=== PATIENT | female | born 1980 | race Caucasian/White ===

== ENCOUNTER → 2017-09-24 13:43 | Outpatient (REF) | payer MEDICAID, SELFPAY ==
[2017-09-24 17:08] LABS: Basophils # 0.1 K/mm3 (0-0.2); Basophils % 0.7 % (0.1-2.0); Eosinophils # 0.1 K/mm3 (0.0-0.4); Eosinophils % 0.7 % (0.1-12.0); Hematocrit 43.1 % (37.0-47.0); Hemoglobin 13.9 g/dL (12.2-16.2); Lymphocytes # 3.1 K/mm3 (0.7-4.5); Lymphocytes % 30.9 K/mm3 (10-50); Mean Corpuscular HGB Conc 32.2 g/dL (31.8-35.4); Mean Corpuscular Hemoglobin 29.8 pg (27.0-31.2); Mean Corpuscular Volume 92.5 fl (81-99); Mean Platelet Volume 10.7 fl (7.4-10.4); Monocytes # 0.4 K/mm3 (0.1-1.0); Monocytes % 4.2 % (1.7-9.3); Neutrophils # 6.3 K/mm3 (1.8-7.8); Neutrophils % 63.5 % (37.0-80.0); Platelet Count 311 K/mm3 (142-424); Red Blood Count 4.66 M/mm3 (4.20-5.40); Red Cell Distribution Width 13.9 % (11.5-17.5); White Blood Count 9.9 K/mm3 (4.8-10.8)
[2017-09-24 17:31] LABS: Alanine Aminotransferase 39 U/L (12-78); Albumin Level 4.3 gm/dL (3.4-5.0); Albumin/Globulin Ratio 1.1 (1.1-1.8); Alkaline Phosphatase 87 U/L (46-116); Anion Gap 14.8 mEq/L (5-15); Aspartate Amino Transferase 27 U/L (15-37); Bilirubin,Total 0.5 mg/dL (0.2-1.0); Blood Urea Nitrogen 15 mg/dL (7-18); Calcium 9.3 mg/dL (8.5-10.1); Carbon Dioxide 28 mmol/L (21.0-32.0); Chloride 101 mmol/L (98-107); Creatinine,Serum 1.35 mg/dL (0.55-1.02); Estimated Glomerular Filt Rate 44 ml/min (>60); Free T4 (Free Thyroxine) 1.29 ng/dl (0.76-1.46); GFR (African American) 53 ML/MIN (>60); Globulin 3.9 gm/dl (1.3-3.2); Glucose 108 mg/dL (74-106); Potassium 3.8 mmoL/L (3.5-5.1); Sodium 140 mmol/L (136-145); Total Protein,Serum 8.2 gm/dL (6.4-8.2)
[2017-09-24 18:26] LABS: Hemoglobin A1C 6.3 % (0.0-7.0)
[2017-09-24 19:23] LABS: Erythrocyte Sedimentation Rate 53 mm/hr (0-20)
[2017-09-27 10:47] LABS: Vitamin D 25 Hydroxy 22.5 ng/mL (30.0-100.0)
== END ==
LOC: LAB 13:43
PROVIDERS: Visit Provider Emergency Medicine
DX: R53.83 Other fatigue (principal)
CPT/HCPCS: 80053; 82652; 83036; 84439; 84443; 85025; 85651

== ENCOUNTER → 2017-09-29 15:03 | Outpatient (CLI) | payer MEDICAID, SELFPAY ==
[2017-10-01 11:17] LABS: Anti-Jo-1 <0.2 AI (0.0-0.9); Anti-Smith Antibody <0.2 AI (0.0-0.9); Antichromatin Antibodies <0.2 AI (0.0-0.9); Antiscleroderma-70 Antibodies <0.2 AI (0.0-0.9); RNP Antibodies 2.4 AI (0.0-0.9); Sjogren's Anti-SS-A <0.2 AI (0.0-0.9); Sjogren's Anti-SS-B <0.2 AI (0.0-0.9)
[2017-10-01 18:23] LABS: Anti-Centromere B Antibodies <0.2 AI (0.0-0.9); Anti-DNA (DS) Ab Qn <1 IU/mL (0-9)
[2017-10-01 18:24] LABS: RA Latex Turbid. <10.0 IU/mL (0.0-13.9)
[2017-10-02 06:14] LABS: dRVVT Confirm 1.5 ratio (0.8-1.2); dRVVT Mix 53.9 sec (0.0-47.0)
[2017-10-02 10:48] LABS: Anti-Cyclic Citrullinated Pept 4 units (0-19)
[2017-10-02 18:27] LABS: Lupus Reflex Interpretation Comment: (.); dRVVT 59.7 sec (0.0-47.0)
== END ==
PROVIDERS: PCP Emergency Medicine; Visit Provider Emergency Medicine
DX: R70.0 Elevated erythrocyte sedimentation rate (principal); L65.9 Nonscarring hair loss, unspecified
CPT/HCPCS: 36415; 85613; 86038; 86141; 86431

== ENCOUNTER 2017-10-17 15:32 | Emergency (ER) | payer MEDICAID, SELFPAY ==
[2017-10-17 15:58] VITALS: BP 109/52; PULSE 78; RESP 18; TEMP 36.9; O2SAT 98; BMI 42.9
--- NOTE | 2017-10-17 16:05 | XR_ITS ---
XR chest 2V HISTORY: ITS.REASON: RIGHT SHOULDER ORDERING PHYSICIAN: Amairani Kapoor MD PATIENT AGE: 37 years COMPARISON: 07/03/2016 FINDINGS: The cardiomediastinal silhouette and pulmonary vascularity are within normal limits. The lungs are clear without infiltrates, suspicious nodules, or pleural effusions. No acute bony abnormalities. IMPRESSION: Negative chest, no acute finding
--- NOTE | 2017-10-17 16:06 | XR_ITS ---
XR shoulder RT min 2V HISTORY: ITS.REASON: PAIN TO SHOULDER ORDERING PHYSICIAN: Amairani Kapoor MD PATIENT AGE: 37 years COMPARISON: None FINDINGS: No fracture or dislocation. No lytic or blastic change. There is normal mineralization. There is mild subacromial stenosis which may result in impingement symptomatology IMPRESSION: Mild subacromial stenosis otherwise negative right shoulder
--- NOTE | 2017-10-17 16:20 | HMH.EDGENADL ---
ED Disposition Clinical Impression: Muscle strain, Lupus (systemic lupus erythematosus) Disposition: Home, Self-Care Condition on Discharge: Good Additional Instructions: 1- rest. 2- icy hot 3- use flexeril. 4- start steroids. 5- see pcp in am . Referrals: Mook Hoang MD [Primary Care Provider] - - Critical Care Critical Care Time: No Attestation: On 10/17/17, the high probability of a clinically significant, sudden or life threatening deterioration of the following system(s) required my full and direct attention, intervention and personal management. The time I documented below is in addition to time spent performing reported procedures but includes the following listed in this critical care notation. Medical Decision Making - Medical Records Medical records reviewed: Yes: I reviewed the patient's medical records. Vital Signs: 10/17/17 15:58 Temperature 98.5 F Temperature Source Oral Pulse Rate [Right Brachial] 78 Respiratory Rate 18 Blood Pressure [Right Arm] 109/52 Blood Pressure Mean [Right Arm] 71 Blood Pressure Source [Right Arm] Automatic Cuff Blood Pressure Position [Right Arm] Sitting 02 Sat by Pulse Oximetry 98 Oxygen Delivery Method Room Air - Lab Data Lab results reviewed: Yes: I reviewed the patient's lab results. Lab Results 10/17/17 16:20: WBC 5.0, RBC 3.97 L, Hgb 12.1 L, Hct 35.8 L, MCV 90.2, MCH 30.5, MCHC 33.8, RDW 13.5, Plt Count 217, MPV 9.5, Neut % (Auto) 55.3, Lymph % (Auto) 38.2, [place] % (Auto) 4.5, Eos % (Auto) 1.4, Baso % (Auto) 0.5, Neut # (Auto) 2.8, Lymph # (Auto) 1.9, [place] # (Auto) 0.2, Eos # (Auto) 0.1, Baso # (Auto) 0.0 10/17/17 16:20: Sodium 141, Potassium 4.0, Chloride 104, Carbon Dioxide 30, Anion Gap 11.0, BUN 12, Creatinine 1.09 H, Estimated Creat Clear 60, Estimated GFR 56 L, Est GFR ( Amer) 68, Glucose 149 H, Calcium 8.7, Total Bilirubin 0.4, AST 21, ALT 39, Alkaline Phosphatase 64, Total Creatine Kinase 100, CK-MB (CK-2) < 0.5, CK-MB (CK-2) Rel Index 0.5, Troponin I < 0.02, Total Protein 7.5, Albumin 3.6, Globulin 3.9 H, Albumin/Globulin Ratio 0.9 L 10/17/17 16:20: Sodium 141, Potassium 4.0, Chloride 104, Carbon Dioxide 28, Anion Gap 13.0, BUN 12, Creatinine 1.15 H, Estimated Creat Clear 57, Estimated GFR 53 L, Est GFR ( Amer) 64, Glucose 151 H, Calcium 8.7, Total Bilirubin 0.4, AST 23, ALT 44, Alkaline Phosphatase 66, Total Protein 7.8, Albumin 3.7, Globulin 4.1 H, Albumin/Globulin Ratio 0.9 L Result diagrams: 10/17/17 16:20 10/17/17 16:20 Orders (Tests/Meds): ED MEDICATIONS Discontinued Medications Generic Name Dose Route Start Last Admin Trade Name Freq PRN Reason Stop Dose Admin Methylprednisolone Sodium Succinate 125 mg 10/17/17 16:25 10/17/17 16:29 Solu-Medrol 125mg/2ml Vial IV 10/17/17 16:26 125 mg ONCE ONE Administration ORDERS Category Date Time Status Chest XR 2 view (NOT portable) [XR chest 2V] Stat Exams 10/17/17 16:05 Taken XR shoulder RT min 2V Stat Exams 10/17/17 16:06 Taken 12-lead EKG Request [ECG Request by /Carlos Alberto] Stat Y 10/17/17 16:12 Ordered - ECG Data Tracing #1 I reviewed this ECG and interpreted as documented below: Normal sinus rhythm 93/min no acute finding. ECG initial impression date: 10/17/17 ECG initial impression time: 16:23 - Mukesh Inquiry Pt receiving controlled substance: No Mukesh was queried for this patient: No Medical Decision Making Narrative: I discussed with the patient the need for rest IcyHot and use of her Flexeril. General Adult HPI - General Chief complaint: PAIN Stated complaint: neck to shoulder pain Mode of Arrival: Ambulatory Limitations: No Limitations Description of Symptoms (Recalled from ER Triage Doc. by RN): SHOULDER PAIN - History of Present Illness HPI narrative: 89 years old white female was recently diagnosed with lupus. She developed right shoulder blade pain a week ago and continued to do weight lift
--- NOTE | 2017-10-17 16:24 | ED_ITS ---
ED Disposition Clinical Impression: Muscle strain, Lupus (systemic lupus erythematosus) Disposition: Home, Self-Care Condition on Discharge: Good Additional Instructions: 1- rest. 2- icy hot 3- use flexeril. 4- start steroids. 5- see pcp in am . Referrals: Mook Hoang MD [Primary Care Provider] - - Critical Care Critical Care Time: No Attestation: On 10/17/17, the high probability of a clinically significant, sudden or life threatening deterioration of the following system(s) required my full and direct attention, intervention and personal management. The time I documented below is in addition to time spent performing reported procedures but includes the following listed in this critical care notation. Medical Decision Making - Medical Records Medical records reviewed: Yes: I reviewed the patient's medical records. Vital Signs: 10/17/17 15:58 Temperature 98.5 F Temperature Source Oral Pulse Rate [Right Brachial] 78 Respiratory Rate 18 Blood Pressure [Right Arm] 109/52 Blood Pressure Mean [Right Arm] 71 Blood Pressure Source [Right Arm] Automatic Cuff Blood Pressure Position [Right Arm] Sitting 02 Sat by Pulse Oximetry 98 Oxygen Delivery Method Room Air - Lab Data Lab results reviewed: Yes: I reviewed the patient's lab results. Lab Results 10/17/17 16:20: WBC 5.0, RBC 3.97 L, Hgb 12.1 L, Hct 35.8 L, MCV 90.2, MCH 30.5 , MCHC 33.8, RDW 13.5, Plt Count 217, MPV 9.5, Neut % (Auto) 55.3, Lymph % (Auto ) 38.2, [place] % (Auto) 4.5, Eos % (Auto) 1.4, Baso % (Auto) 0.5, Neut # (Auto) 2.8, Lymph # (Auto) 1.9, [place] # (Auto) 0.2, Eos # (Auto) 0.1, Baso # (Auto) 0.0 10/17/17 16:20: Sodium 141, Potassium 4.0, Chloride 104, Carbon Dioxide 30, Anion Gap 11.0, BUN 12, Creatinine 1.09 H, Estimated Creat Clear 60, Estimated GFR 56 L, Est GFR ( Amer) 68, Glucose 149 H, Calcium 8.7, Total Bilirubin 0.4, AST 21, ALT 39, Alkaline Phosphatase 64, Total Creatine Kinase 100, CK-MB (CK-2) < 0.5, CK-MB (CK-2) Rel Index 0.5, Troponin I < 0.02, Total Protein 7.5, Albumin 3.6, Globulin 3.9 H, Albumin/Globulin Ratio 0.9 L 10/17/17 16:20: Sodium 141, Potassium 4.0, Chloride 104, Carbon Dioxide 28, Anion Gap 13.0, BUN 12, Creatinine 1.15 H, Estimated Creat Clear 57, Estimated GFR 53 L, Est GFR ( Amer) 64, Glucose 151 H, Calcium 8.7, Total Bilirubin 0.4, AST 23, ALT 44, Alkaline Phosphatase 66, Total Protein 7.8, Albumin 3.7, Globulin 4.1 H, Albumin/Globulin Ratio 0.9 L Result diagrams: 10/17/17 16:20 10/17/17 16:20 Orders (Tests/Meds): ED MEDICATIONS Discontinued Medications Generic Name Dose Route Start Last Admin Trade Name Freq PRN Reason Stop Dose Admin Methylprednisolone Sodium Succinate 125 mg 10/17/17 16:25 10/17/17 16:29 Solu-Medrol 125mg/2ml Vial IV 10/17/17 16:26 125 mg ONCE ONE Administration ORDERS Category Date Time Status Chest XR 2 view (NOT portable) [XR chest 2V] Stat Exams 10/17/17 16:05 Taken XR shoulder RT min 2V Stat Exams 10/17/17 16:06 Taken 12-lead EKG Request [ECG Request by /Carlos Alberto] Stat Y 10/17/17 16:12 Ordered - ECG Data Tracing #1 I reviewed this ECG and interpreted as documented below: Normal sinus rhythm 93/min no acute finding. ECG initial impression date: 10/17/17 ECG initial impression time: 16:23 - Mukesh Inquiry
[2017-10-17 16:38] LABS: Basophils % 0.5 % (0.1-2.0); Eosinophils # 0.1 K/mm3 (0.0-0.4); Eosinophils % 1.4 % (0.1-12.0); Hematocrit 35.8 % (37.0-47.0); Hemoglobin 12.1 g/dL (12.2-16.2); Lymphocytes # 1.9 K/mm3 (0.7-4.5); Lymphocytes % 38.2 K/mm3 (10-50); Mean Corpuscular HGB Conc 33.8 g/dL (31.8-35.4); Mean Corpuscular Hemoglobin 30.5 pg (27.0-31.2); Mean Corpuscular Volume 90.2 fl (81-99); Mean Platelet Volume 9.5 fl (7.4-10.4); Monocytes # 0.2 K/mm3 (0.1-1.0); Monocytes % 4.5 % (1.7-9.3); Neutrophils # 2.8 K/mm3 (1.8-7.8); Neutrophils % 55.3 % (37.0-80.0); Platelet Count 217 K/mm3 (142-424); Red Blood Count 3.97 M/mm3 (4.20-5.40); Red Cell Distribution Width 13.5 % (11.5-17.5)
[2017-10-17 16:44] LABS: Alanine Aminotransferase 44 U/L (12-78); Albumin Level 3.7 gm/dL (3.4-5.0); Albumin/Globulin Ratio 0.9 (1.1-1.8); Alkaline Phosphatase 66 U/L (46-116); Aspartate Amino Transferase 23 U/L (15-37); Bilirubin,Total 0.4 mg/dL (0.2-1.0); Blood Urea Nitrogen 12 mg/dL (7-18); Calcium 8.7 mg/dL (8.5-10.1); Carbon Dioxide 28 mmol/L (21.0-32.0); Chloride 104 mmol/L (98-107); Creatinine Clearance Estimated 57 mL/min (0-300); Creatinine,Serum 1.15 mg/dL (0.55-1.02); Estimated Glomerular Filt Rate 53 ml/min (>60); GFR (African American) 64 ML/MIN (>60); Globulin 4.1 gm/dl (1.3-3.2); Glucose 151 mg/dL (74-106); Sodium 141 mmol/L (136-145); Total Protein,Serum 7.8 gm/dL (6.4-8.2)
[2017-10-17 16:59] LABS: Alanine Aminotransferase 39 U/L (12-78); Albumin Level 3.6 gm/dL (3.4-5.0); Albumin/Globulin Ratio 0.9 (1.1-1.8); Alkaline Phosphatase 64 U/L (46-116); Aspartate Amino Transferase 21 U/L (15-37); Bilirubin,Total 0.4 mg/dL (0.2-1.0); Blood Urea Nitrogen 12 mg/dL (7-18); Calcium 8.7 mg/dL (8.5-10.1); Carbon Dioxide 30 mmol/L (21.0-32.0); Chloride 104 mmol/L (98-107); Creatine Kinase 100 U/L (26-192); Creatinine Clearance Estimated 60 mL/min (0-300); Creatinine,Serum 1.09 mg/dL (0.55-1.02); Estimated Glomerular Filt Rate 56 ml/min (>60); GFR (African American) 68 ML/MIN (>60); Globulin 3.9 gm/dl (1.3-3.2); Glucose 149 mg/dL (74-106); Sodium 141 mmol/L (136-145); Total Protein,Serum 7.5 gm/dL (6.4-8.2); Troponin I < 0.02 ng/ml (0.00-0.06)
[2017-10-17 17:00] VITALS: BP 124/80; PULSE 101; RESP 18; TEMP 36.7; O2SAT 98
[2017-10-17 17:02] LABS: CKMB Relative Index 0.5 U/L (0-4.0); Creatine Kinase MB < 0.5 mg/ml (0.0-3.6)
== END 2017-10-17 17:00 | disposition left against medical advice (07) ==
PROVIDERS: Emergency Provider Emergency Medicine; Family Provider Emergency Medicine; PCP Emergency Medicine
DX: S16.1XXA Strain of muscle, fascia and tendon at neck level, initial encounter (principal); M32.9 Systemic lupus erythematosus, unspecified; E11.65 Type 2 diabetes mellitus with hyperglycemia; Z79.84 Long term (current) use of oral hypoglycemic drugs; Z79.899 Other long term (current) drug therapy; J45.909 Unspecified asthma, uncomplicated; K21.9 Gastro-esophageal reflux disease without esophagitis; F30.9 Manic episode, unspecified; E78.5 Hyperlipidemia, unspecified; I10 Essential (primary) hypertension
CPT/HCPCS: 71046; 73030; 80053; 82550; 82553; 84484; 85025; 93005; 93041; 96374; 99282

== ENCOUNTER 2017-10-22 06:01 | Day surgery (SDC) | payer MEDICAID, SELFPAY ==
[2017-10-19 12:47] VITALS: BMI 47.8
[2017-10-22] VITALS (13 sets, daily range): BP systolic 110–153; BP diastolic 72–87; PULSE 74–92; RESP 12–18; TEMP 36.5–37.4; O2SAT 93–97
[2017-10-22 06:29] LABS: Urine Pregnancy, HCG Qual. Negative (Negative)
[2017-10-22 06:48] LABS: POC Glucose,Bedside 107 mg/dL (70-110)
--- NOTE | 2017-10-22 06:54 | P.PN_ITS ---
[facility] Anesthesia Checklist - Patient Identification Patient Identification: Arm Band, Verbal (Name & ) - Structural Data Admitted From: Home Planned Operative Procedure/s: d and c , ablation Consent for Planned Operative Procedure(s) Verified: Yes Verified Documents: Surgical Consent, History and Physical - NPO Status Verified Time NPO: 00:00 - Chart Verification Results Verified: CBC, BMP, ECG - Additional verifications Patient : No Anesthesia Reactions: No Hx Blood Transfusions: No Blood Transfusion Reaction: No Cephalosporin Allergy: No - Cardiovascular Assessment Heart Sounds: S1 & S2 Pulse Strength: Baseline Pulse Rhythm: Regular Peripheral Edema: No - Airway Assessment C-Spine Mobility Assessed: Yes TMJ Mobility Assessed: Yes Dentition: Good Dentition - Neurological Assessment Level of Consciousness: Awake, Alert, Appropriate Hx Seizures: No Numbness or tingling in extremities: No - Anesthesia Plan Anesthesia Risk discussed: Yes ASA Class: II Anesthesia Type: General [facility] Anesthesia HX I have reviewed the patient's past medical history: Yes Medical History: Reports:: Asthma, Congenital Heart Disease, Depression, Diabetes Mellitus Type 2 (recent wt loss-off metformin x 1 month), Gastroesophageal Reflux Disease(GERD), Heart Murmur, Hepatitis, Hyperlipidemia, Hypertension Denies:: Cancer, Diabetes Mellitus Type 1, Internal Pacemaker, MRSA, Seizures Other Medical History: Reports: Anemia, Fibromyalgia, Hypothyroidism, Thyroid Disease Laterality Cases: Left: Breast Biopsy, Lumpectomy Other Surgeries: Yes: Colonoscopy. No: Pacemaker Amputation: No Fractures: Yes (left leg 2 yrs ago) *Family Hx:: Cancer, Stroke, Heart Attack, Hyperlipidemia, Thyroid Disorder
--- NOTE | 2017-10-22 07:49 | HMH.OPNOTE ---
Date of procedure: 10/22/17 Pre-op Diagnosis:: Menorrhagia, irregular menstrual cycle Post-op diagnosis:: same Procedure performed:: Hysteroscopy, dilation and curettage, NovaSure ablation Surgeon:: Zan Arteaga MD RN PERIOPERATIVE:: Nicola Griffith Anesthesia: LMA Estimated blood loss (mL): 50 Clinical Note:: She is a 37-year-old lady who complains of extremely heavy periods as well as irregular periods. She had an ultrasound as well as an endometrial biopsy that was normal. After having discussed the risks and benefits we like to perform a hysteroscopy, D&C and NovaSure ablation. Operative findings:: She had a normal-appearing endometrial cavity that was thin. The uterus is anteverted and slightly bulky. Sounded to 9 cm. The width was 3.5 cm and the length of the endometrial cavity was 5.5 cm. Operative note:: She was taken to the operating room where LMA anesthesia was found to be adequate. She was prepped and draped in normal sterile fashion in the lithotomy position. A weighted speculum was placed in the vagina and the anterior lip of the cervix was grasped with a tenaculum. Ricketts dilators used to dilate the cervix to approximately 6 mm. I then inserted a hysteroscope into the uterine cavity and findings were as previously dictated. I then sounded the endometrial cavity to 9 cm. I then performed a gentle curettage. The NovaSure device was then placed within the endometrial cavity and the cavity length was found to be 5.5 cm. The width was 3.5 cm. The device was run through its program. I then further inspected the endometrial cavity and it appeared to be completely charred. I then injected approximately 30 cc of 0.5% ropivacaine at the 3 o'clock position, 5 o'clock position 7:00 and 9:00 positions. The patient tolerated the procedure well and was taken to the recovery room in excellent condition. All sponge instrument counts were correct. The estimated blood loss was less than 50 cc. Condition: stable Disposition: PACU Specimens:: Endometrial curettings Complications:: None
--- NOTE | 2017-10-22 07:59 | P.PN_ITS ---
[facility] Anesthesia Record Part I Intake, IV Amount: 700 Estimated blood loss (mL): 50 Urine output (mL): 0 Blood Pressure: 129/87 SaO2: 96 Pulse Rate: 92 Respiratory Rate: 12 Temperature: 97.9 F Patient is:: Awake, Stable Stable to PACU at:: 07:55
--- NOTE | 2017-10-22 07:59 | P.PN_ITS ---
[facility] Anesthesia Record Part II Discharge Time: 08:25 Destination: [facility] PACU nurse assessment reviewed?: Yes Patient Condition:: Good Anesthesia Complications:: None
--- NOTE | 2017-10-22 07:59 | HMH.ANESII ---
[facility] Anesthesia Record Part II Discharge Time: 08:25 Destination: [facility] PACU nurse assessment reviewed?: Yes Patient Condition:: Good Anesthesia Complications:: None
[2017-10-22 10:25] LABS: POC Glucose,Bedside 103 mg/dL (70-110)
--- NOTE | 2017-10-22 10:53 | PC.NURSE ---
[place] on cool when pt nauseated with cool wash cloth on pt's forehead
== END 2017-10-22 09:46 | disposition home or self-care (01) ==
LOC: OR 06:02
PROVIDERS: Family Provider Emergency Medicine; PCP Emergency Medicine; Visit Provider Nurse Practitioner Obstetrics & Gynecology
PROC: 0U5B8ZZ Destruction of Endometrium, Via Natural or Artificial Opening Endoscopic (ICD-10-PCS; CPT 58563; principal; 2017-10-22 07:30)
DX: N92.1 Excessive and frequent menstruation with irregular cycle (principal)
CPT/HCPCS: 58563; 81025; 82962; 96374; J2405

== ENCOUNTER → 2017-11-23 12:03 | Outpatient (CLI) | payer MEDICAID, SELFPAY ==
[2017-11-22 12:40] LABS: Basophils # 0.1 K/mm3 (0-0.2); Basophils % 0.7 % (0.1-2.0); Eosinophils # 0.1 K/mm3 (0.0-0.4); Eosinophils % 1.3 % (0.1-12.0); Hematocrit 36.2 % (37.0-47.0); Lymphocytes # 3.1 K/mm3 (0.7-4.5); Lymphocytes % 36.8 K/mm3 (10-50); Mean Corpuscular HGB Conc 33.1 g/dL (31.8-35.4); Mean Corpuscular Hemoglobin 30.3 pg (27.0-31.2); Mean Corpuscular Volume 91.6 fl (81-99); Mean Platelet Volume 10.2 fl (7.4-10.4); Monocytes # 0.4 K/mm3 (0.1-1.0); Monocytes % 4.6 % (1.7-9.3); Neutrophils # 4.8 K/mm3 (1.8-7.8); Neutrophils % 56.6 % (37.0-80.0); Platelet Count 232 K/mm3 (142-424); Red Blood Count 3.95 M/mm3 (4.20-5.40); Red Cell Distribution Width 13.7 % (11.5-17.5); White Blood Count 8.5 K/mm3 (4.8-10.8)
[2017-11-22 13:17] LABS: Alanine Aminotransferase 34 U/L (12-78); Albumin Level 3.3 gm/dL (3.4-5.0); Alkaline Phosphatase 77 U/L (46-116); Aspartate Amino Transferase 12 U/L (15-37); Bilirubin,Direct 0.1 mg/dL (0.0-0.2); Bilirubin,Total 0.1 mg/dL (0.2-1.0); Blood Urea Nitrogen 16 mg/dL (7-18); Carbon Dioxide 26 mmol/L (21.0-32.0); Chloride 104 mmol/L (98-107); Creatinine,Serum 1.06 mg/dL (0.55-1.02); Estimated Glomerular Filt Rate 58 ml/min (>60); GFR (African American) 70 ML/MIN (>60); Glucose 165 mg/dL (74-106); Sodium 138 mmol/L (136-145); Total Protein,Serum 7.1 gm/dL (6.4-8.2)
[2017-11-22 13:21] LABS: HCG Qualitative, Serum Negative (Negative)
== END ==
PROVIDERS: Visit Provider Nurse Practitioner Obstetrics & Gynecology
DX: Z01.818 Encounter for other preprocedural examination (principal); Z79.899 Other long term (current) drug therapy
CPT/HCPCS: 36415; 80048; 80076; 84703; 85025

== ENCOUNTER 2017-12-11 20:57 | Emergency (ER) | payer MEDICAID, SELFPAY ==
[2017-12-11 21:06] VITALS: BP 128/71; PULSE 83; RESP 20; TEMP 36.6; O2SAT 98; BMI 47.7
--- NOTE | 2017-12-11 21:11 | HMH.EDUTC ---
[facility] [place] Disposition Clinical Impression: Pain around toenail, right foot Disposition: Home, Self-Care Condition on Discharge: Good Instructions: Ingrown Toenail, DI for Ingrown Toenail Additional Instructions: Follow up with Dr Garcia as advised in [facility] today Due to diagnoses of Diabetes, dont be picking at toenail or trying to remove it by yourself as you are putting yourself at risk for foot infection Use Bacitracin on skin beside toe as advised Return if needed Straight to ER if any redness, streaks or open wounds on feet Prescriptions: Bacitracin [Bacitracin Oint 0.9GM UDP] 1 each TP TID #30 packet Referrals: Makeda Garcia DPM [Physician] - Time of Disposition: 21:23 Medical Decision Making - Medical Records Medical records reviewed: Yes: I reviewed the patient's medical records. - Mukesh Inquiry Pt receiving controlled substance: No Mukesh was queried for this patient: No Vital Signs: 12/11/17 21:06 Temperature 97.9 F Temperature Source Temporal Artery Scan Pulse Rate [Right Brachial] 83 Respiratory Rate 20 Blood Pressure [Right Arm] 128/71 Blood Pressure Mean [Right Arm] 90 Blood Pressure Source [Right Arm] Automatic Cuff Blood Pressure Position [Right Arm] Sitting 02 Sat by Pulse Oximetry 98 Oxygen Delivery Method Room Air - Reevaluation(s) Time: 21:28 Reevaluation #1: Patient educated that due to diagnoses of Diabetes she should not be digging at toe nail as this puts her at risk for foot infection Advised her that it would be in her best interest to see Dr Garcia for her feet/toe problems to make sure that every precaution is taken to avoid infection [facility] [place] HPI - General Stated complaint: big toe right ft pain Time Seen by Provider: 12/11/17 21:05 - History of Present Illness Provider Complaint: Patient states that she has been having issues with the nail around her right great toe now for over a year. State that toe will get sore and skin around nail will get red and feel sore. State that for last couple of days she has been picking at the skin around the toe because she feels like she had an ingrown toenail States that she couldn't see it well but was afraid that it may be infected - Related Data Home Medications Medication Instructions Recorded Confirmed bupropion HCl SR 150 mg tablet,12 150 mg PO QDAY 09/24/17 hr sustained-release carvedilol 6.25 mg tablet 6.25 mg PO BID 09/24/17 cetirizine 10 mg tablet 10 mg PO QDAY 09/24/17 cyclobenzaprine 10 mg tablet 10 mg PO TID 09/24/17 diclofenac 1 % topical gel 2 g TOPICAL QID 09/24/17 glipizide 10 mg tablet 10 mg PO QDAY 09/24/17 10/22/17 lovastatin 20 mg tablet 20 mg PO QHS 09/24/17 10/22/17 montelukast 10 mg tablet 10 mg PO QHS 09/24/17 10/22/17 pantoprazole 40 mg tablet,delayed 40 mg PO QAM 09/24/17 10/22/17 release Ergocalciferol (Vitamin D2) 50,000 unit PO QWEEK 10/19/17 10/22/17 [Vitamin D2] Gabapentin [Neurontin 600mg 600 mg PO TID 10/19/17 10/22/17 tablet] Previous Rx's Medication Instructions Recorded ranitidine 75 mg tablet 75 mg PO BID PRN 30 Days #60 tab 09/24/17 spironolactone 100 mg tablet 100 mg PO QAM #30 tab 11/22/17 valsartan 320 1 tab PO QDAY 90 Days #90 tab 11/22/17 mg-hydrochlorothiazide 25 mg tablet levothyroxine 88 mcg tablet 88 mcg PO DAILY 90 Days #90 tab 11/25/17 Bacitracin [Bacitracin Oint 0.9GM 1 each TP TID #30 packet 12/11/17 UDP] Allergies Allergy/AdvReac Type Severity Reaction Status Date / Time Fish Containing Products Allergy Intermediate I-HIVES Verified 09/24/17 08:31 [From SEAFOOD (F/D)] mold [MOLD] Allergy Unknown Verified 09/24/17 08:31 aspirin [ASPIRIN] AdvReac Mild NA-NAUSEA/V Verified 09/24/17 08:31 OMITING From SEAFOOD (F/D) Allergy Intermediate I-HIVES Uncoded 09/24/17 08:31 MUSHROOM Allergy Intermediate I-HIVES Uncoded 09/24/17 08:31 [facility] History I have reviewed the patient's past medical history: Yes Medical History: Reports:: Asth
--- NOTE | 2017-12-11 21:18 | ED_ITS ---
[facility] [place] Clinical Impression: Pain around toenail, right foot Disposition: Home, Self-Care Condition on Discharge: Good Instructions: Ingrown Toenail, DI for Ingrown Toenail Additional Instructions: Follow up with Dr Garcia as advised in [facility] today Due to diagnoses of Diabetes, dont be picking at toenail or trying to remove it by yourself as you are putting yourself at risk for foot infection Use Bacitracin on skin beside toe as advised Return if needed Straight to ER if any redness, streaks or open wounds on feet Prescriptions: Bacitracin [Bacitracin Oint 0.9GM UDP] 1 each TP TID #30 packet Referrals: Makeda Garcia DPM [Physician] - Time of Disposition: 21:23 Medical Decision Making - Medical Records Medical records reviewed: Yes: I reviewed the patient's medical records. - Mukesh Inquiry Pt receiving controlled substance: No Mukesh was queried for this patient: No Vital Signs: 12/11/17 21:06 Temperature 97.9 F Temperature Source Temporal Artery Scan Pulse Rate [Right Brachial] 83 Respiratory Rate 20 Blood Pressure [Right Arm] 128/71 Blood Pressure Mean [Right Arm] 90 Blood Pressure Source [Right Arm] Automatic Cuff Blood Pressure Position [Right Arm] Sitting 02 Sat by Pulse Oximetry 98 Oxygen Delivery Method Room Air - Reevaluation(s) Time: 21:28 Reevaluation #1: Patient educated that due to diagnoses of Diabetes she should not be digging at toe nail as this puts her at risk for foot infection Advised her that it would be in her best interest to see Dr Garcia for her feet/toe problems to make sure that every precaution is taken to avoid infection [facility] [place]PI - General Stated complaint: big toe right ft pain Time Seen by Provider: 12/11/17 21:05 - History of Present Illness Provider Complaint: Patient states that she has been having issues with the nail around her right great toe now for over a year. State that toe will get sore and skin around nail will get red and feel sore. State that for last couple of days she has been picking at the skin around the toe because she feels like she had an ingrown toenail States that she couldn't see it well but was afraid that it may be infected - Related Data Home Medications Medication Instructions Recorded Confirmed bupropion HCl SR 150 mg tablet,12 150 mg PO QDAY 09/24/17 hr sustained-release carvedilol 6.25 mg tablet 6.25 mg PO BID 09/24/17 cetirizine 10 mg tablet 10 mg PO QDAY 09/24/17 cyclobenzaprine 10 mg tablet 10 mg PO TID 09/24/17 diclofenac 1 % topical gel 2 g TOPICAL QID 09/24/17 glipizide 10 mg tablet 10 mg PO QDAY 09/24/17 10/22/17 lovastatin 20 mg tablet 20 mg PO QHS 09/24/17 10/22/17 montelukast 10 mg tablet 10 mg PO QHS 09/24/17 10/22/17 pantoprazole 40 mg tablet,delayed 40 mg PO QAM 09/24/17 10/22/17 release Ergocalciferol (Vitamin D2) 50,000 unit PO QWEEK 10/19/17 10/22/17 [Vitamin D2] Gabapentin [Neurontin 600mg 600 mg PO TID 10/19/17 10/22/17 tablet] Previous Rx's Medication Instructions Recorded ranitidine 75 mg tablet 75 mg PO BID PRN 30 Days #60 tab 09/24/17 spironolactone 100 mg tablet 100 mg PO QAM #30 tab 11/22/17 valsartan 320 1 tab PO QDAY 90 Days #90 tab 11/22/17 mg-hydrochlorothiazide 25 mg tablet levothyroxine 88 mcg tablet 88 mcg PO DAILY 90 Days #90 tab 03
[2017-12-11 21:21] VITALS: BP 128/71; PULSE 83; RESP 20; TEMP 36.6; O2SAT 98
== END 2017-12-11 21:30 | disposition home or self-care (01) ==
PROVIDERS: Emergency Provider Nurse Practitioner; Family Provider Emergency Medicine; PCP Emergency Medicine
DX: L03.031 Cellulitis of right toe (principal); E11.9 Type 2 diabetes mellitus without complications; Z79.84 Long term (current) use of oral hypoglycemic drugs; J45.909 Unspecified asthma, uncomplicated; K21.9 Gastro-esophageal reflux disease without esophagitis; E78.5 Hyperlipidemia, unspecified; I10 Essential (primary) hypertension; E03.9 Hypothyroidism, unspecified; F17.210 Nicotine dependence, cigarettes, uncomplicated
CPT/HCPCS: 99201

== ENCOUNTER → 2017-12-27 16:38 | Outpatient (REF) | payer MEDICAID, SELFPAY ==
[2017-12-27 18:29] LABS: Basophils % 0.4 % (0.1-2.0); Eosinophils # 0.1 K/mm3 (0.0-0.4); Eosinophils % 1.4 % (0.1-12.0); Hematocrit 37.1 % (37.0-47.0); Hemoglobin 11.9 g/dL (12.2-16.2); Lymphocytes # 2.7 K/mm3 (0.7-4.5); Lymphocytes % 42.7 K/mm3 (10-50); Mean Corpuscular HGB Conc 32.1 g/dL (31.8-35.4); Mean Corpuscular Hemoglobin 29.6 pg (27.0-31.2); Mean Corpuscular Volume 92.4 fl (81-99); Mean Platelet Volume 10.2 fl (7.4-10.4); Monocytes # 0.3 K/mm3 (0.1-1.0); Monocytes % 5.4 % (1.7-9.3); Neutrophils # 3.2 K/mm3 (1.8-7.8); Neutrophils % 50.1 % (37.0-80.0); Platelet Count 238 K/mm3 (142-424); Red Blood Count 4.01 M/mm3 (4.20-5.40); Red Cell Distribution Width 13.8 % (11.5-17.5); White Blood Count 6.3 K/mm3 (4.8-10.8)
[2017-12-27 19:49] LABS: Alanine Aminotransferase 44 U/L (12-78); Albumin Level 3.7 gm/dL (3.4-5.0); Albumin/Globulin Ratio 1.1 (1.1-1.8); Alkaline Phosphatase 67 U/L (46-116); Anion Gap 13.3 mEq/L (5-15); Aspartate Amino Transferase 29 U/L (15-37); Bilirubin,Total 0.4 mg/dL (0.2-1.0); Blood Urea Nitrogen 12 mg/dL (7-18); Calcium 9.2 mg/dL (8.5-10.1); Carbon Dioxide 27 mmol/L (21.0-32.0); Chloride 103 mmol/L (98-107); Cholesterol 186 mg/dL (140-200); Creatinine,Serum 1.02 mg/dL (0.55-1.02); Estimated Glomerular Filt Rate 60 ml/min (>60); Free T4 (Free Thyroxine) 1.29 ng/dl (0.76-1.46); GFR (African American) 73 ML/MIN (>60); Globulin 3.4 gm/dl (1.3-3.2); Glucose 189 mg/dL (74-106); HDL Cholesterol 47 mg/dL (29-89); LDL Cholesterol 110 mg/dL (0-130); Potassium 4.3 mmoL/L (3.5-5.1); Sodium 139 mmol/L (136-145); Thyroid Stimulating Hormone 1.54 uIU/ml (0.358-3.740); Total Protein,Serum 7.1 gm/dL (6.4-8.2); Triglycerides 145 mg/dL (30-200); VLDL Cholesterol 29 mg/dL (0-40)
[2017-12-29 07:17] LABS: Hep A Ab, IgM Negative (Negative); Hepatitis B Core Antibody IgM Negative (Negative); Hepatitis B Surface Antigen Negative (Negative)
[2017-12-29 11:19] LABS: Creatinine, Urine 102.2 mg/dL (Not Estab.); Microalbumin, Urine 16.7 ug/mL (Not Estab.)
[2017-12-31 12:37] LABS: Hepatitis C Antibody <0.1 s/co ratio (0.0-0.9); Vitamin B12 414 pg/mL (232-1245); Vitamin D 25 Hydroxy 28.4 ng/mL (30.0-100.0)
[2017-12-31 12:40] LABS: Microalbumin, Urine 16.4 ug/mL (Not Estab.)
== END ==
LOC: LAB 16:38
PROVIDERS: Visit Provider Emergency Medicine
DX: E78.5 Hyperlipidemia, unspecified (principal); E11.9 Type 2 diabetes mellitus without complications; K21.9 Gastro-esophageal reflux disease without esophagitis; R53.83 Other fatigue; Z79.899 Other long term (current) drug therapy; B19.9 Unspecified viral hepatitis without hepatic coma
CPT/HCPCS: 80053; 80061; 80074; 82043; 82570; 82607; 82652; 83036; 84439; 84443; 85025

== ENCOUNTER → 2018-05-17 14:39 | Outpatient (CLI) | payer MEDICAID, SELFPAY | PROVIDERS: Visit Provider Emergency Medicine | DX: R53.83 Other fatigue (principal) ==

== ENCOUNTER → 2018-05-24 12:53 | Outpatient (CLI) | payer MEDICAID, SELFPAY ==
[2018-05-24 13:22] LABS: Basophils # 0.1 K/mm3 (0-0.2); Basophils % 0.6 % (0.1-2.0); Eosinophils # 0.1 K/mm3 (0.0-0.4); Eosinophils % 1.2 % (0.1-12.0); Lymphocytes # 2.5 K/mm3 (0.7-4.5); Lymphocytes % 29.4 K/mm3 (10-50); Mean Corpuscular HGB Conc 32.3 g/dL (31.8-35.4); Mean Corpuscular Hemoglobin 29.5 pg (27.0-31.2); Mean Corpuscular Volume 91.3 fl (81-99); Mean Platelet Volume 9.1 fl (7.4-10.4); Monocytes # 0.4 K/mm3 (0.1-1.0); Monocytes % 5.2 % (1.7-9.3); Neutrophils # 5.3 K/mm3 (1.8-7.8); Neutrophils % 63.5 % (37.0-80.0); Platelet Count 236 K/mm3 (142-424); Red Blood Count 4.06 M/mm3 (4.20-5.40); Red Cell Distribution Width 13.8 % (11.5-17.5); White Blood Count 8.3 K/mm3 (4.8-10.8)
[2018-05-24 15:01] LABS: Alanine Aminotransferase 41 U/L (12-78); Albumin Level 3.5 gm/dL (3.4-5.0); Alkaline Phosphatase 98 U/L (46-116); Anion Gap 11.6 mEq/L (5-15); Aspartate Amino Transferase 17 U/L (15-37); Bilirubin,Total 0.5 mg/dL (0.2-1.0); Blood Urea Nitrogen 12 mg/dL (7-18); Calcium 8.7 mg/dL (8.5-10.1); Carbon Dioxide 28 mmol/L (21.0-32.0); Chloride 106 mmol/L (98-107); Creatinine,Serum 0.95 mg/dL (0.55-1.02); Estimated Glomerular Filt Rate 65 ml/min (>60); Free T4 (Free Thyroxine) 1.07 ng/dl (0.76-1.46); GFR (African American) 79 ML/MIN (>60); Globulin 3.5 gm/dl (1.3-3.2); Glucose 212 mg/dL (74-106); Potassium 4.6 mmoL/L (3.5-5.1); Sodium 141 mmol/L (136-145); Thyroid Stimulating Hormone 1.45 uIU/ml (0.358-3.740)
[2018-05-27 18:32] LABS: Vitamin D 25 Hydroxy 18.3 ng/mL (30.0-100.0)
== END ==
PROVIDERS: PCP Emergency Medicine; Visit Provider Emergency Medicine
DX: R53.83 Other fatigue (principal)
CPT/HCPCS: 36415; 80053; 82652; 84439; 84443; 85025

== ENCOUNTER → 2018-06-06 14:34 | Outpatient (CLI) | payer MEDICAID, SELFPAY ==
--- NOTE | 2018-06-06 14:38 | XR_ITS ---
XR DEXA axial skeleton HISTORY: ITS.REASON: screening ORDERING PHYSICIAN: Mook Hoang MD PATIENT AGE: 38 years COMPARISON: None FINDINGS: The BMD measured at the left femoral neck is 1.245 g/cm squared with a T score of 1.5. This is considered Normal according to the World Health Organization criteria. Fracture risk is Low. Treatment is advised. L1 L4 density has a T score of 2.2 IMPRESSION: Normal bone density with low fracture risk.
[2018-06-06 14:50] VITALS: PULSE 88; PULSE 92
== END ==
PROVIDERS: PCP Emergency Medicine; Visit Provider Emergency Medicine
DX: M85.9 Disorder of bone density and structure, unspecified (principal); J40 Bronchitis, not specified as acute or chronic
CPT/HCPCS: 77080; 94060; 94640

== ENCOUNTER → 2018-10-18 14:47 | Outpatient (CLI) | payer MEDICAID, SELFPAY ==
[2018-10-18 15:23] LABS: Amphetamine/Metha Screen,Urine Negative ng/mL (<1000); Barbiturates Screen,Urine Negative ng/mL (<200); Benzodiazepines Screen,Urine Negative ng/mL (<200); Cannabinoid Screen,Urine Negative ng/mL (<50); Cocaine Screen,Urine Negative ng/mL (<300); Methadone Screen,Urine Negative ng/mL (<300); Opiate Screen,Urine Positive ng/mL (<300); Phencyclidine Screen,Urine Negative ng/mL (<25)
[2018-10-28 07:16] LABS: Codeine Positive (.); Hydrocodone Negative (Cutoff=100); Hydromorphone Negative (Cutoff=100); Morphine Positive (.)
[2018-10-28 10:52] LABS: Opiates Positive (.)
== END ==
PROVIDERS: Visit Provider Nurse Practitioner Family
DX: Z79.899 Other long term (current) drug therapy (principal)
CPT/HCPCS: 80305; 80361; 80365; G0480

== ENCOUNTER → 2018-11-24 17:56 | Outpatient (CLI) | payer MEDICAID, SELFPAY ==
[2018-11-24 19:19] LABS: Alanine Aminotransferase 34 U/L (12-78); Albumin Level 4.2 gm/dL (3.4-5.0); Albumin/Globulin Ratio 1.1 (1.1-1.8); Alkaline Phosphatase 76 U/L (46-116); Anion Gap 14.6 mEq/L (5-15); Aspartate Amino Transferase 22 U/L (15-37); Bilirubin,Total 0.4 mg/dL (0.2-1.0); Blood Urea Nitrogen 13 mg/dL (7-18); Carbon Dioxide 27 mmol/L (21.0-32.0); Chloride 101 mmol/L (98-107); Chol/HDL Ratio 3.5 (1-3.5); Cholesterol 181 mg/dL (140-200); Creatinine,Serum 1.01 mg/dL (0.55-1.02); Estimated Glomerular Filt Rate 61 ml/min (>60); Free Thyroxine Index 2.8 ug/dL (5.93-13.13); GFR (African American) 73 ML/MIN (>60); Glucose 126 mg/dL (74-106); HDL Cholesterol 52 mg/dL (29-89); LDL Cholesterol 98 mg/dL (0-130); Potassium 4.6 mmoL/L (3.5-5.1); Sodium 138 mmol/L (136-145); T4 (Thyroxine) 9.1 ug/dl (4.7-13.3); Total Protein,Serum 8.2 gm/dL (6.4-8.2); Triglycerides 153 mg/dL (30-200); Triiodothryronine (T3) Uptake 31 % (31-39); VLDL Cholesterol 31 mg/dL (0-40)
[2018-11-24 19:26] LABS: Hemoglobin A1C 6.7 % (0.0-7.0)
[2018-11-28 08:19] LABS: Vitamin D 25 Hydroxy 51.3 ng/mL (30.0-100.0)
== END ==
PROVIDERS: Visit Provider Nurse Practitioner Family
DX: R53.82 Chronic fatigue, unspecified (principal); M79.7 Fibromyalgia; F32.9 Major depressive disorder, single episode, unspecified; F41.9 Anxiety disorder, unspecified; E03.9 Hypothyroidism, unspecified; E11.9 Type 2 diabetes mellitus without complications; Z79.84 Long term (current) use of oral hypoglycemic drugs; D64.9 Anemia, unspecified
CPT/HCPCS: 80053; 80061; 82652; 83036; 84436; 84443; 84479

== ENCOUNTER → 2018-12-20 14:03 | Outpatient (CLI) | payer MEDICAID, SELFPAY ==
[2018-12-20 15:40] LABS: Alanine Aminotransferase 43 U/L (12-78); Albumin Level 3.6 gm/dL (3.4-5.0); Alkaline Phosphatase 65 U/L (46-116); Aspartate Amino Transferase 20 U/L (15-37); Bilirubin,Direct 0.1 mg/dL (0.0-0.2); Bilirubin,Indirect 0.4 mg/dL (0.0-0.9); Bilirubin,Total 0.5 mg/dL (0.2-1.0); Total Protein,Serum 6.9 gm/dL (6.4-8.2)
== END ==
PROVIDERS: Visit Provider Nurse Practitioner Obstetrics & Gynecology
DX: L67.8 Other hair color and hair shaft abnormalities (principal); R53.83 Other fatigue
CPT/HCPCS: 36415; 80076

== ENCOUNTER → 2019-01-03 15:32 | Outpatient (CLI) | payer MEDICAID, SELFPAY ==
--- NOTE | 2019-01-03 15:51 | XR_ITS ---
EXAM: XR cervical spine 5V HISTORY: Chronic neck pain ITS.REASON: pain ORDERING PHYSICIAN: Odilia Ramos APRN PATIENT AGE: 38 years COMPARISON: 03/27/2016 FINDINGS: There is straightening of the cervical lordosis. No malalignment. No fracture or dislocation. No lytic or blastic change. The disc spaces are well-preserved. No foraminal narrowing is apparent. IMPRESSION: Mild reversal of cervical lordosis which may be due to patient positioning or muscle spasm otherwise negative cervical spine
--- NOTE | 2019-01-03 15:51 | XR_ITS ---
EXAM: XR thoracic spine 3V HISTORY: ITS.REASON: pain Comparison: None FINDINGS: Normal alignment. No fracture or dislocation. No lytic or blastic change. There is slight decrease in the disc spaces in the midthoracic spine with minimal anterior osteophytes. No malalignment. IMPRESSION: Minimal degenerative disc disease thoracic spine
--- NOTE | 2019-01-03 15:51 | XR_ITS ---
EXAM: XR lumbar spine min 4V HISTORY: ITS.REASON: pain ORDERING PHYSICIAN: Odilia Ramos APRN PATIENT AGE: 38 years COMPARISON: None FINDINGS: Normal alignment. No fracture or dislocation. No lytic or blastic change. No significant degenerative change. The disc spaces are preserved. IMPRESSION: No acute finding
[2019-01-03 17:05] LABS: Erythrocyte Sedimentation Rate 32 mm/hr (0-20)
[2019-01-03 18:09] LABS: C-Reactive Protein < 0.2 mg/L (0.0-0.9)
[2019-01-03 19:07] LABS: Amphetamine/Metha Screen,Urine Negative ng/mL (<1000); Barbiturates Screen,Urine Negative ng/mL (<200); Benzodiazepines Screen,Urine Negative ng/mL (<200); Cannabinoid Screen,Urine Negative ng/mL (<50); Cocaine Screen,Urine Negative ng/mL (<300); Methadone Screen,Urine Negative ng/mL (<300); Opiate Screen,Urine Negative ng/mL (<300); Phencyclidine Screen,Urine Negative ng/mL (<25)
[2019-01-05 14:26] LABS: Anti-Centromere B Antibodies <0.2 AI (0.0-0.9); Anti-Jo-1 <0.2 AI (0.0-0.9); Anti-Smith Antibody <0.2 AI (0.0-0.9); Antichromatin Antibodies <0.2 AI (0.0-0.9); Antiscleroderma-70 Antibodies <0.2 AI (0.0-0.9); RNP Antibodies 0.5 AI (0.0-0.9); Sjogren's Anti-SS-A <0.2 AI (0.0-0.9); Sjogren's Anti-SS-B <0.2 AI (0.0-0.9)
[2019-01-06 08:08] LABS: Anti-Cyclic Citrullinated Pept 5 units (0-19); Anti-DNA (DS) Ab Qn <1 IU/mL (0-9); RA Latex Turbid. <10.0 IU/mL (0.0-13.9)
== END ==
PROVIDERS: Visit Provider Nurse Practitioner Family
DX: M25.50 Pain in unspecified joint (principal); M54.2 Cervicalgia; M54.9 Dorsalgia, unspecified; Z79.899 Other long term (current) drug therapy
CPT/HCPCS: 36415; 72050; 72072; 72110; 80305; 85651; 86140; 86200; 86225; 86235; 86431

== ENCOUNTER → 2019-01-04 14:01 | Outpatient (CLI) | payer MEDICAID, SELFPAY ==
[2019-01-07 19:07] LABS: PTT-LA 39.8 sec (0.0-51.9); dRVVT 42.9 sec (0.0-47.0)
[2019-01-07 20:34] LABS: Lupus Reflex Interpretation Comment: (.)
== END ==
PROVIDERS: Visit Provider Emergency Medicine
DX: M32.9 Systemic lupus erythematosus, unspecified (principal)
CPT/HCPCS: 36415; 85613

== ENCOUNTER 2019-07-12 17:25 | Observation (INO) ==
--- NOTE | 2019-07-12 17:30 | Emergency Department Note ---
ED Disposition Clinical Impression: Seizure, Hypocalcemia Disposition: Admitted as Observation Condition on Discharge: Fair - Critical Care Critical Care Time: No Attestation: On , the high probability of a clinically significant, sudden or life threatening deterioration of the following system(s) required my full and direct attention, intervention and personal management. The time I documented below is in addition to time spent performing reported procedures but includes the following listed in this critical care notation. Medical Decision Making - Mukesh Inquiry Pt receiving controlled substance: Yes (ativan for seizure) Mukesh was queried for this patient: Yes Reference #:: [id number] Risks and benefits of using a controlled substance: were not discussed with pt by me Comment: 8 rxs. gabapentin and tylenol #3 Vital Signs: 07/12/19 17:25 07/12/19 18:13 Temperature 99.1 F Temperature Source Oral Pulse Rate [Right Radial] 99 H 93 H Respiratory Rate 18 18 Blood Pressure [Right Arm] 134/69 104/71 L Blood Pressure Mean [Right Arm] 90 82 02 Sat by Pulse Oximetry 98 100 Oxygen Delivery Method Room Air - Lab Data Lab Results 07/12/19 17:45: Urine Color Yellow, Urine Appearance Clear, Urine pH 5.5, Ur Specific [place] >= 1.030, Urine Protein 1+, Urine Glucose (UA) Negative, Urine Ketones Negative, Urine Blood Trace-l, Urine Nitrate Negative, Urine Bilirubin Negative, Urine Urobilinogen 0.2, Ur Leukocyte Esterase Negative, Urine RBC Occasional, Urine WBC 3-5, Ur Squamous Epith Cells 5-10, Urine Bacteria 1+, Hyaline Casts Occasional 07/12/19 17:45: WBC 5.6, RBC 4.10 L, Hgb 12.4, Hct 39.0, MCV 95.1, MCH 30.2, MCHC 31.8, RDW 14.6, Plt Count 266, MPV 9.6, Neut % (Auto) 55.7, Lymph % (Auto) 36.2, [place] % (Auto) 6.0, Eos % (Auto) 1.6, Baso % (Auto) 0.5, Neut # (Auto) 3.1, Lymph # (Auto) 2.0, [place] # (Auto) 0.3, Eos # (Auto) 0.1, Baso # (Auto) 0.0 07/12/19 17:45: Urine HCG, Qual Negative 07/12/19 17:45: Sodium 144, Potassium 3.1 L, Chloride 113 H, Carbon Dioxide 18 L , Anion Gap 16.1 H, BUN 7, Creatinine 0.93, Estimated Creat Clear 118, Estimated GFR 66, Est GFR ( Amer) 80, Glucose 115 H, Calcium 6.4 L, Total Bilirubin 0.3, AST 11 L, ALT 18, Alkaline Phosphatase 44 L, Troponin I < 0.02, Total Protein 5.4 L, Albumin 2.5 L, Globulin 2.9, Albumin/Globulin Ratio 0.9 L, Plasma/Serum Alcohol 0 07/12/19 17:45: Urine Opiates Screen Negative, Urine Methadone Screen Negative, Ur Barbituates Screen Negative, Ur Phencyclidine Scrn Negative, Ur Amphetamines Screen Negative, U Benzodiazepines Scrn Negative, Urine Cocaine Screen Negative, U Marijuana (THC) Screen Negative 07/12/19 17:45: Lactate 3.4 H 07/12/19 17:45: Magnesium 1.4 Result diagrams: 07/12/19 17:45 07/12/19 17:45 Orders (Tests/Meds): ED MEDICATIONS Generic Name Dose Route Start Last Admin Trade Name Freq PRN Reason Stop Dose Admin Sodium Chloride 1,000 mls @ 999 mls/hr 07/12/19 17:45 07/12/19 18:09 Sod Chlor 0.9% 1000ml Bag IV 07/12/19 18:45 999 mls/hr .Q1H1M AHSAN Administration Sodium Chloride 10 ml 07/12/19 17:46 Sodium Chloride 0.9% 10ml Vial IV 08/11/19 17:45 NEEDED PRN to Dilute Lorazepam inj Discontinued Medications Generic Name Dose Route Start Last Admin Trade Name Freq PRN Reason Stop Dose Admin Calcium Gluconate 1,000 mg/ 35 mls @ 100 mls/hr 07/12/19 18:55 07/12/19 19:04 Sodium Chloride IV 07/12/19 19:15 100 mls/hr ONCE ONE Administration Lorazepam 1 mg 07/12/19 17:46 07/12/19 18:09 Ativan 2mg/Ml Vial IV 07/12/19 17:47 1 mg ONCE ONE Administration Potassium Chloride 40 meq 07/12/19 19:29 07/12/19 19:34 Klor-Con 20meq Tablet PO 07/12/19 19:30 40 meq ONCE ONE Administration ORDERS Category Date Time Status Phosphorous Stat Lab 07/12/19 17:45 Received Blood Culture Stat Micro 07/12/19 17:45 Received - Radiology Data #1 Image(s): Chest Image Reviewed: Yes I reviewed the patient's radiology image Preliminary Findings: Normal/NAD - CT Data CT Scan: Head Time Received: 18:51 ([facility] fax) ED CT Reviewed: Yes: I have viewed the radiologist's interpretation Findings Narrative: No acute intracranial process. Low-lying cerebellar tonsils suspicious for possible Chiari I malformation. - ECG Data Tracing #1 EKG interpreted by Subhash Howell MD: Rhythm: sinus Rate: 95 [place]: normal Ectopy: none Conduction: normal ST Segment Changes: none T Wave Changes: none Q Waves: none No evidence of acute ischemia or injury Normal electrocardiogram - Physician Consults Physician Consulted: Viktor Time: 20:22 Reason -: Admission Comment/Response: Agrees to admit the patient to the hospital. We discussed the patient's clinical information, including history, exam, laboratory and radiology results and ED course. Per hospital procedure, I will write temporary bridge inpatient orders on the patient. Specific orders requested by the admitting physician: recheck calcium at midnight Medical Decision Narrative: Potential seizure causing medications: Seroquel, bupropion, Prozac. It appears that Seroquel was started on 06/15/2019. General Adult HPI - General Chief complaint: Seizure Time Seen by Provider: 07/12/19 17:35 Mode of Arrival: EMS Limitations: No Limitations Description of Symptoms (Recalled from ER Triage Doc. by RN): PT WAS STANDING IN THE KITCHEN AND SHE FELL TO THE FLOOR IN SEIZURE LIKE ACTIVITY WITH HER DAUGHTER WITNESSING. PT DENIES HX OF SEIZURES. - History of Present Illness HPI narrative: Brought in by ambulance for seizure. Patient states she was standing in the kitchen and the next thing she knew she woke up on the ground. She says she did not feel ill prior to the event. No recent illness or new medications. No history of seizures. She has dried blood on her lips, apparent tongue bites. She was incontinent of urine. She complains of a mild frontal headache. Does not think she hit her head. No neck pain. Fingerstick blood sugar 125 during transport. - Related Data Home Medications Medication Instructions Recorded Confirmed pantoprazole 40 mg tablet,delayed 40 mg PO QAM 09/24/17 07/12/19 release Carvedilol [Carvedilol 6.25mg Tab] See Rx Instructions .ROUTE .COMPLEX 07/12/19 07/12/19 Cholecalciferol (Vitamin D3) 1,000 unit PO DAILY 07/12/19 07/12/19 [Vitamin D3 1,000 Unit Cap] Cyclobenzaprine HCl See Rx Instructions .ROUTE .COMPLEX 07/12/19 07/12/19 [Cyclobenzaprine 10mg Tab] Ergocalciferol (Vitamin D2) 50,000 unit PO QWEEK 07/12/19 07/12/19 [Drisdol] Fluoxetine HCl [Prozac] 40 mg PO DAILY 07/12/19 07/12/19 Gabapentin 600 mg PO TID 07/12/19 07/12/19 Levothyroxine Sodium [Tirosint] 100 mcg PO DAILY 07/12/19 07/12/19 Loratadine [Allergy Relief] See Rx Instructions .ROUTE .COMPLEX 07/12/19 07/12/19 Lovastatin See Rx Instructions .ROUTE .COMPLEX 07/12/19 07/12/19 Montelukast Sodium [Singulair] See Rx Instructions .ROUTE .COMPLEX 07/12/19 07/12/19 Nystatin 1 applic TOPICAL BID 07/12/19 07/12/19 Quetiapine Fumarate [Seroquel 50 50 mg PO QHS 07/12/19 07/12/19 mg Tablets] buPROPion HCl [Wellbutrin Xl] 300 mg PO DAILY 07/12/19 07/12/19 Previous Rx's Medication Instructions Recorded oxymetazoline 0.05 % nasal spray 2 spray INTRANASAL Q12H PRN 3 Days 10/20/18 #15 ml losartan 100 1 tab PO DAILY #90 tab 11/28/18 mg-hydrochlorothiazide 25 mg tablet spironolactone 100 mg tablet 100 mg PO DAILY #30 tab 04/28/19 glipizide 10 mg tablet 10 mg PO DAILY #90 tab 05/16/19 ranitidine 75 mg tablet 75 mg PO BID #180 tab 05/16/19 diclofenac 1 % topical gel 2 g TOPICAL QID #100 g 07/03/19 Allergies Allergy/AdvReac Type Severity Reaction Status Date / Time Fish Containing Products Allergy Intermediate I-HIVES Verified 07/12/19 17:30 [From SEAFOOD (F/D)] mold [MOLD] Allergy Unknown Verified 07/12/19 17:30 aspirin [ASPIRIN] AdvReac Mild NA-NAUSEA/V Verified 07/12/19 17:30 OMITING From SEAFOOD (F/D) Allergy Intermediate I-HIVES Uncoded 05/23/19 13:19 MUSHROOM Allergy Intermediate I-HIVES Uncoded 05/23/19 13:19 [facility] History - Hepatitis A Screen Drug use history?: No High risk sexual behaviors?: No History of sexually transmitted infection?: No Currently employed?: No Childcare worker?: No Do you have indoor plumbing?: Yes Do you have electricity?: Yes Attestation statement:: This patient has been screened for Hepatitis A risk factors. I have reviewed the patient's past medical history: Yes Medical History: Reports:: Asthma, Congenital Heart Disease, Depression, Di abetes Mellitus Type 2, Gastroesophageal Reflux Disease(GERD), Heart Murmur, Hepatitis, Hyperlipidemia, Hypertension Denies:: Cancer, Diabetes Mellitus Type 1, Internal Pacemaker, MRSA, Seizures Other Medical History: Reports: Anemia, Fibromyalgia, Hypothyroidism, Thyroid D isease. Denies: Blood Transfusion Reaction Laterality Cases: Right: Breast Biopsy, Lumpectomy Other Surgeries: Yes: Colonoscopy. No: Pacemaker Amputation: No Fractures: Yes (left leg 2 yrs ago) Comment: MESH SLING - Social History Smoking Status: Never smoker Alcohol Intake: never Substance Use Type: denies use, crack/cocaine Occupational Status: unemployed Housing: house Household Members: children - Psychiatric History Pschychiatric History:: Reports:: Depression Family Hx:: Cancer, Stroke, Heart Attack, Hyperlipidemia, Thyroid Disorder ROS Obtained: Yes All systems reviewed & no additional complaints - Constitutional Constitutional: Denies fever(s) - Eyes Eyes: Denies change in vision - ENT Ears, Nose, Mouth, and Throat: Denies nasal discharge, Denies sore throat - Cardiovascular Cardiovascular: Denies chest pain - Respiratory Respiratory: No cough, No dyspnea - Gastrointestinal Gastrointestingal: Denies: abdominal pain, diarrhea, nausea, vomiting - Neurologic Neurologic: Reports convulsions, Reports headache(s) Physical Exam - General General appearance: alert, in no apparent distress - Head Head exam: atraumatic, normocephalic - Eye Eye exam: Present: normal appearance, PERRL, EOMI - ENT ENT exam: Present: mucous membranes moist - Expanded ENT Exam Comment: Dried blood on lips. Superficial tongue bites bilaterally - Neck Neck exam: Present: normal inspection, full ROM, trachea midline. Absent: tenderness, meningismus - Chest Chest inspection: Present: normal inspection, symmetric chest wall rise - Respiratory Respiratory exam: Present: normal lung sounds bilaterally. Absent: respiratory distress - Cardiovascular Cardiovascular exam: Present: regular rate, normal rhythm, normal heart sounds - Abdominal Exam Abdominal exam: Present: soft, normal bowel sounds. Absent: distention, tenderness - Extremities Exam Extremities exam: Present: normal inspection - Neurological Exam Neurological exam: Present: alert, oriented X3, CN II-XII intact. Absent: motor sensory deficit - Psychiatric Psychiatric exam: Present: normal affect, normal mood - Skin Skin exam: Present: warm, dry
[2019-07-12 17:53] LABS: Microscopic, Urine URINE MICROSCOPIC (MICROSCOPIC)
[2019-07-12 17:58] LABS: Basophils % 0.5 % (0.1-2.0); Eosinophils # 0.1 K/mm3 (0.0-0.4); Eosinophils % 1.6 % (0.1-12.0); Hemoglobin 12.4 g/dL (12.2-16.2); Lymphocytes % 36.2 % (10-50); Mean Corpuscular HGB Conc 31.8 g/dL (31.8-35.4); Mean Corpuscular Volume 95.1 fl (81-99); Mean Platelet Volume 9.6 fl (7.4-10.4); Monocytes # 0.3 K/mm3 (0.1-1.0); Neutrophils # 3.1 K/mm3 (1.8-7.8); Neutrophils % 55.7 % (37.0-80.0); Platelet Count 266 K/mm3 (142-424); Red Cell Distribution Width 14.6 % (11.5-17.5); White Blood Count 5.6 K/mm3 (4.8-10.8)
[2019-07-12 18:00] LABS: Appearance,Urine CLEAR (Clear); Bilirubin,Urine Negative (Negative); Blood, Urine TRACE-L (Negative); Color,Urine YELLOW (Yellow); Glucose,Urine (UA) Negative (Negative); Ketones,Urine Negative (Negative); Leukocyte Esterase,Urine Negative (Negative); PH,Urine 5.5 (5.0-8.5); Protein,Urine 1+ (Negative); Specific Gravity, Urine >= 1.030 (1.005-1.030); Urobilinogen,Urine 0.2 EU/dl (0.2)
[2019-07-12 18:05] LABS: Amphetamine/Metha Screen,Urine Negative ng/mL (<1000); Barbiturates Screen,Urine Negative ng/mL (<200); Benzodiazepines Screen,Urine Negative ng/mL (<200); Cannabinoid Screen,Urine Negative ng/mL (<50); Cocaine Screen,Urine Negative ng/mL (<300); Methadone Screen,Urine Negative ng/mL (<300); Opiate Screen,Urine Negative ng/mL (<300); Phencyclidine Screen,Urine Negative ng/mL (<25)
[2019-07-12 18:47] LABS: Alanine Aminotransferase 18 U/L (12-78); Albumin Level 2.5 gm/dL (3.4-5.0); Albumin/Globulin Ratio 0.9 (1.1-1.8); Alkaline Phosphatase 44 U/L (46-116); Anion Gap 16.1 mEq/L (5-15); Aspartate Amino Transferase 11 U/L (15-37); Bacteria,Urine 1+ /lpf; Bilirubin,Total 0.3 mg/dL (0.2-1.0); Blood Urea Nitrogen 7 mg/dL (7-18); Carbon Dioxide 18 mmol/L (21.0-32.0); Chloride 113 mmol/L (98-107); Globulin 2.9 gm/dl (1.3-3.2); Glucose 115 mg/dL (74-106); Hyaline Casts,Urine Occasional #/lpf (0); RBC,Urine Occasional #/hpf (0-3); Sodium 144 mmol/L (136-145); Total Protein,Serum 5.4 gm/dL (6.4-8.2)
[2019-07-12 18:54] LABS: Calcium 6.4 mg/dL (8.5-10.1)
[2019-07-12 19:37] LABS: Ethyl Alcohol 0 mg/dL (0-99)
--- NOTE | 2019-07-12 23:31 | History & Physical Report ---
*Admission Date: 07/12/19 *Chief complaint: seizure *History of present illness: this wf was at home -she had a tonic - clonic sz episode-no prev sz -PT WAS STANDING IN THE KITCHEN AND SHE FELL TO THE FLOOR IN SEIZURE LIKE ACTIVITY WITH HER DAUGHTER WITNESSING. Brought in by ambulance for seizure. Patient states she was standing in the kitchen and the next thing she knew she woke up on the ground. She says she did not feel ill prior to the event. No recent illness or new medications. No history of seizures. She has dried blood on her lips, apparent tongue bites. She was incontinent of urine. She complains of a mild frontal headache. Does not think she hit her head. No neck pain. Fingerstick blood sugar 125 during transport.pt was admitted at this time [facility] History I have reviewed the patient's past medical history: Yes Medical History: Reports:: Asthma, Congenital Heart Disease, Depression, Diabetes Mellitus Type 2, Gastroesophageal Reflux Disease(GERD), Heart Murmur, Hepatitis, Hyperlipidemia, Hypertension Denies:: Cancer, Diabetes Mellitus Type 1, Internal Pacemaker, MRSA, Seizures *Have you ever received a pneumonia vaccine?: No (can't remeber if she has had it) *Have you received a flu vaccine this season?: No (does not want it upon either) Other Medical History: Reports: Anemia, Fibromyalgia, Hypothyroidism, Thyroid Disease. Denies: Blood Transfusion Reaction Laterality Cases: Right: Breast Biopsy, Lumpectomy Other Surgeries: Yes: Colonoscopy. No: Pacemaker Amputation: No Fractures: Yes (left leg 2 yrs ago) - *Social History Smoking Status: Never smoker Alcohol Intake: never Substance Use Type: denies use, crack/cocaine *Occupational Status:: unemployed Housing: house Household Members: children *Travel in the last 8 weeks: None - Psychiatric History Pschychiatric History:: Reports:: Depression Family Hx:: Cancer, Stroke, Heart Attack, Hyperlipidemia, Thyroid Disorder Review of Systems - Review of Systems Review of systems:: pertinent systems reviewed and negative unless documented below - Constitutional Denies headache(s) - Eyes Denies change in vision - ENT Denies change in voice - *Cardiovascular Denies chest pain with activity - *Respiratory Denies cough - *Gastrointestinal Denies abdominal pain - *Genitourinary Denies blood in urine - *Musculoskeletal Denies joint pain - Integumentary/Breasts Denies rash - *Neurologic Reports seizure-like activity, Reports headache(s) - Psychiatric Denies anxiety Meds Home Medications Medication Instructions Recorded Confirmed Type pantoprazole 40 mg tablet,delayed 40 mg PO QAM 09/24/17 07/12/19 History release oxymetazoline 0.05 % nasal spray 2 spray INTRANASAL Q12H PRN 3 Days 10/20/18 07/12/19 Rx #15 ml losartan 100 1 tab PO DAILY #90 tab 11/28/18 07/12/19 Rx mg-hydrochlorothiazide 25 mg tablet spironolactone 100 mg tablet 100 mg PO DAILY #30 tab 04/28/19 07/12/19 Rx glipizide 10 mg tablet 10 mg PO DAILY #90 tab 05/16/19 07/12/19 Rx ranitidine 75 mg tablet 75 mg PO BID #180 tab 05/16/19 07/12/19 Rx diclofenac 1 % topical gel 2 g TOPICAL QID #100 g 07/03/19 07/12/19 Rx Carvedilol [Carvedilol 6.25mg Tab] See Rx Instructions .ROUTE .COMPLEX 07/12/19 07/12/19 History Cholecalciferol (Vitamin D3) 1,000 unit PO DAILY 07/12/19 07/12/19 History [Vitamin D3 1,000 Unit Cap] Cyclobenzaprine HCl See Rx Instructions .ROUTE .COMPLEX 07/12/19 07/12/19 History [Cyclobenzaprine 10mg Tab] Ergocalciferol (Vitamin D2) 50,000 unit PO QWEEK 07/12/19 07/12/19 History [Drisdol] Fluoxetine HCl [Prozac] 40 mg PO DAILY 07/12/19 07/12/19 History Gabapentin 600 mg PO TID 07/12/19 07/12/19 History Levothyroxine Sodium [Tirosint] 100 mcg PO DAILY 07/12/19 07/12/19 History Loratadine [Allergy Relief] See Rx Instructions .ROUTE .COMPLEX 07/12/19 07/12/19 History Lovastatin See Rx Instructions .ROUTE .COMPLEX 07/12/19 07/12/19 History Montelukast Sodium [Singulair] See Rx Instructions .ROUTE .COMPLEX 07/12/19 07/12/19 History Nystatin 1 applic TOPICAL BID 07/12/19 07/12/19 History Quetiapine Fumarate [Seroquel 50 50 mg PO QHS 07/12/19 07/12/19 History mg Tablets] buPROPion HCl [Wellbutrin Xl] 300 mg PO DAILY 07/12/19 07/12/19 History Allergies Allergy/AdvReac Type Severity Reaction Status Date / Time mold [MOLD] Allergy Severe Anaphylaxis Verified 07/12/19 22:20 Fish Containing Products Allergy Intermediate I-HIVES Verified 07/12/19 17:30 [From SEAFOOD (F/D)] aspirin [ASPIRIN] AdvReac Mild NA-NAUSEA/V Verified 07/12/19 17:30 OMITING From SEAFOOD (F/D) Allergy Intermediate I-HIVES Uncoded 05/23/19 13:19 MUSHROOM Allergy Intermediate I-HIVES Uncoded 05/23/19 13:19 Exam Vital signs and Labs for Last 24 Hours: Temp Pulse Resp BP Pulse Ox 98.4 F 90 16 123/74 100 07/12/19 21:34 07/12/19 21:34 07/12/19 21:34 07/12/19 21:34 07/12/19 21:34 Laboratory Results - last 24 hr 07/12/19 17:45: Urine Color Yellow, Urine Appearance Clear, Urine pH 5.5, Ur Specific [place] >= 1.030, Urine Protein 1+, Urine Glucose (UA) Negative, Urine Ketones Negative, Urine Blood Trace-l, Urine Nitrate Negative, Urine Bilirubin Negative, Urine Urobilinogen 0.2, Ur Leukocyte Esterase Negative, Urine RBC Occasional, Urine WBC 3-5, Ur Squamous Epith Cells 5-10, Urine Bacteria 1+, Hyaline Casts Occasional 07/12/19 17:45: WBC 5.6, RBC 4.10 L, Hgb 12.4, Hct 39.0, MCV 95.1, MCH 30.2, MCHC 31.8, RDW 14.6, Plt Count 266, MPV 9.6, Neut % (Auto) 55.7, Lymph % (Auto) 36.2, [place] % (Auto) 6.0, Eos % (Auto) 1.6, Baso % (Auto) 0.5, Neut # (Auto) 3.1, Lymph # (Auto) 2.0, [place] # (Auto) 0.3, Eos # (Auto) 0.1, Baso # (Auto) 0.0 07/12/19 17:45: Urine HCG, Qual Negative 07/12/19 17:45: Sodium 144, Potassium 3.1 L, Chloride 113 H, Carbon Dioxide 18 L , Anion Gap 16.1 H, BUN 7, Creatinine 0.93, Estimated Creat Clear 118, Estimated GFR 66, Est GFR ( Amer) 80, Glucose 115 H, Calcium 6.4 L, Total Bilirubin 0.3, AST 11 L, ALT 18, Alkaline Phosphatase 44 L, Troponin I < 0.02, Total Protein 5.4 L, Albumin 2.5 L, Globulin 2.9, Albumin/Globulin Ratio 0.9 L, Plasma/Serum Alcohol 0 07/12/19 17:45: Urine Opiates Screen Negative, Urine Methadone Screen Negative, Ur Barbituates Screen Negative, Ur Phencyclidine Scrn Negative, Ur Amphetamines Screen Negative, U Benzodiazepines Scrn Negative, Urine Cocaine Screen Negative, U Marijuana (THC) Screen Negative 07/12/19 17:45: Lactate 3.4 H 07/12/19 17:45: Magnesium 1.4 07/12/19 17:45: Phosphorus 2.8 07/12/19 22:11: POC Glucose 87 07/12/19 22:17: Lactate 1.1 I & O for Last 24 hours: Intake & Output 07/10/19 07/11/19 07/12/19 07/13/19 11:59 11:59 11:59 11:59 Intake Total 1100 / 1100 Output Total 650 / 650 Balance 450 / 450 Weight 267 lb 6 oz - Constitutional no acute distress - *Routine HEENT Exam Head: Present: normocephalic Eye: Present: EOMI, PERRL ENT: Present: mucous membranes dry - *Routine Neck Exam Present: supple - *Routine Respiratory Exam Present: CTA bilaterally - *Routine Cardiovascular Exam Present: RRR - *Routine Abdominal Exam Present: soft - *Routine Extremities Exam Present: full ROM - *Routine Skin Exam Present: intact - *Routine Neurological Exam Present: alert, oriented X3, CN II-XII intact - Routine Psychiatric Exam Present: normal affect Assessment and Plan (1) Hypocalcemia Current visit: Yes Status: Acute Category: Medical Code(s): E83.51 - Hypocalcemia (2) Seizure Current visit: Yes Status: Acute Category: Medical Code(s): R56.9 - Unspecified convulsions (3) PTSD (post-traumatic stress disorder) Current visit: Yes Status: Acute Category: Medical Code(s): F43.10 - Post- traumatic stress disorder, unspecified (4) Depression Current visit: Yes Status: Acute Qualifiers: Depression Type: major depressive disorder Major depression recurrence: unspecified whether recurrent Active/Remission status: currently active Major depression episode severity: moderate Qualified Code(s): F32.1 - Major depressive disorder, single episode, moderate Category: Medical Code(s): F32.9 - Major depressive disorder, single episode, unspecified (5) Obesity Current visit: Yes Status: Acute Qualifiers: Obesity type: due to excess calories Obesity classification: adult class 3 (BMI >= 40) Serious obesity comorbidity presence: with serious comorbidity Body mass index: BMI 45.0-49.9 Qualified Code(s): E66.01 - Morbid (severe) obesity due to excess calories; Z68.42 - Body mass index (BMI) 45.0-49.9, adult Category: Medical Code(s): E66.9 - Obesity, unspecified
--- NOTE | 2019-07-13 07:31 | Pharmacy Consult Notes ---
[facility] Pharmacy VTE Monitoring - Patient Demographics Admission date: 07/12/19 Report Date: 07/13/19 Time: 07:30 Allergies/Adverse Reactions: Patient Allergies mold [MOLD] Allergy (Severe, Verified 07/12/19 22:20) Anaphylaxis Fish Containing Products [From SEAFOOD (F/D)] Allergy (Intermediate, Verified 07/12/19 17:30) I-HIVES aspirin [ASPIRIN] Adverse Reaction (Mild, Verified 07/12/19 17:30) NA-NAUSEA/VOMITING From SEAFOOD (F/D) Allergy (Intermediate, Uncoded 05/23/19 13:19) I-HIVES MUSHROOM Allergy (Intermediate, Uncoded 05/23/19 13:19) I-HIVES Height: 1.57 m Weight: 121.279 kg Patient Problems: Current Active Problems Seizure (Acute) Hypocalcemia (Acute) PTSD (post-traumatic stress disorder) (Acute) Depression (Acute) Obesity (Acute) - VTE Risk Labs: VTE Related Lab Results Hgb 12.4 g/dL (12.2-16.2) 07/12/19 17:45 Hct 39.0 % (37.0-47.0) 07/12/19 17:45 Plt Count 266 K/mm3 (142-424) 07/12/19 17:45 BUN 7 mg/dL (7-18) 07/12/19 17:45 Creatinine 0.93 mg/dL (0.55-1.02) 07/12/19 17:45 Estimated Creat Clear 118 mL/min (50-200) 07/12/19 17:45 Was VTE Risk Assessment Performed: Yes VTE Score: 6 VTE Risk Level: Moderate Risk Clinical Trial Participant: No - Prophylaxis VTE Prophylaxis Ordered?: Yes Types of VTE Prophylaxis: TEDS Knee High
[2019-07-13 07:40] LABS: Anion Gap 11.8 mEq/L (5-15); Calcium 8.5 mg/dL (8.5-10.1)
--- OUTSIDE RECORDS SUMMARY | 2019-07-13 12:46 | External Medical Summary | Continuity of Care Document ---
:1980 Author Organization [facility] Address [address] [facility] [address] [place] [address] Phone Care Team Providers Name Role Phone Socrates Waddell Attending Provider Cecilia Hoang Primary Care Provider Cecilia Hoang Attending Provider Allergies, Adverse Reactions, Alerts Allergen Type Severity Reaction Last Verified Status Updated mold Allergy Severe Anaphylaxis Yes Active Fish Allergy Moderate I-HIVES Yes Active Containing Products aspirin Adverse Mild NA-NAUSEA/VOMIT Yes Acti ve Reaction ING From SEAFOOD Allergy Moderate I-HIVES No Active (F/D) MUSHROOM Allergy Moderate I-HIVES No Active Medications Medication Status Dose Units Route Sig Qty Days Start End Instruct ions Date Date Pantoprazole Active 40 MG Oral Daily September 8:39am Oxymetazoline Active 2 SPRAY Intranasa Q12H 15 09 October Hcl l 2018 2:47pm Losartan/[place] Active 1 TAB Oral Daily November chlorothiazide 2018 3:04pm Spironolactone Active 100 MG Oral Daily April 28, 2019 8:38am Glipizide Active 10 MG Oral Daily 2018 8:03am Ranitidine Hcl Active 75 MG Oral Twice a 180 2018 8:04am Diclofenac Active 2 G Topical Four June Sodium times a 2018 10:53am Bupropion Hcl Active 300 MG Oral Daily July 12, 2019 7:52pm Carvedilol Active 6.25 MG Oral Twice a July CLAUDIO E 1 TABLET day , BY MOUTH 2018 TWICE DAILY 7:52pm FOR HEART DISEASE Cholecalcifero Active 1000 UNIT Oral Daily July (Vitamin D3) 2018 7:52pm Cyclobenzaprin Active 10 MG Oral Three July T BARTOLO ONE e Hcl times a , TABLET BY day as 2019 MOUTH 3 TIMES needed 7:52pm A DAY NEEDED FOR MUSCLE RELAXANT *MAY CAUSE DROWSINESS* Ergocalciferol Active 22846 UNIT Oral every July (Vitamin D2) week 2018 7:52pm Fluoxetine Hcl Active 40 MG Oral Daily July 12, 2019 7:52pm Gabapentin Active 600 MG Oral Three July times a 2018 7:52pm Levothyroxine Active 100 MCG Oral Daily July 7:52pm Loratadine Active 10 MG Oral Daily July TAKE ONE , TABLET BY 2019 MOUTH EVERY 7:52pm DAY Lovastatin Active 20 MG Oral At July TAKE ONE bedtime , TABLET BY nightly 2019 MOUTH EVERY 7:52pm NIGHT AT BEDTIME FOR CHOLESTEROL Montelukast Active 10 MG Oral At July TAKE ONE Sodium bedtime , TABLET BY nightly 2019 MOUTH AT 7:52pm BEDTIME FOR ALLERGIES Nystatin Active 1 APPLIC POWDER Twice a July 7:52pm Quetiapine Active 50 MG Oral every July Fumarate day at , bedtime 2018 7:52pm Problems Active Problems Medical Problem Onset Date Status Lupus (systemic lupus Active erythematosus) Gingival abscess Active PTSD (post-traumatic stress Active disorder) Abnormal bleeding in menstrual Active cycle Fatigue Active Muscle strain Active Acute sinusitis Active Cough Active Depression Active Hyperglycemia Active Osteoarthritis, knee Active Seizure Active Degenerative disc disease, thoracic Acti ve Pain around toenail, right foot Active Vitamin D deficiency May, Active Obesity Active Contact dermatitis Active Hypocalcemia Active Procedures Procedure Date Performed Status CT head/brain wo con July 12, 2019 completed XR chest portable July 12, 2019 completed ECG initial Besson July 12, 2019 completed Blood Culture July 12, 2019 active Relevant Diagnostic Tests and/or Laboratory Data Laboratory Results Test Date/Time Result Interpretation Reference Result Perfo rming Range Comment Site White Blood November 5.6 K/mm3 4.8-10.8 [facility], [address] [place] [address] 36 E Count 2018 Luis Enrique [place] [address] 5:45pm Red Blood Count July 4.10 M/mm3 4.20-5.40 [facility], [address] [place] [address] 36 [address] 2018 [place] [address] 5:45pm Hemoglobin July 12.4 g/dL 12.2-16.2 [facility], [address] [place] [address] 36 [address] [place] [address] 5:45pm Hematocrit July 39.0 % 37.0-47.0 [facility], [address] [place] [address] 36 [address] 2018 [place] [address] 5:45pm Mean July 95.1 fl 81-99 [facility], [address] [place] [address] E Corpuscular 2018 Yuki CH[place] [address] Volume 5:45pm Mean July 30.2 pg 27.0-31.2 [facility], [address] [place] [address] E Corpuscular 2018 Cynarpan CHEN [address] Hemoglobin 5:45pm Mean July 31.8 g/dL 31.8-35.4 [facility], [address] [place] [address] E Corpuscular 2018 Yuki CHEN 48705 Hemoglobin 5:45pm Concent Red Cell July 14.6 % 11.5-17.5 [facility], [address] [place] [address] 36 E Distribution 2018 Rosa Maria jessica APR[place] [address] Width 5:45pm Platelet Count July 266 K/mm3 142-424 [facility], [address] [place] [address] 36 [address] 2018 [place] [address] 5:45pm Mean Platelet July 9.6 fl 7.4-10.4 [facility], [address] [place] [address] 36 E Volume 2018 [place] [address] 5:45pm Neutrophils (%) July 55.7 % 37.0-80.0 [facility], [address] [place] [address] 36 E (Auto) 2018 [place] [address] 5:45pm Lymphocytes (%) July 36.2 % 10-50 [facility], [address] [place] [address] E (Auto) 2018 [place] [address] 5:45pm Monocytes (%) November 6.0 % 1.7-9.3 [facility], [address] [place] [address] 36 E (Auto) 2018 [place] [address] 5:45pm Eosinophils (%) November 1.6 % 0.1-12.0 [facility], [address] [place] [address] E (Auto) 2018 [place] [address] 5:45pm Basophils (%) November 0.5 % 0.1-2.0 [facility], [address] [place] [address] E (Auto) 2018 [place] [address] 5:45pm Neutrophils # July 3.1 K/mm3 1.8-7.8 [facility], [address] [place] [address] E (Auto) 2018 [place] [address] 5:45pm Lymphocytes # July 2.0 K/mm3 0.7-4.5 [facility], [address] [place] [address] E (Auto) 2018 [place] [address] 5:45pm Monocytes # July 0.3 K/mm3 0.1-1.0 [facility], [address] [place] [address] E (Auto) 2018 [place] [address] 5:45pm Eosinophils # November 0.1 K/mm3 0.0-0.4 [facility], [address] [place] [address] E (Auto) 2018 [place] [address] 5:45pm Basophils # July 0.0 K/mm3 0-0.2 [facility], [address] [place] [address] E (Auto) 2018 [place] [address] 5:45pm Urine Color November Yellow Yellow [facility], [address] [place] [address] 36 E [address] [place] [address] 5:45pm Urine November Clear Clear [facility], [address] [place] [address] 36 E Appearance 2018 [place] [address] 5:45pm Urine pH July 5.5 5.0-8.5 [facility], [address] [place] [address] 36 E 2018 [place] [address] 5:45pm Urine Specific November >= 1.030 1.005-1.03 [facility], [address] [place] [address] E Zamora 2018 0 [place] [address] 5:45pm Urine Protein July 1+ Negative [facility], [address] [place] [address] 36 E 2018 Luis Enrique [place] [address] 5:45pm Urine Glucose November Negative Negative [facility], [address] [place] [address] 36 E (UA) 2018 Luis Enrique CHEN 42082 5:45pm Urine Ketones November Negative Negative [facility], [address] [place] [address] 36 E 2018 Luis Enrique CHEN 88067 5:45pm Urine Blood November Trace-l Negative [facility], [address] [place] [address] 36 E 2018 Luis Enrique CHEN [address]73 5:45pm Urine Nitrate November Negative Negative [facility], [address] [place] [address] 36 E 2018 Luis Enrique CHEN 31491 5:45pm Urine Bilirubin July Negative Negative [facility], [address] [place] [address] 36 E 2018 Luis Enrique CHEN [address] 5:45pm Urine November 0.2 EU/dl [facility], [address] [place] [address] 36 E Urobilinogen 2018 Rosa Maria CHEN 73100 5:45pm Urine Leukocyte July Negative Negative [facility], [address] [place] [address] 36 E Esterase 2018 Luis Enrique CHEN 05252 5:45pm Urine RBC July Occasional [facility], [address] [place] [address] 36 E 2018 #/hpf Luis Enrique CHEN 02604 5:45pm Urine WBC July 3-5 #/hpf [facility], [address] [place] [address] 36 E 2018 Luis Enrique CHEN 11918 5:45pm Urine Squamous July 5-10 #/hpf [facility], [address] [place] [address] 36 E Epithelial 2018 Luis Enrique CHEN 88331 Cells 5:45pm Urine Bacteria July 1+ /lpf NONE [facility], [address] [place] [address] 36 E 2018 Luis Enrique CH[place] 392[address] 5:45pm Urine Hyaline November Occasional [facility], [address] [place] [address] 36 E Casts 2018 #/lpf Luis Enrique CHEN 70826 5:45pm Urine HCG, July Negative Negative [facility], [address] [place] [address] 36 E Qualitative 2018 Yuki CHEN 37762 5:45pm Troponin I July < 0.02 0.00-0.06 *ALERT* High [facility], [address] [place] [address] 36 E 2018 ng/ml levels of Luis Enrique CHEN 36854 5:45pm Biotin can falsely depress Troponin results.Many dietary supplements promoted for hair,skin, and nail benefits contain biotin levels up to 650 times the recommended daily intake of biotin. In additon to dietary supplements, Biotin is occasionally prescribed for medical conditions. Sodium Level July 140 mmol/L 136-145 [facility], [address] [place] [address] 36 E 2018 Luis Enrique CHEN 41569 7:10am Potassium Level July 3.8 mmoL/L 3.5-5.1 Delta: 3.1 on [facility], [address] [place] [address] 36 E 201807/12/19 Valentin CHEN [address] 7:10am Chloride Level July 107 mmol/L 98-107 [facility], [address] [place] [address] 36 E 2018 Luis Enrique CHEN 51818 7:10am Carbon Dioxide July 25 mmol/L 21.0-32.0 Delta: 18 on [facility], [address] [place] [address] 36 E Level 201807/12/19 Valentin CHEN 94867 7:10am Anion Gap July 11.8 mEq/L - [facility], [address] [place] [address] E 2018 Luis Enrique CHEN [address] 7:10am Blood Urea July 8 mg/dL 03-23 [facility], [address] [place] [address] E Nitrogen 2018 Luis Enrique CHEN 72550 7:10am Creatinine July 1.34 mg/dL 0.55-1.02 Delta: 0.93 [facility], [address] [place] [address] 36 E 2018 on Luis Enrique CHEN 61408 7:10am 07/12/19 Estimated November 44 mL/min 0-300 [facility], [address] [place] [address] 36 E Creatinine 2018 Luis Enirque CHEN 37968 Clearance 7:10am Estimated GFR July 53 ML/MIN >59 Delta: 80 on [facility], [address] [place] [address] 36 E ( 201807/12/19 Valentin CHEN [address]170 Barbadian) 7:10am Estimat July 44 ml/min >59 [facility], [address] [place] [address] 36 E Glomerular 2018 Luis Enrique CHEN 92224 Filtration Rate 7:10am Glucose Level July 117 mg/dL 74-106 [facility], [address] [place] [address] 36 E 2018 Luis Enrique CHEN 34472 7:10am Bedside Glucose July 101 70-110 Poin t-of-Ca 2018 re (RALS) 11:15am Lactate July 1.1 0.4-2.0 [facility], [address] [place] [address] 36 E 2018 Luis Enrique CHEN 20644 10:17pm Calcium Level July 8.5 mg/dL 8.5-10.1 [facility], [address] [place] [address] 36 E 2018 Luis Enrique CHEN 32661 7:10am Phosphorus July 2.8 mg/dL 2.4-4.9 [facility], [address] [place] [address] 36 E Level 2018 Luis Enrique CHEN 14781 5:45pm Magnesium Level July 1.4 mg/dL 1.4-2.2 [facility], [address] [place] [address] 36 E 2018 [place] [address] 5:45pm Total Bilirubin July 0.3 mg/dL 0.2-1.0 [facility], [address] [place] [address] 36 E 2018 Luis Enrique CHEN 10273 5:45pm Aspartate Amino July 11 U/L 15-37 [facility], [address] [place] [address] 36 E Transf 2018 Luis Enrique CHEN 39558 (AST/SGOT) 5:45pm Alanine July 18 U/L 12-78 [facility], [address] [place] [address] 36 E Aminotransferas 2018 Emelyfartun CHEN 12386 e (ALT/SGPT) 5:45pm Total Protein July 5.4 gm/dL 6.4-8.2 [facility], [address] [place] [address] 36 E 2018 Luis Enrique CHEN 63761 5:45pm Albumin November 2.5 gm/dL 3.4-5.0 [facility], [address] [place] [address] 36 E 2018 Luis Enrique CHEN 79981 5:45pm Globulin July 2.9 gm/dl 1.3-3.2 [facility], [address] [place] [address] 36 E 2018 Luis Enrique CHEN 63159 5:45pm Albumin/Globuli November 0.9 1.1-1.8 [facility], [facility] 36 E n Ratio 2018 [place] [address] 5:45pm Alkaline November 44 U/L 46-116 [facility], [address] [place] [address] 36 E Phosphatase 2018 [place] [address] 5:45pm Urine Opiates November Negative [facility], [address] [place] [address] 36 E Screen 2018 ng/[place] [address] 5:45pm Urine November Negative [facility], [address] [place] [address] 36 E Barbituates 2018 ng/[place] [address] Screen 5:45pm Urine November Negative [facility], [address] [place] [address] 36 E Phencyclidine 2018 ng/[place] [address] Screen 5:45pm Urine November Negative [facility], [address] [place] [address] 36 E Amphetamines 2018 ng/[place] [address] Screen 5:45pm Urine Methadone November Negative [facility], [address] [place] [address] 36 E Screen 2018 ng/[place] [address] 5:45pm Urine November Negative [facility], [address] [place] [address] 36 E Benzodiazepines 2018 ng/[place] [address] Screen 5:45pm Urine Cocaine November Negative [facility], [address] [place] [address] 36 E Screen 2018 ng/[place] [address] 5:45pm Urine Marijuana November Negative [facility], [address] [place] [address] 36 E (THC) Screen 2018 ng/[place] [address] 5:45pm Plasma/Serum November 0 mg/dL 0-99 Any Alcohol > [facility], [address] [place] [address] 36 E Blood Alcohol 2018 or = 80 mg/[place] [address] 5:45pm is considered legally intoxicated under [place] State Law. Diagnostic Imaging Reports Report Dictated Date/Time Dictated By Status Radiology Report July 12, 2019 Trevin Sunshine MD completed 5:59pm [address] [place] [address] XRay R eport Sig yung Patient: Enriqueta Riddle MR#: [id number] : 1980 Acct:[id number] Age/Sex: 39 / F ADM Date: 9 Loc: ER Attending Dr: Ordering Physician: Subhash Howell MD Date of Service: 07/12/19 Procedure(s): XR chest portable Accession Number(s): [id number] cc: Trevin Sunshine MD; Mook Hoang MD~ PROCEDURE: XR CHEST PORTABLE CLINICAL HISTORY: SEIZURE COMPARISON: CXR2V XR chest 2V from 07/2018 CXR2V XR chest 2V from 05/03/2018 CXR2V XR chest 2V from 01/18/2019 FINDINGS: The cardiomediastinal silhouette and pu lmonary vascularity are within normal limits. The lungs are clear without infiltrates , suspicious nodules, or pleural effusions. No acute bony abnormalities. IMPRESSION: No acute findings. Dictated by: Trevin Sunshine MD 07/12/2019 18:09 Electronically signed by Trevin Sunshine in OV 07/12/2019 18:09 Radiology Report July 12, 2019 Trevin Sunshine MD completed 5:52pm [facility] [address] [facility] [address] [place] [address] [address] Scan Report Sig yung Patient: Enriqueta Riddle MR#: [id number] : 1980 Acct:[id number] Age/Sex: 39 / F ADM Date: 9 Loc: ER Attending Dr: Ordering Physician: Subhash Howell MD Date of Service: 07/12/19 Procedure(s): CT head/brain wo con Accession Number(s): [id number] cc: Trevin Sunshine MD; Mook Hoang MD~ PROCEDURE: CT HEAD/BRAIN WO CON CLINICAL INDICATION: SEIZURE Seizure with collapse COMPARISON: No exams were available fo r comparison TECHNIQUE: Axial images obtained. All CT scans at the facility use one or more dose reduction, viz: automa itzel exposure control, ma/kV adjustment per patient size (including targeted exams where dose is matched to indication, i.e. head), or i terative reconstruction technique. FINDINGS: No midline shift, mass effect, intracra nial hemorrhage, hydrocephalus, or extra-axial fluid col lection is evident. There may be some mild cerebellar tonsillar ectop ia. This may be better evaluated with MRI. The calvarium has an unremarkable appearance. No mastoid effusion. No sinus air-fluid l evel. IMPRESSION: 1. No acute intracranial finding. 2. Possible mild cerebellar tonsillar e ctopia Dictated by: Trevin Sunshine MD 07/12/2019 19:22 Electronically signed by Trevin Sunshine in OV 07/12/2019 19:22 Advance Directives Advance Directive Response Recorded Date/Time Living Will No July 12, 2019 9 :57pm Chief Complaint and Reason for Visit Chief Complaint Behavioral Health (follow up ) Behavioral Health (follow up ) New onset SEIZURE,Hypocalemi a Reason for Visit Depression Hypocalcemia Obesity PTSD (post-traumatic stress disorder) Seizure Encounters Encounter Location(s) Arrival/Admit Date Discharge/Depart Date Provider(s) Departed [facility] Physician May 23, May 23, 2019 Jefferson Crowell [facility]ician[facility] 2018 1:12pm 1:58pm DARIN Waddell [facility] Visit Departed [facility] Physician June 15, 2019 June 15, 2019 Lulú Crowell [facility] 12:24pm 2:08pm DARIN Waddell [facility] Visit Admitted [facility] Physician July 12, 2019 [facility] 9:19pm MD Viktor Floor Registered [facility] Physician July 13, 2019 [facility]- 12:42pm MD Viktor Recent Diagnosis Onset Date Depression Hypocalcemia Obesity PTSD (post-traumatic stress disorder) Seizure Assessments See care plan goals Functional Status Observation Response Date Recorded Oral Care Ability Independent July 12, 2019 9 :35pm Bathing Ability Independent July 12, 2019 9 :35pm Eating (Feeding) Ability Independent July 12 019 9:35pm Toileting Ability Independent July 12, 2019 9 :35pm Ambulation Ability Independent July 12, 2019 9 :35pm Functional status ambulatory June 15, 2019 1 :09pm Oral Care Ability Independent June 15, 2019 1 :09pm Bathing Ability Independent June 15, 2019 1 :09pm Eating (Feeding) Ability Independent June 15, 2 019 1:09pm Toileting Ability Independent June 15, 2019 1 :09pm Ambulation Ability Independent June 15, 2019 1 :09pm Functional status ambulatory May 23, 2019 1:38pm Oral Care Ability Independent May 23, 2019 1:38pm Bathing Ability Independent May 23, 2019 1:38pm Eating (Feeding) Ability Independent May 23, 2019 1:38pm Toileting Ability Independent May 23, 2019 1:38pm Ambulation Ability Independent May 23, 2019 1:38pm Goals Acute Goals Nursing Diagnosis: Knowledge Deficit D isease/Condition Goal(s): Education of di sease process Instruction(s): Follow provider p alfonso/instructions (See attached discharge education) Follow/up with primary care provider as instructed in discharge packet Ambulatory Goals Patient verbalizes understanding of dise ase process/healthy behaviors. Patient to follow plan of care. 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 2017 Vaccine, 23 valent Quadrivalent September Influenza 2017 Tetanus, September Diphtheria, 2012 Pertussis (Tdap) Mental Status Observation Response Date Recorded Comprehension Ability No Impairment July 13, 2019 12:40pm Able to Read Yes July 12, 2019 9 :35pm Able to Write Yes July 12, 2019 9 :35pm Ability to Follow Directions Excellent July 9:35pm Medical Equipment No Medical Equipment Information available Insurance Providers Guarantor Enriqueta Riddle Address [address] [place] [address] Contact Info. Home Phone: Payer Policy Id Coverage Id Subscriber's Subscriber Effective Expi ration Name Id Date Date Medicaid [id number] Enriqueta [id number] [facility] Passport [id number] Enriqueta [id number] Health Plan [facility] Self Pay Self N/A Plan of Treatment Follow up as ordered by primary care provider Future Tests Future scheduled test information is unavailable Pending Tests Pending diagnostic test information is unavailable Future Visits Future appointment information is unavailable Referrals to Other Providers Reason for Referral Start Provider Provider Contact Provider Address Referral Date Information [facility] Admission July 132018 [facility] Future Procedures Future procedure information is unavailable Future Medications Future medication information is unavailable Patient Instructions Post-traumatic Stress Disorder Insomnia Post-traumatic Stress Disorder Insomnia Seizure Disorder -- Adult DI for Seizure Disorder -- Adult DI for Hypocalcemia Hypocalcemia Social History Observation Status Date of Observation Not July 12, 2019 Assigned Sex Female Vital Signs Vital Reading Result Reference Range Collection Date/ Time Height 157.48 cm May 23, 2019 1:18pm Weight 120.65 kg May 23, 2019 1:18pm Body Temperature 97 [degF] 97.6-99.6 May 23, 2019 1:18pm Heart Rate 90 /min 60-90 May 23, 2019 1:18pm Oxygen saturation by 92 % 95-100 May 072018 Pulse oximetry 1:18pm BP Systolic 110 mm[Hg] 110-140 May 23, 2019 1:18pm BP Diastolic 68 mm[Hg] 60-90 May 23, 2019 1:18pm BMI (Body Mass Index) 48.6 kg/m2 May 23, 2019 1:18pm Height 157.48 cm June 15 12:57pm Weight 122.01 kg June 15 12:57pm Heart Rate 85 /min 60-90 June 15 12:57pm BP Systolic 102 mm[Hg] 110-140 June 15 12:57pm BP Diastolic 52 mm[Hg] 60-90 June 15 12:57pm BMI (Body Mass Index) 49.1 kg/m2 June 152018 12:57pm Height 157.48 cm July 13 5:16am Weight 121.27 kg July 13 5:16am Body Temperature 98.7 [degF] 97.6-99.6 July 13, 2 019 8:00am Heart Rate 91 /min 60-July 13 8:00am Respiratory rate 18 /min 08-29July 13, 2 019 8:00am Oxygen saturation by 97 % 95-100 July Pulse oximetry 8:00am BP Systolic 141 mm[Hg] 110-140 July 13 8:00am BP Diastolic 84 mm[Hg] 60-90 July 13 8:00am BMI (Body Mass Index) 48.9 kg/m2 July 132018 5:16am
--- NOTE | 2019-07-13 15:12 | Discharge Summary ---
General - General Admission date:: 07/12/19 Discharge date: 07/13/19 HPI HPI: this wf was at home -she had a tonic - clonic sz episode-no prev sz -PT WAS STANDING IN THE KITCHEN AND SHE FELL TO THE FLOOR IN SEIZURE LIKE ACTIVITY WITH HER DAUGHTER WITNESSING. Brought in by ambulance for seizure. Patient states she was standing in the kitchen and the next thing she knew she woke up on the ground. She says she did not feel ill prior to the event. No recent illness or new medications. No history of seizures. She has dried blood on her lips, apparent tongue bites. She was incontinent of urine. She complains of a mild frontal headache. Does not think she hit her head. No neck pain. Fingerstick blood sugar 125 during transport.pt was admitted at this time Hospital Course Hospital Course: head ct - neg chest x ray - neg no seizure activity since admit behavior health consult- no medication changes recommended instructed pt not to drive until cleared no climbing stairs or activity she could be injured neurology consult as outpt more work up on seizures as outpt- follow up on wednesday in office Objective Vital signs: Temp Pulse Resp BP Pulse Ox 98.7 F 91 H 18 141/84 H 97 07/13/19 08:00 07/13/19 08:00 07/13/19 08:00 07/13/19 08:00 07/13/19 08:00 no acute distress - *Routine HEENT Exam Head: Present: normocephalic Eye: Present: PERRL ENT: Present: mucous membranes moist - *Routine Respiratory Exam Present: CTA bilaterally - *Routine Cardiovascular Exam Present: RRR - *Routine Abdominal Exam Present: soft, normoactive bowel sounds - *Routine Extremities Exam Present: full ROM, normal capillary refill - *Routine Skin Exam Present: intact, warm - *Routine Neurological Exam Present: alert, oriented X3, CN II-XII intact - Routine Psychiatric Exam Present: normal affect, normal thought process Results Labs on day of discharge: Labs from last 24 hours 07/13/19 07/13/19 07/13/19 11:15 07:22 07:10 WBC RBC Hgb Hct MCV MCH MCHC RDW Plt Count MPV Neut % (Auto) Lymph % (Auto) [place] % (Auto) Eos % (Auto) Baso % (Auto) Neut # (Auto) Lymph # (Auto) [place] # (Auto) Eos # (Auto) Baso # (Auto) Sodium 140 Potassium 3.8 D Chloride 107 Carbon Dioxide 25 D Anion Gap 11.8 BUN 8 Creatinine 1.34 H D Estimated Creat Clear 44 Estimated GFR 44 L Est GFR ( Amer) 53 L D Glucose 117 H POC Glucose 101 132 H Lactate Calcium 8.5 Phosphorus Magnesium Total Bilirubin AST ALT Alkaline Phosphatase Troponin I Total Protein Albumin Globulin Albumin/Globulin Ratio Urine Color Urine Appearance Urine pH Ur Specific [place] Urine Protein Urine Glucose (UA) Urine Ketones Urine Blood Urine Nitrate Urine Bilirubin Urine Urobilinogen Ur Leukocyte Esterase Urine RBC Urine WBC Ur Squamous Epith Cells Urine Bacteria Hyaline Casts Urine HCG, Qual Urine Opiates Screen Urine Methadone Screen Ur Barbituates Screen Ur Phencyclidine Scrn Ur Amphetamines Screen U Benzodiazepines Scrn Urine Cocaine Screen U Marijuana (THC) Screen Plasma/Serum Alcohol 07/13/19 07/12/19 07/12/19 00:06 22:17 22:11 WBC RBC Hgb Hct MCV MCH MCHC RDW Plt Count MPV Neut % (Auto) Lymph % (Auto) [place] % (Auto) Eos % (Auto) Baso % (Auto) Neut # (Auto) Lymph # (Auto) [place] # (Auto) Eos # (Auto) Baso # (Auto) Sodium Potassium Chloride Carbon Dioxide Anion Gap BUN Creatinine Estimated Creat Clear Estimated GFR Est GFR ( Amer) Glucose POC Glucose 87 Lactate 1.1 Calcium 8.7 D Phosphorus Magnesium Total Bilirubin AST ALT Alkaline Phosphatase Troponin I Total Protein Albumin Globulin Albumin/Globulin Ratio Urine Color Urine Appearance Urine pH Ur Specific [place] Urine Protein Urine Glucose (UA) Urine Ketones Urine Blood Urine Nitrate Urine Bilirubin Urine Urobilinogen Ur Leukocyte Esterase Urine RBC Urine WBC Ur Squamous Epith Cells Urine Bacteria Hyaline Casts Urine HCG, Qual Urine Opiates Screen Urine Methadone Screen Ur Barbituates Screen Ur Phencyclidine Scrn Ur Amphetamines Screen U Benzodiazepines Scrn Urine Cocaine Screen U Marijuana (THC) Screen Plasma/Serum Alcohol 07/12/19 07/12/19 07/12/19 17:45 17:45 17:45 WBC RBC Hgb Hct MCV MCH MCHC RDW Plt Count MPV Neut % (Auto) Lymph % (Auto) [place] % (Auto) Eos % (Auto) Baso % (Auto) Neut # (Auto) Lymph # (Auto) [place] # (Auto) Eos # (Auto) Baso # (Auto) Sodium Potassium Chloride Carbon Dioxide Anion Gap BUN Creatinine Estimated Creat Clear Estimated GFR Est GFR ( Amer) Glucose POC Glucose Lactate 3.4 H Calcium Phosphorus 2.8 Magnesium 1.4 Total Bilirubin AST ALT Alkaline Phosphatase Troponin I Total Protein Albumin Globulin Albumin/Globulin Ratio Urine Color Urine Appearance Urine pH Ur Specific [place] Urine Protein Urine Glucose (UA) Urine Ketones Urine Blood Urine Nitrate Urine Bilirubin Urine Urobilinogen Ur Leukocyte Esterase Urine RBC Urine WBC Ur Squamous Epith Cells Urine Bacteria Hyaline Casts Urine HCG, Qual Urine Opiates Screen Urine Methadone Screen Ur Barbituates Screen Ur Phencyclidine Scrn Ur Amphetamines Screen U Benzodiazepines Scrn Urine Cocaine Screen U Marijuana (THC) Screen Plasma/Serum Alcohol 07/12/19 07/12/19 07/12/19 17:45 17:45 17:45 WBC RBC Hgb Hct MCV MCH MCHC RDW Plt Count MPV Neut % (Auto) Lymph % (Auto) [place] % (Auto) Eos % (Auto) Baso % (Auto) Neut # (Auto) Lymph # (Auto) [place] # (Auto) Eos # (Auto) Baso # (Auto) Sodium 144 Potassium 3.1 L Chloride 113 H Carbon Dioxide 18 L Anion Gap 16.1 H BUN 7 Creatinine 0.93 Estimated Creat Clear 118 Estimated GFR 66 Est GFR ( Amer) 80 Glucose 115 H POC Glucose Lactate Calcium 6.4 L Phosphorus Magnesium Total Bilirubin 0.3 AST 11 L ALT 18 Alkaline Phosphatase 44 L Troponin I < 0.02 Total Protein 5.4 L Albumin 2.5 L Globulin 2.9 Albumin/Globulin Ratio 0.9 L Urine Color Urine Appearance Urine pH Ur Specific [place] Urine Protein Urine Glucose (UA) Urine Ketones Urine Blood Urine Nitrate Urine Bilirubin Urine Urobilinogen Ur Leukocyte Esterase Urine RBC Urine WBC Ur Squamous Epith Cells Urine Bacteria Hyaline Casts Urine HCG, Qual Negative Urine Opiates Screen Negative Urine Methadone Screen Negative Ur Barbituates Screen Negative Ur Phencyclidine Scrn Negative Ur Amphetamines Screen Negative U Benzodiazepines Scrn Negative Urine Cocaine Screen Negative U Marijuana (THC) Screen Negative Plasma/Serum Alcohol 0 07/12/19 07/12/19 17:45 17:45 WBC 5.6 RBC 4.10 L Hgb 12.4 Hct 39.0 MCV 95.1 MCH 30.2 MCHC 31.8 RDW 14.6 Plt Count 266 MPV 9.6 Neut % (Auto) 55.7 Lymph % (Auto) 36.2 [place] % (Auto) 6.0 Eos % (Auto) 1.6 Baso % (Auto) 0.5 Neut # (Auto) 3.1 Lymph # (Auto) 2.0 [place] # (Auto) 0.3 Eos # (Auto) 0.1 Baso # (Auto) 0.0 Sodium Potassium Chloride Carbon Dioxide Anion Gap BUN Creatinine Estimated Creat Clear Estimated GFR Est GFR ( Amer) Glucose POC Glucose Lactate Calcium Phosphorus Magnesium Total Bilirubin AST ALT Alkaline Phosphatase Troponin I Total Protein Albumin Globulin Albumin/Globulin Ratio Urine Color Yellow Urine Appearance Clear Urine pH 5.5 Ur Specific [place] >= 1.030 Urine Protein 1+ Urine Glucose (UA) Negative Urine Ketones Negative Urine Blood Trace-l Urine Nitrate Negative Urine Bilirubin Negative Urine Urobilinogen 0.2 Ur Leukocyte Esterase Negative Urine RBC Occasional Urine WBC 3-5 Ur Squamous Epith Cells 5-10 Urine Bacteria 1+ Hyaline Casts Occasional Urine HCG, Qual Urine Opiates Screen Urine Methadone Screen Ur Barbituates Screen Ur Phencyclidine Scrn Ur Amphetamines Screen U Benzodiazepines Scrn Urine Cocaine Screen U Marijuana (THC) Screen Plasma/Serum Alcohol - Additional Comments rounded with radha all orders per radha DS: Diagnosis - Discharge Diagnosis (1) Hypocalcemia Status: Acute (2) Seizure Status: Acute (3) PTSD (post-traumatic stress disorder) Status: Acute (4) Depression Status: Acute (5) Obesity Status: Acute Discharge Plan - Patient Discharge Instructions ACTIVITY: Continue current activity DIET: continue same diet Patient Instructions: Seizure Disorder -- Adult, DI for Seizure Disorder -- Adult, DI for Hypocalcemia, Hypocalcemia - Follow up Plan Follow up with: Mook Hoang MD [Primary Care Provider] - 07/17/19 Disposition: Home, Self-[facility] Medications: Home Medications Medication Instructions Recorded Confirmed Type pantoprazole 40 mg tablet,delayed 40 mg PO DAILY 09/24/17 07/13/19 History release oxymetazoline 0.05 % nasal spray 2 spray INTRANASAL Q12H PRN 3 Days 10/20/18 07/12/19 Rx #15 ml losartan 100 1 tab PO DAILY #90 tab 11/28/18 07/12/19 Rx mg-hydrochlorothiazide 25 mg tablet spironolactone 100 mg tablet 100 mg PO DAILY #30 tab 04/28/19 07/12/19 Rx glipizide 10 mg tablet 10 mg PO DAILY #90 tab 05/16/19 07/12/19 Rx ranitidine 75 mg tablet 75 mg PO BID #180 tab 05/16/19 07/12/19 Rx diclofenac 1 % topical gel 2 g TOPICAL QID #100 g 07/03/19 07/12/19 Rx Carvedilol [Carvedilol 6.25mg Tab] 6.25 mg PO BID 07/12/19 07/13/19 History Cholecalciferol (Vitamin D3) 1,000 unit PO DAILY 07/12/19 07/12/19 History [Vitamin D3 1,000 Unit Cap] Cyclobenzaprine HCl 10 mg PO TIDP PRN 07/12/19 07/13/19 History [Cyclobenzaprine 10mg Tab] Ergocalciferol (Vitamin D2) 50,000 unit PO QWEEK 07/12/19 07/12/19 History [Drisdol] Fluoxetine HCl [Prozac] 40 mg PO DAILY 07/12/19 07/12/19 History Gabapentin 600 mg PO TID 07/12/19 07/12/19 History Levothyroxine Sodium [Tirosint] 100 mcg PO DAILY 07/12/19 07/12/19 History Loratadine [Allergy Relief] 10 mg PO DAILY 07/12/19 07/13/19 History Lovastatin 20 mg PO HS 07/12/19 07/13/19 History Montelukast Sodium [Singulair] 10 mg PO HS 07/12/19 07/13/19 History Nystatin 1 applic TOPICAL BID 07/12/19 07/12/19 History Quetiapine Fumarate [Seroquel 50 50 mg PO QHS 07/12/19 07/12/19 History mg Tablets] buPROPion HCl [Wellbutrin Xl] 300 mg PO DAILY 07/12/19 07/12/19 History Prescriptions/Medication Reconciliation: Continued pantoprazole 40 mg tablet,delayed release 40 mg PO DAILY losartan 100 mg-hydrochlorothiazide 25 mg tablet 1 tab PO DAILY #90 tab ranitidine 75 mg tablet 75 mg PO BID #180 tab diclofenac 1 % topical gel 2 g TOPICAL QID #100 g oxymetazoline 0.05 % nasal spray 2 spray INTRANASAL Q12H PRN 3 Days #15 ml PRN Reason: nasal congestion spironolactone 100 mg tablet 100 mg PO DAILY #30 tab glipizide 10 mg tablet 10 mg PO DAILY #90 tab Loratadine [Allergy Relief] 10 mg PO DAILY Levothyroxine Sodium [Tirosint] 100 mcg PO DAILY Nystatin 1 applic TOPICAL BID Cyclobenzaprine HCl [Cyclobenzaprine 10mg Tab] 10 mg PO TIDP PRN PRN Reason: MUSCLE RELAXER Montelukast Sodium [Singulair] 10 mg PO HS Fluoxetine HCl [Prozac] 40 mg PO DAILY buPROPion HCl [Wellbutrin Xl] 300 mg PO DAILY Quetiapine Fumarate [Seroquel 50 mg Tablets] 50 mg PO QHS Lovastatin 20 mg PO HS Ergocalciferol (Vitamin D2) [Drisdol] 50,000 unit PO QWEEK Cholecalciferol (Vitamin D3) [Vitamin D3 1,000 Unit Cap] 1,000 unit PO DAILY Carvedilol [Carvedilol 6.25mg Tab] 6.25 mg PO BID Gabapentin 600 mg PO TID - Problem Reconciliation Problems Reviewed?: Yes
--- NOTE | 2019-07-13 15:14 | Consult Report ---
*Admission Date: 07/12/19 *Reason for consult:: Medications *History of present illness: I was consulted on patient to look at her medications; she had new onset seizure last night. Want to make sure this is not from mediations. She states that she was washing dishes last night; and woke up on the floor. S He states that her daughter was with her. Told her she was shaking all over and foaming at the mouth. SHe states that when she woke back up her daughter was on the phone with 911. -she states that she did bite her tongue -was incontinent of urine -1st seizure ever -she states that they told her they think this is from the calcium She is newly on seroquel; and we increased her wellbutrin last time. -she states that this has helped her a lot -she states that she is getting about 6 hours of sleep per night -feels better overall all -rested -no irritability -not snapping on others -she states that everything has improved I did talk to her about medications. SHe states that right now she does not want to change anything. SHe has been on the wellbutrin for years and does not think that this is the reason for the seizure. I did inform her that if she has another seizure we will change her medicines. She did verbalize understanding of this. MSE Examination reveals patient to have no apparent serious mental status abnormalities. Patient is normal in appearance with age appropriate dress and grooming and appears to be stated age. Neither depression nor mood elevation is evident. Speech is normal in rate, volume, and articulation and language skills are intact. Patient convincingly denies suicidal and self injurious ideas or intentions. Homicidal or assaultive ideas or intentions are also denied. Hallucinations and delusions are denied and behavior is generally appropriate. Associations are intact, thinking is basically logical and thought content is appropriate. There are no signs of cognitive difficulty, based on vocabulary and fund of knowledge. Memory is intact for recent and remote events and the patient is oriented to time, place, and person. There are no apparent signs of anxiety. A normal attention span is in evidence and patient exhibits no signs of hyperactivity. Insight and judgment appear intact. RECOMMENDATIONS: 1. NO changes to medications at this time. 2. Will see her next week in my outpatient clinic for regular scheduled follow- up. TIME IN: 1140 TIME OUT: [address] [facility] History Medical History: Reports:: Asthma, Congenital Heart Disease, Depression, Diabetes Mellitus Type 2, Gastroesophageal Reflux Disease(GERD), Heart Murmur, Hepatitis, Hyperlipidemia, Hypertension Denies:: Cancer, Diabetes Mellitus Type 1, Internal Pacemaker, MRSA, Seizures *Have you ever received a pneumonia vaccine?: No (can't remeber if she has had it) *Have you received a flu vaccine this season?: No (does not want it upon either) Other Medical History: Reports: Anemia, Fibromyalgia, Hypothyroidism, Thyroid Disease. Denies: Blood Transfusion Reaction Laterality Cases: Right: Breast Biopsy, Lumpectomy Other Surgeries: Yes: Colonoscopy. No: Pacemaker Amputation: No Fractures: Yes (left leg 2 yrs ago) - *Social History Smoking Status: Never smoker Alcohol Intake: never Substance Use Type: denies use, crack/cocaine *Occupational Status:: unemployed Housing: house Household Members: children *Travel in the last 8 weeks: None - Psychiatric History Pschychiatric History:: Reports:: Depression Family Hx:: Cancer, Stroke, Heart Attack, Hyperlipidemia, Thyroid Disorder Review of Systems - *Neurologic Reports seizure-like activity, Denies headache(s) Meds Home Medications Medication Instructions Recorded Confirmed Type pantoprazole 40 mg tablet,delayed 40 mg PO DAILY 09/24/17 07/13/19 History release oxymetazoline 0.05 % nasal spray 2 spray INTRANASAL Q12H PRN 3 Days 10/20/18 07/12/19 Rx #15 ml losartan 100 1 tab PO DAILY #90 tab 11/28/18 07/12/19 Rx mg-hydrochlorothiazide 25 mg tablet spironolactone 100 mg tablet 100 mg PO DAILY #30 tab 04/28/19 07/12/19 Rx glipizide 10 mg tablet 10 mg PO DAILY #90 tab 05/16/19 07/12/19 Rx ranitidine 75 mg tablet 75 mg PO BID #180 tab 05/16/19 07/12/19 Rx diclofenac 1 % topical gel 2 g TOPICAL QID #100 g 07/03/19 07/12/19 Rx Carvedilol [Carvedilol 6.25mg Tab] 6.25 mg PO BID 07/12/19 07/13/19 History Cholecalciferol (Vitamin D3) 1,000 unit PO DAILY 07/12/19 07/12/19 History [Vitamin D3 1,000 Unit Cap] Cyclobenzaprine HCl 10 mg PO TIDP PRN 07/12/19 07/13/19 History [Cyclobenzaprine 10mg Tab] Ergocalciferol (Vitamin D2) 50,000 unit PO QWEEK 07/12/19 07/12/19 History [Drisdol] Fluoxetine HCl [Prozac] 40 mg PO DAILY 07/12/19 07/12/19 History Gabapentin 600 mg PO TID 07/12/19 07/12/19 History Levothyroxine Sodium [Tirosint] 100 mcg PO DAILY 07/12/19 07/12/19 History Loratadine [Allergy Relief] 10 mg PO DAILY 07/12/19 07/13/19 History Lovastatin 20 mg PO HS 07/12/19 07/13/19 History Montelukast Sodium [Singulair] 10 mg PO HS 07/12/19 07/13/19 History Nystatin 1 applic TOPICAL BID 07/12/19 07/12/19 History Quetiapine Fumarate [Seroquel 50 50 mg PO QHS 07/12/19 07/12/19 History mg Tablets] buPROPion HCl [Wellbutrin Xl] 300 mg PO DAILY 07/12/19 07/12/19 History Allergies Allergy/AdvReac Type Severity Reaction Status Date / Time mold [MOLD] Allergy Severe Anaphylaxis Verified 07/12/19 22:20 Fish Containing Products Allergy Intermediate I-HIVES Verified 07/12/19 17:30 [From SEAFOOD (F/D)] aspirin [ASPIRIN] AdvReac Mild NA-NAUSEA/V Verified 07/12/19 17:30 OMITING From SEAFOOD (F/D) Allergy Intermediate I-HIVES Uncoded 05/23/19 13:19 MUSHROOM Allergy Intermediate I-HIVES Uncoded 05/23/19 13:19 Exam Vital signs and Labs for Last 24 Hours: Temp Pulse Resp BP Pulse Ox 98.7 F 91 H 18 141/84 H 97 07/13/19 08:00 07/13/19 08:00 07/13/19 08:00 07/13/19 08:00 07/13/19 08:00 Laboratory Results - last 24 hr 07/12/19 17:45: Urine Color Yellow, Urine Appearance Clear, Urine pH 5.5, Ur Specific [place] >= 1.030, Urine Protein 1+, Urine Glucose (UA) Negative, Urine Ketones Negative, Urine Blood Trace-l, Urine Nitrate Negative, Urine Bilirubin Negative, Urine Urobilinogen 0.2, Ur Leukocyte Esterase Negative, Urine RBC Occasional, Urine WBC 3-5, Ur Squamous Epith Cells 5-10, Urine Bacteria 1+, Hyaline Casts Occasional 07/12/19 17:45: WBC 5.6, RBC 4.10 L, Hgb 12.4, Hct 39.0, MCV 95.1, MCH 30.2, MCHC 31.8, RDW 14.6, Plt Count 266, MPV 9.6, Neut % (Auto) 55.7, Lymph % (Auto) 36.2, [place] % (Auto) 6.0, Eos % (Auto) 1.6, Baso % (Auto) 0.5, Neut # (Auto) 3.1, Lymph # (Auto) 2.0, [place] # (Auto) 0.3, Eos # (Auto) 0.1, Baso # (Auto) 0.0 07/12/19 17:45: Urine HCG, Qual Negative 07/12/19 17:45: Sodium 144, Potassium 3.1 L, Chloride 113 H, Carbon Dioxide 18 L , Anion Gap 16.1 H, BUN 7, Creatinine 0.93, Estimated Creat Clear 118, Estimated GFR 66, Est GFR ( Amer) 80, Glucose 115 H, Calcium 6.4 L, Total Bilirubin 0.3, AST 11 L, ALT 18, Alkaline Phosphatase 44 L, Troponin I < 0.02, Total Protein 5.4 L, Albumin 2.5 L, Globulin 2.9, Albumin/Globulin Ratio 0.9 L, Plasma/Serum Alcohol 0 07/12/19 17:45: Urine Opiates Screen Negative, Urine Methadone Screen Negative, Ur Barbituates Screen Negative, Ur Phencyclidine Scrn Negative, Ur Amphetamines Screen Negative, U Benzodiazepines Scrn Negative, Urine Cocaine Screen Negative, U Marijuana (THC) Screen Negative 07/12/19 17:45: Lactate 3.4 H 07/12/19 17:45: Magnesium 1.4 07/12/19 17:45: Phosphorus 2.8 07/12/19 22:11: POC Glucose 87 07/12/19 22:17: Lactate 1.1 07/13/19 00:06: Calcium 8.7 D 07/13/19 07:10: Sodium 140, Potassium 3.8 D, Chloride 107, Carbon Dioxide 25 D , Anion Gap 11.8, BUN 8, Creatinine 1.34 H D, Estimated Creat Clear 44, Estimated GFR 44 L, Est GFR ( Amer) 53 L D, Glucose 117 H, Calcium 8.5 07/13/19 07:22: POC Glucose 132 H 07/13/19 11:15: POC Glucose 101 I & O for Last 24 hours: Intake & Output 07/11/19 07/12/19 07/13/19 07/14/19 11:59 11:59 11:59 11:59 Intake Total 1849 / 1849 Output Total 1550 / 1550 Balance 299 / 299 Weight 267 lb 6 oz Internal Medicine - CN: Reslt - Labs CBC & Chem 7: 07/12/19 17:45 07/13/19 07:10 Labs: Short CBC 07/12/19 Range/Units 17:45 WBC 5.6 (4.8-10.8) K/mm3 Hgb 12.4 (12.2-16.2) g/dL Hct 39.0 (37.0-47.0) % Plt Count 266 (142-424) K/mm3 BMP 07/12/19 07/13/19 07/13/19 17:45 00:06 07:10 Sodium 144 140 Potassium 3.1 L 3.8 D Chloride 113 H 107 Carbon Dioxide 18 L 25 D BUN 7 8 Creatinine 0.93 1.34 H D Glucose 115 H 117 H Calcium 6.4 L 8.7 D 8.5 Cardiac Enzymes 07/12/19 Range/Units 17:45 Troponin I < 0.02 (0.00-0.06) ng/ml Liver Function 07/12/19 Range/Units 17:45 Total Bilirubin 0.3 (0.2-1.0) mg/dL AST 11 L (15-37) U/L ALT 18 (12-78) U/L Alkaline Phosphatase 44 L (46-116) U/L Albumin 2.5 L (3.4-5.0) gm/dL Urine 07/12/19 Range/Units 17:45 Urine Color Yellow (Yellow) Urine Appearance Clear (Clear) Urine pH 5.5 (5.0-8.5) Ur Specific [place] >= 1.030 (1.005-1.030) Urine Protein 1+ (Negative) Urine Glucose (UA) Negative (Negative) Assessment and Plan (1) Hypocalcemia Current visit: Yes Status: Acute Category: Medical Code(s): E83.51 - Hypocalcemia (2) Seizure Current visit: Yes Status: Acute Category: Medical Code(s): R56.9 - Unspecified convulsions (3) PTSD (post-traumatic stress disorder) Current visit: Yes Status: Acute Category: Medical Code(s): F43.10 - Post- traumatic stress disorder, unspecified (4) Depression Current visit: Yes Status: Acute Qualifiers: Depression Type: major depressive disorder Major depression recurrence: unspecified whether recurrent Active/Remission status: currently active Major depression episode severity: moderate Qualified Code(s): F32.1 - Major depressive disorder, single episode, moderate Category: Medical Code(s): F32.9 - Major depressive disorder, single episode, unspecified (5) Obesity Current visit: Yes Status: Acute Qualifiers: Obesity type: due to excess calories Obesity classification: adult class 3 (BMI >= 40) Serious obesity comorbidity presence: with serious comorbidity Body mass index: BMI 45.0-49.9 Qualified Code(s): E66.01 - Morbid (severe) obesity due to excess calories; Z68.42 - Body mass index (BMI) 45.0-49.9, adult Category: Medical Code(s): E66.9 - Obesity, unspecified
--- NOTE | 2019-07-13 21:07 | Electrocardiograph Report ---
APPROVED REPORT Exam: Resting ECG HR:95 bpm ECG Measurements Heart Rate 95 AXES SD 166 P 38 QRSd 90 QRS 44 QT 372 T39 QTc 467 <Conclusion> Normal sinus rhythm Normal ECG Electronically signed by : Bharat Tang, 07/13/2019 21:06:54
== END 2019-07-13 17:00 | disposition home or self-care (01) ==
LOC: ER 17:25 → 2ND 17:25
PROVIDERS: ADMIT Emergency Medicine; ATTEND Emergency Medicine
CPT/HCPCS: 36415; 70450; 71010; 71045; 80048; 80053; 80305; 81001; 81025; 82310; 82962; 83605; 83735; 84100; 84484; 85025; 87040; 93005; 96365; 96367; 96375; 99285; G0378; J2405

== ENCOUNTER → 2019-09-18 08:52 | Outpatient (CLI) | payer OTHER, SELFPAY ==
--- NOTE | 2019-09-18 08:58 | XR_ITS ---
PROCEDURE: XR KNEE LT 4V CLINICAL INDICATION: knee pain Left knee pain COMPARISON: [id number] KNEE-4 OR 5 VIEWS-RT from 07/15/2017 [id number] KNEE-4 OR 5 VIEWS-LT from 07/15/2017 [id number] XR knee LT 3V from 01/04/2018 XR KNEE LT 3V from 08/19/2019 FINDINGS: No fracture or dislocation. No lytic or blastic change. There is normal mineralization. There are mild to moderate osteoarthritic changes involving all 3 compartments greatest at the medial compartment probably not significantly changed. There is an old fracture of the proximal shaft of the fibula IMPRESSION: Mild to moderate osteoarthritic changes Dictated by: Trevin Sunshine MD 09/18/2019 12:03 Electronically signed by Trevin Sunshine MD in [place] 09/18/2019 12:03
--- NOTE | 2019-09-18 08:58 | XR_ITS ---
PROCEDURE: XR HIP LT 2-3V W/PELVIS CLINICAL INDICATION: lt hip hip pain COMPARISON: PELAP PELVIS AP ONLY from 10/29/2012 FINDINGS: No fracture or dislocation is evident. No significant degenerative change. No lytic or blastic change. Unremarkable soft tissues. IMPRESSION: Negative left hip Dictated by: Trevin Sunshine MD 09/18/2019 11:59 Electronically signed by Trevin Sunshine MD in [place] 09/18/2019 11:59
--- NOTE | 2019-09-18 08:58 | XR_ITS ---
PROCEDURE: XR KNEE RT 4V CLINICAL INDICATION: Leg Pain COMPARISON: [id number] KNEE-4 OR 5 VIEWS-RT from 07/15/2017 [id number] KNEE-4 OR 5 VIEWS-LT from 07/15/2017 [id number] XR knee LT 3V from 01/04/2018 XR KNEE LT 3V from 08/19/2019 FINDINGS: No fracture or dislocation. No lytic or blastic change. There is normal mineralization. There are minimal osteoarthritic changes at the medial compartment and patellofemoral joint Other findings:Small bone island is present at the lateral femoral condyle IMPRESSION: Mild osteoarthritis Dictated by: Trevin Sunshine MD 09/18/2019 12:22 Electronically signed by Trevin Sunshine MD in [place] 09/18/2019 12:22
== END ==
PROVIDERS: Visit Provider Orthopaedic Surgery
DX: M25.552 Pain in left hip (principal); M79.606 Pain in leg, unspecified; M25.562 Pain in left knee
CPT/HCPCS: 73502; 73564

== ENCOUNTER 2020-06-17 14:29 | Emergency (ER) | payer OTHER, SELFPAY ==
[2020-06-17 15:47] VITALS: BP 120/67; PULSE 81; RESP 20; TEMP 36.6; O2SAT 97; BMI 43.5
--- NOTE | 2020-06-17 16:04 | HMH.EDUTC ---
[facility] [place] Impression: Toe infection Disposition: Home, Self-Care Condition on Discharge: Good Instructions: DI for Diabetic Foot Ulcer, Mupirocin, Clindamycin Additional Instructions: Clean area daily with antibacterial soap and water and apply ointment as prescribed Take oral medication as prescribed Follow up with Dr Garcia/Wendi Johnson in Podiatry Clinic as scheduled Jun 25 at 8:20 am here in the speciality clinic Return if needed Straight to ER if any life threatening symptoms Prescriptions: Mupirocin [Bactroban 2% Ointment 22gm tube] 1 applicatio TP TID #1 tube Transmission Status: Pending to [facility] clindamycin HCL [Clindamycin HCl 300mg Cap] 300 mg PO Q8 14 Days #42 cap Transmission Status: Pending to [facility] Referrals: Garima Sanchez PA [Primary Care Provider] - As needed Makeda Garcia DPM [Staff Physician] - 06/25/20 8:20 am Time of Disposition: 16:26 Medical Decision Making - Mukesh Inquiry Pt receiving controlled substance: No Mukesh was queried for this patient: No Vital Signs: 06/17/20 15:47 Temperature 97.9 F Temperature Source Oral Pulse Rate [Left Brachial] 81 Respiratory Rate 20 Blood Pressure [Left Arm] 120/67 Blood Pressure Mean [Left Arm] 84 Blood Pressure Source [Left Arm] Automatic Cuff Blood Pressure Position [Left Arm] Sitting 02 Sat by Pulse Oximetry 97 Oxygen Delivery Method Room Air - Physician Consults Physician Consulted: [place] Time: 16:15 Reason -: Podiatry Eval/Care Comment/Response: Spoke with Jamir from the clinic and he advised that he would speak to the provider and call back, Jamir from Podiatry called back and spoke with Dr Garcia advised to start patient on Clinda 300mg TID x 14 days or Doxy and Mupiricon ointment tid and follow up in Podiatry clinic on Jun 25 at 820am [facility] [place] - General Stated complaint: rt toe foot pain Time Seen by Provider: 06/17/20 16:09 Mode of Arrival: Ambulatory Source of Information: Patient Limitations: No Limitations Description of Symptoms (Recalled from Triage Doc. by RN): PATIENT C/O DRAINAGE AND BURNING TO RIGHT GREAT TOE AFTER HER TOENAIL FELL OFF LAST NIGHT. STATES SHE HAS A HISTORY OF HER TOENAIL FALLING OFF; SHE IS DIABETIC HEENT Symptoms (Recalled from RN notes): No Resp Symptoms (Recalled from RN notes): No Skin Symptoms (Recalled from RN notes): No MS Symptoms (Recalled from RN notes): Yes Functional Status (Recalled from RN notes): WNL - History of Present Illness Provider Complaint: Patient states that she is a diabetic States that she has a history of toenails on her big toe falling off States that last night she lost part of her toenail on her right great toe Statse that since she has noticed she has some redness and drainage from the toe and worried that it may be infected - Related Data Home Medications Medication Instructions Recorded Confirmed pantoprazole 40 mg tablet,delayed 40 mg PO DAILY 09/24/17 09/18/19 release Ergocalciferol (Vitamin D2) 50,000 unit PO QWEEK 07/12/19 09/18/19 [Drisdol] Gabapentin 600 mg PO TID 07/12/19 09/18/19 Lovastatin 20 mg PO HS 07/12/19 09/18/19 Previous Rx's Medication Instructions Recorded Ondansetron [Zofran 4mg ODT] 4 mg PO Q8HP PRN #10 tab.rapdis 11/08/19 Cetirizine HCl [Zyrtec] 10 mg PO DAILY 30 Days #30 cap 11/16/19 Ondansetron [Zofran 4mg ODT] 4 mg PO Q8HP PRN #20 tab.rapdis 11/16/19 famotidine 20 mg tablet See Rx Instructions .ROUTE 12/15/19 .COMPLEX #60 unspecified ranitidine HCl 75 mg tablet 75 mg PO BID #180 tab 12/18/19 carvedilol 6.25 mg tablet 6.25 mg PO BID #180 tab 03/25/20 diclofenac sodium 1 % topical gel 2 g TOPICAL QID #100 g 03/25/20 glipizide 10 mg tablet 10 mg PO DAILY #90 tab 03/25/20 levothyroxine 100 mcg capsule 100 mcg PO DAILY #90 cap 03/25/20 losartan 100 1 tab PO DAILY #90 tab 03/25/20 mg-hydrochlorothiazide 25 mg tablet meloxicam 7.5 mg tablet 7.5 mg P
[2020-06-17 16:45] VITALS: BP 120/67; PULSE 81; RESP 20; TEMP 36.6; O2SAT 97
== END 2020-06-17 16:46 | disposition home or self-care (01) ==
PROVIDERS: Emergency Provider Nurse Practitioner; PCP Physician Assistant
DX: E11.621 Type 2 diabetes mellitus with foot ulcer (principal); F41.8 Other specified anxiety disorders; E03.9 Hypothyroidism, unspecified; M79.7 Fibromyalgia; K21.9 Gastro-esophageal reflux disease without esophagitis; E78.5 Hyperlipidemia, unspecified; I10 Essential (primary) hypertension; Z79.899 Other long term (current) drug therapy; Z79.84 Long term (current) use of oral hypoglycemic drugs
CPT/HCPCS: 99201

== ENCOUNTER 2020-07-22 13:23 | Emergency (ER) | payer OTHER, SELFPAY ==
[2020-07-22 13:50] VITALS: BP 120/69; PULSE 95; RESP 18; TEMP 36.6; O2SAT 98; BMI 42.2
--- NOTE | 2020-07-22 14:10 | HMH.EDUTC ---
[facility] [place] Dis[place] Clinical Impression: Exposure to COVID-19 virus Disposition: Home, Self-Care Condition on Discharge: Good Instructions: Preventing the Spread of Coronavirus Discharge Instructions Additional Instructions: Drink plenty of fluids. Take tylenol for pain or fever. Follow up with your regular doctor. GO TO THE ER FOR ANY WORSENING SYMPTOMS Referrals: Mook Hoang MD [Primary Care Provider] - Forms: Work/School Release Time of Disposition: 14:12 Medical Decision Making - Medical Records Medical records reviewed: No: I reviewed the patient's medical records. - Mukesh Inquiry Pt receiving controlled substance: No Vital Signs: 07/22/20 13:50 07/22/20 14:16 Temperature 97.8 F 97.8 F Temperature Source Oral Pulse Rate 95 H Pulse Rate [Right Brachial] 95 H Respiratory Rate 18 18 Blood Pressure 120/69 Blood Pressure [Right Arm] 120/69 Blood Pressure Mean [Right Arm] 86 Blood Pressure Source [Right Arm] Automatic Cuff Blood Pressure Position [Right Arm] Sitting 02 Sat by Pulse Oximetry 98 Oxygen Delivery Method Room Air [facility] [place] HPI - General Stated complaint: covid exposure Time Seen by Provider: 07/22/20 14:11 Mode of Arrival: Ambulatory Source of Information: Patient Limitations: No Limitations Description of Symptoms (Recalled from Triage Doc. by RN): PATIENT REQUESTING COVID TEST D/T EXPOSURE; DENIES SYMPTOMS HEENT Symptoms (Recalled from RN notes): No Resp Symptoms (Recalled from RN notes): No Skin Symptoms (Recalled from RN notes): No MS Symptoms (Recalled from RN notes): No Functional Status (Recalled from RN notes): WNL - History of Present Illness Provider Complaint: She states that she was exposed to covid by her neighbor. She denies any symptoms so far. - Related Data Home Medications Medication Instructions Recorded Confirmed pantoprazole 40 mg tablet,delayed 40 mg PO DAILY 09/24/17 07/02/20 release Ergocalciferol (Vitamin D2) 50,000 unit PO QWEEK 07/12/19 07/02/20 [Drisdol] Gabapentin 600 mg PO TID 07/12/19 07/02/20 Lovastatin 20 mg PO HS 07/12/19 07/02/20 Previous Rx's Medication Instructions Recorded Ondansetron [Zofran 4mg ODT] 4 mg PO Q8HP PRN #10 tab.rapdis 11/08/19 Cetirizine HCl [Zyrtec] 10 mg PO DAILY 30 Days #30 cap 11/16/19 Ondansetron [Zofran 4mg ODT] 4 mg PO Q8HP PRN #20 tab.rapdis 11/16/19 famotidine 20 mg tablet See Rx Instructions .ROUTE 12/15/19 .COMPLEX #60 unspecified ranitidine HCl 75 mg tablet 75 mg PO BID #180 tab 12/18/19 carvedilol 6.25 mg tablet 6.25 mg PO BID #180 tab 03/25/20 diclofenac sodium 1 % topical gel 2 g TOPICAL QID #100 g 03/25/20 glipizide 10 mg tablet 10 mg PO DAILY #90 tab 03/25/20 levothyroxine 100 mcg capsule 100 mcg PO DAILY #90 cap 03/25/20 losartan 100 1 tab PO DAILY #90 tab 03/25/20 mg-hydrochlorothiazide 25 mg tablet meloxicam 7.5 mg tablet 7.5 mg PO DAILY #90 tab 03/25/20 montelukast 10 mg tablet 10 mg PO HS #90 tab 03/25/20 cyclobenzaprine 10 mg tablet 10 mg PO TIDP PRN #90 tab 04/08/20 spironolactone 100 mg tablet 100 mg PO DAILY #90 tab 04/23/20 Mupirocin [Bactroban 2% Ointment 1 applicatio TP TID #1 tube 06/17/20 22gm tube] clindamycin HCL [Clindamycin HCl 300 mg PO Q8 14 Days #42 cap 06/17/20 300mg Cap] bupropion HCl 300 mg 24 hr tablet, 300 mg PO DAILY #30 tab 07/12/20 extended release fluoxetine 40 mg capsule 40 mg PO DAILY #30 cap 07/12/20 quetiapine 50 mg tablet 50 mg PO QHS #30 tab 07/12/20 Allergies Allergy/AdvReac Type Severity Reaction Status Date / Time mold [MOLD] Allergy Severe Anaphylaxis Verified 07/02/20 08:21 Fish Containing Products Allergy Intermediate I-HIVES Verified 07/02/20 08:21 [From SEAFOOD (F/D)] aspirin [ASPIRIN] AdvReac Mild NA-NAUSEA/V Verified 07/02/20 08:21 OMITING From SEAFOOD (F/D) Allergy Intermediate I-HIVES Uncoded 09/18/19 10:06 MUSHROOM Allergy Intermediate I-HIVES Uncoded 09/18/19 10:06
[2020-07-22 14:16] VITALS: BP 120/69; PULSE 95; RESP 18; TEMP 36.6; O2SAT 98
== END 2020-07-22 14:17 | disposition home or self-care (01) ==
PROVIDERS: Emergency Provider Nurse Practitioner Family; PCP Emergency Medicine
DX: Z20.828 Contact with and (suspected) exposure to other viral communicable diseases (principal); J45.909 Unspecified asthma, uncomplicated; E78.5 Hyperlipidemia, unspecified; K21.9 Gastro-esophageal reflux disease without esophagitis; I10 Essential (primary) hypertension; E03.9 Hypothyroidism, unspecified; R01.1 Cardiac murmur, unspecified; M79.7 Fibromyalgia; Z79.899 Other long term (current) drug therapy
CPT/HCPCS: 99201; U0003

== ENCOUNTER 2020-12-23 12:47 | Emergency (ER) | payer OTHER, SELFPAY ==
[2020-12-23 13:31] VITALS: BP 142/83; PULSE 85; RESP 14; TEMP 36.4; O2SAT 100; BMI 47.7
--- NOTE | 2020-12-23 13:38 | HMH.EDUTC ---
[facility] Clinical Impression: Asthma exacerbation Qualifiers: Asthma severity: unspecified severity Asthma persistence: unspecified Qualified Code(s): J45.901 - Unspecified asthma with (acute) exacerbation Disposition: Home, Self-Care Condition on Discharge: Good Instructions: Asthma -- Adult, DI for Asthma -- Adult, Preventing the Spread of Coronavirus Discharge Instructions Additional Instructions: Drink plenty of fluids. Take tylenol for pain or fever. Return if you begin to have difficulty breathing. Follow up with your regular doctor. GO TO THE ER FOR ANY WORSENING SYMPTOMS Prescriptions: Amoxicillin/Potassium Clav [Augmentin 875-125 Tablet] 1 tab PO Q12H 10 Days #20 tab Transmission Status: Received by [facility] predniSONE [Prednisone 20mg Tab] 20 mg PO BID 5 Days #10 tab Transmission Status: Received by [facility] Benzonatate [Tessalon Perle 100mg Cap] 100 mg PO TIDP PRN #30 cap PRN Reason: Cough Transmission Status: Received by [facility] Referrals: Mook Hoang MD [Primary Care Provider] - Time of Disposition: 14:23 Medical Decision Making - Medical Records Medical records reviewed: No: I reviewed the patient's medical records. - Mukesh Inquiry Pt receiving controlled substance: No Vital Signs: 12/23/20 13:31 12/23/20 14:31 Temperature 97.6 F 97.6 F Temperature Source Oral Oral Pulse Rate 85 Pulse Rate [Left Radial] 85 Respiratory Rate 14 14 Blood Pressure 142/83 H Blood Pressure [Right Arm] 142/83 H Blood Pressure Mean [Right Arm] 102 02 Sat by Pulse Oximetry 100 Oxygen Delivery Method Room Air Room Air - Lab Data Lab results reviewed: Yes: I reviewed the patient's lab results. Lab Results 12/23/20 14:34: Strep Counts Include [facility] Negative Orders (Tests/Meds): ORDERS Category Date Time Status Strep Screen Confirmation Stat Micro 12/23/20 14:34 Received - Radiology Data #1 Image(s): Chest Image Reviewed: Yes I reviewed the patient's radiology image, Yes I have reviewed radiologist's interpretation Preliminary Findings: Normal/NAD, No Infiltrates Seen PROCEDURE: XR CHEST 2V CLINICAL HISTORY: CHEST TIGHTNESS COMPARISON: CR CXR2V XR chest 2V from 05/03/2018 CR CXR2V XR chest 2V from 01/18/2019 CR XR CHEST PORTABLE from 07/12/2019 FINDINGS: The cardiomediastinal silhouette and pulmonary vascularity are within normal limits. The lungs are clear without infiltrates, suspicious nodules, or pleural effusions. No acute bony abnormalities. IMPRESSION: No acute findings. Dictated by: Trevin Sunshine MD 12/23/2020 14:13 Trevin Sunshine MD in [place] 12/23/2020 14:13 [facility] [place] - General Stated complaint: sore throat,congestion,headache Time Seen by Provider: 12/23/20 13:39 Mode of Arrival: Ambulatory Source of Information: Patient Limitations: No Limitations Description of Symptoms (Recalled from Triage Doc. by RN): headache, congestion, sore throat, bodyaches HEENT Symptoms (Recalled from RN notes): Yes Resp Symptoms (Recalled from RN notes): Yes Skin Symptoms (Recalled from RN notes): No MS Symptoms (Recalled from RN notes): No Functional Status (Recalled from RN notes): na - History of Present Illness Provider Complaint: She states that for the past 1 month or so she has had chest congestion and a cough. - Related Data Home Medications Medication Instructions Recorded Confirmed pantoprazole 40 mg tablet,delayed 40 mg PO DAILY 09/24/17 07/02/20 release Gabapentin 600 mg PO TID 07/12/19 07/02/20 Lovastatin 20 mg PO HS 07/12/19 07/02/20 Previous Rx's Medication Instructions Recorded Ondansetron [Zofran 4mg ODT] 4 mg PO Q8HP PRN #10 tab.rapdis 11/08/19 Cetirizine HCl [Zyrtec] 10 mg PO DAILY 30 Days #30 cap 11/16/19 Ondansetron [Zofran 4mg ODT] 4 mg PO Q8HP PRN #20 tab.rapdis 11/16/19 glipizide 10 mg tablet 10 mg PO DAILY #90 tab 03/25/20 Mupirocin [Bactro
--- NOTE | 2020-12-23 13:49 | XR_ITS ---
PROCEDURE: XR CHEST 2V CLINICAL HISTORY: CHEST TIGHTNESS COMPARISON: CR CXR2V XR chest 2V from 05/03/2018 CR CXR2V XR chest 2V from 01/18/2019 CR XR CHEST PORTABLE from 07/12/2019 FINDINGS: The cardiomediastinal silhouette and pulmonary vascularity are within normal limits. The lungs are clear without infiltrates, suspicious nodules, or pleural effusions. No acute bony abnormalities. IMPRESSION: No acute findings. Dictated by: Trevin Sunshine MD 12/23/2020 14:13 Trevin Sunshine MD in [place] 12/23/2020 14:13
[2020-12-23 14:31] VITALS: BP 142/83; PULSE 85; RESP 14; TEMP 36.4; O2SAT 100
[2020-12-23 14:35] LABS: UTC Strep Screen (Rapid) Negative (Negative)
== END 2020-12-23 14:34 | disposition home or self-care (01) ==
PROVIDERS: Emergency Provider Nurse Practitioner Family; PCP Emergency Medicine
DX: Z20.822 Contact with and (suspected) exposure to COVID-19 (principal); J45.901 Unspecified asthma with (acute) exacerbation; K21.9 Gastro-esophageal reflux disease without esophagitis; I10 Essential (primary) hypertension; E78.5 Hyperlipidemia, unspecified; R01.1 Cardiac murmur, unspecified; Z79.899 Other long term (current) drug therapy
CPT/HCPCS: 71046; 87880; 99202; G0463; U0003

== ENCOUNTER 2021-02-12 08:15 | Emergency (ER) | payer OTHER, SELFPAY ==
[2021-02-12 08:15] VITALS: BP 127/87; PULSE 82; RESP 18; TEMP 36.8; O2SAT 98; BMI 47.7
[2021-02-12 08:25] VITALS: BMI 47.7
--- NOTE | 2021-02-12 08:25 | XR_ITS ---
PROCEDURE: XR CHEST 2V CLINICAL HISTORY: cough COMPARISON: CR CXR2V XR chest 2V from 01/18/2019 CR XR CHEST PORTABLE from 07/12/2019 CR XR CHEST 2V from 12/23/2020 FINDINGS: The cardiomediastinal silhouette and pulmonary vascularity are within normal limits. The lungs are clear without infiltrates, suspicious nodules, or pleural effusions. No acute bony abnormalities. IMPRESSION: No acute findings. Dictated by: Trevin Sunshine MD 02/12/2021 08:39 Trevin Sunshine MD in [place] 02/12/2021 08:39
[2021-02-12 08:31] VITALS: BP 138/85; PULSE 85; O2SAT 96
[2021-02-12 08:32] LABS: Adenovirus,PCR Not Detected (NotDetected); Bordetella Pertussis Not Detected (NotDetected); Chlamydophila Pneumoniae, PCR Not Detected (NotDetected); Coronavirus 19, PCR Not Detected (NotDetected); Coronavirus 229E Not Detected (NotDetected); Coronavirus NL63 Not Detected (NotDetected); Coronavirus OC43 Not Detected (NotDetected); Coronovirus HKU1,PCR Not Detected (NotDetected); Human Metapneumovirus Not Detected (NotDetected); Influenza A, PCR Not Detected (NotDetected); Influenza AH1, 2009 Not Detected (NotDetected); Influenza AH1, PCR Not Detected (NotDetected); Influenza AH3,PCR Not Detected (NotDetected); Influenza B, PCR Not Detected (NotDetected); Mycoplasma Pneumoniae, PCR Not Detected (NotDetected); Parainfluenza 1, PCR Not Detected (NotDetected); Parainfluenza 2, PCR Not Detected (NotDetected); Parainfluenza 3, PCR Not Detected (NotDetected); Parainfluenza 4, PCR Not Detected (NotDetected); Respiratory Syncytial Virus Not Detected (NotDetected)
--- NOTE | 2021-02-12 08:50 | HMH.EDGENADL ---
ED Disposition Clinical Impression: Viral upper respiratory illness Disposition: Home, Self-Care Condition on Discharge: Good Instructions: DI for Viral Upper Respiratory Infection -- Adult Additional Instructions: Tylenol Cold and sinus or Advil Cold and Sinus. Tessalon Perles for cough. Emergency department will call you with the results of your respiratory panel and Covid test. Additional instructions for UPPER RESPIRATORY INFECTION: Rest and drink plenty of fluids. Return immediately if you have an uncontrollable fever greater than 104 degrees, difficulty breathing or shortness of breath, persistent vomiting, or inability to swallow. You are being provided with a list of physicians available for follow-up of your condition. Please call a physician on this list to arrange a follow-up appointment. Prescriptions: Benzonatate [Tessalon Perle 100mg Cap] 100 mg PO TIDP PRN #20 cap PRN Reason: Cough Transmission Status: Pending to [facility] Referrals: Provider,Referral, [Primary Care Provider] - - Critical Care Critical Care Time: No Attestation: On 02/12/21, the high probability of a clinically significant, sudden or life threatening deterioration of the following system(s) required my full and direct attention, intervention and personal management. The time I documented below is in addition to time spent performing reported procedures but includes the following listed in this critical care notation. Medical Decision Making - Mukesh Inquiry Pt receiving controlled substance: No Vital Signs: 02/12/21 08:15 Temperature 98.2 F Temperature Source Oral Pulse Rate [Left Radial] 82 Respiratory Rate 18 Blood Pressure [Right Arm] 127/87 Blood Pressure Mean [Right Arm] 100 02 Sat by Pulse Oximetry 98 Oxygen Delivery Method Room Air Orders (Tests/Meds): ORDERS Category Date Time Status Full Resp Panel w/COVID ([facility]) Routine Lab 02/12/21 08:24 Received - Radiology Data #1 Image(s): Chest Image Reviewed: Yes I reviewed the patient's radiology image, Yes I have reviewed radiologist's interpretation PROCEDURE: XR CHEST 2V CLINICAL HISTORY: cough COMPARISON: CR CXR2V XR chest 2V from 01/18/2019 CR XR CHEST PORTABLE from 07/12/2019 CR XR CHEST 2V from 12/23/2020 FINDINGS: The cardiomediastinal silhouette and pulmonary vascularity are within normal limits. The lungs are clear without infiltrates, suspicious nodules, or pleural effusions. No acute bony abnormalities. IMPRESSION: No acute findings. Dictated by: Trevin Sunshine MD 02/12/2021 08:39 Trevin Sunshine MD in [place] 02/12/2021 08:39 Medical Decision Narrative: Symptoms consistent with viral upper respiratory infection. No wheezing or exacerbation of asthma on exam. Respiratory panel with Covid sent. Symptomatic treatment. General Adult HPI - General Chief complaint: Upper Respiratory Infection Stated complaint: sneezing, cough, runny nose, body aches Time Seen by Provider: 02/12/21 08:40 Mode of Arrival: Ambulatory Limitations: No Limitations Description of Symptoms (Recalled from ER Triage Doc. by RN): c/o chills, aches, runny nose and non productive cough for 2 days. - History of Present Illness HPI narrative: 2-day history of cold/flu symptoms. States she started with a headache. She has rhinorrhea. A burning sensation in her throat. Nonproductive cough. States it is difficult to breathe. No fever. No known exposure to any illnesses. She has not had Covid vaccine and has not had Covid. States she has been tested multiple times and has been negative. - Related Data Home Medications Medication Instructions Recorded Confirmed pantoprazole 40 mg tablet,delayed 40 mg PO DAILY 09/24/17 07/02/20 release Gabapentin 600 mg PO TID 07/12/19 07/02/20 Lovastatin 20 mg PO HS 07/12/19 07/02/20 Previous Rx's Medication Instructions Recorded Cetirizine HCl [Zyrtec
[2021-02-12 09:01] VITALS: BP 137/90; PULSE 78; O2SAT 98
[2021-02-12 09:06] VITALS: BP 137/90; PULSE 78; RESP 17; TEMP 36.8; O2SAT 97
[2021-02-12 10:40] LABS: Rhinovirus/Enterovirus Detected (NotDetected)
--- NOTE | 2021-02-12 11:19 | PC.NURSE ---
Attempted to call pt to report to her lab results. Unable to reach at this time.
--- NOTE | 2021-02-13 09:02 | PC.NURSE ---
Pt called and received results at this time.
== END 2021-02-12 09:08 | disposition home or self-care (01) ==
PROVIDERS: Emergency Provider Emergency Medicine
DX: J06.9 Acute upper respiratory infection, unspecified (principal); K21.9 Gastro-esophageal reflux disease without esophagitis; M79.7 Fibromyalgia; E78.5 Hyperlipidemia, unspecified; I10 Essential (primary) hypertension; E03.9 Hypothyroidism, unspecified; Z79.899 Other long term (current) drug therapy
CPT/HCPCS: 71046; 87581; 87633; 87798; 99282

== ENCOUNTER 2021-03-13 11:09 | Emergency (ER) | payer OTHER, SELFPAY ==
[2021-03-13 11:32] VITALS: BP 144/82; PULSE 77; RESP 19; TEMP 36.8; O2SAT 100; BMI 47.7
--- NOTE | 2021-03-13 11:57 | XR_ITS ---
PROCEDURE: XR HAND RT MIN 3V CLINICAL INDICATION: right hand pain and swelling, no injury COMPARISON: No exams were available for comparison FINDINGS: No fracture or dislocation. No lytic or blastic change. There is normal mineralization. The joint spaces are well-preserved. No significant degenerative/arthritic changes. No erosive changes evident. Other findings:None. IMPRESSION: No acute findings. Dictated by: Trevin Sunshine MD 03/13/2021 12:19 Trevin Sunshine MD in [place] 03/13/2021 12:19
--- NOTE | 2021-03-13 12:02 | HMH.EDUTC ---
[facility] [place] Dis[place] Clinical Impression: Right hand pain, Lupus Arthralgia Qualifiers: Joint pain location: unspecified Qualified Code(s): M25.50 - Pain in unspecified joint Knee pain Qualifiers: Chronicity: unspecified Laterality: bilateral Qualified Code(s): M25.561 - Pain in right knee Disposition: Home, Self-Care Condition on Discharge: Good Instructions: DI for Systemic Lupus Erythematosus, DI for Arthralgia Additional Instructions: Drink plenty of fluids. Take the medications as directed. Follow up with your regular doctor. There will be a list in this paper work of primary care doctors that are taking new patients. Please go over that list and get a primary care doctor. Someone with Lupus really needs to have a primary care doctor. GO TO THE ER FOR ANY WORSENING SYMPTOMS Referrals: Provider,Referral, [Primary Care Provider] - Time of Disposition: 13:13 Medical Decision Making - Medical Records Medical records reviewed: No: I reviewed the patient's medical records. - Mukesh Inquiry Pt receiving controlled substance: No Vital Signs: 03/13/21 11:32 03/13/21 13:25 Temperature 98.3 F 98.4 F Temperature Source Oral Pulse Rate 71 Pulse Rate [Left] 77 Respiratory Rate 19 16 Blood Pressure 135/87 Blood Pressure [Right Arm] 144/82 H Blood Pressure Mean [Right Arm] 102 02 Sat by Pulse Oximetry 100 Orders (Tests/Meds): ED MEDICATIONS Discontinued Medications Generic Name Dose Route Start Last Admin Trade Name Freq PRN Reason Stop Dose Admin Methylprednisolone Sodium Succinate 125 mg 03/13/21 12:45 03/13/21 12:52 Methylprednisolone Sod Succ 125mg Vial IM 03/13/21 12:46 125 mg ONCE ONE Administration - Radiology Data #1 Image(s): Hand Image Reviewed: Yes I reviewed the patient's radiology image, Yes I have reviewed radiologist's interpretation Preliminary Findings: Normal/NAD, No Fracture Seen PROCEDURE: XR HAND RT MIN 3V CLINICAL INDICATION: right hand pain and swelling, no injury COMPARISON: No exams were available for comparison FINDINGS: No fracture or dislocation. No lytic or blastic change. There is normal mineralization. The joint spaces are well-preserved. No significant degenerative/arthritic changes. No erosive changes evident. Other findings:None. IMPRESSION: No acute findings. Dictated by: Trevin Sunshine MD 03/13/2021 12:19 Trevin Sunshine MD in [place] 03/13/2021 12:19 [facility] [place] HPI - General Stated complaint: swollen right hand, swelling in both knees Time Seen by Provider: 03/13/21 12:02 Mode of Arrival: Ambulatory Source of Information: Patient Limitations: No Limitations Description of Symptoms (Recalled from Triage Doc. by RN): pt c/o swelling in her R hand and bilaterally in her knees. HEENT Symptoms (Recalled from RN notes): No Resp Symptoms (Recalled from RN notes): No Skin Symptoms (Recalled from RN notes): No MS Symptoms (Recalled from RN notes): Yes (swelling in R hand and both knees) Functional Status (Recalled from RN notes): na - History of Present Illness Provider Complaint: She states that she has a history of lupus. 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 She is having bilateral knee pain and right hand pain. She denies any injury. - Related Data Home Medications Medication Instructions Recorded Confirmed pantoprazole 40 mg tablet,delayed 40 mg PO DAILY 09/24/17 07/02/20 release Gabapentin 600 mg PO TID 07/12/19 07/02/20 Lovastatin 20 mg PO HS 07/12/19 07/02/20 Previous Rx's Medication Instructions Recorded Cetirizine HCl [Zyrtec] 10 mg PO DAILY 30 Days #30 cap 11/16/19 glipizide 10 mg tablet 10 mg PO DAILY #90 tab 03/25/20 cyclobenzaprine 10 mg tablet See Rx Instructions .ROUTE 08/26/20 .COMPLEX #90 tab ergocalciferol (vitamin D2) 1,250 See Rx Instructions .ROUTE 09/02/20 mcg (50,000 unit
[2021-03-13 13:25] VITALS: BP 135/87; PULSE 71; RESP 16; TEMP 36.9
== END 2021-03-13 13:25 | disposition home or self-care (01) ==
PROVIDERS: Emergency Provider Nurse Practitioner Family
DX: M25.561 Pain in right knee (principal); M25.541 Pain in joints of right hand; M32.9 Systemic lupus erythematosus, unspecified; I10 Essential (primary) hypertension; E03.9 Hypothyroidism, unspecified; M79.7 Fibromyalgia; E78.5 Hyperlipidemia, unspecified; K21.9 Gastro-esophageal reflux disease without esophagitis; F33.1 Major depressive disorder, recurrent, moderate; Z79.899 Other long term (current) drug therapy
CPT/HCPCS: 73130; 96372; 99202; G0463

== ENCOUNTER 2021-03-23 11:37 | Emergency (ER) | payer OTHER, SELFPAY ==
[2021-03-23 12:00] VITALS: BP 124/73; PULSE 81; RESP 16; O2SAT 98; BMI 44.4
--- NOTE | 2021-03-23 12:11 | HMH.EDUTC ---
[facility] [place] Clinical Impression: Abdominal pain Qualifiers: Abdominal location: unspecified location Qualified Code(s): R10.9 - Unspecified abdominal pain Disposition: Still a Patient Condition on Discharge: Fair Referrals: Bharat Lara MD [Primary Care Provider] - Time of Disposition: 12:28 Medical Decision Making - Medical Records Medical records reviewed: No: I reviewed the patient's medical records. - Mukesh Inquiry Pt receiving controlled substance: No Vital Signs: 03/23/21 12:00 03/23/21 12:52 Temperature 98.6 F Temperature Source Oral Oral Pulse Rate [Left] 81 73 Respiratory Rate 16 16 Blood Pressure [Right Arm] 124/73 120/80 Blood Pressure Mean [Right Arm] 90 93 Blood Pressure Position [Right Arm] Sitting 02 Sat by Pulse Oximetry 98 97 Oxygen Delivery Method Room Air Room Air - Lab Data Lab results reviewed: Yes: I reviewed the patient's lab results. Lab Results 03/23/21 12:31: Urine Color Yellow, Urine Appearance Clear, Urine pH 6.5, Ur Specific [place] 1.010, Urine Protein Negative, Urine Glucose (UA) Negative, Urine Ketones Negative, Urine Blood Negative, Urine Nitrate Negative, Urine Bilirubin Negative, Urine Urobilinogen 0.2, Ur Leukocyte Esterase 2+ A, Urine RBC 3-5, Urine WBC 5-10, Ur Squamous Epith Cells 3-5 03/23/21 12:31: Urine HCG, Qual Negative 03/23/21 12:52: Urine Color Yellow, Urine Appearance Cloudy, Urine pH 7.0, Ur Specific [place] 1.015, Urine Protein Negative, Urine Glucose (UA) Negative, Urine Ketones Negative, Urine Blood Trace, Urine Nitrate Negative, Urine Bilirubin Negative, Urine Urobilinogen 0.2, Ur Leukocyte Esterase 1+ A 03/23/21 13:05: WBC 11.3 H, RBC 4.60, Hgb 14.0, Hct 41.4, MCV 90.0, MCH 30.4, MCHC 33.8, RDW 13.9, Plt Count 325, MPV 9.4, Neut % (Auto) 60.7, Lymph % (Auto) 29.5, [place] % (Auto) 7.6, Eos % (Auto) 1.2, Baso % (Auto) 1.0, Neut # (Auto) 6.8, Lymph # (Auto) 3.3, [place] # (Auto) 0.9, Eos # (Auto) 0.1, Baso # (Auto) 0.1 03/23/21 13:05: Potassium 5.7 H, Chloride 98, Carbon Dioxide 28, BUN 14, Creatinine 1.00, Estimated Creat Clear 57, Estimated GFR 61, Est GFR ( Amer) 73, Glucose 113 H, Calcium 9.2, Total Bilirubin 1.5 H, AST 48 H, ALT 27, Alkaline Phosphatase 85, Total Protein 7.7, Albumin 4.5, Globulin 3.2, Albumin/Globulin Ratio 1.4 03/23/21 13:05: Lipase 216 Result diagrams: 03/23/21 13:05 03/23/21 13:05 Orders (Tests/Meds): ED MEDICATIONS Discontinued Medications Generic Name Dose Route Start Last Admin Trade Name Freq PRN Reason Stop Dose Admin Iopamidol 75 ml 03/23/21 15:19 03/23/21 15:20 Iopamidol-370 (76%);100ml Bottle IV 03/23/21 15:20 75 ml ONCE ONE Administration Ketorolac Tromethamine 30 mg 03/23/21 14:38 03/23/21 14:40 Ketorolac 30mg/Ml Vial IV 03/23/21 14:39 30 mg ONCE ONE Administration Ondansetron HCl 4 mg 03/23/21 14:38 03/23/21 14:40 Ondansetron 4mg/2ml Vial IV 03/23/21 14:39 4 mg ONCE ONE Administration Sodium Chloride 10 ml 03/23/21 15:19 03/23/21 15:20 Sodium Chloride 0.9% 10ml Syr (Rad Only) IV 03/23/21 15:20 10 ml ONCE ONE Administration ORDERS Category Date Time Status CMP [Comprehensive Metabolic Panel] Stat Lab 03/23/21 13:05 Results Urine Culture Stat Micro 03/23/21 12:31 [place] [facility] [place] - General Stated complaint: Back & Stomach hurts Time Seen by Provider: 03/23/21 12:11 Mode of Arrival: Ambulatory Source of Information: Patient Limitations: No Limitations Description of Symptoms (Recalled from Triage Doc. by RN): pt c/o LLQ and LRQ pain as well as bilateral flank pain. pt states its painful to urinate and have bms. she reports having spasms throughout her body. pt has a mesh spling on her bladder. HEENT Symptoms (Recalled from RN notes): No Resp Symptoms (Recalled from RN notes): No Skin Symptoms (Recalled from RN notes): No MS Symptoms (Recalled from RN notes): Yes (abd pain. pain with urinating and bms. flank pain) Functional Status (Re
[2021-03-23 12:52] VITALS: BP 120/80; PULSE 73; RESP 16; TEMP 37; O2SAT 97; BMI 45.8
[2021-03-23 12:53] LABS: Apearance,Urine Cloudy (Clear); Color,Urine Yellow (Yellow); Specific Gravity, Urine 1.015 (1.005-1.030)
[2021-03-23 12:54] LABS: Bilirubin,Urine Negative (Negative); Blood, Urine Trace (Negative); Glucose,Urine (UA) Negative (Negative); Ketones,Urine Negative (Negative); Protein,Urine Negative (Negative); UTC Leukocyte Esterase,Urine 1+ (Negative); UTC Nitrate,Urine Negative (Negative); Urobilinogen,Urine 0.2 EU/dl (0.2)
--- NOTE | 2021-03-23 13:01 | HMH.EDGENADL ---
ED Disposition Clinical Impression: Abdominal pain Qualifiers: Abdominal location: unspecified location Qualified Code(s): R10.9 - Unspecified abdominal pain UTI (urinary tract infection) Qualifiers: Urinary tract infection type: site unspecified Hematuria presence: without hematuria Qualified Code(s): N39.0 - Urinary tract infection, site not specified Disposition: Home, Self-Care Condition on Discharge: Good Instructions: DI for Acute Abdominal Pain, DI for Urinary Tract Infection (UTI) Additional Instructions: Additional instructions for URINARY TRACT INFECTION: Take antibiotic as prescribed. See your physician in 2-3 days for follow up and culture results. Return immediately if you have an uncontrollable fever greater than 102 degrees, severe back or abdominal pain, inability to urinate, or repetitive vomiting. Additional instructions for ABDOMINAL PAIN: See your physician as soon as possible for further evaluation. Return immediately if worsening abdominal pain, vomiting, shortness of breath, fever, vomiting of blood or abdominal distention. Prescriptions: Cefdinir [Omnicef 300mg Capsule] 300 mg PO BID #20 cap Transmission Status: Pending to [facility] Referrals: Bharat Lara MD [Primary Care Provider] - - Critical Care Critical Care Time: No Attestation: On 03/23/21, the high probability of a clinically significant, sudden or life threatening deterioration of the following system(s) required my full and direct attention, intervention and personal management. The time I documented below is in addition to time spent performing reported procedures but includes the following listed in this critical care notation. Medical Decision Making - Mukesh Inquiry Pt receiving controlled substance: No Vital Signs: 03/23/21 12:00 03/23/21 12:52 Temperature 98.6 F Temperature Source Oral Oral Pulse Rate [Left] 81 73 Respiratory Rate 16 16 Blood Pressure [Right Arm] 124/73 120/80 Blood Pressure Mean [Right Arm] 90 93 Blood Pressure Position [Right Arm] Sitting 02 Sat by Pulse Oximetry 98 97 Oxygen Delivery Method Room Air Room Air - Lab Data Lab Results 03/23/21 12:31: Urine Color Yellow, Urine Appearance Clear, Urine pH 6.5, Ur Specific [place] 1.010, Urine Protein Negative, Urine Glucose (UA) Negative, Urine Ketones Negative, Urine Blood Negative, Urine Nitrate Negative, Urine Bilirubin Negative, Urine Urobilinogen 0.2, Ur Leukocyte Esterase 2+ A, Urine RBC 3-5, Urine WBC 5-10, Ur Squamous Epith Cells 3-5 03/23/21 12:31: Urine HCG, Qual Negative 03/23/21 12:52: Urine Color Yellow, Urine Appearance Cloudy, Urine pH 7.0, Ur Specific [place] 1.015, Urine Protein Negative, Urine Glucose (UA) Negative, Urine Ketones Negative, Urine Blood Trace, Urine Nitrate Negative, Urine Bilirubin Negative, Urine Urobilinogen 0.2, Ur Leukocyte Esterase 1+ A 03/23/21 13:05: WBC 11.3 H, RBC 4.60, Hgb 14.0, Hct 41.4, MCV 90.0, MCH 30.4, MCHC 33.8, RDW 13.9, Plt Count 325, MPV 9.4, Neut % (Auto) 60.7, Lymph % (Auto) 29.5, [place] % (Auto) 7.6, Eos % (Auto) 1.2, Baso % (Auto) 1.0, Neut # (Auto) 6.8, Lymph # (Auto) 3.3, [place] # (Auto) 0.9, Eos # (Auto) 0.1, Baso # (Auto) 0.1 03/23/21 13:05: Potassium 5.7 H, Chloride 98, Carbon Dioxide 28, BUN 14, Creatinine 1.00, Estimated Creat Clear 57, Estimated GFR 61, Est GFR ( Amer) 73, Glucose 113 H, Calcium 9.2, Total Bilirubin 1.5 H, AST 48 H, ALT 27, Alkaline Phosphatase 85, Total Protein 7.7, Albumin 4.5, Globulin 3.2, Albumin/Globulin Ratio 1.4 03/23/21 13:05: Lipase 216 Result diagrams: 03/23/21 13:05 03/23/21 13:05 Orders (Tests/Meds): ED MEDICATIONS Generic Name Dose Route Start Last Admin Trade Name Freq PRN Reason Stop Dose Admin Ceftriaxone Sodium 1 gm/ 50 mls @ 100 mls/hr 03/23/21 16:15 Sodium Chloride IV 04/06/21 16:14 Q24H AHSAN Protocol Discontinued Medications Generic Name Dose Route Start Last Admin Trade Name Freq
[2021-03-23 13:03] LABS: Microscopic, Urine URINE MICROSCOPIC (MICROSCOPIC)
[2021-03-23 13:11] LABS: Appearance,Urine CLEAR (Clear); Bilirubin,Urine Negative (Negative); Blood, Urine Negative (Negative); Color,Urine YELLOW (Yellow); Glucose,Urine (UA) Negative (Negative); Ketones,Urine Negative (Negative); Leukocyte Esterase,Urine 2+ (Negative); Nitrate,Urine Negative (Negative); PH,Urine 6.5 (5.0-8.5); Protein,Urine Negative (Negative); Urobilinogen,Urine 0.2 EU/dl (0.2)
[2021-03-23 13:49] LABS: Basophils # 0.1 K/mm3 (0-0.2); Eosinophils # 0.1 K/mm3 (0.0-0.4); Eosinophils % 1.2 % (0.1-12.0); Hematocrit 41.4 % (37.0-47.0); Lymphocytes # 3.3 K/mm3 (0.7-4.5); Lymphocytes % 29.5 % (10-50); Mean Corpuscular HGB Conc 33.8 g/dL (31.8-35.4); Mean Corpuscular Hemoglobin 30.4 pg (27.0-31.2); Mean Platelet Volume 9.4 fl (7.4-10.4); Monocytes # 0.9 K/mm3 (0.1-1.0); Monocytes % 7.6 % (1.7-9.3); Neutrophils # 6.8 K/mm3 (1.8-7.8); Neutrophils % 60.7 % (37.0-80.0); Platelet Count 325 K/mm3 (142-424); Red Cell Distribution Width 13.9 % (11.5-17.5); White Blood Count 11.3 K/mm3 (4.8-10.8)
[2021-03-23 13:59] LABS: Lipase 216 U/L (23-300)
[2021-03-23 14:00] LABS: Alanine Aminotransferase 27 U/L (12-78); Albumin Level 4.5 g/dl (3.5-5.0); Albumin/Globulin Ratio 1.4 (1.1-1.8); Alkaline Phosphatase 85 U/L (38-126); Aspartate Amino Transferase 48 U/L (14-36); Bilirubin,Total 1.5 mg/dl (0.2-1.3); Blood Urea Nitrogen 14 mg/dl (7-17); Calcium 9.2 mg/dl (8.4-10.2); Carbon Dioxide 28 mmol/L (22.0-30.0); Chloride 98 mmol/L (98-107); Creatinine Clearance Estimated 57 mL/min (50-200); Estimated Glomerular Filt Rate 61 ml/min (>60); GFR (African American) 73 ML/MIN (>60); Globulin 3.2 g/dL (1.3-3.2); Glucose 113 mg/dl (74-100); Potassium 5.7 mmoL/L (3.5-5.1); Total Protein,Serum 7.7 g/dl (6.3-8.2)
--- NOTE | 2021-03-23 14:16 | CT_ITS ---
PROCEDURE INFORMATION: Exam: CT Abdomen And Pelvis With Contrast Exam date and time: 03/23/2021 2:16 PM Age: 41 years old Clinical indication: Abdominal pain; Additional info: Abdo pain, n/v TECHNIQUE: Imaging protocol: Computed tomography of the abdomen and pelvis with contrast. Total images: 335 Radiation optimization: All CT scans at this facility use at least one of these dose optimization techniques: automated exposure control; mA and/or kV adjustment per patient size (includes targeted exams where dose is matched to clinical indication); or iterative reconstruction. Contrast material: ISOVUE; Contrast volume: 75 ml; Contrast route: IV; COMPARISON: ABDPELW/O CT ABD PELVIS W/O CONTRAST 07/28/2017 4:44 PM FINDINGS: Liver: Hepatomegaly at 20 cm craniocaudal dimension. Gallbladder and bile ducts: Prior cholecystectomy noted. Pancreas: Normal. No ductal dilation. Spleen: Normal. No splenomegaly. Adrenal glands: Normal. No mass. Kidneys and ureters: Normal. No hydronephrosis. Stomach and bowel: Unremarkable. No obstruction. No mucosal thickening. Appendix: Although the appendix now measures 6 mm diameter and was previously entirely decompressed, there is no surrounding inflammation and this is not enlarged. No findings to favor appendicitis. Intraperitoneal space: Unremarkable. No free air. No significant fluid collection. Vasculature: Unremarkable. No abdominal aortic aneurysm. Lymph nodes: Unremarkable. No enlarged lymph nodes. Urinary bladder: Unremarkable as visualized. Reproductive: Unremarkable as visualized. Bones/joints: Multifocal neural foraminal stenosis, due to degeneration. Neural foraminal narrowing most notable at L5/S1. Soft tissues: Unremarkable. Other findings: Incidental pelvic phleboliths. IMPRESSION: 1. Although the appendix now measures 6 mm diameter and was previously entirely decompressed, there is no surrounding inflammation and this is not enlarged. No findings to favor appendicitis. 2. No acute intra-abdominal process identified.
[2021-03-23 15:01] LABS: Urine Pregnancy, HCG Qual. Negative (Negative)
[2021-03-23 16:18] LABS: Anion Gap 13.7 mEq/L (5-15); Sodium 134 mmol/L (136-145)
[2021-03-23 17:01] VITALS: BP 142/74; PULSE 88; RESP 16; TEMP 36.6; O2SAT 98
== END 2021-03-23 17:03 | disposition home or self-care (01) ==
LOC: UTC 12:28 → ER 12:51
PROVIDERS: Nurse Practitioner Family; Emergency Provider Emergency Medicine; PCP Family Medicine
DX: R10.31 Right lower quadrant pain (principal); R10.32 Left lower quadrant pain; M79.7 Fibromyalgia; E03.9 Hypothyroidism, unspecified; K21.9 Gastro-esophageal reflux disease without esophagitis; E78.5 Hyperlipidemia, unspecified; I10 Essential (primary) hypertension; Z79.899 Other long term (current) drug therapy
CPT/HCPCS: 74177; 80053; 81001; 81003; 81025; 83690; 85025; 87086; 96365; 99283; J2405; Q9967

== ENCOUNTER 2021-04-07 19:22 | Emergency (ER) | payer OTHER, SELFPAY ==
[2021-04-07 20:25] VITALS: BP 139/75; PULSE 81; RESP 20; TEMP 36.8; O2SAT 98; BMI 47.1
--- NOTE | 2021-04-07 20:48 | HMH.EDUTC ---
[facility] [place] Disposition Clinical Impression: Vee rash of groin UTI (urinary tract infection) Qualifiers: Urinary tract infection type: site unspecified Hematuria presence: with hematuria Qualified Code(s): N39.0 - Urinary tract infection, site not specified; R31.9 - Hematuria, unspecified Disposition: Home, Self-Care Condition on Discharge: Good Instructions: Yeast Infection-Skin Additional Instructions: Apply cream to area as prescribed Follow up with your Family Doctor as scheduled Return if needed Straight to ER if any life threatening symptoms Return if needed Make sure that you are drinking plenty of fluids Prescriptions: cephALEXin [cephALEXin 500mg capsule*] 500 mg PO Q12H 7 Days #14 cap Transmission Status: Pending to [facility] Nystatin [Nystatin Cr 100,000 Units/GM 30GM] 1 applicatio TOPICAL BID #1 tube Transmission Status: [facility] Referrals: Bharat Lara MD [Primary Care Provider] - As needed Time of Disposition: 21:00 Medical Decision Making - Mukesh Inquiry Pt receiving controlled substance: No Mukesh was queried for this patient: No Vital Signs: 04/07/21 20:25 Temperature 98.2 F Temperature Source Oral Pulse Rate [Right Brachial] 81 Respiratory Rate 20 Blood Pressure [Right Arm] 139/75 Blood Pressure Mean [Right Arm] 96 Blood Pressure Source [Right Arm] Automatic Cuff Blood Pressure Position [Right Arm] Sitting 02 Sat by Pulse Oximetry 98 Oxygen Delivery Method Room Air - Lab Data Lab results reviewed: Yes: I reviewed the patient's lab results. [facility] [place] HPI - General Stated complaint: rash Time Seen by Provider: 04/07/21 20:48 Mode of Arrival: Ambulatory Source of Information: Patient Limitations: No Limitations Description of Symptoms (Recalled from Triage Doc. by RN): PATIENT C/O RASH TO GROIN, PAIN IN LEGS; ALSO STATES SHE WAS TREATED FOR UTI 3 WEEKS AGO AND IS NOT BETTER HEENT Symptoms (Recalled from RN notes): No Resp Symptoms (Recalled from RN notes): No Skin Symptoms (Recalled from RN notes): Yes MS Symptoms (Recalled from RN notes): No Functional Status (Recalled from RN notes): WNL - History of Present Illness Provider Complaint: Patient states that she was seen and treated about 3wks ago for UTI State that she is still having symptoms on and off and wants to get her urine rechecked States that also she has rash in buttock area and comes around to groin area State that feels like yeast rash States that also she has pain on and off in her legs but not having any pain right now State that it is achy like pain denies injury - Related Data Home Medications Medication Instructions Recorded Confirmed pantoprazole 40 mg tablet,delayed 40 mg PO DAILY 09/24/17 07/02/20 release Gabapentin 600 mg PO TID 07/12/19 07/02/20 Lovastatin 20 mg PO HS 07/12/19 07/02/20 Previous Rx's Medication Instructions Recorded Cetirizine HCl [Zyrtec] 10 mg PO DAILY 30 Days #30 cap 11/16/19 cyclobenzaprine 10 mg tablet See Rx Instructions .ROUTE 08/26/20 .COMPLEX #90 tab ergocalciferol (vitamin D2) 1,250 See Rx Instructions .ROUTE 09/02/20 mcg (50,000 unit) capsule .COMPLEX #4 cap meloxicam 7.5 mg tablet See Rx Instructions .ROUTE 09/02/20 .COMPLEX #30 tab diclofenac sodium 1 % topical gel 2 g TOPICAL QID #100 g 09/09/20 famotidine 20 mg tablet See Rx Instructions .ROUTE 09/09/20 .COMPLEX #180 tab hydrochlorothiazide 25 mg tablet 25 mg PO QAM #90 tab 09/19/20 losartan 100 mg tablet 100 mg PO DAILY #90 tab 09/19/20 ranitidine HCl 75 mg tablet 75 mg PO BID #180 tab 11/21/20 spironolactone 100 mg tablet 100 mg PO DAILY #90 tab 12/04/20 montelukast 10 mg tablet See Rx Instructions .ROUTE 12/05/20 .COMPLEX #90 tab Benzonatate [Tessalon Perle 100mg 100 mg PO TIDP PRN #20 cap 02/12/21 Cap] cariprazine 1.5 mg capsule 1.5 mg PO DAILY #30 cap 03/06/21 fluoxetine 40 mg capsule 40 mg PO DAILY #30 cap 03/06/21 methylPREDNISolone [Medrol 4mg 4 mg
[2021-04-07 21:00] LABS: Apearance,Urine Clear (Clear); Bilirubin,Urine Negative (Negative); Blood, Urine Trace (Negative); Color,Urine Yellow (Yellow); Glucose,Urine (UA) Negative (Negative); Ketones,Urine Negative (Negative); PH,Urine 5.5 (5.0-8.5); Protein,Urine Negative (Negative); Specific Gravity, Urine 1.025 (1.005-1.030); UTC Leukocyte Esterase,Urine 2+ (Negative); UTC Nitrate,Urine Negative (Negative); Urobilinogen,Urine 1 EU/dl (0.2)
[2021-04-07 21:03] VITALS: BP 139/75; PULSE 81; RESP 20; TEMP 36.8; O2SAT 98
== END 2021-04-07 21:09 | disposition home or self-care (01) ==
PROVIDERS: Emergency Provider Nurse Practitioner; PCP Family Medicine
DX: B37.89 Other sites of candidiasis (principal); N30.01 Acute cystitis with hematuria; F33.1 Major depressive disorder, recurrent, moderate; K21.9 Gastro-esophageal reflux disease without esophagitis; E78.5 Hyperlipidemia, unspecified; I10 Essential (primary) hypertension; E03.9 Hypothyroidism, unspecified; M79.7 Fibromyalgia; Z79.899 Other long term (current) drug therapy
CPT/HCPCS: 81003; 87086; 99202; G0463

== ENCOUNTER → 2021-05-20 12:18 | Outpatient (CLI) | payer OTHER, SELFPAY ==
--- NOTE | 2021-05-20 12:24 | XR_ITS ---
PROCEDURE: XR KNEE LT 3V CLINICAL INDICATION: LT KNEE PAIN COMPARISON: CR [id number] XR knee LT 3V from 01/04/2018 CR XR KNEE LT 3V from 08/19/2019 CR XR KNEE LT 4V from 09/18/2019 CR XR KNEE RT 4V from 09/18/2019 FINDINGS: No fracture or dislocation. No lytic or blastic change. There is normal mineralization. Tricompartmental osteoarthritic changes are present greatest at the medial compartment and patellofemoral joint. These findings have slightly progressed compared to the previous exam. There may be a small suprapatellar effusion. There is an old healed proximal fibular shaft fracture. Other findings:None. IMPRESSION: Moderate osteoarthritic changes which have progressed compared to the previous study with possible small suprapatellar effusion. Dictated by: Trevin Sunshine MD 05/20/2021 13:53 Trevin Sunshine MD in [place] 05/20/2021 13:53
--- NOTE | 2021-05-20 12:24 | XR_ITS ---
PROCEDURE: XR KNEE RT 3V CLINICAL INDICATION: RT KNEE PAIN COMPARISON: CR [id number] XR knee LT 3V from 01/04/2018 CR XR KNEE LT 3V from 08/19/2019 CR XR KNEE LT 4V from 09/18/2019 CR XR KNEE RT 4V from 09/18/2019 FINDINGS: No fracture or dislocation. No lytic or blastic change. There is normal mineralization. There are tricompartmental osteoarthritic changes greatest at the medial compartment and patellofemoral joint. There is mild tibial subluxation laterally by approximately 5 mm. The osteoarthritis has progressed from 09/18/2019. Other findings:None. IMPRESSION: Osteoarthritic changes progressed since the previous exam Dictated by: Trevin Sunshine MD 05/20/2021 13:51 Trevin Sunshine MD in [place] 05/20/2021 13:51
== END ==
PROVIDERS: PCP Family Medicine; Visit Provider Family Medicine
DX: M25.562 Pain in left knee (principal); M25.561 Pain in right knee; N39.46 Mixed incontinence
CPT/HCPCS: 73562

== ENCOUNTER 2021-05-21 19:52 | Emergency (ER) | payer OTHER, SELFPAY ==
[2021-05-21 21:27] VITALS: BP 144/72; PULSE 69; RESP 14; TEMP 37; O2SAT 98
--- NOTE | 2021-05-21 21:51 | HMH.EDUTC ---
[facility] [place] Dis[place] Clinical Impression: Bug bite with infection Qualifiers: Encounter type: initial encounter Qualified Code(s): W57.XXXA - Bitten or stung by nonvenomous insect and other nonvenomous arthropods, initial encounter Disposition: Home, Self-Care Condition on Discharge: Good Instructions: How to Care for an Insect Bite or Sting, Insect Bites and Stings, Hydrocortisone Topical, Bacitracin Topical Additional Instructions: Apply topical antibiotic ointment to infected bites on your hand Over the counter topical Hydrocortisone may help with itching Over the counter Benadryl may help with itching FOllow up with your Family Doctor if no improvement Return if needed Prescriptions: Bacitracin [Bacitracin Oint 0.9GM UDP] 1 each TP TID 10 Days #30 packet Transmission Status: [facility] Referrals: Bharat Lara MD [Primary Care Provider] - As needed Time of Disposition: 21:59 Medical Decision Making - Mukesh Inquiry Pt receiving controlled substance: No Mukesh was queried for this patient: No Vital Signs: 05/21/21 21:27 Temperature 98.6 F Temperature Source Oral Pulse Rate [Left] 69 Respiratory Rate 14 Blood Pressure [Right Arm] 144/72 H Blood Pressure Mean [Right Arm] 96 02 Sat by Pulse Oximetry 98 [facility] [place] HPI - General Stated complaint: bite on R hand Time Seen by Provider: 05/21/21 21:57 Mode of Arrival: Ambulatory Source of Information: Patient Limitations: No Limitations Description of Symptoms (Recalled from Triage Doc. by RN): PT STATES SHE HAS AN INSECT BITE ON THE TOP OF HER RIGHT HAND. THE AREA APPARENTLY ITCHES AND CASEY. HEENT Symptoms (Recalled from RN notes): No Resp Symptoms (Recalled from RN notes): No Skin Symptoms (Recalled from RN notes): Yes (BITE ON TOP OF RIGHT HAND) MS Symptoms (Recalled from RN notes): No Functional Status (Recalled from RN notes): NA - History of Present Illness Provider Complaint: Patient states she has a small bite on top of her hand from an insect States that now it is a little red and looks like it has bitten her several times nd she thinks it may be infected States that it hurts and long - Related Data Home Medications Medication Instructions Recorded Confirmed pantoprazole 40 mg tablet,delayed 40 mg PO DAILY 09/24/17 04/29/21 release Gabapentin 600 mg PO TID 07/12/19 04/29/21 Lovastatin 20 mg PO HS 07/12/19 04/29/21 Previous Rx's Medication Instructions Recorded Cetirizine HCl [Zyrtec] 10 mg PO DAILY 30 Days #30 cap 11/16/19 cyclobenzaprine 10 mg tablet See Rx Instructions .ROUTE 08/26/20 .COMPLEX #90 tab ergocalciferol (vitamin D2) 1,250 See Rx Instructions .ROUTE 09/02/20 mcg (50,000 unit) capsule .COMPLEX #4 cap meloxicam 7.5 mg tablet See Rx Instructions .ROUTE 09/02/20 .COMPLEX #30 tab diclofenac sodium 1 % topical gel 2 g TOPICAL QID #100 g 09/09/20 famotidine 20 mg tablet See Rx Instructions .ROUTE 09/09/20 .COMPLEX #180 tab hydrochlorothiazide 25 mg tablet 25 mg PO QAM #90 tab 09/19/20 losartan 100 mg tablet 100 mg PO DAILY #90 tab 09/19/20 ranitidine HCl 75 mg tablet 75 mg PO BID #180 tab 11/21/20 spironolactone 100 mg tablet 100 mg PO DAILY #90 tab 12/04/20 montelukast 10 mg tablet See Rx Instructions .ROUTE 12/05/20 .COMPLEX #90 tab Benzonatate [Tessalon Perle 100mg 100 mg PO TIDP PRN #20 cap 02/12/21 Cap] methylPREDNISolone [Medrol 4mg 4 mg PO DIRECTED #21 tab 03/14/21 tab] carvedilol 6.25 mg tablet 6.25 mg PO BID #180 tab 03/18/21 glipizide 10 mg tablet 10 mg PO DAILY #90 tab 03/18/21 levothyroxine 100 mcg tablet 100 mcg PO DAILY #90 tab 03/18/21 Cefdinir [Omnicef 300mg Capsule] 300 mg PO BID #20 cap 03/23/21 Nystatin [Nystatin Cr 100,000 1 applicatio TOPICAL BID #1 tube 04/07/21 Units/GM 30GM] cephALEXin [cephALEXin 500mg 500 mg PO Q12H 7 Days #14 cap 04/07/21 capsule*] cariprazine 1.5 mg capsule 1.5 mg PO DAILY #30 cap 04/14/21 fluoxetine 40 mg capsule 40 mg PO DAILY #
[2021-05-21 22:00] VITALS: BP 0/0; PULSE 0; RESP 0; TEMP -17.7; TEMP 0
== END 2021-05-21 22:06 | disposition home or self-care (01) ==
PROVIDERS: Emergency Provider Nurse Practitioner; PCP Family Medicine
DX: S60.561A Insect bite (nonvenomous) of right hand, initial encounter (principal); W57.XXXA Bitten or stung by nonvenomous insect and other nonvenomous arthropods, initial encounter; J45.909 Unspecified asthma, uncomplicated; E11.9 Type 2 diabetes mellitus without complications; K21.9 Gastro-esophageal reflux disease without esophagitis; F41.9 Anxiety disorder, unspecified; F32.9 Major depressive disorder, single episode, unspecified; E78.5 Hyperlipidemia, unspecified; I10 Essential (primary) hypertension; Z79.899 Other long term (current) drug therapy; Z88.6 Allergy status to analgesic agent; Z91.018 Allergy to other foods
CPT/HCPCS: 99202; G0463

== ENCOUNTER 2021-09-27 19:26 | Emergency (ER) | payer OTHER, SELFPAY ==
[2021-09-27 19:43] VITALS: BP 121/93; PULSE 85; RESP 18; TEMP 36.9; O2SAT 97; BMI 43.7
--- NOTE | 2021-09-27 19:47 | HMH.EDUTC ---
[facility] [place] Disposition Clinical Impression: Exposure to COVID-19 virus, Viral upper respiratory illness Disposition: Home, Self-Care Condition on Discharge: Good Instructions: DI for COVID-19 (Suspected or Confirmed ), DI for Viral Upper Respiratory Infection -- Adult Additional Instructions: covid swab was sent to lab, call tomorrow for results. self isolate until test results are known to be negative No sign of a bacterial infection. Likely viral. Viruses can take 7-14 days to run their course. Nasal saline and bulb syringe or nose Hillary to remove nasal drainage to help with nasal congestion. Hard to eat, drink, sleep with nasal congestion so important to keep this cleaned out. Monitor temp. Tylenol or Motrin as needed for pain or fever Encourage fluids, water, Gatorade, Powerade, Pedialyte if /toddler/child Warm salt water gargles Warm fluids Sore throat lozenges Sleep elevated Humidifier/vaporizer Follow-up immediately for new or worsening symptoms or no noticeable improvement over the next 48-72 hours. Referrals: Bharat Lara MD [Primary Care Provider] - Time of Disposition: 19:49 Medical Decision Making - Mukesh Inquiry Pt receiving controlled substance: No Vital Signs: 09/27/21 19:43 Temperature 98.4 F Temperature Source Oral Pulse Rate [Left] 85 Respiratory Rate 18 Blood Pressure [Right Arm] 121/93 H Blood Pressure Mean [Right Arm] 102 02 Sat by Pulse Oximetry 97 Orders (Tests/Meds): ORDERS Category Date Time Status Covid-19 Nasal PCR ([facility]) Routine Lab 09/27/21 19:39 Ordered [facility] [place] HPI - General Chief complaint: Urgent Treatment Center Stated complaint: COVID TEST Time Seen by Provider: 09/27/21 19:47 Mode of Arrival: Ambulatory Source of Information: Patient Limitations: No Limitations Description of Symptoms (Recalled from Triage Doc. by RN): pt c/o a cough, REID, fever and sneezing. daughter is positive for covid. HEENT Symptoms (Recalled from RN notes): Yes (REID and sneezing) Resp Symptoms (Recalled from RN notes): Yes (cough) Skin Symptoms (Recalled from RN notes): No MS Symptoms (Recalled from RN notes): No Functional Status (Recalled from RN notes): wnl - History of Present Illness Provider Complaint: 41 yr old female presents with c/o a cough, REID, fever and sneezing. daughter is positive for covid. - Related Data Home Medications Medication Instructions Recorded Confirmed Gabapentin 600 mg PO TID 07/12/19 07/11/21 Lovastatin 20 mg PO HS 07/12/19 07/11/21 Previous Rx's Medication Instructions Recorded Cetirizine HCl [Zyrtec] 10 mg PO DAILY 30 Days #30 cap 11/16/19 cyclobenzaprine 10 mg tablet See Rx Instructions .ROUTE 08/26/20 .COMPLEX #90 tab diclofenac sodium 1 % topical gel 2 g TOPICAL QID #100 g 09/09/20 famotidine 20 mg tablet See Rx Instructions .ROUTE 09/09/20 .COMPLEX #180 tab hydrochlorothiazide 25 mg tablet 25 mg PO QAM #90 tab 09/19/20 losartan 100 mg tablet 100 mg PO DAILY #90 tab 09/19/20 ranitidine HCl 75 mg tablet 75 mg PO BID #180 tab 11/21/20 spironolactone 100 mg tablet 100 mg PO DAILY #90 tab 12/04/20 montelukast 10 mg tablet See Rx Instructions .ROUTE 12/05/20 .COMPLEX #90 tab Benzonatate [Tessalon Perle 100mg 100 mg PO TIDP PRN #20 cap 02/12/21 Cap] carvedilol 6.25 mg tablet 6.25 mg PO BID #180 tab 03/18/21 levothyroxine 100 mcg tablet 100 mcg PO DAILY #90 tab 03/18/21 Bacitracin [Bacitracin Oint 0.9GM 1 each TP TID 10 Days #30 packet 05/21/21 UDP] fluoxetine 40 mg capsule 40 mg PO DAILY #30 cap 06/19/21 cariprazine 3 mg capsule 3 mg PO DAILY #30 cap 07/25/21 Allergies Allergy/AdvReac Type Severity Reaction Status Date / Time mold [MOLD] Allergy Severe Anaphylaxis Verified 07/11/21 13:18 Fish Containing Products Allergy Intermediate I-HIVES Verified 07/11/21 13:18 [From SEAFOOD (F/D)] aspirin [ASPIRIN] AdvReac Mild NA-NAUSEA/V Verified 07/11/21 13:18 OMITING From SEAFOOD (F/D) Allergy Intermediate I-HIVES Un
[2021-09-27 19:52] VITALS: BP 121/93; PULSE 85; RESP 18; TEMP 36.9
== END 2021-09-27 19:53 | disposition home or self-care (01) ==
PROVIDERS: Emergency Provider Nurse Practitioner Family; PCP Family Medicine
DX: U07.1 COVID-19 (principal); J06.9 Acute upper respiratory infection, unspecified; E11.9 Type 2 diabetes mellitus without complications; F41.8 Other specified anxiety disorders; K21.9 Gastro-esophageal reflux disease without esophagitis; E78.5 Hyperlipidemia, unspecified; Z87.891 Personal history of nicotine dependence
CPT/HCPCS: 99202; C9803; G0463; U0003; U0005

== ENCOUNTER → 2022-04-30 10:51 | Outpatient (CLI) | payer OTHER, SELFPAY ==
--- NOTE | 2022-04-30 10:51 | MM_ITS ---
PROCEDURE INFORMATION: Exam: MG Bilateral Screening 3D Mammography Exam date and time: 04/30/2022 10:44 AM Age: 42 years old Clinical indication: Screening. Her mother as well as paternal and maternal grandmothers had postmenopausal breast cancer. TECHNIQUE: Imaging protocol: Bilateral Screening tomosynthesis and 2D mammography including computer-aided detection (CAD) when performed. COMPARISON: 1. MG DMSB DIG MAMM-SCREEN [place] 08/13/2016 3:27 PM 2. MG DMSB DIGITAL MAMM-SCREEN [place] 10/13/2012 10:19 AM 3. MG DMSB DIGITAL MAMM-SCREEN BILATERAL 12/03/2010 12:47 PM FINDINGS: MAMMOGRAPHY: Breast composition: The breasts are heterogeneously dense, which may obscure small masses. Mass: None. Architectural distortion: None. Calcifications: Bilateral extensive calcifications in both upper outer quadrants, posterior 3rds. Asymmetric density: None. Skin thickening: None. Axillary adenopathy: None. IMPRESSION: Patient to be recalled for bilateral magnification views in CC and true lateral, for further evaluation of bilateral calcifications. ASSESSMENT: BI-RADS Category 0: Incomplete- Need Additional Imaging Evaluation and/or Prior Mammograms for Comparison
== END ==
PROVIDERS: PCP Family Medicine; Visit Provider Nurse Practitioner Obstetrics & Gynecology
DX: Z12.31 Encounter for screening mammogram for malignant neoplasm of breast (principal)
CPT/HCPCS: 77063; 77067

== ENCOUNTER 2022-05-06 16:26 | Emergency (ER) | payer OTHER, SELFPAY ==
--- NOTE | 2022-05-06 16:32 | EXP.UTC ---
Discharge Plan Disposition Patient Disposition: Home, Self-Care Condition: Good Prescriptions Prescriptions: New methylprednisolone 4 mg Tablets,Dose Pack 4 mg PO DIRECTED Qty: 21 0RF No Action fluoxetine [Prozac] 40 mg capsule 40 mg PO DAILY Qty: 30 2RF trazodone 50 mg tablet See Rx Instructions PO HS PRN (Reason: sleep) Qty: 60 1RF Rx Instructions: take 1-2 tablets at bedtime orally at bedtime nightly PRN; cyclobenzaprine 10 mg tablet See Rx Instructions .ROUTE .COMPLEX Qty: 90 0RF Dose Instruction: TAKE 1 TABLET BY MOUTH THREE TIMES DAILY NEEDED FOR MUSCLE RELAXER Rx Instructions: TAKE 1 TABLET BY MOUTH THREE TIMES DAILY NEEDED FOR MUSCLE RELAXER famotidine 20 mg tablet See Rx Instructions .ROUTE .COMPLEX Qty: 180 3RF Dose Instruction: TAKE 2 TABLETS BY MOUTH EVERY DAY Rx Instructions: TAKE 2 TABLETS BY MOUTH EVERY DAY diclofenac sodium [Voltaren] 1 % gel 2 g TOPICAL QID Qty: 100 0RF hydrochlorothiazide 25 mg tablet 25 mg PO QAM Qty: 90 3RF losartan 100 mg tablet 100 mg PO DAILY Qty: 90 3RF ranitidine HCl 75 mg tablet 75 mg PO BID Qty: 180 0RF spironolactone 100 mg tablet 100 mg PO DAILY Qty: 90 3RF montelukast 10 mg tablet See Rx Instructions .ROUTE .COMPLEX Qty: 90 3RF Dose Instruction: TAKE ONE TABLET BY MOUTH EVERY NIGHT AT BEDTIME FOR ALLEGIES Rx Instructions: TAKE ONE TABLET BY MOUTH EVERY NIGHT AT BEDTIME FOR ALLEGIES levothyroxine 100 mcg tablet 100 mcg PO DAILY Qty: 90 0RF carvedilol 6.25 mg tablet 6.25 mg PO BID Qty: 180 0RF cetirizine 10 MG capsule 10 mg PO DAILY 30 Days Qty: 30 2RF gabapentin 600 MG tablet 600 mg PO TID lovastatin 20 MG tablet 20 mg PO HS Rx Instructions: TAKE ONE TABLET BY MOUTH EVERY NIGHT AT BEDTIME FOR CHOLESTEROL benzonatate 100 MG capsule 100 mg PO TIDP PRN (Reason: Cough) Qty: 20 0RF bacitracin 1 EACH packet 1 each TP TID 10 Days Qty: 30 0RF Referrals Follow up/Referrals: Maribeth Mena APRN [Primary Care Provider] - See instructions Activity Restrictions/Add. Instructions Additional Instructions/Restrictions: Rest the extremity, Elevate the extremity as tolerated while you are resting. Follow up with Dr. Haider (orthopedics) if your symptoms continue. I put in a referral but you need to call his office and schedule an appointment. Follow up with your regular doctor. GO TO THE ER FOR ANY WORSENING SYMPTOMS Clinical Impressions Clinical Impression: Localized swelling on left hand, Acute pain of left wrist Stand Alone Forms Stand Alone Forms: Work/School Release Instructions Patient Instructions: DI for Hand Pain, Edema Discharge ED Provider: Colin Cool [facility] General Stated complaint: swollen L arm Time Seen by Provider: 05/06/22 16:53 History of Present Illness Provider Complaint: She states that for the past 2 days she has had swelling of her left hand and wrist. She denies any injury. She denies any shortness of breath. Related Data Home Medications Medication Instructions Recorded Confirmed gabapentin 600 mg tablet 600 mg PO TID pain 07/12/19 04/30/22 lovastatin 20 mg tablet 20 mg PO HS Cholesterol 07/12/19 04/30/22 Previous Rx's Medication Instructions Recorded cetirizine 10 mg capsule 10 mg PO DAILY 30 days #30 caps 11/16/19 cyclobenzaprine 10 mg tablet See Rx Instructions .Route 08/26/20 .COMPLEX #90 tabs diclofenac sodium 1 % topical gel 2 g topical QID Pain #100 grams 09/09/20 (Voltaren) famotidine 20 mg tablet See Rx Instructions .Route 09/09/20 .COMPLEX #180 tabs hydrochlorothiazide 25 mg tablet 25 mg PO QAM #90 tabs 09/19/20 losartan 100 mg tablet 100 mg PO DAILY #90 tabs 09/19/20 ranitidine HCl 75 mg tablet 75 mg PO BID GERD #180 tabs 11/21/20 spironolactone 100 mg tablet 100 mg PO DAILY BLOOD PRESSURE #90 12/04/20 tabs montelukast 10 m
[2022-05-06 16:40] VITALS: BP 128/67; PULSE 89; RESP 16; TEMP 36.9; O2SAT 96; BMI 42.0
[2022-05-06 17:28] VITALS: BP 128/67; PULSE 89; RESP 16; TEMP 36.9
== END 2022-05-06 17:39 | disposition home or self-care (01) ==
PROVIDERS: Emergency Provider Nurse Practitioner Family; PCP Nurse Practitioner Family
DX: M79.89 Other specified soft tissue disorders (principal); M25.532 Pain in left wrist
CPT/HCPCS: 96372; 99212; G0463

== ENCOUNTER → 2022-05-13 14:00 | Outpatient (CLI) | payer OTHER, SELFPAY ==
--- NOTE | 2022-05-13 14:00 | MM_ITS ---
PROCEDURE INFORMATION: Exam: MG Bilateral Diagnostic Breast Tomosynthesis Exam date and time: 05/13/2022 1:57 PM Age: 42 years old Clinical indication: Patient recalled on the basis of a screening mammogram for further evaluation; Bilateral breasts; calcifications TECHNIQUE: Imaging protocol: Bilateral Diagnostic tomosynthesis and 2D mammography including computer-aided detection (CAD) when performed. Unilateral or bilateral exam. COMPARISON: 1. MG MM DIG SCREENING MAMM BI W/CAD 04/30/2022 10:44 AM 2. MG DMSB DIG MAMM-SCREEN [place] 08/13/2016 3:27 PM FINDINGS: MAMMOGRAPHY: Digital diagnostic magnification views of both upper outer quadrants demonstrate in geographic indeterminate variable calcifications occupying much of the right upper outer quadrant extending into the middle third of the right upper outer quadrant. Few calcifications scattered in the posterior left upper outer quadrant have a benign appearance without tight clustering or significant pleomorphism. IMPRESSION: Indeterminate geographic calcifications in the right upper outer quadrant. While the finding may represent asymmetric distribution of benign sclerosing adenosis, further evaluation with stereotactic core biopsy is recommended to exclude the possibility of ductal carcinoma in situ . Probably benign left breast calcifications. If the right-sided biopsy is benign, a six-month follow-up diagnostic left mammogram with magnification views benign-appearing will be recommended. If the biopsy is malignant, consideration is made for contralateral stereotactic biopsy to exclude the possibility of bilateral carcinoma ASSESSMENT: BI-RADS Category 4: Suspicious
== END ==
PROVIDERS: PCP Nurse Practitioner Family; Visit Provider Nurse Practitioner Obstetrics & Gynecology
DX: R92.8 Other abnormal and inconclusive findings on diagnostic imaging of breast (principal)
CPT/HCPCS: 77062; 77066; G0279

== ENCOUNTER → 2022-05-26 09:40 | Outpatient (CLI) | payer OTHER, SELFPAY ==
--- NOTE | 2022-05-26 | MM_ITS ---
FINAL REPORT CLINICAL HISTORY: . RIGHT BREAST CALCS Authenticated and ERN
--- NOTE | 2022-05-26 | MM_ITS ---
FINAL REPORT CLINICAL HISTORY: Right breast calcifications FINDINGS: STEREOTACTIC GUIDED RIGHT BREAST BIOPSY, CLIP PLACEMENT, SPECIMEN RADIOGRAPH AND POST BIOPSY MAMMOGRAM Indication: Suspicious calcifications Findings: The stereotactic guided breast biopsy procedure was explained in detail to the patient including potential risk and benefits. The patient voiced an understanding of the procedure, was given an opportunity to ask questions, after which informed consent was obtained. The patient was positioned upon the stereotactic unit in the supine position. The breast was prepped in the usual sterile fashion. Subcutaneous soft tissues were anesthetized with lidocaine with epinephrine. Subsequently, with intermittent stereotactic guidance, the stereotactic biopsy needle was advanced into the breast in the region of the mammographic abnormality corresponding to recent diagnostic mammogram. Although there were numerous calcifications localization was technically difficult due to loosely grouped calcifications relatively spread out without distinctive morphology to any particular calcifications. Multiple vacuum assisted core samples were obtained. Sampling was thought to be adequate and the biopsy clip marker was deployed in the region of biopsy. Additional imaging as detailed below was performed. Specimen radiograph: At least 10 microcalcifications were noted within the specimens. This was considered adequate in number. Post procedure routine CC and MLO view mammogram: Post biopsy changes. Biopsy marker clip noted to be in the superior posterior portion of the loose grouping of calcifications. Patient tolerated the procedure well. No immediate complications. IMPRESSION: 1. Technically successful stereotactic guided biopsy of right breast calcifications 2. Biopsy marker clip deployed 3. Post biopsy mammogram obtained as above Histopathology reveals findings of usual ductal hyperplasia with stromal fibrosis. These are considered concordant with mammographic findings. Based on histopathology, six-month diagnostic mammographic follow-up recommended to ensure stability of prebiopsy findings. Authenticated and ERN
== END ==
PROVIDERS: PCP Nurse Practitioner Family; Visit Provider Nurse Practitioner Obstetrics & Gynecology
DX: R92.1 Mammographic calcification found on diagnostic imaging of breast (principal)
CPT/HCPCS: 19081; 76098; 77065

== ENCOUNTER → 2022-07-08 14:15 | Outpatient (CLI) | payer OTHER, SELFPAY ==
--- NOTE | 2022-07-08 14:26 | XR_ITS ---
FINAL REPORT CLINICAL HISTORY: knee pain FINDINGS: RIGHT KNEE Four views of the right knee were obtained. There is no acute fracture or dislocation. There are mild and moderate degenerative changes with medial compartment narrowing. Visualized joint spaces are normally aligned. Soft tissues are unremarkable. IMPRESSION: Degenerative changes with no acute bony abnormality. Reviewed, Interpreted and Dictated by Doug Cook III, MD Transcribed by Daisha Villalobos Authenticated and [facility]
--- NOTE | 2022-07-08 14:26 | XR_ITS ---
FINAL REPORT CLINICAL HISTORY: left knee pain FINDINGS: LEFT KNEE Four views of the left knee were obtained. There is a chronic fracture of the proximal fibula. There is no acute fracture or dislocation. There is mild and moderate degenerative change with medial compartment narrowing. Visualized joint spaces are normally aligned. Soft tissues are unremarkable. IMPRESSION: Chronic and degenerative changes without acute bony abnormality. Reviewed, Interpreted and Dictated by Doug Cook III, MD Transcribed by Daisha Villalobos Authenticated and [facility]
== END ==
PROVIDERS: PCP Nurse Practitioner Family; Visit Provider Orthopaedic Surgery
DX: M17.10 Unilateral primary osteoarthritis, unspecified knee (principal)
CPT/HCPCS: 73564

== ENCOUNTER 2022-07-11 20:19 | Emergency (ER) | payer OTHER, SELFPAY ==
[2022-07-11 20:51] VITALS: BP 0/0; PULSE 0; RESP 0; TEMP -17.7; TEMP 0; O2SAT 0
[2022-07-11 20:56] LABS: POC Glucose,Bedside 94 (70-110)
== END 2022-07-11 20:51 | disposition left against medical advice (07) ==
LOC: ER 20:56
PROVIDERS: Emergency Provider Student in an Organized Health Care Education/Training Program; PCP Nurse Practitioner Family
DX: Z53.21 Procedure and treatment not carried out due to patient leaving prior to being seen by health care provider (principal)
CPT/HCPCS: 82962

== ENCOUNTER 2022-07-29 14:45 | Emergency (ER) | payer OTHER, SELFPAY ==
--- NOTE | 2022-07-29 16:03 | EXP.UTC ---
Discharge Plan Disposition Patient Disposition: Home, Self-Care Condition: Good Prescriptions Prescriptions: New amoxicillin [amoxicillin] 500 mg tablet 500 mg PO TID 10 Days Qty: 30 0RF benzonatate [benzonatate] 100 mg capsule 100 mg PO TIDP PRN (Reason: Cough) Qty: 30 0RF methylprednisolone 4 mg Tablets,Dose Pack 4 mg PO DIRECTED Qty: 21 0RF No Action trazodone 50 mg tablet See Rx Instructions PO HS PRN (Reason: sleep) Qty: 60 1RF Rx Instructions: take 1-2 tablets at bedtime orally at bedtime nightly PRN; cyclobenzaprine 10 mg tablet See Rx Instructions .ROUTE .COMPLEX Qty: 90 0RF Dose Instruction: TAKE 1 TABLET BY MOUTH THREE TIMES DAILY NEEDED FOR MUSCLE RELAXER Rx Instructions: TAKE 1 TABLET BY MOUTH THREE TIMES DAILY NEEDED FOR MUSCLE RELAXER famotidine 20 mg tablet See Rx Instructions .ROUTE .COMPLEX Qty: 180 3RF Dose Instruction: TAKE 2 TABLETS BY MOUTH EVERY DAY Rx Instructions: TAKE 2 TABLETS BY MOUTH EVERY DAY diclofenac sodium [Voltaren] 1 % gel 2 g TOPICAL QID Qty: 100 0RF hydrochlorothiazide 25 mg tablet 25 mg PO QAM Qty: 90 3RF losartan 100 mg tablet 100 mg PO DAILY Qty: 90 3RF ranitidine HCl 75 mg tablet 75 mg PO BID Qty: 180 0RF spironolactone 100 mg tablet 100 mg PO DAILY Qty: 90 3RF montelukast 10 mg tablet See Rx Instructions .ROUTE .COMPLEX Qty: 90 3RF Dose Instruction: TAKE ONE TABLET BY MOUTH EVERY NIGHT AT BEDTIME FOR ALLEGIES Rx Instructions: TAKE ONE TABLET BY MOUTH EVERY NIGHT AT BEDTIME FOR ALLEGIES levothyroxine 100 mcg tablet 100 mcg PO DAILY Qty: 90 0RF carvedilol 6.25 mg tablet 6.25 mg PO BID Qty: 180 0RF fluoxetine [Prozac] 40 mg capsule 40 mg PO DAILY Qty: 30 2RF cetirizine 10 MG capsule 10 mg PO DAILY 30 Days Qty: 30 2RF gabapentin 600 MG tablet 600 mg PO TID lovastatin 20 MG tablet 20 mg PO HS Rx Instructions: TAKE ONE TABLET BY MOUTH EVERY NIGHT AT BEDTIME FOR CHOLESTEROL benzonatate 100 MG capsule 100 mg PO TIDP PRN (Reason: Cough) Qty: 20 0RF bacitracin 1 EACH packet 1 each TP TID 10 Days Qty: 30 0RF methylprednisolone 4 mg Tablets,Dose Pack 4 mg PO DIRECTED Qty: 21 0RF Referrals Follow up/Referrals: Maribeth Mena APRN [Primary Care Provider] - See instructions Activity Restrictions/Add. Instructions Additional Instructions/Restrictions: Drink plenty of fluids. Take tylenol or ibuprofen for pain or fever. Take the medications as directed. Follow up with your regular doctor. GO TO THE ER FOR ANY WORSENING SYMPTOMS Throw your tooth brush away and get a new one. Clinical Impressions Clinical Impression: Strep throat Instructions Patient Instructions: Strep Throat, DI for Strep Throat Discharge ED Provider: Colin Cool [facility] General Stated complaint: sore throat, chest congestion, runny nose, REID Time Seen by Provider: 07/29/22 16:03 History of Present Illness Provider Complaint: She states that for the past 2 days she has had sore throat, chills, body aches and low grade fever. Related Data Home Medications Medication Instructions Recorded Confirmed gabapentin 600 mg tablet 600 mg PO TID pain 07/12/19 07/08/22 lovastatin 20 mg tablet 20 mg PO HS Cholesterol 07/12/19 07/08/22 Previous Rx's Medication Instructions Recorded cetirizine 10 mg capsule 10 mg PO DAILY 30 days #30 caps 11/16/19 cyclobenzaprine 10 mg tablet See Rx Instructions .Route 08/26/20 .COMPLEX #90 tabs diclofenac sodium 1 % topical gel 2 g topical QID Pain #100 grams 09/09/20 (Voltaren) famotidine 20 mg tablet See Rx Instructions .Route 09/09/20 .COMPLEX #180 tabs hydrochlorothiazide 25 mg tablet 25 mg PO QAM #90 tabs 09/19/20 losartan 100 mg tablet 100 mg PO DAILY #90 tabs 09/19/20 ranitidine HCl 75 mg tablet 75 mg PO BID GERD #180 tabs 11/21/20 spironolacton
[2022-07-29 16:06] VITALS: BP 132/94; PULSE 92; RESP 16; TEMP 37.4; O2SAT 95; BMI 44.0
[2022-07-29 16:08] LABS: UTC Influenza A Antigen Negative (Negative); UTC Influenza B Antigen Negative (Negative); UTC Strep Screen (Rapid) Positive (Negative)
[2022-07-29 16:46] VITALS: BP 132/94; PULSE 92; RESP 16; TEMP 37.4
== END 2022-07-29 16:50 | disposition home or self-care (01) ==
PROVIDERS: Emergency Provider Nurse Practitioner Family; PCP Nurse Practitioner Family
DX: J02.0 Streptococcal pharyngitis (principal)
CPT/HCPCS: 87804; 87880; 99212; G0463

== ENCOUNTER 2022-11-12 18:52 | Emergency (ER) | payer OTHER, SELFPAY ==
--- NOTE | 2022-11-12 19:58 | EXP.UTC ---
Discharge Plan Disposition Patient Disposition: Home, Self-Care Condition: Good Prescriptions Prescriptions: New benzonatate [benzonatate] 100 mg capsule 100 mg PO TIDP PRN (Reason: Cough) Qty: 30 0RF methylprednisolone 4 mg Tablets,Dose Pack 4 mg PO DIRECTED Qty: 21 0RF amoxicillin-pot clavulanate 875-125 mg Tablet 1 tab PO Q12H Qty: 20 0RF No Action trazodone 50 mg tablet See Rx Instructions PO HS PRN (Reason: sleep) Qty: 60 1RF Rx Instructions: take 1-2 tablets at bedtime orally at bedtime nightly PRN; cyclobenzaprine 10 mg tablet See Rx Instructions .ROUTE .COMPLEX Qty: 90 0RF Dose Instruction: TAKE 1 TABLET BY MOUTH THREE TIMES DAILY NEEDED FOR MUSCLE RELAXER Rx Instructions: TAKE 1 TABLET BY MOUTH THREE TIMES DAILY NEEDED FOR MUSCLE RELAXER famotidine 20 mg tablet See Rx Instructions .ROUTE .COMPLEX Qty: 180 3RF Dose Instruction: TAKE 2 TABLETS BY MOUTH EVERY DAY Rx Instructions: TAKE 2 TABLETS BY MOUTH EVERY DAY diclofenac sodium [Voltaren] 1 % gel 2 g TOPICAL QID Qty: 100 0RF hydrochlorothiazide 25 mg tablet 25 mg PO QAM Qty: 90 3RF losartan 100 mg tablet 100 mg PO DAILY Qty: 90 3RF ranitidine HCl 75 mg tablet 75 mg PO BID Qty: 180 0RF spironolactone 100 mg tablet 100 mg PO DAILY Qty: 90 3RF montelukast 10 mg tablet See Rx Instructions .ROUTE .COMPLEX Qty: 90 3RF Dose Instruction: TAKE ONE TABLET BY MOUTH EVERY NIGHT AT BEDTIME FOR ALLEGIES Rx Instructions: TAKE ONE TABLET BY MOUTH EVERY NIGHT AT BEDTIME FOR ALLEGIES levothyroxine 100 mcg tablet 100 mcg PO DAILY Qty: 90 0RF carvedilol 6.25 mg tablet 6.25 mg PO BID Qty: 180 0RF fluoxetine [Prozac] 40 mg capsule 40 mg PO DAILY Qty: 30 2RF cetirizine 10 MG capsule 10 mg PO DAILY 30 Days Qty: 30 2RF amoxicillin [amoxicillin] 500 mg tablet 500 mg PO TID 10 Days Qty: 30 0RF benzonatate [benzonatate] 100 mg capsule 100 mg PO TIDP PRN (Reason: Cough) Qty: 30 0RF methylprednisolone 4 mg Tablets,Dose Pack 4 mg PO DIRECTED Qty: 21 0RF gabapentin 600 MG tablet 600 mg PO TID lovastatin 20 MG tablet 20 mg PO HS Rx Instructions: TAKE ONE TABLET BY MOUTH EVERY NIGHT AT BEDTIME FOR CHOLESTEROL benzonatate 100 MG capsule 100 mg PO TIDP PRN (Reason: Cough) Qty: 20 0RF bacitracin 1 EACH packet 1 each TP TID 10 Days Qty: 30 0RF methylprednisolone 4 mg Tablets,Dose Pack 4 mg PO DIRECTED Qty: 21 0RF Referrals Follow up/Referrals: Maribeth Mena APRN [Primary Care Provider] - See instructions Activity Restrictions/Add. Instructions Additional Instructions/Restrictions: Drink plenty of fluids. Take tylenol or ibuprofen for pain or fever. Take the medications as directed. Follow up with your regular doctor. GO TO THE ER FOR ANY WORSENING SYMPTOMS Clinical Impressions Clinical Impression: Sinusitis, Bronchitis Instructions Patient Instructions: DI for Sinusitis Discharge ED Provider: Colin Cool [facility] [place] HPI General Stated complaint: sore thraot, REID, body aches runny nose Time Seen by Provider: 11/12/22 19:58 Related Data Home Medications Medication Instructions Recorded Confirmed gabapentin 600 mg tablet 600 mg PO TID pain 07/12/19 09/09/22 lovastatin 20 mg tablet 20 mg PO HS Cholesterol 07/12/19 09/09/22 Previous Rx's Medication Instructions Recorded cetirizine 10 mg capsule 10 mg PO DAILY 30 days #30 caps 11/16/19 cyclobenzaprine 10 mg tablet See Rx Instructions .Route 08/26/20 .COMPLEX #90 tabs diclofenac sodium 1 % topical gel 2 g topical QID Pain #100 grams 09/09/20 (Voltaren) famotidine 20 mg tablet See Rx Instructions .Route 09/09/20 .COMPLEX #180 tabs hydrochlorothiazide 25 mg tablet 25 mg PO QAM #90 tabs 09/19/20 losartan 100 mg tablet 100 mg PO DAILY #90 tabs 09/19/20 ranitidine HCl 75 mg tablet 75 mg PO BID GE
[2022-11-12 19:59] VITALS: BP 149/85; PULSE 76; RESP 20; TEMP 37; O2SAT 95; BMI 39.4
[2022-11-12 20:21] VITALS: BP 149/85; PULSE 76; RESP 20; TEMP 37; O2SAT 95
[2022-11-12 20:21] LABS: UTC Strep Screen (Rapid) Negative (Negative)
== END 2022-11-12 20:37 | disposition home or self-care (01) ==
PROVIDERS: Emergency Provider Nurse Practitioner Family; PCP Nurse Practitioner Family
DX: J20.9 Acute bronchitis, unspecified (principal); J01.90 Acute sinusitis, unspecified; E55.9 Vitamin D deficiency, unspecified; M51.34 Other intervertebral disc degeneration, thoracic region
CPT/HCPCS: 87880; 99212; 99214; G0463

== ENCOUNTER → 2022-12-08 14:23 | Outpatient (CLI) | payer OTHER, SELFPAY ==
--- NOTE | 2022-12-08 14:24 | MM_ITS ---
PROCEDURE INFORMATION: Exam: MG Bilateral Diagnostic Breast Tomosynthesis Exam date and time: 12/08/2022 2:37 PM Age: 42 years old Clinical indication: Short-term radiographic followup; left follow up on calcs, right 6 month post biopsy follow up TECHNIQUE: Imaging protocol: Bilateral Diagnostic tomosynthesis and 2D mammography including computer-aided detection (CAD) when performed. Unilateral or bilateral exam. COMPARISON: 1. MG MM CLIP PLACEMENT RT 05/26/2022 11:08 AM 2. MG MM SURGICAL SPECIMEN RT 05/26/2022 10:56 AM FINDINGS: MAMMOGRAPHY: The breasts are heterogeneously dense, which may obscure small masses. There is no stellate mass, architectural distortion or suspicious microcalcifications in either breast to suggest malignancy. Magnification views of the posterior left upper outer quadrant demonstrates stable calcifications. Right-sided calcifications following stereotactic biopsy appear unchanged compared to prior mammogram dated 05/26/2022. No skin thickening or axillary adenopathy. IMPRESSION: No mammographic evidence of malignancy. Annual bilateral mammographic screening is recommended unless otherwise clinically indicated. ASSESSMENT: BI-RADS Category 2: Benign
== END ==
PROVIDERS: PCP Nurse Practitioner Family; Visit Provider Nurse Practitioner Obstetrics & Gynecology
DX: R92.8 Other abnormal and inconclusive findings on diagnostic imaging of breast (principal)
CPT/HCPCS: 77062; 77066; G0279

== ENCOUNTER 2023-05-17 07:47 | Emergency (ER) | payer OTHER, SELFPAY ==
[2023-05-17] VITALS (7 sets, daily range): BP systolic 118–135; BP diastolic 70–84; PULSE 72–80; RESP 16–17; TEMP 36.7–36.9; O2SAT 95–98; BMI 38.2
--- NOTE | 2023-05-17 08:07 | HMH.EDGENADL ---
Discharge Plan Disposition Patient Disposition: Home, Self-Care Chief Complaint: Upper Respiratory Infection Prescriptions Prescriptions: New yvfovzafrxeukny-lmfiwvlma-MM [Bromfed DM] 2-30-10 mg/5 mL syrup 5 ml PO Q6H PRN (Reason: cold symptoms) Qty: 118 0RF No Action trazodone 50 mg tablet See Rx Instructions PO HS PRN (Reason: sleep) Qty: 60 1RF Rx Instructions: take 1-2 tablets at bedtime orally at bedtime nightly PRN; cyclobenzaprine 10 mg tablet See Rx Instructions .ROUTE .COMPLEX Qty: 90 0RF Dose Instruction: TAKE 1 TABLET BY MOUTH THREE TIMES DAILY NEEDED FOR MUSCLE RELAXER Rx Instructions: TAKE 1 TABLET BY MOUTH THREE TIMES DAILY NEEDED FOR MUSCLE RELAXER famotidine 20 mg tablet See Rx Instructions .ROUTE .COMPLEX Qty: 180 3RF Dose Instruction: TAKE 2 TABLETS BY MOUTH EVERY DAY Rx Instructions: TAKE 2 TABLETS BY MOUTH EVERY DAY diclofenac sodium [Voltaren] 1 % gel 2 g TOPICAL QID Qty: 100 0RF hydrochlorothiazide 25 mg tablet 25 mg PO QAM Qty: 90 3RF losartan 100 mg tablet 100 mg PO DAILY Qty: 90 3RF ranitidine HCl 75 mg tablet 75 mg PO BID Qty: 180 0RF spironolactone 100 mg tablet 100 mg PO DAILY Qty: 90 3RF montelukast 10 mg tablet See Rx Instructions .ROUTE .COMPLEX Qty: 90 3RF Dose Instruction: TAKE ONE TABLET BY MOUTH EVERY NIGHT AT BEDTIME FOR ALLEGIES Rx Instructions: TAKE ONE TABLET BY MOUTH EVERY NIGHT AT BEDTIME FOR ALLEGIES levothyroxine 100 mcg tablet 100 mcg PO DAILY Qty: 90 0RF carvedilol 6.25 mg tablet 6.25 mg PO BID Qty: 180 0RF fluoxetine [Prozac] 40 mg capsule 40 mg PO DAILY Qty: 30 2RF cetirizine 10 MG capsule 10 mg PO DAILY 30 Days Qty: 30 2RF amoxicillin [amoxicillin] 500 mg tablet 500 mg PO TID 10 Days Qty: 30 0RF benzonatate [benzonatate] 100 mg capsule 100 mg PO TIDP PRN (Reason: Cough) Qty: 30 0RF methylprednisolone 4 mg Tablets,Dose Pack 4 mg PO DIRECTED Qty: 21 0RF benzonatate [benzonatate] 100 mg capsule 100 mg PO TIDP PRN (Reason: Cough) Qty: 30 0RF methylprednisolone 4 mg Tablets,Dose Pack 4 mg PO DIRECTED Qty: 21 0RF amoxicillin-pot clavulanate 875-125 mg Tablet 1 tab PO Q12H Qty: 20 0RF gabapentin 600 MG tablet 600 mg PO TID lovastatin 20 MG tablet 20 mg PO HS Rx Instructions: TAKE ONE TABLET BY MOUTH EVERY NIGHT AT BEDTIME FOR CHOLESTEROL benzonatate 100 MG capsule 100 mg PO TIDP PRN (Reason: Cough) Qty: 20 0RF bacitracin 1 EACH packet 1 each TP TID 10 Days Qty: 30 0RF methylprednisolone 4 mg Tablets,Dose Pack 4 mg PO DIRECTED Qty: 21 0RF Referrals Follow up/Referrals: Maribeth Mena APRN [Primary Care Provider] - See instructions Activity Restrictions/Add. Instructions Additional Instructions/Restrictions: At this time it was felt you are safe to be discharged home. If new or worsening symptoms please do not hesitate to return the emergency department. If symptoms persist please follow-up with your family doctor as you are able. Please take your medication as prescribed. Clinical Impressions Clinical Impression: Acute upper respiratory infection Discharge ED Provider: Wilmer Alvarado General Adult HPI General Chief complaint: Upper Respiratory Infection Stated complaint: REID, chest congestion, cough, ear pain Time Seen by Provider: 05/17/23 07:56 Mode of Arrival: Ambulatory Source of Information: Patient Limitations: No Limitations Description of Symptoms (Recalled from ER Triage Doc. by RN): 43 yo F presents to ED with c/o cough, bilateral ear pain, sore throat, headache. pt reports symptoms began . and have gotten worse over the weekend. History of Present Illness HPI narrative: Patient is a 43-year-old female with no pertinent past medical history presents emergency department for multiple complaints. Since patient has had cou
--- NOTE | 2023-05-17 08:53 | XR_ITS ---
FINAL REPORT TECHNIQUE: Single view chest CLINICAL HISTORY: soa cough COMPARISON: 02/12/2021 FINDINGS: A single view of the chest was obtained. The heart and mediastinum are within normal limits. The lungs are clear. There is no pneumothorax. Osseous structures are unremarkable. IMPRESSION: No acute cardiopulmonary process. Reviewed, Interpreted and Dictated by Doug Cook III, MD Transcribed by rBe Alexander Authenticated and [facility]
[2023-05-17 09:08] LABS: Coronavirus 19, PCR Not Detected (NotDetected); Influenza A, PCR Not Detected (NotDetected); Influenza B, PCR Not Detected (NotDetected)
[2023-05-17 09:20] LABS: Strep Scrn Group A (Rapid) Negative (Negative)
--- NOTE | 2023-05-17 09:29 | PC.NURSE ---
Rounded on pt. No needs voiced a this time. Call light within reach.
--- NOTE | 2023-05-17 09:48 | PC.NURSE ---
covid results in 15 minutes
== END 2023-05-17 10:44 | disposition home or self-care (01) ==
PROVIDERS: Emergency Provider Emergency Medicine; PCP Nurse Practitioner Family
DX: J06.9 Acute upper respiratory infection, unspecified (principal); R51.9 Headache, unspecified; R05.9 Cough, unspecified; J02.9 Acute pharyngitis, unspecified; F32.9 Major depressive disorder, single episode, unspecified; Z87.891 Personal history of nicotine dependence
CPT/HCPCS: 71045; 87430; 87636; 99284

== ENCOUNTER 2023-10-01 22:36 | Emergency (ER) | payer OTHER, SELFPAY ==
[2023-10-01 22:37] VITALS: BP 125/78; PULSE 86; RESP 16; TEMP 36.6; O2SAT 97; BMI 36.6
--- NOTE | 2023-10-01 22:45 | PC.NURSE ---
urine collected and sent to lab
--- NOTE | 2023-10-01 22:56 | ED_ITS ---
Discharge Plan Disposition Patient Disposition: Home, Self-Care Condition: Good Prescriptions Prescriptions: New lidocaine [Lidoderm] 5 % adhesive patch,medicated 1 patch topical DAILY Qty: 15 0RF Rx Instructions: leave on most painful area for up to 12 hrs naproxen 500 mg tablet 500 mg PO BID PRN (Reason: pain) Qty: 20 0RF methocarbamol 750 mg tablet 750 mg PO Q8H PRN (Reason: pain) Qty: 20 0RF ciprofloxacin HCl 500 mg tablet 500 mg PO BID 7 Days Qty: 14 0RF No Action trazodone 50 mg tablet See Rx Instructions PO HS PRN (Reason: sleep) Qty: 60 1RF Rx Instructions: take 1-2 tablets at bedtime orally at bedtime nightly PRN; cyclobenzaprine 10 mg tablet See Rx Instructions .ROUTE .COMPLEX Qty: 90 0RF Dose Instruction: TAKE 1 TABLET BY MOUTH THREE TIMES DAILY NEEDED FOR MUSCLE RELAXER Rx Instructions: TAKE 1 TABLET BY MOUTH THREE TIMES DAILY NEEDED FOR MUSCLE RELAXER famotidine 20 mg tablet See Rx Instructions .ROUTE .COMPLEX Qty: 180 3RF Dose Instruction: TAKE 2 TABLETS BY MOUTH EVERY DAY Rx Instructions: TAKE 2 TABLETS BY MOUTH EVERY DAY diclofenac sodium [Voltaren] 1 % gel 2 g TOPICAL QID Qty: 100 0RF hydrochlorothiazide 25 mg tablet 25 mg PO QAM Qty: 90 3RF losartan 100 mg tablet 100 mg PO DAILY Qty: 90 3RF ranitidine HCl 75 mg tablet 75 mg PO BID Qty: 180 0RF spironolactone 100 mg tablet 100 mg PO DAILY Qty: 90 3RF montelukast 10 mg tablet See Rx Instructions .ROUTE .COMPLEX Qty: 90 3RF Dose Instruction: TAKE ONE TABLET BY MOUTH EVERY NIGHT AT BEDTIME FOR ALLEGIES Rx Instructions: TAKE ONE TABLET BY MOUTH EVERY NIGHT AT BEDTIME FOR ALLEGIES levothyroxine 100 mcg tablet 100 mcg PO DAILY Qty: 90 0RF carvedilol 6.25 mg tablet 6.25 mg PO BID Qty: 180 0RF fluoxetine [Prozac] 40 mg capsule 40 mg PO DAILY Qty: 30 2RF cetirizine 10 MG capsule 10 mg PO DAILY 30 Days Qty: 30 2RF amoxicillin [amoxicillin] 500 mg tablet 500 mg PO TID 10 Days Qty: 30 0RF benzonatate [benzonatate] 100 mg capsule 100 mg PO TIDP PRN (Reason: Cough) Qty: 30 0RF methylprednisolone 4 mg Tablets,Dose Pack 4 mg PO DIRECTED Qty: 21 0RF benzonatate [benzonatate] 100 mg capsule 100 mg PO TIDP PRN (Reason: Cough) Qty: 30 0RF methylprednisolone 4 mg Tablets,Dose Pack 4 mg PO DIRECTED Qty: 21 0RF amoxicillin-pot clavulanate 875-125 mg Tablet 1 tab PO Q12H Qty: 20 0RF gabapentin 600 MG tablet 600 mg PO TID lovastatin 20 MG tablet 20 mg PO HS Rx Instructions: TAKE ONE TABLET BY MOUTH EVERY NIGHT AT BEDTIME FOR CHOLESTEROL benzonatate 100 MG capsule 100 mg PO TIDP PRN (Reason: Cough) Qty: 20 0RF bacitracin 1 EACH packet 1 each TP TID 10 Days Qty: 30 0RF methylprednisolone 4 mg Tablets,Dose Pack 4 mg PO DIRECTED Qty: 21 0RF [id number] [Bromfed DM] 2-30-10 mg/5 mL syrup 5 ml PO Q6H PRN (Reason: cold symptoms) Qty: 118 0RF Referrals Follow up/Referrals: Maribeth Mena APRN [Primary Care Provider] - See instructions Activity Restrictions/Add. Instructions Additional Instructions/Restrictions: Please take antibiotics as prescribed for treatment of kidney infection. Please follow-up with your primary care provider. Please return to the emergency department if you develop any new or worsening symptoms or become concerned for your health. Clinical Impressions Clinical Impression: Pyelonephritis Instructions Patient Instructions: DI for Low Back Pain Discharge ED Provider: Shria Wells General Adult HPI <Shira Wells DO - Last Filed: 10/01/23 23:30> General Chief complaint: Back Pain/Injury Stated complaint: abd and back pain Time Seen by Provider: 10/01/23 22:54 History of Present Illness HPI narrative: This patient is a 43-year-old female with history of diabetes and lupus presenting to the emergency department for evaluation with concern for low back pain. Patient notes that she was bent over playing with her puppy outside and then much of it, but since then has had progressively worsening low back pain that is all across her entire low back just above her sacrum. No recent falls or significant traumatic injuries noted. It is worse with movement and is positional. No position that she is and seems to be completely comfortable. Given this, she decided to come in tonight. She notes that it feels like it is going down her legs. No numbness, tingling, saddle anesthesia, new incontinence, or other concerns. Related Data Home Medications Medication Instructions Recorded Confirmed gabapentin 600 mg tablet 600 mg PO TID pain 07/12/19 09/09/22 lovastatin 20 mg tablet 20 mg PO HS Cholesterol 07/12/19 09/09/22 Previous Rx's Medication Instructions Recorded cetirizine 10 mg capsule 10 mg PO DAILY 30 days #30 caps 11/16/19 cyclobenzaprine 10 mg tablet See Rx Instructions .Route 08/26/20 .COMPLEX #90 tabs diclofenac sodium 1 % topical gel 2 g topical QID Pain #100 grams 09/09/20 (Voltaren) famotidine 20 mg tablet See Rx Instructions .Route 09/09/20 .COMPLEX #180 tabs hydrochlorothiazide 25 mg tablet 25 mg PO QAM #90 tabs 09/19/20 losartan 100 mg tablet 100 mg PO DAILY #90 tabs 09/19/20 ranitidine HCl 75 mg tablet 75 mg PO BID GERD #180 tabs 11/21/20 spironolactone 100 mg tablet 100 mg PO DAILY BLOOD PRESSURE #90 12/04/20 tabs montelukast 10 mg tablet See Rx Instructions .Route 12/05/20 .COMPLEX #90 tabs benzonatate 100 mg capsule 100 mg PO TIDP PRN Cough #20 caps 02/12/21 carvedilol 6.25 mg tablet 6.25 mg PO BID #180 tabs 03/18/21 levothyroxine 100 mcg tablet 100 mcg PO DAILY #90 tabs 03/18/21 bacitracin 500 unit/gram topical 1 each topical TID 10 days #30 05/21/21 packet packets trazodone 50 mg tablet See Rx Instructions PO HS PRN 04/30/22 sleep #60 tabs methylprednisolone 4 mg tablets in 4 mg PO DIRECTED #21 tabs 05/06/22 a dose pack amoxicillin 500 mg tablet 500 mg PO TID 10 days #30 tabs 07/29/22 benzonatate 100 mg capsule 100 mg PO TIDP PRN Cough #30 caps 07/29/22 methylprednisolone 4 mg tablets in 4 mg PO DIRECTED #21 tabs 07/29/22 a dose pack fluoxetine 40 mg capsule (Prozac) 40 mg PO DAILY #30 caps 08/19/22 amoxicillin 875 mg-potassium 1 tab PO Q12H #20 tabs 11/12/22 clavulanate 125 mg tablet benzonatate 100 mg capsule 100 mg PO TIDP PRN Cough #30 caps 11/12/22 methylprednisolone 4 mg tablets in 4 mg PO DIRECTED #21 tabs 11/12/22 a dose pack bqqhtrlrtsomvom-ignwzwztnyiyhnv-WA 5 ml PO Q6H PRN cold symptoms #118 05/17/23 2 mg-30 mg-10 mg/5 mL oral syrup mL (Bromfed DM) lidocaine 5 % topical patch 1 patch topical DAILY #15 ea 10/01/23 (Lidoderm) methocarbamol 750 mg tablet 750 mg PO Q8H PRN pain #20 tabs 10/01/23 naproxen 500 mg tablet 500 mg PO BID PRN pain #20 tabs 10/01/23 ciprofloxacin HCl 500 mg tablet 500 mg PO BID 7 days #14 tabs 10/02/23 Allergies Allergy/AdvReac Type Severity Reaction Status Date / Time mold [MOLD] Allergy Severe Anaphylaxis Verified 09/09/22 13:22 Fish Containing Products Allergy Intermediate I-HIVES Verified 09/09/22 13:22 [From SEAFOOD (F/D)] aspirin [ASPIRIN] AdvReac Mild NA-NAUSEA/V Verified 09/09/22 13:22 OMITING From SEAFOOD (F/D) Allergy Intermediate I-HIVES Uncoded 09/09/22 13:22 MUSHROOM Allergy Intermediate I-HIVES Uncoded 09/09/22 13:22 PFSH <Shira Wells DO - Last Filed: 10/01/23 23:30> PFS Disclaimer: The information contained in this section may have been updated after the patient was seen, as this information can be updated by other users. Medical History Insomnia Major depressive disorder Social History Smoking Status: Never smoker second hand exposure: Yes (occasionally) alcohol intake: never substance use type: denies use current occupational status: other Travel in the last 8 weeks: None household members: children housing: house marital status: number of children: 1 caffeine: Yes physical activity: none <Shira Wells DO - Last Filed: 10/01/23 23:30> ROS Obtained: Yes All systems reviewed & no additional complaints except as documented Physical Exam <Shira Wells DO - Last Filed: 10/01/23 23:30> General General appearance: alert and in no apparent distress Head Head exam: atraumatic and normocephalic Eye Eye exam: Present normal appearance, PERRL and EOMI ENT ENT exam: Present normal exam, normal oropharynx, mucous membranes moist and normal external ear exam Neck Neck exam: Present normal inspection, full ROM and trachea midline; Absent tenderness Chest Chest inspection: Present normal inspection and symmetric chest wall rise; Absen t tenderness Respiratory Respiratory exam: Present normal lung sounds bilaterally; Absent respiratory distress, wheezes, stridor or accessory muscle use Cardiovascular Cardiovascular exam: Present regular rate and normal rhythm Abdominal Exam Abdominal exam: Present soft; Absent distention, tenderness or guarding Extremities Exam Extremities exam: Present normal inspection, full ROM and normal capillary refill; Absent tenderness or edema Back Exam Back exam: Present full ROM and tenderness (Paraspinal tenderness in the lumbar spine with no significant midline vertebral tenderness. Muscle spasm noted.) Neurological Exam Neurological exam: Present alert, oriented X3, CN II-XII intact and normal gait; Absent motor sensory deficit Psychiatric Psychiatric exam: Present normal affect and normal mood Skin Skin exam: Present warm and dry Medical Decision Making <Shira Wells DO - Last Filed: 10/01/23 23:30> Medical Records Medical records reviewed: Yes I reviewed the patient's medical records. Mukesh Inquiry Pt receiving controlled substance: No Vital Signs: 10/01/23 22:37 10/01/23 23:00 Temperature 97.8 F Temperature Source Oral Pulse Rate 68 Pulse Rate [Right] 86 Respiratory Rate 16 Blood Pressure 125/78 Blood Pressure [Right Arm] 125/78 Blood Pressure Mean [Right Arm] 93 Blood Pressure Source [Right Arm] Automatic Cuff Blood Pressure Position [Right Arm] Sitting 02 Sat by Pulse Oximetry 97 96 Oxygen Delivery Method Room Air Lab Data Lab results reviewed: Yes I reviewed the patient's lab results. Lab Results 10/01/23 22:45: WBC 8.4, RBC 4.57, Hgb 13.8, Hct 41.0, MCV 89.7, MCH 30.3, MCHC 33.8, RDW 13.9, Plt Count 263, MPV 11.4 H, Neut % (Auto) 54.4, Lymph % (Auto) 36.7, [place] % (Auto) 6.9, Eos % (Auto) 1.1, Baso % (Auto) 0.9, Neut # (Auto) 4.6, Lymph # (Auto) 3.1, [place] # (Auto) 0.6, Eos # (Auto) 0.1, Baso # (Auto) 0.1, Sodium 138, Potassium 4.5, Chloride 106, Carbon Dioxide 26, Anion Gap 10.5, BUN 12, Creatinine 0.80, Estimated Creat Clear 127, Estimated GFR 78, Est GFR ( Amer) 94, Glucose 85, Calcium 8.7, Total Bilirubin 0.6, AST 33, ALT 26, Alkaline Phosphatase 69, Total Protein 6.6, Albumin 3.9, Globulin 2.7, Albumin/Globulin Ratio 1.4, Urine Color Yellow, Urine Appearance Clear, Urine pH 6.0, Ur Specific [place] 1.010, Urine Protein Negative, Urine Glucose (UA) Negative, Urine Ketones Negative, Urine Blood Trace-i, Urine Nitrate Negative, Urine Bilirubin Negative, Urine Urobilinogen 0.2, Ur Leukocyte Esterase 3+ A, Urine RBC Occasional, Urine WBC 20-50, Ur Squamous Epith Cells 5-10, Urine Bacteria Trace 10/01/23 22:45 10/01/23 22:45 Orders (Tests/Meds): ED MEDICATIONS Discontinued Medications Generic Name Dose Route Start Last Admin Trade Name Guerrero PRN Reason Stop Dose Admin Acetaminophen 1,000 mg 10/01/23 22:54 10/01/23 23:21 Acetaminophen 500mg Tab PO 10/01/23 22:55 1,000 mg ONCE ONE Administration Ceftriaxone Sodium 1 gm/ 50 mls @ 100 mls/hr 10/02/23 00:01 10/02/23 00:41 Sodium Chloride IV 10/02/23 00:30 100 mls/hr ONCE ONE Administration Ketorolac Tromethamine 30 mg 10/01/23 22:54 10/01/23 23:22 Ketorolac 30mg/Ml Vial IM 10/01/23 22:55 Not Given ONCE ONE Ketorolac Tromethamine 30 mg 10/01/23 23:15 10/01/23 23:21 Ketorolac 30mg/Ml Vial IV 10/01/23 23:16 30 mg ONCE ONE Administration Lidocaine 1 each 10/01/23 22:54 10/01/23 23:21 Lidocaine 5% Transdermal Patch TP 10/01/23 22:55 1 each ONCE ONE Administration Lidocaine 1 each 10/02/23 00:20 10/02/23 00:29 Lidocaine 5% Transdermal Patch TP 10/02/23 00:21 Not Given ONCE ONE Methocarbamol 500 mg 10/01/23 22:55 10/01/23 23:21 Methocarbamol 500mg Tablet PO 10/01/23 22:56 500 mg ONCE ONE Administration ORDERS Category Date Time Status CT abdomen pelvis wo con Stat Cat Scan 10/01/23 23:58 Completed CBC w/Auto Diff [Complete Blood Count Auto Diff] Stat Lab 10/02/23 00:00 Completed CMP [Comprehensive Metabolic Panel] Stat Lab 10/02/23 00:00 Completed Urinalysis and Microscopic Stat Lab 10/01/23 22:45 Completed Urine Culture Stat Micro 10/01/23 22:45 Received Medical Decision Narrative: In summary, this patient is a 43-year-old female presenting to the Emergency Department for evaluation of low back pain. Differential diagnoses considered include but are not limited to fracture, strain/pain, contusion, disc herniation, spinal cord injury. Ruling out the most morbid conditions drove assessment. On exam, the patient is well-appearing and is neurologically intact with no alarm findings consistent with of spinal cord compression. I feel her pain is musculoskeletal given paraspinal tenderness and muscle spasm, as well as worsening in pain with movement. I considered obtaining CT scan lumbar spine however after discussion with the patient I feel that she is unlikely to have a fracture so I do not feel that this will likely twisting frame changer. Patient is agreeable to try medications for relief of her pain and muscle spasms. She was given IM Toradol, oral Tylenol, oral Robaxin, and oral Tylenol. She was given a topical Lidoderm patch. Patient complained to nurse of dysuria, so UA was ordered. Patient care signed out to oncoming provider, Dr. Mo. <Chon Mo MD - Last Filed: 10/02/23 00:59> Vital Signs: 10/01/23 22:37 10/01/23 23:00 Temperature 97.8 F Temperature Source Oral Pulse Rate 68 Pulse Rate [Right] 86 Respiratory Rate 16 Blood Pressure 125/78 Blood Pressure [Right Arm] 125/78 Blood Pressure Mean [Right Arm] 93 Blood Pressure Source [Right Arm] Automatic Cuff Blood Pressure Position [Right Arm] Sitting 02 Sat by Pulse Oximetry 97 96 Oxygen Delivery Method Room Air Lab Data Lab Results 10/01/23 22:45: WBC 8.4, RBC 4.57, Hgb 13.8, Hct 41.0, MCV 89.7, MCH 30.3, MCHC 33.8, RDW 13.9, Plt Count 263, MPV 11.4 H, Neut % (Auto) 54.4, Lymph % (Auto) 36.7, [place] % (Auto) 6.9, Eos % (Auto) 1.1, Baso % (Auto) 0.9, Neut # (Auto) 4.6, Lymph # (Auto) 3.1, [place] # (Auto) 0.6, Eos # (Auto) 0.1, Baso # (Auto) 0.1, Sodium 138, Potassium 4.5, Chloride 106, Carbon Dioxide 26, Anion Gap 10.5, BUN 12, Creatinine 0.80, Estimated Creat Clear 127, Estimated GFR 78, Est GFR ( Amer) 94, Glucose 85, Calcium 8.7, Total Bilirubin 0.6, AST 33, ALT 26, Alkaline Phosphatase 69, Total Protein 6.6, Albumin 3.9, Globulin 2.7, Albumin/Globulin Ratio 1.4, Urine Color Yellow, Urine Appearance Clear, Urine pH 6.0, Ur Specific [place] 1.010, Urine Protein Negative, Urine Glucose (UA) Negative, Urine Ketones Negative, Urine Blood Trace-i, Urine Nitrate Negative, Urine Bilirubin Negative, Urine Urobilinogen 0.2, Ur Leukocyte Esterase 3+ A, Urine RBC Occasional, Urine WBC 20-50, Ur Squamous Epith Cells 5-10, Urine Bacteria Trace Orders (Tests/Meds): ED MEDICATIONS Discontinued Medications Generic Name Dose Route Start Last Admin Trade Name Freq PRN Reason Stop Dose Admin Acetaminophen 1,000 mg 10/01/23 22:54 10/01/23 23:21 Acetaminophen 500mg Tab PO 10/01/23 22:55 1,000 mg ONCE ONE Administration Ceftriaxone Sodium 1 gm/ 50 mls @ 100 mls/hr 10/02/23 00:01 10/02/23 00:41 Sodium Chloride IV 10/02/23 00:30 100 mls/hr ONCE ONE Administration Ketorolac Tromethamine 30 mg 10/01/23 22:54 10/01/23 23:22 Ketorolac 30mg/Ml Vial IM 10/01/23 22:55 Not Given ONCE ONE Ketorolac Tromethamine 30 mg 10/01/23 23:15 10/01/23 23:21 Ketorolac 30mg/Ml Vial IV 10/01/23 23:16 30 mg ONCE ONE Administration Lidocaine 1 each 10/01/23 22:54 10/01/23 23:21 Lidocaine 5% Transdermal Patch TP 10/01/23 22:55 1 each ONCE ONE Administration Lidocaine 1 each 10/02/23 00:20 10/02/23 00:29 Lidocaine 5% Transdermal Patch TP 10/02/23 00:21 Not Given ONCE ONE Methocarbamol 500 mg 10/01/23 22:55 10/01/23 23:21 Methocarbamol 500mg Tablet PO 10/01/23 22:56 500 mg ONCE ONE Administration ORDERS Category Date Time Status CT abdomen pelvis wo con Stat Cat Scan 10/01/23 23:58 Completed CBC w/Auto Diff [Complete Blood Count Auto Diff] Stat Lab 10/02/23 00:00 Completed CMP [Comprehensive Metabolic Panel] Stat Lab 10/02/23 00:00 Completed Urinalysis and Microscopic Stat Lab 10/01/23 22:45 Completed Urine Culture Stat Micro 10/01/23 22:45 Received Medical Decision Narrative: In summary, this patient is a 43-year-old female presenting to the Emergency Department for evaluation of low back pain. Differential diagnoses considered include but are not limited to fracture, strain/pain, contusion, disc herniation, spinal cord injury. Ruling out the most morbid conditions drove assessment. On exam, the patient is well-appearing and is neurologically intact with no alarm findings consistent with of spinal cord compression. I feel her pain is musculoskeletal given paraspinal tenderness and muscle spasm, as well as worsening in pain with movement. I considered obtaining CT scan lumbar spine however after discussion with the patient I feel that she is unlikely to have a fracture so I do not feel that this will likely twisting frame changer. Patient is agreeable to try medications for relief of her pain and muscle spasms. She was given IM Toradol, oral Tylenol, oral Robaxin, and oral Tylenol. She was given a topical Lidoderm patch. Patient complained to nurse of dysuria, so UA was ordered. Patient care signed out to oncoming provider, Dr. Mo. Chely CATES: I assumed care of the patient at the time of handoff from the prior provider. On reassessment, urine results significant for 20-50 WBCs, occasional RBCs, trace bacteria. Given flank pain and UTI, patient may have pyelo or infected stone I had a discussion with patient regarding her symptoms. She reports that this does not feel like the kidney infections that she has had in the past. She also reports that she had a relatively acute onset of sharp unilateral pain prior to the pain becoming more generalized. Given this, I am concerned she could have a infected stone. CBC CMP ordered. Noncon CT abdomen pelvis to assess for possible stone. Chart reviewed, no history of resistant urinary tract infections noted. On my interpretation of imaging, CT scan shows no evidence of hydronephrosis, hydroureter, or obstructive nephrolithiasis. No significant stranding noted. On my interpretation of her blood work, she has no leukocytosis, normal renal function and electrolytes. Given this, history of presentation is most consistent with pyelonephritis given flank pain and urinary tract infection. Patient was given dose of ceftriaxone in ED and discharged with prescription for ciprofloxacin for coverage of complicated urinary tract infection. Patient discharged in stable condition. Return precautions given. Critical Care <Shira Wells, DO - Last Filed: 10/01/23 23:30> Critical Care Time Critical Care Time: No
[2023-10-01 23:00] VITALS: BP 125/78; PULSE 68; O2SAT 96
[2023-10-01 23:01] LABS: Microscopic, Urine URINE MICROSCOPIC (MICROSCOPIC)
[2023-10-01 23:17] LABS: Appearance,Urine CLEAR (Clear); Bilirubin,Urine Negative (Negative); Blood, Urine TRACE-I (Negative); Color,Urine YELLOW (Yellow); Glucose,Urine (UA) Negative (Negative); Ketones,Urine Negative (Negative); Leukocyte Esterase,Urine 3+ (Negative); Nitrate,Urine Negative (Negative); Protein,Urine Negative (Negative); Urobilinogen,Urine 0.2 EU/dl (0.2)
[2023-10-01] MEDS: ACETAMINOPHEN 500MG TAB 1000 MG PO (23:21)
[2023-10-01] MEDS: LIDOCAINE 5% TRANSDERMAL PATCH 1 EACH TP (23:21)
[2023-10-01] MEDS: KETOROLAC 30MG/ML VIAL 30 MG IV (23:21)
[2023-10-01] MEDS: METHOCARBAMOL 500MG TABLET 500 MG PO (23:21)
[2023-10-01 23:52] LABS: Bacteria,Urine Trace /lpf; RBC,Urine Occasional #/hpf (0-3); WBC,Urine 20-50 #/hpf (0-3)
--- NOTE | 2023-10-01 23:58 | CT_ITS ---
PROCEDURE INFORMATION: Exam: CT Abdomen And Pelvis Without Contrast Exam date and time: 10/02/2023 12:07 AM Age: 43 years old Clinical indication: Abdominal pain; Flank; Other: Bilateral; Additional info: Acute sharp flank pain, UTI TECHNIQUE: Imaging protocol: Computed tomography of the abdomen and pelvis without contrast. Radiation optimization: All CT scans at this facility use at least one of these dose optimization techniques: automated exposure control; mA and/or kV adjustment per patient size (includes targeted exams where dose is matched to clinical indication); or iterative reconstruction. COMPARISON: CT ABDOMEN PELVIS W CON 03/23/2021 3:12 PM FINDINGS: Lungs: Lung bases are clear. Liver: Normal. No mass. Gallbladder and bile ducts: Status post cholecystectomy. No evident bile duct dilatation allowing for prior cholecystectomy. Pancreas: Normal. No ductal dilation. Spleen: Normal. No splenomegaly. Adrenal glands: Normal. No mass. Kidneys and ureters: Normal. No hydronephrosis. Stomach and bowel: Unremarkable. No obstruction. No mucosal thickening. Appendix: Appendix is normal. No evidence of appendicitis. Intraperitoneal space: Unremarkable. No free air. No significant fluid collection. Vasculature: Unremarkable. No abdominal aortic aneurysm. Lymph nodes: Unremarkable. No enlarged lymph nodes. Urinary bladder: Unremarkable as visualized. Reproductive: Unremarkable as visualized. Bones/joints: Unremarkable. No acute fracture. Soft tissues: Unremarkable. IMPRESSION: No acute abnormalities of the abdomen and pelvis. Nonemergent findings as above.
--- NOTE | 2023-10-02 00:12 | PC.NURSE ---
pt back from CT
[2023-10-02 00:39] LABS: Basophils # 0.1 K/mm3 (0-0.2); Basophils % 0.9 % (0.1-2.0); Eosinophils # 0.1 K/mm3 (0.0-0.4); Eosinophils % 1.1 % (0.1-12.0); Hemoglobin 13.8 g/dL (12.2-16.2); Lymphocytes # 3.1 K/mm3 (0.7-4.5); Lymphocytes % 36.7 % (10-50); Mean Corpuscular HGB Conc 33.8 g/dL (31.8-35.4); Mean Corpuscular Hemoglobin 30.3 pg (27.0-31.2); Mean Corpuscular Volume 89.7 fl (81-99); Mean Platelet Volume 11.4 fl (7.4-10.4); Monocytes # 0.6 K/mm3 (0.1-1.0); Monocytes % 6.9 % (1.7-9.3); Neutrophils # 4.6 K/mm3 (1.8-7.8); Neutrophils % 54.4 % (37.0-80.0); Platelet Count 263 K/mm3 (142-424); Red Blood Count 4.57 M/mm3 (4.20-5.40); Red Cell Distribution Width 13.9 % (11.5-17.5); White Blood Count 8.4 K/mm3 (4.8-10.8)
[2023-10-02 00:40] LABS: Chloride 106 mmol/L (98-107); Sodium 138 mmol/L (136-145)
[2023-10-02 00:41] LABS: Potassium 4.5 mmoL/L (3.5-5.1)
[2023-10-02] MEDS: CEFTRIAXONE 1 GM 1 GM in 0.9 % SODIUM CHLORIDE 50 ML IV (00:41)
[2023-10-02 00:43] LABS: Alanine Aminotransferase 26 U/L (12-78); Alkaline Phosphatase 69 U/L (38-126); Anion Gap 10.5 mEq/L (5-15); Aspartate Amino Transferase 33 U/L (14-36); Bilirubin,Total 0.6 mg/dl (0.2-1.3); Blood Urea Nitrogen 12 mg/dl (7-17); Carbon Dioxide 26 mmol/L (22.0-30.0); Creatinine Clearance Estimated 127 mL/min (50-200); Estimated Glomerular Filt Rate 78 ml/min (>60); GFR (African American) 94 ML/MIN (>60)
[2023-10-02 00:44] LABS: Albumin Level 3.9 g/dl (3.5-5.0); Albumin/Globulin Ratio 1.4 (1.1-1.8); Calcium 8.7 mg/dl (8.4-10.2); Globulin 2.7 g/dL (1.3-3.2); Glucose 85 mg/dl (74-100); Total Protein,Serum 6.6 g/dl (6.3-8.2)
[2023-10-02 01:43] VITALS: BP 122/78; PULSE 70; RESP 17; TEMP 36.9; O2SAT 96
== END 2023-10-02 01:44 | disposition home or self-care (01) ==
PROVIDERS: Emergency Medicine; Emergency Provider Emergency Medicine; PCP Nurse Practitioner Family
DX: N12 Tubulo-interstitial nephritis, not specified as acute or chronic (principal); M54.50 Low back pain, unspecified; E11.9 Type 2 diabetes mellitus without complications
CPT/HCPCS: 74176; 80053; 81001; 85025; 87086; 96365; 96375; 99285; J0696

== ENCOUNTER 2023-11-08 09:18 | Emergency (ER) | payer OTHER, SELFPAY ==
[2023-11-08 09:45] VITALS: BP 126/75; PULSE 79; RESP 18; TEMP 36.7; O2SAT 97; BMI 43.7
--- NOTE | 2023-11-08 09:47 | ED_ITS ---
Discharge Plan Disposition Patient Disposition: Home, Self-Care Condition: Good Prescriptions Prescriptions: New phenazopyridine [Pyridium] 200 mg tablet 200 mg PO Q8H 2 Days Qty: 6 0RF sulfamethoxazole-trimethoprim [Bactrim DS] 800-160 mg Tablet 1 tab PO BID Qty: 14 0RF methylprednisolone 4 mg Tablets,Dose Pack 4 mg PO DIRECTED 6 Days Qty: 21 0RF Rx Instructions: Take 1 pack as directed for 6 days No Action trazodone 50 mg tablet See Rx Instructions PO HS PRN (Reason: sleep) Qty: 60 1RF Rx Instructions: take 1-2 tablets at bedtime orally at bedtime nightly PRN; cyclobenzaprine 10 mg tablet See Rx Instructions .ROUTE .COMPLEX Qty: 90 0RF Dose Instruction: TAKE 1 TABLET BY MOUTH THREE TIMES DAILY NEEDED FOR MUSCLE RELAXER Rx Instructions: TAKE 1 TABLET BY MOUTH THREE TIMES DAILY NEEDED FOR MUSCLE RELAXER famotidine 20 mg tablet See Rx Instructions .ROUTE .COMPLEX Qty: 180 3RF Dose Instruction: TAKE 2 TABLETS BY MOUTH EVERY DAY Rx Instructions: TAKE 2 TABLETS BY MOUTH EVERY DAY diclofenac sodium [Voltaren] 1 % gel 2 g TOPICAL QID Qty: 100 0RF hydrochlorothiazide 25 mg tablet 25 mg PO QAM Qty: 90 3RF losartan 100 mg tablet 100 mg PO DAILY Qty: 90 3RF ranitidine HCl 75 mg tablet 75 mg PO BID Qty: 180 0RF spironolactone 100 mg tablet 100 mg PO DAILY Qty: 90 3RF montelukast 10 mg tablet See Rx Instructions .ROUTE .COMPLEX Qty: 90 3RF Dose Instruction: TAKE ONE TABLET BY MOUTH EVERY NIGHT AT BEDTIME FOR ALLEGIES Rx Instructions: TAKE ONE TABLET BY MOUTH EVERY NIGHT AT BEDTIME FOR ALLEGIES levothyroxine 100 mcg tablet 100 mcg PO DAILY Qty: 90 0RF carvedilol 6.25 mg tablet 6.25 mg PO BID Qty: 180 0RF fluoxetine [Prozac] 40 mg capsule 40 mg PO DAILY Qty: 30 2RF cetirizine 10 MG capsule 10 mg PO DAILY 30 Days Qty: 30 2RF amoxicillin [amoxicillin] 500 mg tablet 500 mg PO TID 10 Days Qty: 30 0RF benzonatate [benzonatate] 100 mg capsule 100 mg PO TIDP PRN (Reason: Cough) Qty: 30 0RF methylprednisolone 4 mg Tablets,Dose Pack 4 mg PO DIRECTED Qty: 21 0RF benzonatate [benzonatate] 100 mg capsule 100 mg PO TIDP PRN (Reason: Cough) Qty: 30 0RF methylprednisolone 4 mg Tablets,Dose Pack 4 mg PO DIRECTED Qty: 21 0RF amoxicillin-pot clavulanate 875-125 mg Tablet 1 tab PO Q12H Qty: 20 0RF lidocaine [Lidoderm] 5 % adhesive patch,medicated 1 patch topical DAILY Qty: 15 0RF Rx Instructions: leave on most painful area for up to 12 hrs naproxen 500 mg tablet 500 mg PO BID PRN (Reason: pain) Qty: 20 0RF methocarbamol 750 mg tablet 750 mg PO Q8H PRN (Reason: pain) Qty: 20 0RF ciprofloxacin HCl 500 mg tablet 500 mg PO BID 7 Days Qty: 14 0RF gabapentin 600 MG tablet 600 mg PO TID lovastatin 20 MG tablet 20 mg PO HS Rx Instructions: TAKE ONE TABLET BY MOUTH EVERY NIGHT AT BEDTIME FOR CHOLESTEROL benzonatate 100 MG capsule 100 mg PO TIDP PRN (Reason: Cough) Qty: 20 0RF bacitracin 1 EACH packet 1 each TP TID 10 Days Qty: 30 0RF methylprednisolone 4 mg Tablets,Dose Pack 4 mg PO DIRECTED Qty: 21 0RF svghtdevcjlfuyy-[id number]-YP [Bromfed DM] 2-30-10 mg/5 mL syrup 5 ml PO Q6H PRN (Reason: cold symptoms) Qty: 118 0RF Referrals Follow up/Referrals: Maribeth Mena APRN [Primary Care Provider] - See instructions Activity Restrictions/Add. Instructions Additional Instructions/Restrictions: Drink plenty of fluids. Take tylenol or ibuprofen for pain or fever. Take the medications as directed. Follow up with your regular doctor. GO TO THE ER FOR ANY WORSENING SYMPTOMS The pyridium will make your urine turn orange, this is an expected side effect. It will stain your clothes if it comes into contact with them. We will culture the urine. That will tell what bacteria is causing your infection and which antibiotics will treat it best. Sometimes the first antibiotic we prescribe turns out to not work against different bacteria. So, make sure you follow up within 3 days if you are not getting better. Clinical Impressions Clinical Impression: UTI (urinary tract infection), Right knee pain, Low back pain Instructions Patient Instructions: Urine Culture, DI for Urinary Tract Infection (UTI), DI for Knee Pain Discharge ED Provider: Colin Cool [facility] General Stated complaint: back pain and pain in right knee Time Seen by Provider: 11/08/23 09:47 History of Present Illness Provider Complaint: She states that for the past 5 days she has had low back pain and right knee pain. She has a history of chronic knee pain. She denies any known injury. She states that she always has urinary frequency, so it is hard to tell when she has UTI symptoms. Related Data Home Medications Medication Instructions Recorded Confirmed gabapentin 600 mg tablet 600 mg PO TID pain 07/12/19 09/09/22 lovastatin 20 mg tablet 20 mg PO HS Cholesterol 07/12/19 09/09/22 Previous Rx's Medication Instructions Recorded cetirizine 10 mg capsule 10 mg PO DAILY 30 days #30 caps 11/16/19 cyclobenzaprine 10 mg tablet See Rx Instructions .Route 08/26/20 .COMPLEX #90 tabs diclofenac sodium 1 % topical gel 2 g topical QID Pain #100 grams 09/09/20 (Voltaren) famotidine 20 mg tablet See Rx Instructions .Route 09/09/20 .COMPLEX #180 tabs hydrochlorothiazide 25 mg tablet 25 mg PO QAM #90 tabs 09/19/20 losartan 100 mg tablet 100 mg PO DAILY #90 tabs 09/19/20 ranitidine HCl 75 mg tablet 75 mg PO BID GERD #180 tabs 11/21/20 spironolactone 100 mg tablet 100 mg PO DAILY BLOOD PRESSURE #90 12/04/20 tabs montelukast 10 mg tablet See Rx Instructions .Route 12/05/20 .COMPLEX #90 tabs benzonatate 100 mg capsule 100 mg PO TIDP PRN Cough #20 caps 02/12/21 carvedilol 6.25 mg tablet 6.25 mg PO BID #180 tabs 03/18/21 levothyroxine 100 mcg tablet 100 mcg PO DAILY #90 tabs 03/18/21 bacitracin 500 unit/gram topical 1 each topical TID 10 days #30 05/21/21 packet packets trazodone 50 mg tablet See Rx Instructions PO HS PRN 04/30/22 sleep #60 tabs methylprednisolone 4 mg tablets in 4 mg PO DIRECTED #21 tabs 05/06/22 a dose pack amoxicillin 500 mg tablet 500 mg PO TID 10 days #30 tabs 07/29/22 benzonatate 100 mg capsule 100 mg PO TIDP PRN Cough #30 caps 07/29/22 methylprednisolone 4 mg tablets in 4 mg PO DIRECTED #21 tabs 07/29/22 a dose pack fluoxetine 40 mg capsule (Prozac) 40 mg PO DAILY #30 caps 08/19/22 amoxicillin 875 mg-potassium 1 tab PO Q12H #20 tabs 11/12/22 clavulanate 125 mg tablet benzonatate 100 mg capsule 100 mg PO TIDP PRN Cough #30 caps 11/12/22 methylprednisolone 4 mg tablets in 4 mg PO DIRECTED #21 tabs 11/12/22 a dose pack yrvknyuqsiezrdj-zemjkkgppgwxmgr-AT 5 ml PO Q6H PRN cold symptoms #118 05/17/23 2 mg-30 mg-10 mg/5 mL oral syrup mL (Bromfed DM) lidocaine 5 % topical patch 1 patch topical DAILY #15 ea 10/01/23 (Lidoderm) methocarbamol 750 mg tablet 750 mg PO Q8H PRN pain #20 tabs 10/01/23 naproxen 500 mg tablet 500 mg PO BID PRN pain #20 tabs 10/01/23 ciprofloxacin HCl 500 mg tablet 500 mg PO BID 7 days #14 tabs 10/02/23 methylprednisolone 4 mg tablets in 4 mg PO DIRECTED 6 days #21 tabs 11/08/23 a dose pack phenazopyridine 200 mg tablet 200 mg PO Q8H 2 days #6 tabs 11/08/23 (Pyridium) sulfamethoxazole 800 1 tab PO BID #14 tabs 11/08/23 mg-trimethoprim 160 mg tablet (Bactrim DS) Allergies Allergy/AdvReac Type Severity Reaction Status Date / Time mold [MOLD] Allergy Severe Anaphylaxis Verified 09/09/22 13:22 Fish Containing Products Allergy Intermediate I-HIVES Verified 09/09/22 13:22 [From SEAFOOD (F/D)] aspirin [ASPIRIN] AdvReac Mild NA-NAUSEA/V Verified 09/09/22 13:22 OMITING From SEAFOOD (F/D) Allergy Intermediate I-HIVES Uncoded 09/09/22 13:22 MUSHROOM Allergy Intermediate I-HIVES Uncoded 09/09/22 13:22 [facility] Disclaimer: The information contained in this section may have been updated after the patient was seen, as this information can be updated by other users. Medical History Insomnia Major depressive disorder Social History Smoking Status: Never smoker second hand exposure: Yes (occasionally) alcohol intake: never substance use type: denies use current occupational status: other Travel in the last 8 weeks: None household members: children housing: house marital status: number of children: 1 caffeine: Yes physical activity: none ROS Obtained: Yes All systems reviewed & no additional complaints except as documented Constitutional Constitutional: Reports system reviewed and no additional complaints, except as documented, Denies chills and Denies fever(s) Eyes Eyes: Denies eye discharge ENT Ears, Nose, Mouth, and Throat: Denies dysphagia, Denies sore throat and Denies throat swelling Cardiovascular Cardiovascular: Denies chest pain and Denies dyspnea Respiratory Respiratory: Denies chest congestion, Denies cough and Denies dyspnea Gastrointestinal Gastrointestingal: Denies abdominal pain, constipation, diarrhea, dysphagia, nausea or vomiting Genitourinary Female Genitourinary: Reports as per HPI, Reports dysuria, Reports urinary frequency, Denies urinary incontinence, Reports urinary hesitancy and Reports urinary urgency Musculoskeletal Musculoskeletal: Reports as per HPI Integumentary/Breasts Skin/Breast: Denies redness, Denies rash and Denies wounds Neurologic Neurologic: Denies paresthesias Allergic/Immunologic Allergic/Immunologic: Denies throat swelling Physical Exam General General appearance: alert and in no apparent distress Head Head exam: atraumatic and normocephalic Eye Eye exam: Present normal appearance, PERRL and EOMI ENT ENT exam: Present normal exam, mucous membranes moist, TM's normal bilaterally and normal external ear exam Neck Neck exam: Present normal inspection, full ROM and trachea midline; Absent tenderness, meningismus or lymphadenopathy Chest Chest inspection: Present normal inspection and symmetric chest wall rise; Absent tenderness Respiratory Respiratory exam: Present normal lung sounds bilaterally; Absent respiratory distress, wheezes or stridor Cardiovascular Cardiovascular exam: Present regular rate, normal rhythm and normal heart sounds Abdominal Exam Abdominal exam: Present soft and normal bowel sounds; Absent distention, tenderness, guarding, rebound, rigidity, incision, psoas sign, obturator sign, heel tap sign, Woo's sign, Rovsing's sign or tenderness at McBurney's Point Extremities Exam Extremities exam: Present normal capillary refill; Absent edema, joint swelling, calf tenderness or cyanosis Expanded Lower Extremity Exam Right: Hip/Pelvis exam: Present normal inspection and full ROM; Absent tenderness Upper leg exam: Present normal inspection and full ROM; Absent tenderness Knee exam: Present tenderness, swelling and knee extension intact; Absent abrasion, laceration, ecchymosis, deformity, crepitus, dislocation, erythema, effusion, anterior drawer sign, posterior draw sign, pain with valgus, laxity with valgus, pain with varus or laxity with varus Lower leg exam: Present normal inspection, full ROM and Achilles tendon intact; Absent tenderness or Homans' sign Ankle exam: Present normal inspection and full ROM; Absent tenderness Foot/toe exam: Present normal inspection and full ROM; Absent tenderness Neurovascular/Tendon exam: Present normal capillary refill; Absent pulse deficit, motor deficit, sensory deficit, tendon deficit or extremity cold to touch Gait: observed and limited by pain Back Exam Back exam: Present normal inspection and full ROM; Absent tenderness, CVA tenderness (R) or CVA tenderness (L) Neurological Exam Neurological exam: Present alert, oriented X3 and normal gait Psychiatric Psychiatric exam: Present normal affect and normal mood Skin Skin exam: Present warm, dry, intact and normal color Lymphatic Lymphatic Findings: no adenopathy Medical Decision Making Medical Records Medical records reviewed: No I reviewed the patient's medical records. Mukesh Inquiry Pt receiving controlled substance: No Procedures Risk/Benefits of Procedure(s) Were Explained: Yes Orthopedic Splinting/Casting Injury #1: Side: right Lower Extremity Injury Location: knee Lower Extremity Immobilizer: knee immobilizer and applied by nurse/dr espinosa Post Cast/Splinting Neuro Status: intact and no change Post Cast/Splinting Vasc Status: intact and no change
[2023-11-08 10:14] LABS: Apearance,Urine Cloudy (Clear); Color,Urine Yellow (Yellow)
[2023-11-08 10:15] LABS: Bilirubin,Urine Negative (Negative); Blood, Urine Trace (Negative); Glucose,Urine (UA) Negative (Negative); Ketones,Urine Negative (Negative); Protein,Urine Negative (Negative); Specific Gravity, Urine 1.015 (1.005-1.030); UTC Leukocyte Esterase,Urine 2+ (Negative); UTC Nitrate,Urine Negative (Negative); Urobilinogen,Urine 0.2 EU/dl (0.2)
[2023-11-08 10:55] VITALS: BP 126/75; PULSE 79; RESP 18; TEMP 36.7; O2SAT 97
== END 2023-11-08 10:55 | disposition home or self-care (01) ==
PROVIDERS: Emergency Provider Nurse Practitioner Family; PCP Nurse Practitioner Family
DX: N39.0 Urinary tract infection, site not specified (principal); B96.1 Klebsiella pneumoniae [K. pneumoniae] as the cause of diseases classified elsewhere; B96.89 Other specified bacterial agents as the cause of diseases classified elsewhere; M54.59 Other low back pain; M25.561 Pain in right knee
CPT/HCPCS: 81003; 87086; 99212; 99214; G0463

== ENCOUNTER 2024-02-22 09:00 | Outpatient (RCR) | payer OTHER, SELFPAY ==
--- NOTE | 2024-01-11 16:02 | HMH.PTOPEV ---
PT Outpatient Evaluation Rehab PT Outpatient Evaluation Start: 01/11/24 12:55 Freq: Status: Active Protocol: Document 01/11/24 12:55 OLEG (Rec: 01/11/24 16:02 OLEG [id number]) E-signed By Shira Edward, PT Outpatient Therapy Subjective History Subjective History Pt is a 43 y/o female who presents to PT 5 days s/p R TKA performed on 01/06/24. Pt denies complications following surgery other than feeling nauseous and sweaty with prolonged standing >5 minutes. Pt reports at the hospital she was given a packet of exercises to perform which she has been doing as tolerated; however, is unable to perform a SLR due to weakness. Pt reports she is ambulating with a RW for all community ambulation and uses a cane and furniture for household ambulation. Pt denies falls. Pt reports she has 7 steps with 1 HR to enter her home, states she has been traversing these okay with a cane. Pt reports she is unable to lift her leg in/out of the car or bed without assistance due to weakness. Pt reports her daughter is helping her sponge bathe currently because her bath tub is too tall to step over. Pt also reports her daughter is helping her with lower body dressing. Pt reports her right foot was numb initialy until this Wednesday, denies numbness/ tingling along the incision. Pt denies redness, warmth, or drainage. Pt reports she has noticed a painful pop of her knee at times with walking and traversing stairs. Pt reports pain is worse at night time and she has difficulty sleeping due to this. Pt reports she is taking prescribed Oxycodone 5mg, Acetaminophen and a blood thinner. Medical History: Asthma, Type II Diabetes, Hypertension, Insomnia, Major depressive disorder Vitals at rest: SpO2 97% RA, HR 86 bpm, BP 102/72 mmHg taken seated in L arm New diagnosis of cancer in past 12 No months? Chief Complaint Pain,Swelling,Gives out/ Unstable,Paresthesia,Weakness Symptom Type Ache,Throb,Sharp,Dull Symptoms Relieved By Rest/Positioning,Ice, Prescription Meds Symptoms Aggravated By Standing,Physical Activity, Twisting,Walking,Lifting Current Functional Limitations Lifting,Housework,Dressing, Driving,Sleeping,Standing, Squatting,Recreation Activity, Walking,Stairs,Balance Symptom Description Constant but Variable Level of pain today (0-10) 7 Pain scale - at its best (0-10) 6 Pain scale - at its worst (0-10) 9 Hip/Knee Eval Gait Observation General Gait Pattern Observation Antalgic Gait,Decrease Weight Bear (R),Decrease Stride Lngth (R) Assistive Device Assistive Devices Rolling / Wheeled Walker MMT right Hip Flexion Strength Grade 2 Poor Hip Abduction Strength Grade 3 Fair Hip Adduction Strength Grade 3 Fair Hip Extension Strength Grade 3 Fair Knee Extension Strength Grade 2 Poor Knee Flexion Strength Grade 2 Poor ROM Knee Extension Active Range of Motion ( 7 degrees) Knee Extension Passive Range of Motion ( 0 degrees) Knee Flexion Active Range of Motion ( 40 degrees) Knee Flexion Passive Range of Motion ( 82 degrees) Sensation Comment equal and intact to light touch sensation bilaterally Effusion joint effusion knee exam standard right Mid - Patellar Circumerential Measure ( 52 cm) 5cm Proximal Circumference Measure (cm) 60 5cm Distal Circumference Measure (cm) 48 Lower Extremity Functional Index Activities Today, do you or would you have any difficulty at all with: a.Any of your usual work, housework or Quite a bit of difficulty school activities b. Your usual hobbies, recreational or Quite a bit of difficulty sporting activities c. Getting into or out of the bath Extreme difficulty or unable to perform activity d. Walking between rooms Moderate difficulty e. Putting on your shoes or socks Moderate difficulty f. Squatting Extreme difficulty or unable to perform activity g. Lifting an object, like a bag of Moderate difficulty groceries from the floor h. Performing light activities around A little bit of difficulty your home i. Performing heavy activities around Extreme difficulty or unable your home to perform activity j. Getting into or out of a car Quite a bit of difficulty k. Walking 2 blocks Extreme difficulty or unable to perform activity l. Walking a mile Extreme difficulty or unable to perform activity m. Going up or down 10 stairs (about 1 Extreme difficulty or unable flight of stairs) to perform activity n. Standing for 1 hour Extreme difficulty or unable to perform activity o. Sitting for 1 hour A little bit of difficulty p. Running on even ground Extreme difficulty or unable to perform activity q. Running on uneven ground Extreme difficulty or unable to perform activity r. Making sharp turns while running fast Extreme difficulty or unable to perform activity s. Hopping Extreme difficulty or unable to perform activity t. Rolling over in bed Moderate difficulty LEFI Score Lower Extremity Functional Index Score 17 Outpatient Therapy Assessment Impairments Problems/Impairmments Palpation Tenderness,Impaired Range of Motion,Impaired Strength,Impaired Transfers, Impaired Gait Pattern,Impaired Walking,Impaired Standing, Impaired Driving,Impaired Dressing,Impaired Shower/ Bathing,Impaired Household Care,Impaired Stair Climbing, Impaired Incline Stepping, Impaired Stepping on Uneven Surface,Impaired Squatting, Impaired Recreational Activities,Impaired Balance, Increased Edema,Wound Care Needs,Subjective C/O Pain, Impaired Self Care/Self Management Prognosis Rehab Potential Good Clinical Impression Consistent with Diagnosis Yes Short Term Goals Number of Weeks 4 Increase Range of Motion Yes: Improve R knee AROM to 0- 100 Increase Strength Yes: Improve RLE MMT to at least 3+/5 grossly to assist with function/gait Improve Gait Pattern with Assistive Yes: demonstrate proper gait Device mechanics with LRD to decrease fall risk Improve Ability to Dress Self Yes: don shoes/socks I to decrease burden of care Improve Ability to Shower/Bathe Self Yes: report ability to bathe I to decrease burden of care Improve LEFI Score Yes: Improve score to at least 25-30/80 to improve overall QOL Decrease Subjective C/O Pain Yes: Improve pain at worst to 7/10 to improve overall QOL Improve Self Care/Self Management Yes Patient to be Ind w/ HEP Yes Group Home Goals Number of Weeks 6-8 Increase Range of Motion Yes: Improve R knee AROM to at least 0-115 Increase Strength Yes: Improve RLE MMT to 4-4+/5 grossly to assist with function/gait Improve Gait Pattern without Assistive Yes: demonstrate proper Device mechanics to decrease fall risk Improve Ability to Climb Stairs Yes: 1 flight with HR reciprocally to assist with home and community ambulation Improve LEFI Score Yes: Improve score to 55/80 to improve overall QOL Decrease Edema Yes Decrease Subjective C/O Pain Yes: Improve pain at worst to 5/10 to improve overall QOL Patient to be Ind w/ Advanced HEP Yes Outpatient Therapy Plan of Care Treatment Plan May Include Therapeutic Exercise Including Home Yes Exercise Program Manual Therapy Techniques Yes Neuromuscular Re-education Yes Therapeutic Activities to Return to Yes Previous Functional/Work Level Gait Training Yes ADL/Self Care Education Yes Dry Needling Yes Thermal Modalities Yes Electrical Stimulation Yes Ultrasound/Phonophoresis Yes Iontophoresis Yes Orthotics/Bracing/Splinting Yes Vasopneumatic Compression Pump Yes Massage Yes Manual Lymphatic Drainage Yes Wound Care Yes Eval/Re-Eval Yes Frequency Times per week 2-3 Duration Number of Weeks 6-8 Addendums This patient is a candidate for social No or vocational rehab? Patient/Guardian verbally acknowledges Yes understanding of treatment program and consents to further treatment? Patient/Guardian verbally acknowledges Yes understanding of diagnosis, prognosis and goals for treatment? Eval Complexity PT Charges 24570 - Low Complexity Shoulder/Elbow Eval Shoulder Objective Measurements Elbow Objective Measurements PHYSICIAN CERTIFICATION: I certify the specified therapy services for Enriqueta Riddle are required, authorized, and reviewed every 30 days.
--- NOTE | 2024-02-10 13:37 | HMH.RHREAS ---
Rehab Reassessment Rehab OP Re-assessment Start: 01/11/24 12:55 Freq: Status: Active Protocol: Document 02/10/24 13:00 OLEG (Rec: 02/10/24 13:37 OLEG [id number]) E-signed By Shira Edward PT Lower Extremity Functional Index Activities Today, do you or would you have any difficulty at all with: a.Any of your usual work, housework or No difficulty school activities b. Your usual hobbies, recreational or No difficulty sporting activities c. Getting into or out of the bath No difficulty d. Walking between rooms No difficulty e. Putting on your shoes or socks No difficulty f. Squatting A little bit of difficulty g. Lifting an object, like a bag of No difficulty groceries from the floor h. Performing light activities around No difficulty your home i. Performing heavy activities around A little bit of difficulty your home j. Getting into or out of a car No difficulty k. Walking 2 blocks No difficulty l. Walking a mile No difficulty m. Going up or down 10 stairs (about 1 No difficulty flight of stairs) n. Standing for 1 hour A little bit of difficulty o. Sitting for 1 hour No difficulty p. Running on even ground A little bit of difficulty q. Running on uneven ground A little bit of difficulty r. Making sharp turns while running fast A little bit of difficulty s. Hopping A little bit of difficulty t. Rolling over in bed No difficulty LEFI Score Lower Extremity Functional Index Score 73 Rehab Re-assessment Subjective Subjective Pt reports she feels close to 100% improved since starting PT. Pt reports R knee pain at worst as 5/10 on VAS with increased activity. Pt reports she is ambulating well without an AD, denies falls. Pt reports she is able to traverse stairs reciprocally and walk on uneven ground well . Pt reports she does experience a locking/catching sensation and a painful pop of the lateral patella at times. Pt denies having recent imaging of the knee. Pt reports compliance with HEP and performance of scar tissue massage at home. Pt reports she does not have a follow-up visit with her surgeon scheduled but plans on calling later today to schedule one. Objective Objective Notes Observation: incision well healing without signs of infection Gait: mildly antalgic on RLE R knee AROM: 0-2-124 RLE MMT: hip flex 4-/5, hip abd/add 4/5, hip ext 4/5, knee flex 4+/5, knee ext 4+/5, ankle DF 5/5 *able to perform SLR without extension lag noted Edema: joint line 44 cm, proximal incision 58 cm, distal incision 44 cm Assessment Progress Assessment Progressing as Expected Assessment Notes Pt has attended 7 PT visits consisting of aerobic exercise , knee mobility, LE stretching /strengthening, edema management, manual therapy, moadlities and HEP with good tolerance. Pt demonstrated improve subjective report of pain, edema, knee AROM, strength and gait this date compared to the initial evaluation. Pt continues to demonstrate mildly antaglic gait and knee extension AROM deficits. Overall, the pt would continue to benefit from skilled PT to further improve extension AROM, gait, and functional strength to improve overall QOL/function. Patient goals met ST/9 LT/8 Goals Not Met extension AROM, strength, gait Revised Goals n/a Plan Plan Continue initial POC. Progress functional strengthening and balance/proprioception training. Frequency of Therapy 1x/week Duration of therapy 3-4 more weeks Time and Billing Re-Eval Time 12 Re-Eval Billing Units 1 PHYSICIAN CERTIFICATION: I certify the specified therapy services for Enriqueta Riddle are required, authorized, and reviewed every 30 days.
== END 2024-02-22 10:20 | disposition home or self-care (01) ==
LOC: PT 09:00
PROVIDERS: Visit Provider Orthopaedic Surgery
DX: M17.11 Unilateral primary osteoarthritis, right knee (principal); Z96.651 Presence of right artificial knee joint
CPT/HCPCS: 97010; 97014; 97016; 97110; 97140; 97163; 97164; 97530; G0283

== ENCOUNTER 2024-02-25 09:19 | Outpatient (CLI) | payer OTHER, SELFPAY ==
--- NOTE | 2024-02-25 09:23 | XR_ITS ---
FINAL REPORT CLINICAL HISTORY: rt knee pain FINDINGS: RIGHT KNEE 3 views of the right knee were obtained. There is no acute fracture or dislocation. Patient is status post arthroplasty. Hardware is unremarkable. Visualized joint spaces are normally aligned. Significant soft tissue swelling is noted. IMPRESSION: Significant soft tissue swelling without acute bony abnormality. Reviewed, Interpreted and Dictated by Mabel Andrews MD Transcribed by Bre Alexander Authenticated and [facility]
== END 2024-02-25 23:59 | disposition home or self-care (01) ==
LOC: RAD 09:20
PROVIDERS: PCP Nurse Practitioner; Visit Provider Orthopaedic Surgery
DX: M25.561 Pain in right knee (principal); Z96.651 Presence of right artificial knee joint
CPT/HCPCS: 73562

== ENCOUNTER 2024-03-16 10:58 | Outpatient (POV) | payer OTHER, SELFPAY ==
[2024-03-16 11:05] VITALS: BP 130/78; PULSE 73; RESP 18; O2SAT 96; BMI 42.2
--- NOTE | 2024-03-16 11:29 | A.OFFVIS_ITS ---
HPI Data of Consult Patient: new to practice Consult date: 03/16/24 Requesting Physician: Shira Haynes APRN Primary Care Provider: Ángela Cruz Consult Narrative Reason for consult: Chronic back pain History of present illness: Ms. Riddle is a 44 year old female who presents today as a new patient. She is a referral from Paula Hood's office. Today she rates her pain a 7 out of 10. Patient states she has pain throughout her neck, mid back and low back. Patient states this is been going on for years and progressively worsened over time. Patient does describe it as a aching, shooting sensation with numbness and tingling into her upper extremities as well as her feet. Patient does state the pain interferes with her ability perform activities of daily living such as cooking and cleaning. Patient has tried [id number] medications along with heat and ice and topicals with minimal relief. Patient has also been to physical therapy and chiropractor with no additional improvement. She does states she has had injections in the past that did so-so. Patient was a prior patient in years past. Patient does state that she did just have her right total knee replaced about 9 weeks ago and that she is scheduled for her left knee replaced next . Patient denies any recent imaging. Her Mukesh has been reviewed and is appropriate. CC: Shira Haynes APRN [facility] Disclaimer: The information contained in this section may have been updated after the patient was seen, as this information can be updated by other users. Medical History (Updated 03/16/24 @ 11:53 by Shira Haynes APRN) MICHELLE (obstructive sleep apnea) Thyroid disorder Lupus IBS (irritable bowel syndrome) HTN (hypertension) GERD (gastroesophageal reflux disease) Diabetes History of frequent headaches Bipolar 1 disorder Asthma Arthritis Anxiety Seasonal allergies Insomnia Major depressive disorder Surgical History (Updated 03/16/24 @ 11:10 by Lindy Quinn RN) Hx of cholecystectomy History of bladder surgery Family History (Updated 03/16/24 @ 11:09 by Lindy Quinn RN) Other Anemia Arthritis Breast cancer Depression Diabetes Heart disease Hyperlipidemia Hypertension Lung cancer Migraines Osteoporosis Stroke Social History Smoking Status: Never smoker second hand exposure: Yes (occasionally) alcohol intake: never substance use type: denies use current occupational status: other Travel in the last 8 weeks: None household members: children housing: house marital status: number of children: 1 caffeine: Yes physical activity: none Review of Systems Review of Systems Review of systems:: pertinent systems reviewed and negative unless documented below Review of systems (narrative): Review of Systems: General: No recent weight changes, no fever, no sleep disturbances Respiratory: No cough, no shortness of air, no recurring pulmonary infections Cardiovascular/peripheral vascular: No chest pain, no palpitations, no edema, no shortness of breath Gastrointestinal: No new onset incontinence, normal bowel movements reported Genitourinary: No new onset incontinence Musculoskeletal: Neck pain, mid back pain, low back pain Psychiatric: [Normal mood/affect] Neurological: [Denies weakness in extremities], [denies balance issues] Meds Home Medications and Allergies Home Medications Medication Instructions Recorded Confirmed Type gabapentin 600 mg tablet 600 mg PO TID pain 07/12/19 02/25/24 History lovastatin 20 mg tablet 20 mg PO HS Cholesterol 07/12/19 02/25/24 History cetirizine 10 mg capsule 10 mg PO DAILY 30 days #30 caps 11/16/19 02/25/24 Rx cyclobenzaprine 10 mg tablet See Rx Instructions .Route 08/26/20 02/25/24 Rx .COMPLEX #90 tabs diclofenac sodium 1 % topical gel 2 g topical QID Pain #100 grams 09/09/20 02/25/24 Rx (Voltaren) famotidine 20 mg tablet See Rx Instructions .Route 09/09/20 02/25/24 Rx .COMPLEX #180 tabs hydrochlorothiazide 25 mg tablet 25 mg PO QAM #90 tabs 09/19/20 02/25/24 Rx losartan 100 mg tablet 100 mg PO DAILY #90 tabs 09/19/20 02/25/24 Rx ranitidine HCl 75 mg tablet 75 mg PO BID GERD #180 tabs 11/21/20 02/25/24 Rx spironolactone 100 mg tablet 100 mg PO DAILY BLOOD PRESSURE #90 12/04/20 02/25/24 Rx tabs montelukast 10 mg tablet See Rx Instructions .Route 12/05/20 02/25/24 Rx .COMPLEX #90 tabs benzonatate 100 mg capsule 100 mg PO TIDP PRN Cough #20 caps 02/12/21 02/25/24 Rx carvedilol 6.25 mg tablet 6.25 mg PO BID #180 tabs 03/18/21 02/25/24 Rx levothyroxine 100 mcg tablet 100 mcg PO DAILY #90 tabs 03/18/21 02/25/24 Rx bacitracin 500 unit/gram topical 1 each topical TID 10 days #30 05/21/21 02/25/24 Rx packet packets trazodone 50 mg tablet See Rx Instructions PO HS PRN 04/30/22 02/25/24 Rx sleep #60 tabs methylprednisolone 4 mg tablets in 4 mg PO DIRECTED #21 tabs 05/06/22 02/25/24 Rx a dose pack amoxicillin 500 mg tablet 500 mg PO TID 10 days #30 tabs 07/29/22 02/25/24 Rx benzonatate 100 mg capsule 100 mg PO TIDP PRN Cough #30 caps 07/29/22 02/25/24 Rx methylprednisolone 4 mg tablets in 4 mg PO DIRECTED #21 tabs 07/29/22 Rx a dose pack fluoxetine 40 mg capsule (Prozac) 40 mg PO DAILY #30 caps 08/19/22 02/25/24 Rx amoxicillin 875 mg-potassium 1 tab PO Q12H #20 tabs 11/12/22 02/25/24 Rx clavulanate 125 mg tablet benzonatate 100 mg capsule 100 mg PO TIDP PRN Cough #30 caps 11/12/22 02/25/24 Rx methylprednisolone 4 mg tablets in 4 mg PO DIRECTED #21 tabs 11/12/22 02/25/24 Rx a dose pack vsfoauoiasgizku-oobykqyjvbyckvo-IO 5 ml PO Q6H PRN cold symptoms #118 05/17/23 02/25/24 Rx 2 mg-30 mg-10 mg/5 mL oral syrup mL (Bromfed DM) lidocaine 5 % topical patch 1 patch topical DAILY #15 ea 10/01/23 02/25/24 Rx (Lidoderm) methocarbamol 750 mg tablet 750 mg PO Q8H PRN pain #20 tabs 10/01/23 02/25/24 Rx naproxen 500 mg tablet 500 mg PO BID PRN pain #20 tabs 10/01/23 02/25/24 Rx ciprofloxacin HCl 500 mg tablet 500 mg PO BID 7 days #14 tabs 10/02/23 02/25/24 Rx methylprednisolone 4 mg tablets in 4 mg PO DIRECTED 6 days #21 tabs 11/08/23 02/25/24 Rx a dose pack phenazopyridine 200 mg tablet 200 mg PO Q8H 2 days #6 tabs 11/08/23 02/25/24 Rx (Pyridium) sulfamethoxazole 800 1 tab PO BID #14 tabs 11/08/23 02/25/24 Rx mg-trimethoprim 160 mg tablet (Bactrim DS) New Prescriptions to Start Prescriptions: Allergies Allergy/AdvReac Type Severity Reaction Status Date / Time mold [MOLD] Allergy Severe Anaphylaxis Verified 02/25/24 08:58 Fish Containing Products Allergy Intermediate I-HIVES Verified 02/25/24 08:58 [From SEAFOOD (F/D)] aspirin [ASPIRIN] AdvReac Mild NA-NAUSEA/V Verified 02/25/24 08:58 OMITING From SEAFOOD (F/D) Allergy Intermediate I-HIVES Uncoded 02/25/24 08:58 MUSHROOM Allergy Intermediate I-HIVES Uncoded 02/25/24 08:58 Objective Narrative: Physical Exam: General: Alert and oriented x3, no acute distress, pleasant and cooperative Lungs: Respirations even and unlabored, symmetrical chest expansion Eyes: PERRL Musculoskeletal: Flexion and extension of lumbar [spine] somewhat guarded secondary to pain, [antalgic gait noted] Neurological: Speech clear, no gross sensory deficit Assessment and Plan *Assessment and plan (1) Low back pain: Status: Acute Qualifiers: Chronicity: chronic Back pain laterality: bilateral Sciatica presence: unspecified whether sciatica present Qualified Code(s): M54.50 - Low back pain, unspecified; G89.29 - Other chronic pain Category: Medical Code(s): M54.50 - Low back pain, unspecified (2) Right knee pain: Status: Acute Qualifiers: Chronicity: chronic Qualified Code(s): M25.561 - Pain in right knee; G89.29 - Other chronic pain Category: Medical Code(s): M25.561 - Pain in right knee (3) Knee pain: Status: Acute Qualifiers: Chronicity: unspecified Laterality: bilateral Qualified Code(s): M25.561 - Pain in right knee; M25.562 - Pain in left knee Category: Medical Code(s): M25.569 - Pain in unspecified knee (4) Neck pain: Status: Acute Category: Medical Code(s): M54.2 - Cervicalgia (5) Mid back pain: Status: Acute Category: Medical Code(s): M54.9 - Dorsalgia, unspecified Plan Patient has pain in multiple areas however I have counseled the patient due to her upcoming knee replacement we cannot offer any additional injection therapy options at this time. We will at least proceed forward with updating her imaging due to her chronic pain. I will order x-ray imaging of her cervical, thoracic and lumbar spine with the plan to then order MRI without contrast of her cervical and lumbar spine. Patient was counseled if we have any trouble getting this approved we will let her know and she does state that her lumbar spine is worse so if we do have to choose between the 2 we will proceed forward with the lumbar imaging first. Patient is agreeable to this plan of care. Patient will return to clinic in 6 weeks following her total knee replacement. Patient has been instructed to contact the clinic with any concerns before the next appointment. Dr. Lemus has reviewed this note and agrees with this plan of care. This note was dictated using voice recognition software and make contain errors or omissions.
--- NOTE | 2024-03-16 11:40 | XR_ITS ---
FINAL REPORT CLINICAL HISTORY: back pain FINDINGS: CERVICAL SPINE Three views demonstrate no acute fracture. There are mild degenerative changes with osteophytes. There is no malalignment. IMPRESSION: No acute process. THORACIC SPINE Two views demonstrate no acute fracture. There are mild degenerative changes with osteophytes. Mild leftward curvature is identified. The alignment is otherwise normal. IMPRESSION: No acute process. LUMBAR SPINE Three views demonstrate no acute fracture. There are mild degenerative changes with osteophytes. There is mild rightward curvature. The alignment is otherwise normal. IMPRESSION: No acute process. Reviewed, Interpreted and Dictated by Doug Cook III, MD Transcribed by Nubia Woodward Authenticated and [facility]
== END 2024-03-16 23:59 | disposition home or self-care (01) ==
PROVIDERS: PCP Nurse Practitioner; Visit Provider Nurse Practitioner Family
DX: M54.50 Low back pain, unspecified (principal); G89.29 Other chronic pain; M25.561 Pain in right knee; M25.562 Pain in left knee; M54.2 Cervicalgia; M54.9 Dorsalgia, unspecified; Z73.89 Other problems related to life management difficulty; Z96.651 Presence of right artificial knee joint
CPT/HCPCS: 72084; 99202; G0463

== ENCOUNTER 2024-04-27 09:58 | Outpatient (POV) | payer OTHER, SELFPAY ==
--- NOTE | 2024-04-27 10:36 | A.OFFVIS_ITS ---
[facility] Disclaimer: The information contained in this section may have been updated after the patient was seen, as this information can be updated by other users. Medical History (Updated 04/27/24 @ 10:38 by Shira Haynes APRN) MICHELLE (obstructive sleep apnea) Thyroid disorder Lupus IBS (irritable bowel syndrome) HTN (hypertension) GERD (gastroesophageal reflux disease) Diabetes History of frequent headaches Bipolar 1 disorder Asthma Arthritis Anxiety Seasonal allergies Insomnia Major depressive disorder Surgical History (Updated 03/16/24 @ 11:10 by Lindy Quinn RN) Hx of cholecystectomy History of bladder surgery Family History (Updated 03/16/24 @ 11:09 by Lindy Quinn RN) Other Anemia Arthritis Breast cancer Depression Diabetes Heart disease Hyperlipidemia Hypertension Lung cancer Migraines Osteoporosis Stroke Social History (Updated 03/16/24 @ 12:11 by Lindy Quinn RN) Smoking Status: Never smoker second hand exposure: Yes (occasionally) alcohol intake: never substance use type: denies use current occupational status: other Travel in the last 8 weeks: None household members: children housing: house marital status: number of children: 1 caffeine: Yes physical activity: none PM Subjective & Objective Subjective Subjective:: Patient presents today for x-ray imaging follow-up and worsening pain. Today she rates her pain a 6 out of 10. She denies any new trauma or injury. She does state that she did end up having her left knee replacement on March 23 and is done extremely well with this. She states that she has had significant improvement in her knee symptoms since having the second surgery. Patient had her right knee done on January 05. Patient does state however she continues to have aching, throbbing sensations throughout her low back and hips. Patient does state the pain interferes with her ability perform activities of daily living such as cooking and cleaning. Patient has tried oral medications, heat and ice and topicals with minimal relief. Patient has also had recent physical therapy and continued at home stretching exercise for longer than 12 weeks. Her Mukesh has been reviewed and is appropriate. Review of Systems: General: No recent weight changes, no fever, no sleep disturbances Respiratory: No cough, no shortness of air, no recurring pulmonary infections Cardiovascular/peripheral vascular: No chest pain, no palpitations, no edema, no shortness of breath Gastrointestinal: No new onset incontinence, normal bowel movements reported Genitourinary: No new onset incontinence Musculoskeletal: Low back pain, hip pain Psychiatric: [Normal mood/affect] Neurological: [Denies weakness in extremities], [denies balance issues] Pain at rest (0-10 scale): 6 Objective Objective:: Physical Exam: General: Alert and oriented x3, no acute distress, pleasant and cooperative Lungs: Respirations even and unlabored, symmetrical chest expansion Eyes: PERRL Musculoskeletal: Flexion and extension of lumbar [spine] somewhat guarded secondary to pain, [antalgic gait noted] point tenderness along bilateral SIs with positive bilateral Chava's, Ami's, Gaenslen's, compression and distraction exam Neurological: Speech clear, no gross sensory deficit Has patient had previous pain injection?: No Conservative treatment options previously tried: Home exercise plan Length of treatment: Longer than 12 weeks Meds Home Medications and Allergies Home Medications ?Medication ?Instructions ?Recorded ?Confirmed ?Type gabapentin 600 mg tablet 600 mg PO TID pain 07/12/19 03/16/24 History lovastatin 20 mg tablet 20 mg PO HS Cholesterol 07/12/19 03/16/24 History cetirizine 10 mg capsule 10 mg PO DAILY 30 days #30 caps 11/16/19 03/16/24 Rx cyclobenzaprine 10 mg tablet See Rx Instructions .Route 08/26/20 03/16/24 Rx .COMPLEX #90 tabs diclofenac sodium 1 % topical gel 2 g topical QID Pain #100 grams 09/09/20 03/16/24 Rx (Voltaren) famotidine 20 mg tablet See Rx Instructions .Route 09/09/20 03/16/24 Rx .COMPLEX #180 tabs hydrochlorothiazide 25 mg tablet 25 mg PO QAM #90 tabs 09/19/20 03/16/24 Rx losartan 100 mg tablet 100 mg PO DAILY #90 tabs 09/19/20 03/16/24 Rx ranitidine HCl 75 mg tablet 75 mg PO BID GERD #180 tabs 11/21/20 03/16/24 Rx spironolactone 100 mg tablet 100 mg PO DAILY BLOOD PRESSURE #90 12/04/20 03/16/24 Rx tabs montelukast 10 mg tablet See Rx Instructions .Route 12/05/20 03/16/24 Rx .COMPLEX #90 tabs carvedilol 6.25 mg tablet 6.25 mg PO BID #180 tabs 03/18/21 03/16/24 Rx levothyroxine 100 mcg tablet 100 mcg PO DAILY #90 tabs 03/18/21 03/16/24 Rx trazodone 50 mg tablet See Rx Instructions PO HS PRN 04/30/22 03/16/24 Rx sleep #60 tabs fluoxetine 40 mg capsule (Prozac) 40 mg PO DAILY #30 caps 08/19/22 03/16/24 Rx lidocaine 5 % topical patch 1 patch topical DAILY #15 ea 10/01/23 03/16/24 Rx (Lidoderm) methocarbamol 750 mg tablet 750 mg PO Q8H PRN pain #20 tabs 10/01/23 03/16/24 Rx naproxen 500 mg tablet 500 mg PO BID PRN pain #20 tabs 10/01/23 03/16/24 Rx phenazopyridine 200 mg tablet 200 mg PO Q8H 2 days #6 tabs 11/08/23 03/16/24 Rx (Pyridium) New Prescriptions to Start Prescriptions: Allergies Allergy/AdvReac Type Severity Reaction Status Date / Time mold [MOLD] Allergy Severe Anaphylaxis Verified 02/25/24 08:58 Fish Containing Products Allergy Intermediate I-HIVES Verified 02/25/24 08:58 [From SEAFOOD (F/D)] aspirin [ASPIRIN] AdvReac Mild NA-NAUSEA/V Verified 02/25/24 08:58 OMITING From SEAFOOD (F/D) Allergy Intermediate I-HIVES Uncoded 02/25/24 08:58 MUSHROOM Allergy Intermediate I-HIVES Uncoded 02/25/24 08:58 Assessment and Plan *Assessment and plan (1) Bilateral sacroiliitis: Status: Acute Category: Medical Code(s): M46.1 - Sacroiliitis, not elsewhere classified Plan Patient is experiencing worsening pain throughout her bilateral hips and low back with limited range of motion of her lumbar spine. Patient did have point tenderness along her bilateral SIs with positive bilateral Chava's, Ami's, Gaenslen's, compression and distraction exam. I did discuss with patient that she may benefit from bilateral SI injection. Risk and benefits were discussed with patient and she would like to proceed forward with this plan of care. Patient has tried and failed conservative therapy including continued at home stretching exercise for longer than 12 weeks. We did at the last visit also order MRI of her cervical and lumbar spine. Patient states she has not heard anything on this. I did intake counselor the patient after reviewing her x-ray imaging that we will look into and see if we have gotten approval yet for the MRI. Patient will be scheduled for bilateral SI injection under fluoroscopy. Patient has been instructed to contact the clinic with any concerns before the next appointment. Dr. Lemus has reviewed this note and agrees with this plan of care. This note was dictated using voice recognition software and make contain errors or omissions. All injections are used with Lidocaine or Bupivacaine and Depo Medrol.
[2024-04-27 11:09] VITALS: BP 136/64; PULSE 67; RESP 16; O2SAT 98; BMI 36.7
== END 2024-04-27 23:59 | disposition home or self-care (01) ==
LOC: SC.PAIN 09:58
PROVIDERS: PCP Nurse Practitioner; Visit Provider Nurse Practitioner Family
DX: M46.1 Sacroiliitis, not elsewhere classified (principal); Z73.89 Other problems related to life management difficulty; Z79.899 Other long term (current) drug therapy; Z96.653 Presence of artificial knee joint, bilateral
CPT/HCPCS: 99212; G0463

== ENCOUNTER 2024-05-09 13:53 | Day surgery (SDC) | payer OTHER, SELFPAY ==
[2024-05-09 14:07] VITALS: BP 132/87; PULSE 69; RESP 16; TEMP 36.6; O2SAT 98; BMI 36.7
[2024-05-09 14:31] VITALS: BP 156/82; PULSE 66; RESP 16; O2SAT 98
[2024-05-09] MEDS: BUPIVACAINE 0.25% 10ML INJ 25 MG IJ (14:34)
[2024-05-09 14:35] VITALS: BP 122/83; PULSE 70; RESP 18; O2SAT 95
[2024-05-09] MEDS: methylPREDNISolone ACETATE 80MG/ML VIAL 80 MG (14:35)
[2024-05-09] MEDS: LIDOCAINE 1% 5ML PF VIAL 5 ML (14:35)
[2024-05-09 14:38] VITALS: BP 122/83; PULSE 70; RESP 18; O2SAT 95
--- NOTE | 2024-05-09 14:39 | P.PCN_ITS ---
Procedure Date: 05/09/24 Time: 14:40 Anesthesiologist:: Rocky Arita CRNA Complications:: None Pre-procedure Diagnosis:: Bilateral sacroiliitis Post-procedure Diagnosis:: Same Indications for Procedure:: Patient is a very pleasant 44-year-old female comes our clinic today for bilateral sacroiliac joint injections of cortisone and local anesthetic. She describes low lumbar back pain off the midline bilaterally. Bilateral posterior hip pain. Difficulty transitioning from sitting to standing. Difficulty with ambulation. Difficulty with sitting for any length of time. She rates her pain 8/10. Procedure Details:: Procedure: Bilateral sacroiliac joint injections under fluoroscopy Informed consent was obtained and the risks and benefits of the procedure were explained to the patient.~ The patient was taken to the procedure room and noninvasive monitors were placed including a noninvasive blood pressure cuff and pulse oximeter.~ The patient was placed prone on the procedure table. Both hips were cleansed using Betadine as a cleansing solution. C-arm fluoroscopy was used to view the right sacroiliac joint.~ The skin and subcutaneous tissues were anesthetized using lidocaine 1.5% and a 25-gauge needle.~ After this, a 22-gauge spinal needle was inserted under fluoroscopic guidance into the inferior aspect of the right sacroiliac joint.~ Omnipaque dye was injected and good spread was seen throughout the joint.~ After this, approximately 5 mL of bupivacaine, 0.25% and Depo-Medrol, 40 mg was incrementally injected into the right sacroiliac joint. We then moved to the left sacroiliac joint.~ The skin and subcutaneous tissues were anesthetized using lidocaine 1.5% and a 25-gauge needle.~ After this, a 22- gauge spinal needle was inserted under fluoroscopic guidance into the inferior aspect of the left sacroiliac joint.~ Omnipaque dye was injected and good spread was seen throughout the joint. After this, approximately 5 mL of bupivacaine, 0.25% and Depo-Medrol, 40 mg was incrementally injected into the left sacroiliac joint.~ The patient tolerated the procedure well with no complications. The patient was observed in the Pain Clinic and then was discharged home neurologically intact. Plan and Disposition:: Patient was discharged without incident.
== END 2024-05-09 14:31 | disposition home or self-care (01) ==
PROVIDERS: PCP Nurse Practitioner; Visit Provider Nurse Anesthetist, Certified Registered
DX: M46.1 Sacroiliitis, not elsewhere classified (principal)
CPT/HCPCS: 27096; G0260; J1010

== ENCOUNTER 2024-05-18 12:42 | Outpatient (CLI) | payer OTHER, SELFPAY ==
--- NOTE | 2024-05-18 | MR_ITS ---
FINAL REPORT CLINICAL HISTORY: NECK AND LBP FINDINGS: Multiplanar MR imaging of the cervical spine was performed without contrast. On the sagittal T2-weighted images, disc degeneration is seen throughout. There is mild diffuse kyphosis. There is no evidence of fracture. The vertebral alignment is normal. The cervical spinal cord has an unremarkable appearance without evidence of mass, edema or syrinx. No significant canal stenosis is identified. The cervicomedullary junction is normal. C2-3: There is no significant canal stenosis or neural foraminal narrowing. C3-4: Small uncovertebral osteophytes are present with mild left neural foraminal narrowing. C4-5: There is no significant canal stenosis or neural foraminal narrowing. C5-6: There is no significant canal stenosis or neural foraminal narrowing. C6-7: An annular bulge and uncovertebral osteophytes are present. There is a right foraminal disc protrusion with possible right C7 nerve root impingement. There is mild bilateral neural foraminal narrowing. C7-T1: There is no significant canal stenosis or neural foraminal narrowing. IMPRESSION: Right foraminal disc protrusion at C6-7 with possible right C7 nerve root impingement. Reviewed, Interpreted and Dictated by Doug Cook III, MD Transcribed by Nubia Woodward Authenticated and [facility]
--- NOTE | 2024-05-18 | MR_ITS ---
FINAL REPORT CLINICAL HISTORY: . FINDINGS: Multiplanar MR imaging of the lumbar spine was performed without contrast. On the sagittal T2-weighted images, disc degeneration is seen at multiple levels. The vertebral alignment is normal. No bony mass is identified. There is no evidence of fracture. The conus has an unremarkable appearance. L1-2: An annular disc bulge is present. There is no significant canal stenosis or neural foraminal narrowing. L2-3: Annular disc bulge is present. There is no significant canal stenosis or neural foraminal narrowing. L3-4: An annular disc bulge is present. There is a right foraminal disc protrusion with moderate right and mild left neural foraminal narrowing. L4-5: An annular disc bulge is present. There is a left foraminal disc protrusion with moderate right and severe left neural foraminal narrowing. L5-S1: An annular disc bulge is present. There is a left foraminal annular tear and disc protrusion with moderate left neural foraminal narrowing. IMPRESSION: Multilevel disc protrusions with neural foraminal compromise as discussed above. Reviewed, Interpreted and Dictated by Doug Cook III, MD Transcribed by Nubia Woodward Authenticated and [facility]
== END 2024-05-18 23:59 | disposition home or self-care (01) ==
LOC: RAD 12:43
PROVIDERS: PCP Nurse Practitioner; Visit Provider Anesthesiology
DX: M54.2 Cervicalgia (principal); M54.50 Low back pain, unspecified
CPT/HCPCS: 72141; 72148

== ENCOUNTER 2024-05-31 13:38 | Outpatient (POV) | payer OTHER, SELFPAY ==
--- NOTE | 2024-05-31 13:53 | EXP.PAIN.SOA ---
[facility] Disclaimer: The information contained in this section may have been updated after the patient was seen, as this information can be updated by other users. Medical History (Updated 05/31/24 @ 14:18 by Shira Haynes APRN) MICHELLE (obstructive sleep apnea) Thyroid disorder Lupus IBS (irritable bowel syndrome) HTN (hypertension) GERD (gastroesophageal reflux disease) Diabetes History of frequent headaches Bipolar 1 disorder Asthma Arthritis Anxiety Seasonal allergies Insomnia Major depressive disorder Surgical History Hx of cholecystectomy History of bladder surgery Family History Other Anemia Arthritis Breast cancer Depression Diabetes Heart disease Hyperlipidemia Hypertension Lung cancer Migraines Osteoporosis Stroke Social History Smoking Status: Never smoker second hand exposure: Yes (occasionally) alcohol intake: never substance use type: denies use current occupational status: unemployed Travel in the last 8 weeks: None household members: children housing: house marital status: number of children: 1 caffeine: Yes physical activity: none PM Subjective & Objective Subjective Subjective:: Patient is a pleasant 44-year-old female who presents today for follow-up of bilateral SI injections on 05/09/2024. Today she rates her pain a 9 out of 10. She denies any new trauma or injury. Patient does state that she did not notice any improvement following this injection. Patient does state today that she is feeling more pain all across her low back with numbness and tingling radiating down her bilateral lower extremities to her feet. Patient does state that sometimes it will not go all the way down but it is very common to. Patient states the pain is fairly constant and does interfere with her ability perform activities of daily living such as cooking and cleaning. Patient has had recent physical therapy and continued at home exercising and stretching for longer than 12 weeks with no additional relief. Patient is asking whether or not if we could possibly try some muscle relaxer or gabapentin. She states that she has been on this in the past. Patient is prescribed oxycodone from the outside provider. Her Mukesh has been reviewed and is appropriate. Review of Systems: General: No recent weight changes, no fever, no sleep disturbances Respiratory: No cough, no shortness of air, no recurring pulmonary infections Cardiovascular/peripheral vascular: No chest pain, no palpitations, no edema, no shortness of breath Gastrointestinal: No new onset incontinence, normal bowel movements reported Genitourinary: No new onset incontinence Musculoskeletal: Low back pain, bilateral leg numbness tingling Psychiatric: [Normal mood/affect] Neurological: [Denies weakness in extremities], [denies balance issues] Pain at rest (0-10 scale): 9 Objective Objective:: Physical Exam: General: Alert and oriented x3, no acute distress, pleasant and cooperative Lungs: Respirations even and unlabored, symmetrical chest expansion Eyes: PERRL Musculoskeletal: Flexion and extension of lumbar [spine] somewhat guarded secondary to pain, positive bilateral leg raise Neurological: Speech clear, no gross sensory deficit FINDINGS: Multiplanar MR imaging of the lumbar spine was performed without contrast. On the sagittal T2-weighted images, disc degeneration is seen at multiple levels. The vertebral alignment is normal. No bony mass is identified. There is no evidence of fracture. The conus has an unremarkable appearance. L1-2: An annular disc bulge is present. There is no significant canal stenosis or neural foraminal narrowing. L2-3: Annular disc bulge is present. There is no significant canal stenosis or neural foraminal narrowing. L3-4: An annular disc bulge is present. There is a right foraminal disc protrusion with moderate right and mild left neural foraminal narrowing. L4-5: An annular disc bulge is present. There is a left foraminal disc protrusion with moderate right and severe left neural foraminal narrowing. L5-S1: An annular disc bulge is present. There is a left foraminal annular tear and disc protrusion with moderate left neural foraminal narrowing. IMPRESSION: Multilevel disc protrusions with neural foraminal compromise as discussed above. Reviewed, Interpreted and Dictated by Doug Cook III, MD Transcribed by Nubia Woodward Authenticated and . [facility] Has patient had previous pain injection?: Yes Percent improvement in pain since last injection: Minimal Conservative treatment options previously tried: Home exercise plan Length of treatment: Longer than 12 weeks Meds Home Medications and Allergies Home Medications ?Medication ?Instructions ?Recorded ?Confirmed ?Type gabapentin 600 mg tablet 600 mg PO TID pain 07/12/19 05/09/24 History lovastatin 20 mg tablet 20 mg PO HS Cholesterol 07/12/19 05/09/24 History cetirizine 10 mg capsule 10 mg PO DAILY 30 days #30 caps 11/16/19 05/09/24 Rx cyclobenzaprine 10 mg tablet See Rx Instructions .Route 08/26/20 05/09/24 Rx .COMPLEX #90 tabs diclofenac sodium 1 % topical gel 2 g topical QID Pain #100 grams 09/09/20 05/09/24 Rx (Voltaren) famotidine 20 mg tablet See Rx Instructions .Route 09/09/20 05/09/24 Rx .COMPLEX #180 tabs hydrochlorothiazide 25 mg tablet 25 mg PO QAM #90 tabs 09/19/20 05/09/24 Rx losartan 100 mg tablet 100 mg PO DAILY #90 tabs 09/19/20 05/09/24 Rx ranitidine HCl 75 mg tablet 75 mg PO BID GERD #180 tabs 11/21/20 05/09/24 Rx spironolactone 100 mg tablet 100 mg PO DAILY BLOOD PRESSURE #90 12/04/20 05/09/24 Rx tabs montelukast 10 mg tablet See Rx Instructions .Route 12/05/20 05/09/24 Rx .COMPLEX #90 tabs carvedilol 6.25 mg tablet 6.25 mg PO BID #180 tabs 03/18/21 05/09/24 Rx levothyroxine 100 mcg tablet 100 mcg PO DAILY #90 tabs 03/18/21 05/09/24 Rx trazodone 50 mg tablet See Rx Instructions PO HS PRN 04/30/22 05/09/24 Rx sleep #60 tabs fluoxetine 40 mg capsule (Prozac) 40 mg PO DAILY #30 caps 08/19/22 05/09/24 Rx lidocaine 5 % topical patch 1 patch topical DAILY #15 ea 10/01/23 05/09/24 Rx (Lidoderm) methocarbamol 750 mg tablet 750 mg PO Q8H PRN pain #20 tabs 10/01/23 05/09/24 Rx naproxen 500 mg tablet 500 mg PO BID PRN pain #20 tabs 10/01/23 05/09/24 Rx phenazopyridine 200 mg tablet 200 mg PO Q8H 2 days #6 tabs 11/08/23 05/09/24 Rx (Pyridium) New Prescriptions to Start Prescriptions: Allergies Allergy/AdvReac Type Severity Reaction Status Date / Time mold [MOLD] Allergy Severe Anaphylaxis Verified 05/09/24 14:07 Fish Containing Products Allergy Intermediate I-HIVES Verified 05/09/24 14:07 [From SEAFOOD (F/D)] aspirin [ASPIRIN] AdvReac Mild NA-NAUSEA/V Verified 05/09/24 14:07 OMITING From SEAFOOD (F/D) Allergy Intermediate I-HIVES Uncoded 02/25/24 08:58 MUSHROOM Allergy Intermediate I-HIVES Uncoded 02/25/24 08:58 Assessment and Plan *Assessment and plan (1) Low back pain: Status: Acute Qualifiers: Back pain laterality: bilateral Chronicity: chronic Sciatica presence: unspecified whether sciatica present Qualified Code(s): M54.50 - Low back pain, unspecified; G89.29 - Other chronic pain Category: Medical Code(s): M54.50 - Low back pain, unspecified (2) Degenerative disc disease, lumbar: Status: Acute Category: Medical Code(s): M51.36 - Other intervertebral disc degeneration, lumbar region (3) Lumbar radiculopathy: Status: Acute Category: Medical Code(s): M54.16 - Radiculopathy, lumbar region (4) Spinal stenosis: Status: Acute Category: Medical Code(s): M48.00 - Spinal stenosis, site unspecified Plan Patient is experiencing worsening pain throughout her low back that does radiate down with numbness and tingling into her bilateral lower extremities. Patient has had a recent MRI and I did review over the findings. Patient does have multilevel degenerative disc with bulging and protruding disc and an annular tear. I did discuss with her current symptoms and limited range of motion of her lumbar spine that she may benefit from a lumbar epidural steroid injection. Risk and benefits were discussed with the patient and she would like to proceed forward with this plan of care. Patient has tried and failed conservative therapy including recent physical therapy and continued at home stretching exercise for longer than 12 weeks. I will also order the patient Flexeril 10 mg 3 times daily as needed and provide a 2-week supply of this medication. Patient will return to clinic for a LESI L4-L5 under fluoroscopy. Patient has been instructed to contact the clinic with any concerns before the next appointment. Dr. Lemus has reviewed this note and agrees with this plan of care. This note was dictated using voice recognition software and make contain errors or omissions. All injections are used with Lidocaine or Bupivacaine and Depo Medrol.
[2024-05-31 14:41] VITALS: BP 148/89; PULSE 69; RESP 18; O2SAT 96; BMI 37.6
== END 2024-05-31 23:59 | disposition home or self-care (01) ==
PROVIDERS: PCP Nurse Practitioner; Visit Provider Nurse Practitioner Family
DX: M54.50 Low back pain, unspecified (principal); G89.29 Other chronic pain; M51.16 Intervertebral disc disorders with radiculopathy, lumbar region; M48.00 Spinal stenosis, site unspecified; Z73.89 Other problems related to life management difficulty; Z79.899 Other long term (current) drug therapy
CPT/HCPCS: 99212; G0463

== ENCOUNTER 2024-05-31 14:21 | Emergency (ER) | payer OTHER, SELFPAY ==
[2024-05-31 14:33] VITALS: BP 136/93; PULSE 71; RESP 16; TEMP 37.2; O2SAT 96; BMI 41.5
--- NOTE | 2024-05-31 14:53 | EXP.UTC ---
Discharge Plan Disposition Patient Disposition: Home, Self-Care Condition: Good Prescriptions Prescriptions: New sulfamethoxazole-trimethoprim [Bactrim DS] 800-160 mg Tablet 1 tab PO BID Qty: 20 0RF cephalexin 500 mg capsule 500 mg PO QID Qty: 40 0RF mupirocin 2 % ointment 1 applic topical TID 7 Days Qty: 15 0RF No Action trazodone 50 mg tablet See Rx Instructions PO HS PRN (Reason: sleep) Qty: 60 1RF Rx Instructions: take 1-2 tablets at bedtime orally at bedtime nightly PRN; cyclobenzaprine 10 mg tablet See Rx Instructions .ROUTE .COMPLEX Qty: 90 0RF Dose Instruction: TAKE 1 TABLET BY MOUTH THREE TIMES DAILY NEEDED FOR MUSCLE RELAXER Rx Instructions: TAKE 1 TABLET BY MOUTH THREE TIMES DAILY NEEDED FOR MUSCLE RELAXER famotidine 20 mg tablet See Rx Instructions .ROUTE .COMPLEX Qty: 180 3RF Dose Instruction: TAKE 2 TABLETS BY MOUTH EVERY DAY Rx Instructions: TAKE 2 TABLETS BY MOUTH EVERY DAY diclofenac sodium [Voltaren] 1 % gel 2 g TOPICAL QID Qty: 100 0RF hydrochlorothiazide 25 mg tablet 25 mg PO QAM Qty: 90 3RF losartan 100 mg tablet 100 mg PO DAILY Qty: 90 3RF ranitidine HCl 75 mg tablet 75 mg PO BID Qty: 180 0RF spironolactone 100 mg tablet 100 mg PO DAILY Qty: 90 3RF montelukast 10 mg tablet See Rx Instructions .ROUTE .COMPLEX Qty: 90 3RF Dose Instruction: TAKE ONE TABLET BY MOUTH EVERY NIGHT AT BEDTIME FOR ALLEGIES Rx Instructions: TAKE ONE TABLET BY MOUTH EVERY NIGHT AT BEDTIME FOR ALLEGIES levothyroxine 100 mcg tablet 100 mcg PO DAILY Qty: 90 0RF carvedilol 6.25 mg tablet 6.25 mg PO BID Qty: 180 0RF fluoxetine [Prozac] 40 mg capsule 40 mg PO DAILY Qty: 30 2RF cetirizine 10 MG capsule 10 mg PO DAILY 30 Days Qty: 30 2RF lidocaine [Lidoderm] 5 % adhesive patch,medicated 1 patch topical DAILY Qty: 15 0RF Rx Instructions: leave on most painful area for up to 12 hrs naproxen 500 mg tablet 500 mg PO BID PRN (Reason: pain) Qty: 20 0RF methocarbamol 750 mg tablet 750 mg PO Q8H PRN (Reason: pain) Qty: 20 0RF gabapentin 600 MG tablet 600 mg PO TID lovastatin 20 MG tablet 20 mg PO HS Rx Instructions: TAKE ONE TABLET BY MOUTH EVERY NIGHT AT BEDTIME FOR CHOLESTEROL phenazopyridine [Pyridium] 200 mg tablet 200 mg PO Q8H 2 Days Qty: 6 0RF cyclobenzaprine 10 mg tablet 10 mg PO TID Qty: 42 0RF Referrals Follow up/Referrals: Paula Cruz APRN [Primary Care Provider] - See instructions Activity Restrictions/Add. Instructions Additional Instructions/Restrictions: Keep the affected area clean and dry. Follow up with your regular doctor. Take the antibiotics as directed and apply the topical antibiotics as directed. Apply warm wet compresses to the affected area three or four times per day. GO TO THE ER FOR ANY WORSENING SYMPTOMS Clinical Impressions Clinical Impression: Abscess of skin Instructions Patient Instructions: Boil Print Language Print Language: Tamazight Discharge ED Provider: Colin Cool [facility] General Stated complaint: place on right front side of neck Mode of Arrival: Ambulatory Source of Information: Patient Time Seen by Provider: 05/31/24 14:53 Description of Symptoms (Recalled from Triage Doc. 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 This has been present for the past 3 days. Related Data Home Medications ?Medication ?Instructions ?Recorded ?Confirmed gabapentin 600 mg tablet 600 mg PO TID pain 07/12/19 05/31/24 lovastatin 20 mg tablet 20 mg PO HS Cholesterol 07/12/19 05/31/24 Previous Rx's ?Medication ?Instructions ?Recorded cetirizine 10 mg capsule 10 mg PO DAILY 30 days #30 caps 11/16/19 cyclobenzaprine 10 mg tablet See Rx Instructions .Route 08/26/20 .COMPLEX #90 tabs diclofenac sodium 1 % topical gel 2 g topical QID Pain #100 grams 09/09/20 (Voltaren) famotidine 20 mg tablet See Rx Instructions .Route 09/09/20 .COMPLEX #180 tabs hydrochlorothiazide 25 mg tablet 25 mg PO QAM #90 tabs 09/19/20 losartan 100 mg tablet 100 mg PO DAILY #90 tabs 09/19/20 ranitidine HCl 75 mg tablet 75 mg PO BID GERD #180 tabs 11/21/20 spironolactone 100 mg tablet 100 mg PO DAILY BLOOD PRESSURE #90 12/04/20 tabs montelukast 10 mg tablet See Rx Instructions .Route 12/05/20 .COMPLEX #90 tabs carvedilol 6.25 mg tablet 6.25 mg PO BID #180 tabs 03/18/21 levothyroxine 100 mcg tablet 100 mcg PO DAILY #90 tabs 03/18/21 trazodone 50 mg tablet See Rx Instructions PO HS PRN 04/30/22 sleep #60 tabs fluoxetine 40 mg capsule (Prozac) 40 mg PO DAILY #30 caps 08/19/22 lidocaine 5 % topical patch 1 patch topical DAILY #15 ea 10/01/23 (Lidoderm) methocarbamol 750 mg tablet 750 mg PO Q8H PRN pain #20 tabs 10/01/23 naproxen 500 mg tablet 500 mg PO BID PRN pain #20 tabs 10/01/23 phenazopyridine 200 mg tablet 200 mg PO Q8H 2 days #6 tabs 11/08/23 (Pyridium) cephalexin 500 mg capsule 500 mg PO QID #40 caps 05/31/24 cyclobenzaprine 10 mg tablet 10 mg PO TID #42 tabs 05/31/24 mupirocin 2 % topical ointment 1 applic topical TID 7 days #15 05/31/24 grams sulfamethoxazole 800 1 tab PO BID #20 tabs 05/31/24 mg-trimethoprim 160 mg tablet (Bactrim DS) Allergies Allergy/AdvReac Type Severity Reaction Status Date / Time mold [MOLD] Allergy Severe Anaphylaxis Verified 05/09/24 14:07 Fish Containing Products Allergy Intermediate I-HIVES Verified 05/09/24 14:07 [From SEAFOOD (F/D)] aspirin [ASPIRIN] AdvReac Mild NA-NAUSEA/V Verified 05/09/24 14:07 OMITING From SEAFOOD (F/D) Allergy Intermediate I-HIVES Uncoded 02/25/24 08:58 MUSHROOM Allergy Intermediate I-HIVES Uncoded 02/25/24 08:58 Worker's Comp Is this a Worker's Comp case?: No [facility] Disclaimer: The information contained in this section may have been updated after the patient was seen, as this information can be updated by other users. Medical History (Updated 05/31/24 @ 15:06 by Colin Cool APRN) MICHELLE (obstructive sleep apnea) Thyroid disorder Lupus IBS (irritable bowel syndrome) HTN (hypertension) GERD (gastroesophageal reflux disease) Diabetes History of frequent headaches Bipolar 1 disorder Asthma Arthritis Anxiety Seasonal allergies Insomnia Major depressive disorder Surgical History Hx of cholecystectomy History of bladder surgery Family History Other Anemia Arthritis Breast cancer Depression Diabetes Heart disease Hyperlipidemia Hypertension Lung cancer Migraines Osteoporosis Stroke Social History Smoking Status: Never smoker second hand exposure: Yes (occasionally) alcohol intake: never substance use type: denies use current occupational status: unemployed Travel in the last 8 weeks: None household members: children housing: house marital status: number of children: 1 caffeine: Yes physical activity: none ROS Obtained: Yes All systems reviewed & no additional complaints except as documented Constitutional Constitutional: Denies chills and Denies fever(s) Eyes Eyes: Denies eye discharge ENT Ears, Nose, Mouth, and Throat: Denies dizziness, Denies otalgia and Denies sore throat Cardiovascular Cardiovascular: Denies chest pain Respiratory Respiratory: Denies shortness of breath, Denies chest congestion, Denies cough, Denies stridor and Denies wheezing Gastrointestinal Gastrointestingal: Denies nausea or vomiting Musculoskeletal Musculoskeletal: Reports system reviewed and no additional complaints, except as documented and Denies arthralgias Integumentary/Breasts Skin/Breast: Reports as per HPI and Reports redness Neurologic Neurologic: Denies dizziness and Denies paresthesias Allergic/Immunologic Allergic/Immunologic: Denies wheezing Physical Exam General General appearance: alert and in no apparent distress Head Head exam: atraumatic, normocephalic and normal inspection Eye Eye exam: Present normal appearance, PERRL and EOMI ENT ENT exam: Present normal exam, normal oropharynx, mucous membranes moist, TM's normal bilaterally and normal external ear exam Neck Neck exam: Present normal inspection, full ROM and trachea midline; Absent meningismus or lymphadenopathy Chest Chest inspection: Present normal inspection and symmetric chest wall rise; Absent tenderness Respiratory Respiratory exam: Present normal lung sounds bilaterally; Absent respiratory distress Cardiovascular Cardiovascular exam: Present regular rate and normal rhythm; Absent JVD Abdominal Exam Abdominal exam: Present soft and normal bowel sounds; Absent distention, tenderness or guarding Extremities Exam Extremities exam: Present normal inspection, full ROM and normal capillary refill; Absent calf tenderness Back Exam Back exam: Present normal inspection; Absent tenderness Neurological Exam Neurological exam: Present alert and oriented X3 Psychiatric Psychiatric exam: Present normal affect and normal mood Skin Skin exam: Present warm, dry, intact and normal color Lymphatic Lymphatic Findings: no adenopathy Medical Decision Making Medical Records Medical records reviewed: No I reviewed the patient's medical records. Screening: Per USPSTF and CDC recommendations, given the prevalence of disease in our region, it is our hospital?s policy to screen for HIV and viral Hepatitis for all patients aged 18 and over and those with ongoing risk factors. Mukesh Inquiry Pt receiving controlled substance: No Vital Signs: 05/31/24 14:33 Temperature 98.9 F Temperature Source Oral Pulse Rate [Left Radial] 71 Respiratory Rate 16 Blood Pressure [Left Arm] 136/93 H Blood Pressure Mean [Left Arm] 107 02 Sat by Pulse Oximetry 96
[2024-05-31 15:11] VITALS: BP 136/93; PULSE 71; RESP 16; TEMP 37.2
== END 2024-05-31 15:12 | disposition home or self-care (01) ==
PROVIDERS: Emergency Provider Nurse Practitioner Family; PCP Nurse Practitioner
DX: L02.11 Cutaneous abscess of neck (principal)
CPT/HCPCS: 99212; 99214; G0463

== ENCOUNTER 2024-06-05 14:17 | Emergency (ER) | payer OTHER, SELFPAY ==
[2024-06-05 14:18] VITALS: BP 153/109; PULSE 94; RESP 18; TEMP 37.5; O2SAT 95; BMI 37.6
--- NOTE | 2024-06-05 14:19 | ED_ITS ---
<Statement entered by Brody Zuluaga MD - 06/06/24 13:19> I reviewed case with MIRIAM and independently evaluated pt and performed physical exam. Agree with findings and plan as documented. Discharge Plan Disposition Patient Disposition: Home, Self-Care Condition: Good Prescriptions Prescriptions: New sulfamethoxazole-trimethoprim [Bactrim DS] 800-160 mg tablet 1 tab PO BID 5 Days Qty: 10 0RF No Action trazodone 50 mg tablet See Rx Instructions PO HS PRN (Reason: sleep) Qty: 60 1RF Rx Instructions: take 1-2 tablets at bedtime orally at bedtime nightly PRN; cyclobenzaprine 10 mg tablet See Rx Instructions .ROUTE .COMPLEX Qty: 90 0RF Dose Instruction: TAKE 1 TABLET BY MOUTH THREE TIMES DAILY NEEDED FOR MUSCLE RELAXER Rx Instructions: TAKE 1 TABLET BY MOUTH THREE TIMES DAILY NEEDED FOR MUSCLE RELAXER famotidine 20 mg tablet See Rx Instructions .ROUTE .COMPLEX Qty: 180 3RF Dose Instruction: TAKE 2 TABLETS BY MOUTH EVERY DAY Rx Instructions: TAKE 2 TABLETS BY MOUTH EVERY DAY diclofenac sodium [Voltaren] 1 % gel 2 g TOPICAL QID Qty: 100 0RF hydrochlorothiazide 25 mg tablet 25 mg PO QAM Qty: 90 3RF losartan 100 mg tablet 100 mg PO DAILY Qty: 90 3RF ranitidine HCl 75 mg tablet 75 mg PO BID Qty: 180 0RF spironolactone 100 mg tablet 100 mg PO DAILY Qty: 90 3RF montelukast 10 mg tablet See Rx Instructions .ROUTE .COMPLEX Qty: 90 3RF Dose Instruction: TAKE ONE TABLET BY MOUTH EVERY NIGHT AT BEDTIME FOR ALLEGIES Rx Instructions: TAKE ONE TABLET BY MOUTH EVERY NIGHT AT BEDTIME FOR ALLEGIES levothyroxine 100 mcg tablet 100 mcg PO DAILY Qty: 90 0RF carvedilol 6.25 mg tablet 6.25 mg PO BID Qty: 180 0RF fluoxetine [Prozac] 40 mg capsule 40 mg PO DAILY Qty: 30 2RF cetirizine 10 MG capsule 10 mg PO DAILY 30 Days Qty: 30 2RF lidocaine [Lidoderm] 5 % adhesive patch,medicated 1 patch topical DAILY Qty: 15 0RF Rx Instructions: leave on most painful area for up to 12 hrs naproxen 500 mg tablet 500 mg PO BID PRN (Reason: pain) Qty: 20 0RF methocarbamol 750 mg tablet 750 mg PO Q8H PRN (Reason: pain) Qty: 20 0RF gabapentin 600 MG tablet 600 mg PO TID lovastatin 20 MG tablet 20 mg PO HS Rx Instructions: TAKE ONE TABLET BY MOUTH EVERY NIGHT AT BEDTIME FOR CHOLESTEROL phenazopyridine [Pyridium] 200 mg tablet 200 mg PO Q8H 2 Days Qty: 6 0RF cyclobenzaprine 10 mg tablet 10 mg PO TID Qty: 42 0RF sulfamethoxazole-trimethoprim [Bactrim DS] 800-160 mg Tablet 1 tab PO BID Qty: 20 0RF cephalexin 500 mg capsule 500 mg PO QID Qty: 40 0RF mupirocin 2 % ointment 1 applic topical TID 7 Days Qty: 15 0RF Referrals Follow up/Referrals: Paula Cruz APRN [Primary Care Provider] - See instructions Clinical Impressions Clinical Impression: UTI (urinary tract infection) Nausea & vomiting Qualifiers: Vomiting type: unspecified Qualified Code(s): R11.2 - Nausea with vomiting, unspecified Instructions Patient Instructions: DI for Urinary Tract Infection (UTI), Nausea and Vomiting-Adult Print Language Print Language: Lithuanian Discharge ED Provider: Reggie Noble General Adult HPI General Chief complaint: Abdominal Pain Stated complaint: vomiting, abd pain, infection on neck Time Seen by Provider: 06/05/24 14:19 History of Present Illness HPI narrative: Patient presents for evaluation of nausea vomiting and abdominal pain. Patient states that she was awoken approximately 1 AM with nausea and then proceeded to vomit. She additionally reports that she has bilateral upper abdominal pain that began around the same time. She chronically has loose stool due to what she describes as having no gallbladder but no increase in frequency or amount. She is a type II diabetic not on insulin but on Victoza that she has been on for 2 years. She denies fever chills hemoptysis hematochezia melena hematemesis. Related Data Home Medications ?Medication ?Instructions ?Recorded ?Confirmed gabapentin 600 mg tablet 600 mg PO TID pain 07/12/19 05/31/24 lovastatin 20 mg tablet 20 mg PO HS Cholesterol 07/12/19 05/31/24 Previous Rx's ?Medication ?Instructions ?Recorded cetirizine 10 mg capsule 10 mg PO DAILY 30 days #30 caps 11/16/19 cyclobenzaprine 10 mg tablet See Rx Instructions .Route 08/26/20 .COMPLEX #90 tabs diclofenac sodium 1 % topical gel 2 g topical QID Pain #100 grams 09/09/20 (Voltaren) famotidine 20 mg tablet See Rx Instructions .Route 09/09/20 .COMPLEX #180 tabs hydrochlorothiazide 25 mg tablet 25 mg PO QAM #90 tabs 09/19/20 losartan 100 mg tablet 100 mg PO DAILY #90 tabs 09/19/20 ranitidine HCl 75 mg tablet 75 mg PO BID GERD #180 tabs 11/21/20 spironolactone 100 mg tablet 100 mg PO DAILY BLOOD PRESSURE #90 12/04/20 tabs montelukast 10 mg tablet See Rx Instructions .Route 12/05/20 .COMPLEX #90 tabs carvedilol 6.25 mg tablet 6.25 mg PO BID #180 tabs 03/18/21 levothyroxine 100 mcg tablet 100 mcg PO DAILY #90 tabs 03/18/21 trazodone 50 mg tablet See Rx Instructions PO HS PRN 04/30/22 sleep #60 tabs fluoxetine 40 mg capsule (Prozac) 40 mg PO DAILY #30 caps 08/19/22 lidocaine 5 % topical patch 1 patch topical DAILY #15 ea 10/01/23 (Lidoderm) methocarbamol 750 mg tablet 750 mg PO Q8H PRN pain #20 tabs 10/01/23 naproxen 500 mg tablet 500 mg PO BID PRN pain #20 tabs 10/01/23 phenazopyridine 200 mg tablet 200 mg PO Q8H 2 days #6 tabs 11/08/23 (Pyridium) cephalexin 500 mg capsule 500 mg PO QID #40 caps 05/31/24 cyclobenzaprine 10 mg tablet 10 mg PO TID #42 tabs 05/31/24 mupirocin 2 % topical ointment 1 applic topical TID 7 days #15 05/31/24 grams sulfamethoxazole 800 1 tab PO BID #20 tabs 05/31/24 mg-trimethoprim 160 mg tablet (Bactrim DS) sulfamethoxazole 800 1 tab PO BID 5 days #10 tabs 06/05/24 mg-trimethoprim 160 mg tablet (Bactrim DS) Allergies Allergy/AdvReac Type Severity Reaction Status Date / Time mold [MOLD] Allergy Severe Anaphylaxis Verified 05/09/24 14:07 Fish Containing Products Allergy Intermediate I-HIVES Verified 05/09/24 14:07 [From SEAFOOD (F/D)] aspirin [ASPIRIN] AdvReac Mild NA-NAUSEA/V Verified 05/09/24 14:07 OMITING From SEAFOOD (F/D) Allergy Intermediate I-HIVES Uncoded 02/25/24 08:58 MUSHROOM Allergy Intermediate I-HIVES Uncoded 02/25/24 08:58 PFSH PFS Disclaimer: The information contained in this section may have been updated after the patient was seen, as this information can be updated by other users. Medical History (Updated 06/05/24 @ 18:31 by SENG Conway) MICHELLE (obstructive sleep apnea) Thyroid disorder Lupus IBS (irritable bowel syndrome) HTN (hypertension) GERD (gastroesophageal reflux disease) Diabetes History of frequent headaches Bipolar 1 disorder Asthma Arthritis Anxiety Seasonal allergies Insomnia Major depressive disorder Surgical History Hx of cholecystectomy History of bladder surgery Family History Other Anemia Arthritis Breast cancer Depression Diabetes Heart disease Hyperlipidemia Hypertension Lung cancer Migraines Osteoporosis Stroke Social History Smoking Status: Current every day smoker second hand exposure: Yes (occasionally) alcohol intake: never substance use type: denies use current occupational status: unemployed Travel in the last 8 weeks: None household members: children housing: house marital status: number of children: 1 caffeine: Yes physical activity: none ROS Obtained: Yes Systems reviewed as appropriate & no additional complaints except as documented Physical Exam General General appearance: alert and in no apparent distress Respiratory Respiratory exam: Present normal lung sounds bilaterally Cardiovascular Cardiovascular exam: Present regular rate Neurological Exam Neurological exam: Present alert and oriented X3 Medical Decision Making Medical Records Medical records reviewed: Yes I reviewed the patient's medical records. Screening: Per USPSTF and CDC recommendations, given the prevalence of disease in our region, it is our hospital?s policy to screen for HIV and viral Hepatitis for all patients aged 18 and over and those with ongoing risk factors. Mukesh Inquiry Pt receiving controlled substance: No Vital Signs: 06/05/24 14:18 06/05/24 18:41 Temperature 99.5 F 99.5 F Temperature Source Oral Pulse Rate 71 Pulse Rate [Right Radial] 94 H Respiratory Rate 18 18 Blood Pressure 142/100 H Blood Pressure [Right Arm] 153/109 H Blood Pressure Mean [Right Arm] 123 02 Sat by Pulse Oximetry 95 Oxygen Delivery Method Room Air Room Air Lab Data Lab results reviewed: Yes I reviewed the patient's lab results. Lab Results 06/05/24 14:30: Urine Color Yellow, Urine Appearance Clear, Urine pH 7.0, Ur Specific Booker 1.020, Urine Protein Negative, Urine Glucose (UA) Negative, Urine Ketones Negative, Urine Blood Trace-l, Urine Nitrate Negative, Urine Bilirubin Negative, Urine Urobilinogen 4.0, Ur Leukocyte Esterase 3+ A, Urine RBC Occasional, Urine WBC 50-100, Ur Squamous Epith Cells Tntc, Urine Bacteria 3+ 06/05/24 14:40: WBC 6.3, RBC 4.52, Hgb 14.0, Hct 42.6, MCV 94.1, MCH 30.9, MCHC 32.8, RDW 14.7, Plt Count 288, MPV 8.8, Neut % (Auto) 64.7, Lymph % (Auto) 27.9, Mccormick % (Auto) 4.9, Eos % (Auto) 1.8, Baso % (Auto) 0.6, Neut # (Auto) 4.1, Lymph # (Auto) 1.8, Mccormick # (Auto) 0.3, Eos # (Auto) 0.1, Baso # (Auto) 0.0, Sodium 136, Potassium 5.1, Chloride 101, Carbon Dioxide 25, Anion Gap 15.1 H, BUN 13, Creatinine 0.80, Estimated Creat Clear 130, Estimated GFR 77, Est GFR ( Amer) 93, Glucose 98, Calcium 9.2, Total Bilirubin 1.4 H, AST 52 H, ALT 30, Alkaline Phosphatase 56, Total Protein 8.1, Albumin 4.6, Globulin 3.5 H, Albumin/Globulin Ratio 1.3, Lipase 79, Serum HCG, Qual Negative, HIV 1&2 Antibody Rapid Nonreactive 06/05/24 14:40 06/05/24 14:40 Orders (Tests/Meds): ED MEDICATIONS Discontinued Medications Generic Name Dose Route Start Last Admin Trade Name Freq PRN Reason Stop Dose Admin Acetaminophen 1,000 mg 06/05/24 14:25 06/05/24 14:41 Acetaminophen 1,000mg/100ml Vial IV 06/05/24 14:26 1,000 mg ONCE ONE Administration Belladonna Alkaloids 60 ml 06/05/24 17:03 06/05/24 17:06 Belladonna Alkaloids 60 Ml Ml PO 06/05/24 17:04 60 ml ONCE ONE Administration Lactated Ringer's 1,000 mls @ 999 mls/hr 06/05/24 14:25 06/05/24 14:40 Lactated Ringer's 1000 Ml Bag IV 06/05/24 15:25 999 mls/hr .Q1H1M ONE Administration Iopamidol 75 ml 06/05/24 15:18 06/05/24 15:18 Iopamidol-370 (76%);100ml Bottle IV 06/05/24 15:19 75 ml ONCE ONE Administration Ketorolac Tromethamine 15 mg 06/05/24 14:25 06/05/24 14:41 Ketorolac 30mg/Ml Vial IV 06/05/24 14:26 15 mg ONCE ONE Administration Ondansetron HCl 4 mg 06/05/24 14:25 06/05/24 14:41 Ondansetron 4mg/2ml Vial IV 06/05/24 14:26 4 mg ONCE ONE Administration Sodium Chloride 10 ml 06/05/24 15:18 06/05/24 15:18 Sodium Chloride 0.9% 10ml Syr (Rad Only) IV 07/05/24 15:17 10 ml NEEDED PRN Administration Maintain IV Site ORDERS Category Date Time Status CT abdomen pelvis w con Stat Cat Scan 06/05/24 14:25 Completed CBC w/Auto Diff [Complete Blood Count Auto Diff] Stat Lab 06/05/24 14:40 Completed CMP [Comprehensive Metabolic Panel] Stat Lab 06/05/24 14:40 Completed HCG Qualitative, Serum Stat Lab 06/05/24 14:40 Completed HIV (1&2) Antibody Rapid Stat Lab 06/05/24 14:40 Completed Hep C Ab with Reflex to RNA Stat Lab 06/05/24 14:40 Received Lipase Stat Lab 06/05/24 14:40 Completed UA [Urinalysis and Microscopic] Stat Lab 06/05/24 14:30 Completed Urine Culture Stat Micro 06/05/24 14:30 Received Medical Decision Narrative: In summary patient is a 44-year-old female who presents to the emergency department for evaluation of nausea vomiting abdominal pain. Patient is hemodynamically stable upon arrival, afebrile. Physical exam is remarkable for mild abdominal tenderness in the bilateral upper quadrants without rebound or guarding or rigidity. Bowel sounds are normal active. Differential diagnosis includes gastroenteritis versus pancreatitis versus gastritis etc. Initial workup will be conducted with hematologic labs CT scan abdomen pelvis. Initial interventions include crystalloid bolus Toradol Tylenol Zofran. Initial workup reviewed by me shows that her hematologic labs are nonactionable imaging interpreted via my informal review shows no acute processes prior to radiology read however urinalysis reveals urinary tract infection. Upon repeat evaluation patient actually ported improvement after initial intervention. Given this patient is appropriate for discharge with prescription for Bactrim with first dose given here and strict return precautions. Critical Care Critical Care Time Critical Care Time: No
--- NOTE | 2024-06-05 14:25 | CT_ITS ---
FINAL REPORT TECHNIQUE: After the administration of oral and intravenous contrast, axial images were obtained through the abdomen and pelvis by computed tomography. The study was performed with techniques to keep radiation dose as low as reasonably achievable, (ALARA). Individual dose reduction techniques using automated exposure control or adjustment of mA and/or kV according to the patient's size were employed. CLINICAL HISTORY: Nausea vomiting abdominal pain COMPARISON: 10/02/2023 FINDINGS: Abdomen: The lung bases are clear. The liver parenchyma is homogeneous. The gallbladder has been surgically resected. The spleen, pancreas, adrenals and kidneys appear unremarkable. The aorta is normal in caliber. There is no free fluid or adenopathy. Pelvis: The appendix is not identified. The urinary bladder is unremarkable. There is no free fluid or adenopathy. The uterus is eccentric to the left. IMPRESSION: No acute intra-abdominal process. Reviewed, Interpreted and Dictated by Kendrick Alvarenga MD Transcribed by Christine Boss Authenticated and . [facility]
[2024-06-05] MEDS: LACTATED RINGERS 1000ML 1,000 ML 999 ML IV (14:40)
[2024-06-05] MEDS: KETOROLAC 30MG/ML VIAL 15 MG IV (14:41)
[2024-06-05] MEDS: ACETAMINOPHEN 1,000MG/100ML VIAL 1000 MG IV (14:41)
[2024-06-05] MEDS: ONDANSETRON 4MG/2ML VIAL 4 MG IV (14:41)
[2024-06-05 14:52] LABS: Basophils % 0.6 % (0.1-2.0); Eosinophils # 0.1 K/mm3 (0.0-0.4); Eosinophils % 1.8 % (0.1-12.0); Hematocrit 42.6 % (37.0-47.0); Lymphocytes # 1.8 K/mm3 (0.7-4.5); Lymphocytes % 27.9 % (10-50); Mean Corpuscular HGB Conc 32.8 g/dL (31.8-35.4); Mean Corpuscular Hemoglobin 30.9 pg (27.0-31.2); Mean Corpuscular Volume 94.1 fl (81-99); Mean Platelet Volume 8.8 fl (7.4-10.4); Monocytes # 0.3 K/mm3 (0.1-1.0); Monocytes % 4.9 % (1.7-9.3); Neutrophils # 4.1 K/mm3 (1.8-7.8); Neutrophils % 64.7 % (37.0-80.0); Platelet Count 288 K/mm3 (142-424); Red Blood Count 4.52 M/mm3 (4.20-5.40); Red Cell Distribution Width 14.7 % (11.5-17.5); White Blood Count 6.3 K/mm3 (4.8-10.8)
[2024-06-05 14:58] LABS: Albumin Level 4.6 g/dl (3.5-5.0); Chloride 101 mmol/L (98-107)
[2024-06-05 14:59] LABS: HCG Qualitative, Serum Negative (Negative); Potassium 5.1 mmoL/L (3.5-5.1); Sodium 136 mmol/L (136-145)
[2024-06-05 15:01] LABS: Alanine Aminotransferase 30 U/L (12-78); Albumin/Globulin Ratio 1.3 (1.1-1.8); Alkaline Phosphatase 56 U/L (38-126); Anion Gap 15.1 mEq/L (5-15); Aspartate Amino Transferase 52 U/L (14-36); Bilirubin,Total 1.4 mg/dl (0.2-1.3); Blood Urea Nitrogen 13 mg/dl (7-17); Carbon Dioxide 25 mmol/L (22.0-30.0); Creatinine Clearance Estimated 130 mL/min (50-200); Estimated Glomerular Filt Rate 77 ml/min (>60); GFR (African American) 93 ML/MIN (>60); Globulin 3.5 g/dL (1.3-3.2); Lipase 79 U/L (23-300); Total Protein,Serum 8.1 g/dl (6.3-8.2)
[2024-06-05 15:02] LABS: Calcium 9.2 mg/dl (8.4-10.2); Glucose 98 mg/dl (74-100)
[2024-06-05 15:18] LABS: Microscopic, Urine URINE MICROSCOPIC (MICROSCOPIC)
[2024-06-05] MEDS: SODIUM CHLORIDE 0.9% 10ML SYR (RAD ONLY) 10 ML IV (15:18)
[2024-06-05] MEDS: IOPAMIDOL-370 (76%);100ML BOTTLE 75 ML IV (15:18)
[2024-06-05 15:24] LABS: Appearance,Urine CLEAR (Clear); Bilirubin,Urine Negative (Negative); Blood, Urine TRACE-L (Negative); Color,Urine YELLOW (Yellow); Glucose,Urine (UA) Negative (Negative); Ketones,Urine Negative (Negative); Leukocyte Esterase,Urine 3+ (Negative); Nitrate,Urine Negative (Negative); Protein,Urine Negative (Negative)
[2024-06-05 15:45] LABS: RBC,Urine Occasional #/hpf (0-3); WBC,Urine 50-100 #/hpf (0-3)
[2024-06-05 15:46] LABS: Bacteria,Urine 3+ /lpf; Squamous Epithelial Cell,Urine TNTC #/hpf (0-5)
--- NOTE | 2024-06-05 16:35 | PC.NURSE ---
per radiology ct scan is being read right now
[2024-06-05 16:38] LABS: HIV (1&2) Antibody Rapid NONREACTIVE (NONREACTIVE)
[2024-06-05] MEDS: BELLADONNA ALKALOIDS 60 ML ML PO (17:06)
--- NOTE | 2024-06-05 18:13 | PC.NURSE ---
DR ZAFAR UPDATING PT
[2024-06-05 18:41] VITALS: BP 142/100; PULSE 71; RESP 18; TEMP 37.5; O2SAT 96
[2024-06-07 07:28] LABS: HCV Ab Non Reactive (Non Reactive)
== END 2024-06-05 18:43 | disposition home or self-care (01) ==
PROVIDERS: Physician Assistant; Emergency Provider Emergency Medicine; PCP Nurse Practitioner
DX: N39.0 Urinary tract infection, site not specified (principal); B96.89 Other specified bacterial agents as the cause of diseases classified elsewhere; R11.2 Nausea with vomiting, unspecified; E11.9 Type 2 diabetes mellitus without complications; Z79.84 Long term (current) use of oral hypoglycemic drugs
CPT/HCPCS: 74177; 80053; 81001; 83690; 84703; 85025; 86803; 87086; 87389; 96361; 96374; 96375; 99284; J0131; J1885; J2405; J7120; Q9967

== ENCOUNTER 2024-06-27 10:50 | Day surgery (SDC) | payer OTHER, SELFPAY ==
[2024-06-27 11:24] VITALS: BP 150/88; PULSE 75; RESP 16; O2SAT 98; BMI 37.6
[2024-06-27 12:00] VITALS: BP 132/79; PULSE 79; RESP 18; O2SAT 97
[2024-06-27] MEDS: methylPREDNISolone ACETATE 80MG/ML VIAL 80 MG (12:00)
[2024-06-27 12:01] VITALS: BP 132/79; PULSE 79; RESP 18; O2SAT 97
--- NOTE | 2024-06-27 12:07 | EXP.PAIN.PRO ---
Procedure Date: 06/27/24 Time: 11:30 Anesthesiologist:: Rocky Arita CRNA Complications:: None Pre-procedure Diagnosis:: Degenerative disc lumbar spine multilevels. Lumbar radiculopathy. Post-procedure Diagnosis:: Same. Indications for Procedure:: Patient is a very pleasant 44-year-old female who comes our clinic today for lumbar epidural steroid injection. Patient describes low lumbar back pain as constant, dull, aching. Patient also reports bilateral hip and leg radicular symptoms. She rates her pain 6/10. Procedure Details:: Procedure: Lumbar epidural steroid injection under fluoroscopy Informed consent was obtained and the risks and benefits of the procedure were explained to the patient. The patient was taken to the procedure room and noninvasive monitors placed, including noninvasive blood pressure cuff and pulse oximeter. The back was viewed using C-arm Fluoroscopy and prepped using Chloraprep as a cleansing solution and the L4-L5 interspace was palpated. Skin and subcutaneous tissues were anesthetized using lidocaine 1.5% and a 25-gauge needle. After this, an 18-gauge Touhy epidural needle was placed into the L4-L5 interspace and advanced using fluoroscopic guidance and loss of resistance to air until the epidural space was encountered. After confirmation of needle placement in the epidural space, with dye, a solution containing normal saline, 3 mL and Depo-Medrol 80 mg were incrementally injected into the lumbar epidural space. The patient tolerated the procedure well with no complications. The patient was observed in the Pain Clinic and then discharged home neurologically intact. Plan and Disposition:: Patient was discharged without incident.
[2024-06-27 12:08] VITALS: BP 152/93; PULSE 73; RESP 16; O2SAT 98
== END 2024-06-27 12:08 | disposition home or self-care (01) ==
PROVIDERS: PCP Nurse Practitioner; Visit Provider Nurse Anesthetist, Certified Registered
DX: M51.16 Intervertebral disc disorders with radiculopathy, lumbar region (principal)
CPT/HCPCS: 62323; J1010

== ENCOUNTER 2024-07-13 10:30 | Outpatient (POV) | payer OTHER, SELFPAY ==
--- NOTE | 2024-07-13 11:16 | EXP.PAIN.SOA ---
[facility] Disclaimer: The information contained in this section may have been updated after the patient was seen, as this information can be updated by other users. Medical History (Updated 07/13/24 @ 11:18 by Shira Haynes APRN) MICHELLE (obstructive sleep apnea) Thyroid disorder Lupus IBS (irritable bowel syndrome) HTN (hypertension) GERD (gastroesophageal reflux disease) Diabetes History of frequent headaches Bipolar 1 disorder Asthma Arthritis Anxiety Seasonal allergies Insomnia Major depressive disorder Surgical History Hx of cholecystectomy History of bladder surgery Family History Other Anemia Arthritis Breast cancer Depression Diabetes Heart disease Hyperlipidemia Hypertension Lung cancer Migraines Osteoporosis Stroke Social History Smoking Status: Current every day smoker second hand exposure: Yes (occasionally) alcohol intake: never substance use type: denies use current occupational status: unemployed Travel in the last 8 weeks: None household members: children housing: house marital status: number of children: 1 caffeine: Yes physical activity: none PM Subjective & Objective Subjective Subjective:: Patient is a pleasant 44-year-old female who presents today for follow-up of lumbar epidural steroid injection L4-L5 on 06/27/2024. She rates her pain today a 10 out of 10. She denies any new trauma or injury. She states that she had no relief following this injection and feels like the pain is just as bad as what it was. Patient states it is constant at all across her low back. Patient has tried and failed conservative therapy including continued at home stretching exercise for longer than 12 weeks as well as physical therapy. Patient has tried oral medications along with muscle relaxers, gabapentin and oxycodone in the past. Her Mukesh has been reviewed and is appropriate. Review of Systems: General: No recent weight changes, no fever, no sleep disturbances Respiratory: No cough, no shortness of air, no recurring pulmonary infections Cardiovascular/peripheral vascular: No chest pain, no palpitations, no edema, no shortness of breath Gastrointestinal: No new onset incontinence, normal bowel movements reported Genitourinary: No new onset incontinence Musculoskeletal: Chronic low back pain Psychiatric: [Normal mood/affect] Neurological: [Denies weakness in extremities], [denies balance issues] Pain at rest (0-10 scale): 10 Objective Objective:: Physical Exam: General: Alert and oriented x3, no acute distress, pleasant and cooperative Lungs: Respirations even and unlabored, symmetrical chest expansion Eyes: PERRL Musculoskeletal: Flexion and extension of lumbar [spine] somewhat guarded secondary to pain, [antalgic gait noted] Neurological: Speech clear, no gross sensory deficit Has patient had previous pain injection?: Yes Percent improvement in pain since last injection: Minimal Conservative treatment options previously tried: Home exercise plan Length of treatment: Longer than 12 weeks Meds Home Medications and Allergies Home Medications ?Medication ?Instructions ?Recorded ?Confirmed ?Type gabapentin 600 mg tablet 600 mg PO TID pain 07/12/19 06/27/24 History lovastatin 20 mg tablet 20 mg PO HS Cholesterol 07/12/19 06/27/24 History cetirizine 10 mg capsule 10 mg PO DAILY 30 days #30 caps 11/16/19 06/27/24 Rx diclofenac sodium 1 % topical gel 2 g topical QID Pain #100 grams 09/09/20 06/27/24 Rx (Voltaren) famotidine 20 mg tablet See Rx Instructions .Route 09/09/20 06/27/24 Rx .COMPLEX #180 tabs hydrochlorothiazide 25 mg tablet 25 mg PO QAM #90 tabs 09/19/20 06/27/24 Rx losartan 100 mg tablet 100 mg PO DAILY #90 tabs 09/19/20 06/27/24 Rx ranitidine HCl 75 mg tablet 75 mg PO BID GERD #180 tabs 11/21/20 06/27/24 Rx spironolactone 100 mg tablet 100 mg PO DAILY BLOOD PRESSURE #90 12/04/20 06/27/24 Rx tabs montelukast 10 mg tablet See Rx Instructions .Route 12/05/20 06/27/24 Rx .COMPLEX #90 tabs carvedilol 6.25 mg tablet 6.25 mg PO BID #180 tabs 03/18/21 06/27/24 Rx levothyroxine 100 mcg tablet 100 mcg PO DAILY #90 tabs 03/18/21 06/27/24 Rx trazodone 50 mg tablet See Rx Instructions PO HS PRN 04/30/22 06/27/24 Rx sleep #60 tabs fluoxetine 40 mg capsule (Prozac) 40 mg PO DAILY #30 caps 08/19/22 06/27/24 Rx lidocaine 5 % topical patch 1 patch topical DAILY #15 ea 10/01/23 06/27/24 Rx (Lidoderm) methocarbamol 750 mg tablet 750 mg PO Q8H PRN pain #20 tabs 10/01/23 06/27/24 Rx naproxen 500 mg tablet 500 mg PO BID PRN pain #20 tabs 10/01/23 06/27/24 Rx phenazopyridine 200 mg tablet 200 mg PO Q8H 2 days #6 tabs 11/08/23 06/27/24 Rx (Pyridium) cephalexin 500 mg capsule 500 mg PO QID #40 caps 05/31/24 06/27/24 Rx cyclobenzaprine 10 mg tablet 10 mg PO TID #42 tabs 05/31/24 06/27/24 Rx mupirocin 2 % topical ointment 1 applic topical TID 7 days #15 05/31/24 06/27/24 Rx grams sulfamethoxazole 800 1 tab PO BID #20 tabs 05/31/24 06/27/24 Rx mg-trimethoprim 160 mg tablet (Bactrim DS) sulfamethoxazole 800 1 tab PO BID 5 days #10 tabs 06/05/24 06/27/24 Rx mg-trimethoprim 160 mg tablet (Bactrim DS) cyclobenzaprine 10 mg tablet See Rx Instructions .Route 06/28/24 Rx .COMPLEX #90 tabs New Prescriptions to Start Prescriptions: Allergies Allergy/AdvReac Type Severity Reaction Status Date / Time mold [MOLD] Allergy Severe Anaphylaxis Verified 05/09/24 14:07 Fish Containing Products Allergy Intermediate I-HIVES Verified 05/09/24 14:07 [From SEAFOOD (F/D)] aspirin [ASPIRIN] AdvReac Mild NA-NAUSEA/V Verified 05/09/24 14:07 OMITING From SEAFOOD (F/D) Allergy Intermediate I-HIVES Uncoded 02/25/24 08:58 MUSHROOM Allergy Intermediate I-HIVES Uncoded 02/25/24 08:58 Assessment and Plan *Assessment and plan (1) Bilateral sacroiliitis: Status: Acute Category: Medical Code(s): M46.1 - Sacroiliitis, not elsewhere classified (2) Degenerative disc disease, lumbar: Status: Acute Category: Medical Code(s): M51.36 - Other intervertebral disc degeneration, lumbar region (3) Chronic back pain: Status: Acute Category: Medical Code(s): M54.9 - Dorsalgia, unspecified; G89.29 - Other chronic pain Plan Patient has tried nail a couple different injections with no additional relief from this option. Due to the extent of the patient's conservative treatment history I did discuss with patient I do believe she would possibly benefit from an intrathecal pain pump trial. Risk and benefits and educational handouts were discussed during today's visit. Patient does states she would like to proceed forward with this option. I will order the patient a psychological evaluation and she is deemed an appropriate candidate we will proceed forward with the trial at a later date. Patient will return to clinic in 1 month for reevaluation of symptoms and plan of care. Patient has been instructed to contact the clinic with any concerns before the next appointment. Dr. Lemus has reviewed this note and agrees with this plan of care. This note was dictated using voice recognition software and make contain errors or omissions. All injections are used with Lidocaine or Bupivacaine and Depo Medrol.
[2024-07-13 11:21] VITALS: BP 126/72; PULSE 77; RESP 16; O2SAT 100; BMI 36.6
== END 2024-07-13 23:59 | disposition home or self-care (01) ==
LOC: SC.PAIN 10:30
PROVIDERS: PCP Nurse Practitioner; Visit Provider Nurse Practitioner Family
DX: M46.1 Sacroiliitis, not elsewhere classified (principal); M51.369 Other intervertebral disc degeneration, lumbar region without mention of lumbar back pain or lower extremity pain; M54.9 Dorsalgia, unspecified; G89.29 Other chronic pain; F17.210 Nicotine dependence, cigarettes, uncomplicated; Z79.899 Other long term (current) drug therapy
CPT/HCPCS: 99212; G0463

== ENCOUNTER 2024-08-30 22:03 | Emergency (ER) | payer OTHER, SELFPAY ==
[2024-08-30 22:04] VITALS: BP 149/106; PULSE 90; RESP 18; TEMP 36.8; O2SAT 98; BMI 36.6
--- NOTE | 2024-08-30 22:22 | ED_ITS ---
Discharge Plan Disposition Patient Disposition: Home, Self-Care Condition: Good Prescriptions Prescriptions: New ondansetron 4 mg tablet,disintegrating 4 mg PO Q8H PRN (Reason: nausea and vomiting) 4 Days Qty: 12 0RF vvjaibjcpiylfiz-ysplgwnyn-FP [Bromfed DM] 2-30-10 mg/5 mL syrup 5 ml PO Q6H PRN (Reason: cold symptoms) Qty: 118 0RF No Action trazodone 50 mg tablet See Rx Instructions PO HS PRN (Reason: sleep) Qty: 60 1RF Rx Instructions: take 1-2 tablets at bedtime orally at bedtime nightly PRN; famotidine 20 mg tablet See Rx Instructions .ROUTE .COMPLEX Qty: 180 3RF Dose Instruction: TAKE 2 TABLETS BY MOUTH EVERY DAY Rx Instructions: TAKE 2 TABLETS BY MOUTH EVERY DAY diclofenac sodium [Voltaren] 1 % gel 2 g TOPICAL QID Qty: 100 0RF hydrochlorothiazide 25 mg tablet 25 mg PO QAM Qty: 90 3RF losartan 100 mg tablet 100 mg PO DAILY Qty: 90 3RF ranitidine HCl 75 mg tablet 75 mg PO BID Qty: 180 0RF spironolactone 100 mg tablet 100 mg PO DAILY Qty: 90 3RF montelukast 10 mg tablet See Rx Instructions .ROUTE .COMPLEX Qty: 90 3RF Dose Instruction: TAKE ONE TABLET BY MOUTH EVERY NIGHT AT BEDTIME FOR ALLEGIES Rx Instructions: TAKE ONE TABLET BY MOUTH EVERY NIGHT AT BEDTIME FOR ALLEGIES levothyroxine 100 mcg tablet 100 mcg PO DAILY Qty: 90 0RF carvedilol 6.25 mg tablet 6.25 mg PO BID Qty: 180 0RF fluoxetine [Prozac] 40 mg capsule 40 mg PO DAILY Qty: 30 2RF cyclobenzaprine 10 mg tablet See Rx Instructions .ROUTE .COMPLEX Qty: 90 0RF Dose Instruction: TAKE ONE TABLET BY MOUTH 3 TIMES A DAY Rx Instructions: TAKE ONE TABLET BY MOUTH 3 TIMES A DAY cetirizine 10 MG capsule 10 mg PO DAILY 30 Days Qty: 30 2RF lidocaine [Lidoderm] 5 % adhesive patch,medicated 1 patch topical DAILY Qty: 15 0RF Rx Instructions: leave on most painful area for up to 12 hrs naproxen 500 mg tablet 500 mg PO BID PRN (Reason: pain) Qty: 20 0RF methocarbamol 750 mg tablet 750 mg PO Q8H PRN (Reason: pain) Qty: 20 0RF sulfamethoxazole-trimethoprim [Bactrim DS] 800-160 mg tablet 1 tab PO BID 5 Days Qty: 10 0RF gabapentin 600 MG tablet 600 mg PO TID lovastatin 20 MG tablet 20 mg PO HS Rx Instructions: TAKE ONE TABLET BY MOUTH EVERY NIGHT AT BEDTIME FOR CHOLESTEROL phenazopyridine [Pyridium] 200 mg tablet 200 mg PO Q8H 2 Days Qty: 6 0RF cyclobenzaprine 10 mg tablet 10 mg PO TID Qty: 42 0RF sulfamethoxazole-trimethoprim [Bactrim DS] 800-160 mg Tablet 1 tab PO BID Qty: 20 0RF cephalexin 500 mg capsule 500 mg PO QID Qty: 40 0RF mupirocin 2 % ointment 1 applic topical TID 7 Days Qty: 15 0RF Referrals Follow up/Referrals: Paula Cruz APRN [Primary Care Provider] - See instructions Activity Restrictions/Add. Instructions Additional Instructions/Restrictions: You were evaluated in the emergency department today. 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 Take Tylenol and ibuprofen every 4-6 hours as needed for pain/fever. Follow-up closely with your primary care provider. Return to the emergency department for new or worsening symptoms. Clinical Impressions Clinical Impression: Acute viral syndrome Instructions Patient Instructions: DI for Viral Upper Respiratory Infection -- Adult, DI for Viral Syndrome Print Language Print Language: Uzbek Discharge ED Provider: Shira Wells General Adult HPI General Chief complaint: Headache Stated complaint: vomiting, sore throat, REID Time Seen by Provider: 08/30/24 22:13 Mode of Arrival: Ambulatory Source of Information: Patient Limitations: No Limitations Description of Symptoms (Recalled from ER Triage Doc. by RN): Pt c/o sore throat, nv X1, REID for 2-3 days History of Present Illness HPI narrative: This patient is a 44-year-old female with a history of morbid obesity, diabetes, bipolar disorder, GERD, asthma, thyroid disorder, IBS, and GERD presenting to the emergency department for evaluation with concern for headache, sore throat, cough, congestion, nausea, and vomiting. She states she has had the headache for 2 to 3 days as well as a sore throat and congestion, but the nausea and vomiting started today. She notes that she is also having weird tasting burps. She does note that she has had normal bowel movements today with no hematochezia or melena. She is still passing gas fine. She has had prior cholecystectomy and bladder surgery but no history of bowel obstructions or other concern. Related Data Home Medications ?Medication ?Instructions ?Recorded ?Confirmed gabapentin 600 mg tablet 600 mg PO TID pain 07/12/19 07/13/24 lovastatin 20 mg tablet 20 mg PO HS Cholesterol 07/12/19 07/13/24 Previous Rx's ?Medication ?Instructions ?Recorded cetirizine 10 mg capsule 10 mg PO DAILY 30 days #30 caps 11/16/19 diclofenac sodium 1 % topical gel 2 g topical QID Pain #100 grams 09/09/20 (Voltaren) famotidine 20 mg tablet See Rx Instructions .Route 09/09/20 .COMPLEX #180 tabs hydrochlorothiazide 25 mg tablet 25 mg PO QAM #90 tabs 09/19/20 losartan 100 mg tablet 100 mg PO DAILY #90 tabs 09/19/20 ranitidine HCl 75 mg tablet 75 mg PO BID GERD #180 tabs 11/21/20 spironolactone 100 mg tablet 100 mg PO DAILY BLOOD PRESSURE #90 12/04/20 tabs montelukast 10 mg tablet See Rx Instructions .Route 12/05/20 .COMPLEX #90 tabs carvedilol 6.25 mg tablet 6.25 mg PO BID #180 tabs 03/18/21 levothyroxine 100 mcg tablet 100 mcg PO DAILY #90 tabs 03/18/21 trazodone 50 mg tablet See Rx Instructions PO HS PRN 04/30/22 sleep #60 tabs fluoxetine 40 mg capsule (Prozac) 40 mg PO DAILY #30 caps 08/19/22 lidocaine 5 % topical patch 1 patch topical DAILY #15 ea 10/01/23 (Lidoderm) methocarbamol 750 mg tablet 750 mg PO Q8H PRN pain #20 tabs 10/01/23 naproxen 500 mg tablet 500 mg PO BID PRN pain #20 tabs 10/01/23 phenazopyridine 200 mg tablet 200 mg PO Q8H 2 days #6 tabs 11/08/23 (Pyridium) cephalexin 500 mg capsule 500 mg PO QID #40 caps 05/31/24 cyclobenzaprine 10 mg tablet 10 mg PO TID #42 tabs 05/31/24 mupirocin 2 % topical ointment 1 applic topical TID 7 days #15 05/31/24 grams sulfamethoxazole 800 1 tab PO BID #20 tabs 05/31/24 mg-trimethoprim 160 mg tablet (Bactrim DS) sulfamethoxazole 800 1 tab PO BID 5 days #10 tabs 06/05/24 mg-trimethoprim 160 mg tablet (Bactrim DS) cyclobenzaprine 10 mg tablet See Rx Instructions .Route 06/28/24 .COMPLEX #90 tabs iyoawnomdxoeyrl-hwmfflbuggurcmz-ZM 5 ml PO Q6H PRN cold symptoms #118 08/30/24 2 mg-30 mg-10 mg/5 mL oral syrup mL (Bromfed DM) ondansetron 4 mg disintegrating 4 mg PO Q8H PRN nausea and 08/30/24 tablet vomiting 4 days #12 tabs Allergies Allergy/AdvReac Type Severity Reaction Status Date / Time mold (MOLD) Allergy Severe Anaphylaxis Verified 05/09/24 14:07 Fish Containing Products Allergy Intermediate I-HIVES Verified 05/09/24 14:07 (From SEAFOOD (F/D)) aspirin (ASPIRIN) AdvReac Mild NA-NAUSEA/V Verified 05/09/24 14:07 OMITING From SEAFOOD (F/D) Allergy Intermediate I-HIVES Uncoded 02/25/24 08:58 MUSHROOM Allergy Intermediate I-HIVES Uncoded 02/25/24 08:58 PFS PFS Disclaimer: The information contained in this section may have been updated after the patient was seen, as this information can be updated by other users. Medical History MICHELLE (obstructive sleep apnea) Thyroid disorder Lupus IBS (irritable bowel syndrome) HTN (hypertension) GERD (gastroesophageal reflux disease) Diabetes History of frequent headaches Bipolar 1 disorder Asthma Arthritis Anxiety Seasonal allergies Insomnia Major depressive disorder Surgical History Hx of cholecystectomy History of bladder surgery Family History Other Anemia Arthritis Breast cancer Depression Diabetes Heart disease Hyperlipidemia Hypertension Lung cancer Migraines Osteoporosis Stroke Social History Smoking Status: Never smoker second hand exposure: Yes (occasionally) alcohol intake: never substance use type: denies use current occupational status: other Travel in the last 8 weeks: None household members: children housing: house marital status: number of children: 1 caffeine: Yes physical activity: none Have you lived/traveled outside [place] in past 30 days?: No Contact w/someone who lives/traveled outside [place] past 30 days?: No Exposure to someone with infectious disease in past 14 days?: No Do you have a fever (greater than 100.4 F or 38 C)?: Yes Have you tested positive for COVID-19: No Exposed to someone with COVID-19 in past 14 days?: No Do you have a sore throat?: Yes Do you have a cough?: Yes Do you have any weakness?: No Do you have any diarrhea?: No Are you experiencing any unusual bleeding?: No Do you have any muscle aches/pain?: No Do you have any abdominal pain?: No Are you experiencing loss of taste or smell?: No Other Medical History Have you received the Flu Vaccine for this season: No Have you received the Pneumonia Vaccine: No ROS Obtained: Yes All systems reviewed & no additional complaints except as documented Physical Exam General General appearance: alert, in no apparent distress and obese Head Head exam: atraumatic and normocephalic Eye Eye exam: Present normal appearance, PERRL and EOMI ENT ENT exam: Present normal exam, normal oropharynx, mucous membranes moist and normal external ear exam Neck Neck exam: Present normal inspection, full ROM and trachea midline; Absent tenderness Chest Chest inspection: Present normal inspection and symmetric chest wall rise; Absent tenderness Respiratory Respiratory exam: Present normal lung sounds bilaterally; Absent respiratory distress, wheezes, stridor or accessory muscle use Cardiovascular Cardiovascular exam: Present regular rate and normal rhythm Abdominal Exam Abdominal exam: Present soft; Absent distention, tenderness or guarding Extremities Exam Extremities exam: Present normal inspection, full ROM and normal capillary refill; Absent tenderness or edema Back Exam Back exam: Present normal inspection and full ROM; Absent tenderness Neurological Exam Neurological exam: Present alert, oriented X3, CN II-XII intact and normal gait; Absent motor sensory deficit Psychiatric Psychiatric exam: Present normal affect and normal mood Skin Skin exam: Present warm and dry Medical Decision Making Medical Records Medical records reviewed: Yes I reviewed the patient's medical records. Screening: Per USPSTF and CDC recommendations, given the prevalence of disease in our region, it is our hospital?s policy to screen for HIV and viral Hepatitis for all patients aged 18 and over and those with ongoing risk factors. Mukesh Inquiry Pt receiving controlled substance: No Vital Signs: 08/30/24 22:04 Temperature 98.2 F Temperature Source Oral Pulse Rate [Apical] 90 Respiratory Rate 18 Blood Pressure [Right Arm] 149/106 H Blood Pressure Mean [Right Arm] 120 02 Sat by Pulse Oximetry 98 Oxygen Delivery Method Room Air Lab Data Lab results reviewed: Yes I reviewed the patient's lab results. Orders (Tests/Meds): ED MEDICATIONS Discontinued Medications Generic Name Dose Route Start Last Admin Trade Name Freq PRN Reason Stop Dose Admin Acetaminophen 1,000 mg 08/30/24 22:20 08/30/24 22:29 Acetaminophen 500mg Tab PO 08/30/24 22:21 1,000 mg ONCE ONE Administration Metoclopramide HCl 10 mg 08/30/24 22:22 08/30/24 22:30 Metoclopramide 10mg Tablet PO 08/30/24 22:23 10 mg ONCE ONE Administration Ondansetron HCl 4 mg 08/30/24 22:20 08/30/24 22:46 Ondansetron 4mg Odt SL 08/30/24 22:21 Not Given ONCE ONE Pantoprazole Sodium 40 mg 08/30/24 22:20 08/30/24 22:29 Pantoprazole 40mg Tablet PO 08/30/24 22:21 40 mg ONCE ONE Administration Tetracycl/Hydrocort/Nystatin/Diphen 15 ml 08/30/24 22:21 08/30/24 22:31 Magic Mouthwash 300ml Bottle PO 08/30/24 22:22 15 ml ONCE ONE Administration Medical Decision Narrative: In summary, this patient is a 44-year-old female presenting to the Emergency Department for evaluation of headache, sore throat, cough, congestion, nausea, vomiting. Differential diagnoses considered include but are not limited to viral syndrome, pneumonia, gastroenteritis, colitis, dehydration. Ruling out the most morbid conditions drove assessment. It should be noted patient's history includes obesity, diabetes, GERD which are not at goal therapy. This complicates all aspects of care by increasing patient's risk for morbidity. On exam, the patient is sitting upright in no acute distress. Exam is reassuring with normal posterior oropharyngeal exam, normal cardiopulmonary exam, benign abdominal exam. Vitals are normal on cardiac telemetry. At this time, feel she likely has a viral syndrome as a cause of her symptoms. I do not feel that labs or imaging are indicated as it would not electronic data interchange specialist, but I did considered obtaining basic lab evaluation. After shared decision-making with patient, will treat symptomatically with oral Tylenol, pantoprazole, Reglan, and Magic mouthwash and see if she feels better. On reassessment, the patient is feeling better. She is able to tolerate oral intake. At this time, I feel that she is appropriate for discharge home with diagnosis of likely viral syndrome. Prescriptions for Reglan and Bromfed were given as well as instruction for supportive management and close follow-up. She was discharged after all questions were answered peer Critical Care Critical Care Time Critical Care Time: No
[2024-08-30] MEDS: PANTOPRAZOLE 40MG TABLET 40 MG PO (22:29)
[2024-08-30] MEDS: ACETAMINOPHEN 500MG TAB 1000 MG PO (22:29)
[2024-08-30] MEDS: METOCLOPRAMIDE 10MG TABLET 10 MG PO (22:30)
[2024-08-30] MEDS: MAGIC MOUTHWASH 300ML BOTTLE 15 ML PO (22:31)
[2024-08-30 23:22] VITALS: BP 149/74; PULSE 80; RESP 20; TEMP 36.7; O2SAT 100
== END 2024-08-30 23:23 | disposition home or self-care (01) ==
PROVIDERS: Emergency Provider Emergency Medicine; PCP Nurse Practitioner
DX: B34.9 Viral infection, unspecified (principal); R51.9 Headache, unspecified; J02.9 Acute pharyngitis, unspecified; R05.9 Cough, unspecified; R11.2 Nausea with vomiting, unspecified; R09.81 Nasal congestion
CPT/HCPCS: 99283

== ENCOUNTER 2024-09-07 11:37 | Outpatient (POV) | payer OTHER, SELFPAY ==
--- NOTE | 2024-09-07 12:05 | EXP.PAIN.SOA ---
[facility] Disclaimer: The information contained in this section may have been updated after the patient was seen, as this information can be updated by other users. Medical History MICHELLE (obstructive sleep apnea) Thyroid disorder Lupus IBS (irritable bowel syndrome) HTN (hypertension) GERD (gastroesophageal reflux disease) Diabetes History of frequent headaches Bipolar 1 disorder Asthma Arthritis Anxiety Seasonal allergies Insomnia Major depressive disorder Surgical History Hx of cholecystectomy History of bladder surgery Family History Other Anemia Arthritis Breast cancer Depression Diabetes Heart disease Hyperlipidemia Hypertension Lung cancer Migraines Osteoporosis Stroke Social History Smoking Status: Never smoker second hand exposure: Yes (occasionally) alcohol intake: never substance use type: denies use current occupational status: other Travel in the last 8 weeks: None household members: children housing: house marital status: number of children: 1 caffeine: Yes physical activity: none Have you lived/traveled outside US in past 30 days?: No Contact w/someone who lives/traveled outside [place] past 30 days?: No Exposure to someone with infectious disease in past 14 days?: No Do you have a fever (greater than 100.4 F or 38 C)?: No Have you tested positive for COVID-19: No Exposed to someone with COVID-19 in past 14 days?: No Do you have a sore throat?: No Do you have a cough?: No Do you have any weakness?: No Do you have any diarrhea?: No Are you experiencing any unusual bleeding?: No Do you have any muscle aches/pain?: No Do you have any abdominal pain?: No Are you experiencing loss of taste or smell?: No PM Subjective & Objective Subjective Subjective:: Patient is a pleasant 44-year-old female who presents today for follow-up of psychological evaluation. She rates her pain today an 8 out of 10. She denies any new trauma or injury. Patient does state that she still has the same chronic pain throughout her low back and states it is a chronic aching, throbbing sensation that does interfere with her activities of daily living such as cooking and cleaning. Patient states that the injections have only provided minimal to temporary relief. She states that every day she has chronic pain. Patient was given a pamphlet on the intrathecal pain pump and she states that she would like to proceed forward with this plan of care. Patient has tried and failed conservative therapy. Her Mukesh has been reviewed and is appropriate. Review of Systems: General: No recent weight changes, no fever, no sleep disturbances Respiratory: No cough, no shortness of air, no recurring pulmonary infections Cardiovascular/peripheral vascular: No chest pain, no palpitations, no edema, no shortness of breath Gastrointestinal: No new onset incontinence, normal bowel movements reported Genitourinary: No new onset incontinence Musculoskeletal: Chronic low back pain Psychiatric: [Normal mood/affect] Neurological: [Denies weakness in extremities], [denies balance issues] Pain at rest (0-10 scale): 8 Objective Objective:: Physical Exam: General: Alert and oriented x3, no acute distress, pleasant and cooperative Lungs: Respirations even and unlabored, symmetrical chest expansion Eyes: PERRL Musculoskeletal: Flexion and extension of lumbar [spine] somewhat guarded secondary to pain, [antalgic gait noted] Neurological: Speech clear, no gross sensory deficit Has patient had previous pain injection?: No Conservative treatment options previously tried: Home exercise plan Length of treatment: Longer than 12 weeks Meds Home Medications and Allergies Home Medications ?Medication ?Instructions ?Recorded ?Confirmed ?Type gabapentin 600 mg tablet 600 mg PO TID pain 07/12/19 07/13/24 History lovastatin 20 mg tablet 20 mg PO HS Cholesterol 07/12/19 07/13/24 History cetirizine 10 mg capsule 10 mg PO DAILY 30 days #30 caps 11/16/19 07/13/24 Rx diclofenac sodium 1 % topical gel 2 g topical QID Pain #100 grams 09/09/20 07/13/24 Rx (Voltaren) famotidine 20 mg tablet See Rx Instructions .Route 09/09/20 07/13/24 Rx .COMPLEX #180 tabs hydrochlorothiazide 25 mg tablet 25 mg PO QAM #90 tabs 09/19/20 07/13/24 Rx losartan 100 mg tablet 100 mg PO DAILY #90 tabs 09/19/20 07/13/24 Rx ranitidine HCl 75 mg tablet 75 mg PO BID GERD #180 tabs 11/21/20 07/13/24 Rx spironolactone 100 mg tablet 100 mg PO DAILY BLOOD PRESSURE #90 12/04/20 07/13/24 Rx tabs montelukast 10 mg tablet See Rx Instructions .Route 12/05/20 07/13/24 Rx .COMPLEX #90 tabs carvedilol 6.25 mg tablet 6.25 mg PO BID #180 tabs 03/18/21 07/13/24 Rx levothyroxine 100 mcg tablet 100 mcg PO DAILY #90 tabs 03/18/21 07/13/24 Rx trazodone 50 mg tablet See Rx Instructions PO HS PRN 04/30/22 07/13/24 Rx sleep #60 tabs fluoxetine 40 mg capsule (Prozac) 40 mg PO DAILY #30 caps 08/19/22 07/13/24 Rx lidocaine 5 % topical patch 1 patch topical DAILY #15 ea 10/01/23 07/13/24 Rx (Lidoderm) methocarbamol 750 mg tablet 750 mg PO Q8H PRN pain #20 tabs 10/01/23 07/13/24 Rx naproxen 500 mg tablet 500 mg PO BID PRN pain #20 tabs 10/01/23 07/13/24 Rx phenazopyridine 200 mg tablet 200 mg PO Q8H 2 days #6 tabs 11/08/23 07/13/24 Rx (Pyridium) cephalexin 500 mg capsule 500 mg PO QID #40 caps 05/31/24 07/13/24 Rx cyclobenzaprine 10 mg tablet 10 mg PO TID #42 tabs 05/31/24 07/13/24 Rx mupirocin 2 % topical ointment 1 applic topical TID 7 days #15 05/31/24 07/13/24 Rx grams sulfamethoxazole 800 1 tab PO BID #20 tabs 05/31/24 07/13/24 Rx mg-trimethoprim 160 mg tablet (Bactrim DS) sulfamethoxazole 800 1 tab PO BID 5 days #10 tabs 06/05/24 07/13/24 Rx mg-trimethoprim 160 mg tablet (Bactrim DS) cyclobenzaprine 10 mg tablet See Rx Instructions .Route 06/28/24 07/13/24 Rx .COMPLEX #90 tabs sgbkbbldpiswhzk-ixpfaoahirzhhfy-UJ 5 ml PO Q6H PRN cold symptoms #118 08/30/24 Rx 2 mg-30 mg-10 mg/5 mL oral syrup mL (Bromfed DM) ondansetron 4 mg disintegrating 4 mg PO Q8H PRN nausea and 08/30/24 Rx tablet vomiting 4 days #12 tabs New Prescriptions to Start Prescriptions: Allergies Allergy/AdvReac Type Severity Reaction Status Date / Time mold (MOLD) Allergy Severe Anaphylaxis Verified 05/09/24 14:07 Fish Containing Products Allergy Intermediate I-HIVES Verified 05/09/24 14:07 (From SEAFOOD (F/D)) aspirin (ASPIRIN) AdvReac Mild NA-NAUSEA/V Verified 05/09/24 14:07 OMITING From SEAFOOD (F/D) Allergy Intermediate I-HIVES Uncoded 02/25/24 08:58 MUSHROOM Allergy Intermediate I-HIVES Uncoded 02/25/24 08:58 Assessment and Plan *Assessment and plan (1) Degenerative disc disease, lumbar: Status: Acute Category: Medical Code(s): M51.369 - Other intervertebral disc degeneration, lumbar region without mention of lumbar back pain or lower extremity pain (2) Mid back pain: Status: Acute Category: Medical Code(s): M54.9 - Dorsalgia, unspecified (3) Neck pain: Status: Acute Category: Medical Code(s): M54.2 - Cervicalgia (4) Chronic pain syndrome: Status: Acute Category: Medical Code(s): G89.4 - Chronic pain syndrome Plan Patient is experiencing significant pain throughout her spine including her neck, mid back and low back. Patient did have limited range of motion of her lumbar spine during today's visit. She did complete her psychological evaluation was deemed an appropriate candidate for the intrathecal pump trial. Risk and benefits were discussed with the patient and she would like to proceed forward with this plan of care. Patient has tried and failed conservative therapy including oral medications of gabapentin, oxycodone, etc., heat and ice, topicals, injection therapy, physical therapy, continued at home stretching exercise for longer than 12 weeks. Patient will be submitted for a intrathecal pain pump trial under fluoroscopy. Patient has been instructed to contact the clinic with any concerns before the next appointment. Dr. Lemus has reviewed this note and agrees with this plan of care. This note was dictated using voice recognition software and make contain errors or omissions. All injections are used with Lidocaine, Bupivacaine and Depo Medrol. Occasionally urine drug screen is needed to verify patient's compliance with our office pain contract. This is ordered based off specific treatments related to chronic pain with the potential to abuse certain medications.
[2024-09-07 12:16] VITALS: BP 121/74; PULSE 65; RESP 14; O2SAT 98; BMI 36.2
== END 2024-09-07 23:59 | disposition home or self-care (01) ==
LOC: SC.PAIN 11:38
PROVIDERS: PCP Nurse Practitioner; Visit Provider Nurse Practitioner Family
DX: M51.369 Other intervertebral disc degeneration, lumbar region without mention of lumbar back pain or lower extremity pain (principal); M54.9 Dorsalgia, unspecified; M54.2 Cervicalgia; G89.4 Chronic pain syndrome; Z73.89 Other problems related to life management difficulty; Z79.899 Other long term (current) drug therapy
CPT/HCPCS: 99212; G0463

== ENCOUNTER 2024-11-26 08:51 | Emergency (ER) | payer OTHER, SELFPAY ==
[2024-11-26] VITALS (16 sets, daily range): BP systolic 110–147; BP diastolic 66–95; PULSE 81–97; RESP 18–20; TEMP 36.7–36.9; O2SAT 96–100; BMI 45.7
--- NOTE | 2024-11-26 08:53 | HMH.EDGENADL ---
Discharge Plan Disposition Chief Complaint: PAIN Prescriptions Prescriptions: No Action desvenlafaxine succinate [Pristiq] 50 mg tablet extended release 24 hr 50 mg PO DAILY Qty: 30 2RF mirtazapine [Remeron] 15 mg tablet 7.5 - 15 mg PO DAILY Qty: 30 2RF lamotrigine [Lamictal] 25 mg tablet 100 mg PO DAILY Qty: 98 0RF Rx Instructions: Take 3 tablets daily for 2 weeks, then increase to 4 tablets daily for 2 weeks. If you develop a rash, stop the medication and call the clinic. desvenlafaxine succinate [Pristiq] 100 mg tablet extended release 24 hr 100 mg PO DAILY Qty: 30 2RF quetiapine [Seroquel] 25 mg tablet 12.5 - 25 mg PO DAILY Qty: 30 0RF nystatin 100,000 unit/mL suspension 1,000,000 unit PO TID Qty: 30 1RF Rx Instructions: administer 1/2 of dose in each side of the mouth fluconazole [Diflucan] 100 mg tablet 100 mg PO DAILY Qty: 2 0RF famotidine 20 mg tablet See Rx Instructions .ROUTE .COMPLEX Qty: 180 3RF Dose Instruction: TAKE 2 TABLETS BY MOUTH EVERY DAY Rx Instructions: TAKE 2 TABLETS BY MOUTH EVERY DAY losartan 100 mg tablet 100 mg PO DAILY Qty: 90 3RF spironolactone 100 mg tablet 100 mg PO DAILY Qty: 90 3RF montelukast 10 mg tablet See Rx Instructions .ROUTE .COMPLEX Qty: 90 3RF Dose Instruction: TAKE ONE TABLET BY MOUTH EVERY NIGHT AT BEDTIME FOR ALLEGIES Rx Instructions: TAKE ONE TABLET BY MOUTH EVERY NIGHT AT BEDTIME FOR ALLEGIES levothyroxine 100 mcg tablet 100 mcg PO DAILY Qty: 90 0RF carvedilol 6.25 mg tablet 6.25 mg PO BID Qty: 180 0RF cyclobenzaprine 10 mg tablet See Rx Instructions .ROUTE .COMPLEX Qty: 90 0RF Dose Instruction: TAKE ONE TABLET BY MOUTH 3 TIMES A DAY Rx Instructions: TAKE ONE TABLET BY MOUTH 3 TIMES A DAY cetirizine 10 MG capsule 10 mg PO DAILY 30 Days Qty: 30 2RF lidocaine [Lidoderm] 5 % adhesive patch,medicated 1 patch topical DAILY Qty: 15 0RF Rx Instructions: leave on most painful area for up to 12 hrs naproxen 500 mg tablet 500 mg PO BID PRN (Reason: pain) Qty: 20 0RF methocarbamol 750 mg tablet 750 mg PO Q8H PRN (Reason: pain) Qty: 20 0RF lovastatin 20 MG tablet 20 mg PO HS Rx Instructions: TAKE ONE TABLET BY MOUTH EVERY NIGHT AT BEDTIME FOR CHOLESTEROL ondansetron 4 mg tablet,disintegrating 4 mg PO Q8H PRN (Reason: nausea and vomiting) 4 Days Qty: 12 0RF Referrals Follow up/Referrals: Paula Cruz APRN [Primary Care Provider] - See instructions Print Language Print Language: Gabonese Discharge ED Provider: Raegan Butler General Adult HPI General Chief complaint: PAIN Stated complaint: back pain, neck to hips, spine is stiffening Time Seen by Provider: 11/26/24 08:53 History of Present Illness HPI narrative: Patient is a 44-year-old female with past medical history significant for depression, obesity bipolar disorder, lupus, degenerative disc disease, prior IV drug use presents to the emergency department with back pain. Has received epidural spinal injections in the past. Patient is scheduled to have an intrathecal pain pump placed in 1 month. Yesterday evening pain went from baseline 7 out of 10 pain to a 13 out of 10 pain along the entire length of her spine. Patient says that she has chronic numbness and tingling in bilateral upper and lower extremities that has not changed since yesterday. Patient denies weakness in her upper or lower extremities. Former smoker denies daily alcohol use. Patient says she has chronic urinary incontinence denies bowel incontinence. Still able to ambulate however has significant pain along her back. Has taken no pain medication today. Denies fevers or chills or weight loss. Denies any trauma or manipulation of her back that might of triggered this episode. Denies rashes. Notes mild increased swelling of her bilateral upper and lower extremities, unknown duration. Related Data Home Medications ?Medication ?Instructions ?Recorded ?Confirmed lovastatin 20 mg tablet 20 mg PO HS Cholesterol 07/12/19 11/26/24 Previous Rx's ?Medication ?Instructions ?Recorded cetirizine 10 mg capsule 10 mg PO DAILY 30 days #30 caps 11/16/19 famotidine 20 mg tablet See Rx Instructions .Route 09/09/20 .COMPLEX #180 tabs losartan 100 mg tablet 100 mg PO DAILY #90 tabs 09/19/20 spironolactone 100 mg tablet 100 mg PO DAILY BLOOD PRESSURE #90 12/04/20 tabs montelukast 10 mg tablet See Rx Instructions .Route 12/05/20 .COMPLEX #90 tabs carvedilol 6.25 mg tablet 6.25 mg PO BID #180 tabs 03/18/21 levothyroxine 100 mcg tablet 100 mcg PO DAILY #90 tabs 03/18/21 lidocaine 5 % topical patch 1 patch topical DAILY #15 ea 10/01/23 (Lidoderm) methocarbamol 750 mg tablet 750 mg PO Q8H PRN pain #20 tabs 10/01/23 naproxen 500 mg tablet 500 mg PO BID PRN pain #20 tabs 10/01/23 ondansetron 4 mg disintegrating 4 mg PO Q8H PRN nausea and 08/30/24 tablet vomiting 4 days #12 tabs desvenlafaxine succinate 50 mg 50 mg PO DAILY #30 tabs 10/18/24 tablet,extended release 24 hr (Pristiq) mirtazapine 15 mg tablet (Remeron) 7.5 - 15 mg (0.5 - 1 x 15 mg) PO 10/18/24 DAILY #30 tabs desvenlafaxine succinate 100 mg 100 mg PO DAILY #30 tabs 11/01/24 tablet,extended release 24 hr (Pristiq) lamotrigine 25 mg tablet (Lamictal) 100 mg (4 x 25 mg) PO DAILY #98 11/01/24 tabs quetiapine 25 mg tablet (Seroquel) 12.5 - 25 mg (0.5 - 1 x 25 mg) PO 11/01/24 DAILY #30 tabs cyclobenzaprine 10 mg tablet See Rx Instructions .Route 11/06/24 .COMPLEX #90 tabs fluconazole 100 mg tablet 100 mg PO DAILY #2 tabs 11/15/24 (Diflucan) nystatin 100,000 unit/mL oral 1,000,000 unit (10 mL) PO TID #30 11/15/24 suspension mL Allergies Allergy/AdvReac Type Severity Reaction Status Date / Time mold (MOLD) Allergy Severe Anaphylaxis Verified 11/15/24 13:12 Fish Containing Products Allergy Intermediate I-HIVES Verified 11/15/24 13:12 (From SEAFOOD (F/D)) banana Allergy Mild Nausea Verified 11/15/24 13:12 cat dander Allergy Mild Sneezing Verified 11/15/24 13:12 aspirin (ASPIRIN) AdvReac Mild NA-NAUSEA/V Verified 11/15/24 13:12 OMITING From SEAFOOD (F/D) Allergy Intermediate I-HIVES Uncoded 11/15/24 13:12 MUSHROOM Allergy Intermediate I-HIVES Uncoded 11/15/24 13:12 [facility] Disclaimer: The information contained in this section may have been updated after the patient was seen, as this information can be updated by other users. Medical History MICHELLE (obstructive sleep apnea) Thyroid disorder Lupus IBS (irritable bowel syndrome) HTN (hypertension) GERD (gastroesophageal reflux disease) Diabetes History of frequent headaches Bipolar 1 disorder Asthma Arthritis Anxiety Seasonal allergies Insomnia Major depressive disorder Surgical History Hx of cholecystectomy History of bladder surgery Family History Other Anemia Arthritis Breast cancer Depression Diabetes Heart disease Hyperlipidemia Hypertension Lung cancer Migraines Osteoporosis Stroke Social History Smoking Status: Never smoker second hand exposure: Yes (occasionally) alcohol intake: never substance use type: denies use current occupational status: other Travel in the last 8 weeks: None household members: children housing: house marital status: number of children: 1 caffeine: Yes physical activity: none Have you lived/traveled outside [place] in past 30 days?: No Contact w/someone who lives/traveled outside US past 30 days?: No Exposure to someone with infectious disease in past 14 days?: No Do you have a fever (greater than 100.4 F or 38 C)?: No Have you tested positive for COVID-19: No Exposed to someone with COVID-19 in past 14 days?: No Do you have a sore throat?: No Do you have a cough?: No Do you have any weakness?: No Do you have any diarrhea?: No Are you experiencing any unusual bleeding?: No Do you have any muscle aches/pain?: Yes Do you have any abdominal pain?: No Are you experiencing loss of taste or smell?: No Other Medical History Have you received the Flu Vaccine for this season: No Have you received the Pneumonia Vaccine: No ROS Obtained: Yes All systems reviewed & no additional complaints except as documented Physical Exam General General appearance: alert, in no apparent distress and obese Head Head exam: atraumatic and normocephalic Eye Eye exam: Present PERRL and EOMI ENT ENT exam: Present normal exam and normal oropharynx Neck Neck exam: Present tenderness; Absent meningismus Respiratory Respiratory exam: Absent respiratory distress Cardiovascular Cardiovascular exam: Present regular rate and normal rhythm Abdominal Exam Abdominal exam: Present soft; Absent distention or tenderness Extremities Exam Extremities exam: Present edema (non pitting edema bilateral upper and lower extremities, no rashes); Absent tenderness Back Exam Back exam: Present tenderness (Midline tenderness of CT and L-spine, negative Kernig negative Kerensky, full range of motion however painful), straight leg raise (R) and straight leg raise (L) Neurological Exam Neurological exam: Present alert, oriented X3, CN II-XII intact, normal gait and reflexes normal (Inability to elicit patellar and Achilles reflexes, difficulty with relaxing the lower extremities); Absent motor sensory deficit Expanded Neurological Exam Motor strength - LUE: 5/5 Motor strength - RUE: 5/5 Motor strength - LLE: 5/5 Motor strength - RLE: 5/5 Sensory exam upper extremity: Normal: light touch Sensory exam lower extremity: Normal: light touch Spinal cord function: Absent saddle anesthesia Medical Decision Making Medical Records Screening: Per USPSTF and CDC recommendations, given the prevalence of disease in our region, it is our hospital?s policy to screen for HIV and viral Hepatitis for all patients aged 18 and over and those with ongoing risk factors. Mukesh Inquiry Pt receiving controlled substance: Yes Mukesh was queried for this patient: No Risks and benefits of using a controlled substance: were discussed with pt by me Vital Signs: 11/26/24 09:00 11/26/24 09:10 11/26/24 10:43 Temperature 98.4 F Temperature Source Oral Pulse Rate 97 H 88 Pulse Rate [Right] 87 Respiratory Rate 20 Blood Pressure 122/74 110/66 Blood Pressure [Right Arm] 147/95 H Blood Pressure Mean [Right Arm] 112 02 Sat by Pulse Oximetry 99 99 98 Oxygen Delivery Method Room Air Room Air Room Air Lab Data Lab Results 11/26/24 09:27: WBC 5.8, RBC 3.94 L, Hgb 11.6 L, Hct 36.7 L, MCV 93.1, MCH 29.4, MCHC 31.6 L, RDW 13.8, Plt Count 270, MPV 10.0, Neut % (Auto) 54.6, Lymph % (Auto) 32.4, Gaines % (Auto) 8.7, Eos % (Auto) 1.7, Baso % (Auto) 1.0, Neut # (Auto) 3.2, Lymph # (Auto) 1.9, Gaines # (Auto) 0.5, Eos # (Auto) 0.1, Baso # (Auto) 0.1, ESR 18, Sodium 137, Potassium 4.6, Chloride 103, Carbon Dioxide 30, Anion Gap 8.6, BUN 13, Creatinine 0.80, Estimated Creat Clear 69, Estimated GFR 77, Est GFR ( Amer) 93, Glucose 185 H, Calcium 8.3 L, Total Bilirubin 0.4, AST 33, ALT 35, Alkaline Phosphatase 130 H, C-Reactive Protein 2.7, Total Protein 6.3, Albumin 3.9, Globulin 2.4, Albumin/Globulin Ratio 1.6, Serum HCG, Qual Negative 11/26/24 09:27 11/26/24 09:27 Orders (Tests/Meds): ED MEDICATIONS Discontinued Medications Generic Name Dose Route Start Last Admin Trade Name Guerrero PRN Reason Stop Dose Admin Acetaminophen 1,000 mg 11/26/24 09:19 11/26/24 09:34 Acetaminophen 500mg Tab PO 11/26/24 09:20 1,000 mg ONCE ONE Administration Iopamidol 80 ml 11/26/24 10:29 11/26/24 10:30 Iopamidol-370 (76%);100ml Bottle IV 11/26/24 10:30 80 ml ONCE ONE Administration Methocarbamol 1,000 mg 11/26/24 09:22 11/26/24 09:34 Methocarbamol 500mg Tablet PO 11/26/24 09:23 1,000 mg ONCE ONE Administration Morphine Sulfate 5 mg 11/26/24 12:12 Morphine 10mg/Ml Syringe IV 11/26/24 12:13 ONCE ONE Sodium Chloride 10 ml 11/26/24 10:29 11/26/24 10:30 Sodium Chloride 0.9% 10ml Syr (Rad Only) IV 11/26/24 10:30 10 ml ONCE ONE Administration ORDERS Category Date Time Status CT cervical spine w con Stat Cat Scan 11/26/24 09:[address] lumbar spine w con Stat Cat Scan 11/26/24 09:[address] thoracic spine w con Stat Cat Scan 11/26/24 09:19 Completed C-Reactive Protein Stat Lab 11/26/24 09:27 Completed Complete Blood Count Auto Diff Stat Lab 11/26/24 09:27 Completed Comprehensive Metabolic Panel Stat Lab 11/26/24 09:27 Completed Erythrocyte Sedimentation Rate Stat Lab 11/26/24 09:27 Completed HCG Qualitative, Serum Stat Lab 11/26/24 09:27 Completed Lactate Venous Stat Lab 11/26/24 09: Ordered Blood Culture Stat Micro 11/26/24 09:27 Received Medical Decision Narrative: In summary, this 44-year-old female presents to the emergency department today with back pain. On initial evaluation patient is hemodynamically stable saturating appropriately on room air afebrile no acute distress. Differential diagnosis includes but is not limited to osteomyelitis, degenerative disc disease, disc herniation, epidural abscess, meningitis, bacteremia, lupus flare. Based on these concerns, I ordered CBC CMP ESR CRP CT CT and L-spine with IV contrast test. Red flag symptoms include prior history of IV drug use and prior epidural injections coinciding with midline spinal tenderness. Patient received lidocaine Robaxin Tylenol ibuprofen oxycodone for treatment. Labs personally reviewed demonstrate no leukocytosis, stable anemia, normal esr. CT imaging personally interpreted demonstrate degenerative disc disease lytic lesion noted by radiology at T1 vertebral level. Due to high risk factors outlined above concern for osteomyelitis. I did interactive conversation with our hospitalist who did not feel comfortable on admitting overnight in order to obtain an MRI as MRI abilities are not available today. Patient otherwise stable did not start antibiotics at this time. I had an interactive conversation with [facility] who was agreeable to accept patient for MRI. Critical Care Critical Care Time Critical Care Time: No
--- NOTE | 2024-11-26 09:19 | CT_ITS ---
PROCEDURE INFORMATION: Exam: CT Thoracic Spine With Contrast Exam date and time: 11/26/2024 10:21 AM Clinical indication: Pain in thoracic spine; Additional info: Back pain, concern osteomyelitis, prior ivdu TECHNIQUE: Imaging protocol: Computed tomography of the thoracic spine with contrast. COMPARISON: MR CERVICAL SPINE WO CON 05/18/2024 12:58 PM FINDINGS: Bones/joints: There is an abnormal area hypodensity through the superior aspect of the T1 vertebral body. The superior endplate appears noncontiguous suggesting a T1 lytic lesion. The T1 vertebral body was normal by MRI on the May 2024 exam. Repeat MRI is recommended as osteomyelitis can not be excluded.. Normal alignment. No significant disc bulge or herniation. No severe spinal canal stenosis. No significant neural foraminal narrowing. Soft tissues: Unremarkable. IMPRESSION: Abnormal area of hypodensity through the superior endplate of T1. There is no loss of vertebral body height but an underlying lytic lesion is suggested. Osteomyelitis is not excluded. MRI of the cervical spine without and with gadolinium is recommended as the T1 vertebral body should be included on the MRI of the cervical spine. The MRI will also help evaluate for the presence of an epidural abscess.
--- NOTE | 2024-11-26 09:19 | CT_ITS ---
PROCEDURE INFORMATION: Exam: CT Cervical Spine With Contrast Exam date and time: 11/26/2024 10:21 AM Age: 44 years old Clinical indication: Neck pain; Additional info: Back pain, concern osteomyelitis, prior ivdu TECHNIQUE: Imaging protocol: Computed tomography of the cervical spine with contrast. Radiation optimization: All CT scans at this facility use at least one of these dose optimization techniques: automated exposure control; mA and/or kV adjustment per patient size (includes targeted exams where dose is matched to clinical indication); or iterative reconstruction. Contrast material: ISOVUE; Contrast volume: 80 ml; Contrast route: IV; COMPARISON: MR CERVICAL SPINE WO CON 05/18/2024 12:58 PM FINDINGS/IMPRESSION: Bones: There is normal anatomic alignment of the cervical spine. No evidence of a cervical spine fracture. There is an abnormal lucency through the superior portion of the T1 vertebral body. The superior endplate of T1 appears discontinuous. A lytic lesion through the superior aspect of the T1 vertebral body is suggested and osteomyelitis can not be excluded. MRI of the cervical spine is recommended to further evaluate this region. MRI will also serve to exclude for the presence of an epidural abscess, as there is poor visualization of the central canal on this study. Lungs: Lung apices are normal. Soft tissues: Unremarkable.
--- NOTE | 2024-11-26 09:19 | CT_ITS ---
PROCEDURE INFORMATION: Exam: CT Lumbar Spine With Contrast Exam date and time: 11/26/2024 10:21 AM Age: 44 years old Clinical indication: Low back pain; Additional info: Back pain, concern osteomyelitis, prior ivdu TECHNIQUE: Imaging protocol: Computed tomography of the lumbar spine with contrast. Radiation optimization: All CT scans at this facility use at least one of these dose optimization techniques: automated exposure control; mA and/or kV adjustment per patient size (includes targeted exams where dose is matched to clinical indication); or iterative reconstruction. Contrast material: ISOVUE; Contrast volume: 80 ml; Contrast route: IV; COMPARISON: MR LUMBAR SPINE WO CON 05/18/2024 1:25 PM FINDINGS: Bones/joints: There is normal anatomic alignment of the lumbosacral spine. No evidence of a fracture or destructive bone lesion. There are mild chronic degenerative changes at L5-S1 with a small broad-based annulus disc bulge eccentric to the left producing [id number] left neural foraminal stenosis. Mild bony sclerosis of the sacroiliac joints. Gallbladder and biliary ducts: Status post cholecystectomy. Stomach and bowel: Mild constipation. Soft tissues: Unremarkable. IMPRESSION: Stable chronic degenerative changes at L5-S1. No acute lumbosacral abnormality.
[2024-11-26] MEDS: ACETAMINOPHEN 500MG TAB 1000 MG PO (09:34)
[2024-11-26] MEDS: METHOCARBAMOL 500MG TABLET 1000 MG PO (09:34)
[2024-11-26 09:40] LABS: Basophils # 0.1 K/mm3 (0-0.2); Eosinophils # 0.1 K/mm3 (0.0-0.4); Eosinophils % 1.7 % (0.1-12.0); Hematocrit 36.7 % (37.0-47.0); Hemoglobin 11.6 g/dL (12.2-16.2); Lymphocytes # 1.9 K/mm3 (0.7-4.5); Lymphocytes % 32.4 % (10-50); Mean Corpuscular HGB Conc 31.6 g/dL (31.8-35.4); Mean Corpuscular Hemoglobin 29.4 pg (27.0-31.2); Mean Corpuscular Volume 93.1 fl (81-99); Monocytes # 0.5 K/mm3 (0.1-1.0); Monocytes % 8.7 % (1.7-9.3); Neutrophils # 3.2 K/mm3 (1.8-7.8); Neutrophils % 54.6 % (37.0-80.0); Platelet Count 270 K/mm3 (142-424); Red Blood Count 3.94 M/mm3 (4.20-5.40); Red Cell Distribution Width 13.8 % (11.5-17.5); White Blood Count 5.8 K/mm3 (4.8-10.8)
[2024-11-26 09:45] LABS: Albumin Level 3.9 g/dl (3.5-5.0); Chloride 103 mmol/L (98-107); Potassium 4.6 mmoL/L (3.5-5.1); Sodium 137 mmol/L (136-145)
[2024-11-26 09:47] LABS: Blood Urea Nitrogen 13 mg/dl (7-17); Creatinine Clearance Estimated 69 mL/min (50-200); Estimated Glomerular Filt Rate 77 ml/min (>60); GFR (African American) 93 ML/MIN (>60); HCG Qualitative, Serum Negative (Negative)
[2024-11-26 09:48] LABS: Alanine Aminotransferase 35 U/L (12-78); Albumin/Globulin Ratio 1.6 (1.1-1.8); Alkaline Phosphatase 130 U/L (38-126); Anion Gap 8.6 mEq/L (5-15); Aspartate Amino Transferase 33 U/L (14-36); Bilirubin,Total 0.4 mg/dl (0.2-1.3); Calcium 8.3 mg/dl (8.4-10.2); Carbon Dioxide 30 mmol/L (22.0-30.0); Globulin 2.4 g/dL (1.3-3.2); Glucose 185 mg/dl (74-100); Total Protein,Serum 6.3 g/dl (6.3-8.2)
[2024-11-26 09:54] LABS: C-Reactive Protein 2.7 mg/L (0-4)
[2024-11-26 10:04] LABS: Erythrocyte Sedimentation Rate 18 mm/hr (0-20)
[2024-11-26] MEDS: IOPAMIDOL-370 (76%);100ML BOTTLE 80 ML IV (10:30)
[2024-11-26] MEDS: SODIUM CHLORIDE 0.9% 10ML SYR (RAD ONLY) 10 ML IV (10:30)
--- NOTE | 2024-11-26 11:26 | PC.NURSE ---
Called [facility] per Dr. Leyva for poss transfer for a concern of osteomyelitis and an epidural abscess. [facility] stated that they would give us a call back.
--- NOTE | 2024-11-26 11:34 | PC.NURSE ---
called [facility] per Dr. Leyva for poss transfer for osteomylatis and an epideral abscess. [facility] stated they would give us a call back.
--- NOTE | 2024-11-26 11:52 | PC.NURSE ---
called [facility] per Dr. Leyva for poss transfer for concern of osteomyelitis and an epidural abscess. [facility] stated they would give us a call back.
--- NOTE | 2024-11-26 12:07 | PC.NURSE ---
DR SINGH SPEAKING WITH [facility]
--- NOTE | 2024-11-26 12:10 | PC.NURSE ---
Dr Butler at bedside. [facility] has accepted pt.
[2024-11-26] MEDS: MORPHINE 4MG/ML SYRINGE 4 MG IV (12:23)
--- NOTE | 2024-11-26 12:29 | PC.NURSE ---
attempted to call report to [facility]. they will return my call when someone is available
--- NOTE | 2024-11-26 12:47 | PC.NURSE ---
report called to Cecilia @ [facility]
== END 2024-11-26 13:30 | disposition short-term general hospital (02) ==
PROVIDERS: Emergency Provider Student in an Organized Health Care Education/Training Program; PCP Nurse Practitioner
DX: M51.369 Other intervertebral disc degeneration, lumbar region without mention of lumbar back pain or lower extremity pain (principal); M89.9 Disorder of bone, unspecified; M54.9 Dorsalgia, unspecified; N39.498 Other specified urinary incontinence; E66.01 Morbid (severe) obesity due to excess calories; F32.A Depression, unspecified
CPT/HCPCS: 72126; 72129; 72132; 80053; 84703; 85025; 85651; 86140; 87040; 99285; J2270; Q9967

== ENCOUNTER 2024-12-11 11:52 | Emergency (ER) | payer OTHER, SELFPAY ==
[2024-12-11] VITALS (9 sets, daily range): BP systolic 108–126; BP diastolic 71–75; PULSE 75–85; RESP 12–18; TEMP 36.7; O2SAT 95–97; BMI 48.4
--- NOTE | 2024-12-11 11:53 | ECG_ITS ---
APPROVED REPORT Exam: Resting ECG HR:85 bpm ECG Measurements Heart Rate 85 AXES [place] 148 P 38 QRSd 83 QRS 52 QT 357 T 39 QTc 399 Conclusion SINUS RHYTHM LOW QRS VOLTAGE IN PRECORDIAL LEADS [QRS DEFLECTION < 1.0 mV IN CHEST LEADS] NONSPECIFIC T-WAVE ABNORMALITY No STEMI Electronically signed by : BERNIE DE LEON, 12/12/2024 06:53:07
--- NOTE | 2024-12-11 12:08 | XR_ITS ---
FINAL REPORT CLINICAL HISTORY: Precordial chest pain COMPARISON: 02/12/2021 FINDINGS: A single view of the chest was obtained. The heart is normal in size. The mediastinum is unremarkable. The lungs are underinflated. There is mild atelectasis. There is no pleural effusion. There is no pneumothorax. There is no acute osseous abnormality. IMPRESSION: Mild atelectasis. Reviewed, Interpreted and Dictated by Kendrick Alvarenga MD Transcribed by Rossy Chen Authenticated and [facility]
--- NOTE | 2024-12-11 12:10 | ED_ITS ---
<Statement entered by Shira Wells DO - 12/11/24 16:46> I was consulted by the MIRIAM, and we discussed the complexity of the problems being addressed. I approved the treatment and management plan for this patient's care in the emergency department, thus performing a substantive portion of the medical decision making. Shira Wells DO Discharge Plan Disposition Patient Disposition: Home, Self-Care Condition: Good Chief Complaint: Chest Pain Prescriptions Prescriptions: No Action desvenlafaxine succinate [Pristiq] 50 mg tablet extended release 24 hr 50 mg PO DAILY Qty: 30 2RF mirtazapine [Remeron] 15 mg tablet 7.5 - 15 mg PO DAILY Qty: 30 2RF desvenlafaxine succinate [Pristiq] 100 mg tablet extended release 24 hr 100 mg PO DAILY Qty: 30 2RF nystatin 100,000 unit/mL suspension 1,000,000 unit PO TID Qty: 30 1RF Rx Instructions: administer 1/2 of dose in each side of the mouth fluconazole [Diflucan] 100 mg tablet 100 mg PO DAILY Qty: 2 0RF famotidine 20 mg tablet See Rx Instructions .ROUTE .COMPLEX Qty: 180 3RF Dose Instruction: TAKE 2 TABLETS BY MOUTH EVERY DAY Rx Instructions: TAKE 2 TABLETS BY MOUTH EVERY DAY losartan 100 mg tablet 100 mg PO DAILY Qty: 90 3RF spironolactone 100 mg tablet 100 mg PO DAILY Qty: 90 3RF montelukast 10 mg tablet See Rx Instructions .ROUTE .COMPLEX Qty: 90 3RF Dose Instruction: TAKE ONE TABLET BY MOUTH EVERY NIGHT AT BEDTIME FOR ALLEGIES Rx Instructions: TAKE ONE TABLET BY MOUTH EVERY NIGHT AT BEDTIME FOR ALLEGIES levothyroxine 100 mcg tablet 100 mcg PO DAILY Qty: 90 0RF carvedilol 6.25 mg tablet 6.25 mg PO BID Qty: 180 0RF cyclobenzaprine 10 mg tablet See Rx Instructions .ROUTE .COMPLEX Qty: 90 0RF Dose Instruction: TAKE ONE TABLET BY MOUTH 3 TIMES A DAY Rx Instructions: TAKE ONE TABLET BY MOUTH 3 TIMES A DAY lamotrigine [Lamictal] 25 mg tablet 100 mg PO DAILY Qty: 98 0RF Rx Instructions: Take 3 tablets daily for 2 weeks, then increase to 4 tablets daily for 2 weeks. If you develop a rash, stop the medication and call the clinic. quetiapine [Seroquel] 25 mg tablet 12.5 - 25 mg PO DAILY Qty: 30 0RF cetirizine 10 MG capsule 10 mg PO DAILY 30 Days Qty: 30 2RF lidocaine [Lidoderm] 5 % adhesive patch,medicated 1 patch topical DAILY Qty: 15 0RF Rx Instructions: leave on most painful area for up to 12 hrs naproxen 500 mg tablet 500 mg PO BID PRN (Reason: pain) Qty: 20 0RF methocarbamol 750 mg tablet 750 mg PO Q8H PRN (Reason: pain) Qty: 20 0RF lovastatin 20 MG tablet 20 mg PO HS Rx Instructions: TAKE ONE TABLET BY MOUTH EVERY NIGHT AT BEDTIME FOR CHOLESTEROL ondansetron 4 mg tablet,disintegrating 4 mg PO Q8H PRN (Reason: nausea and vomiting) 4 Days Qty: 12 0RF Referrals Follow up/Referrals: Paula Cruz APRN [Primary Care Provider] - See instructions Activity Restrictions/Add. Instructions Additional Instructions/Restrictions: Please follow-up with your pain management provider, and spine providers, follow-up with PCP, return to the emergency department any worsening chest pain shortness of breath. Please take all your medication as prescribed. Clinical Impressions Clinical Impression: Chest pain, Low back pain, Multilevel neural foraminal stenosis, Spinal stenosis, Degenerative disc disease, lumbar Instructions Patient Instructions: DI for Atypical Chest Pain, DI for Back Pain With Sciatica, DI for Thoracic Back Pain Print Language Print Language: Kazakh Discharge ED Provider: Shira Wells General Adult HPI <SENG Fry - Last Filed: 12/11/24 16:05> General Chief complaint: Chest Pain Stated complaint: chest pain Time Seen by Provider: 12/11/24 12:10 Mode of Arrival: Ambulatory Source of Information: Patient Limitations: No Limitations History of Present Illness HPI narrative: 44-year-old female presents to the emergency department with numerous medical complaints, 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 She endorses episodes of nausea vomiting abdominal pain, she endorses lower back pain as well as midthoracic back pain, she endorses cough congestion, does endorse recent sick contacts being her kids , denies any real fever or chills, denies any constipation, does admit to diarrhea, denies any urinary type symptomatology, denies hematuria melena hematochezia hematemesis, of note, patient states she was recently admitted at outside facility on November 29, and they found a mass on my spine , he tells me that they originally thought I had a infection she tells me that they are planning to give me a pain pump and do surgery . When I ask if they are going to biopsy this presumed mass, she tells me I do not know . Other past medical history consistent with morbid obesity, PTSD, degenerative disc disease of the spine, type 2 diabetes, MDD, insomnia, hypertension, GERD, mood disorder, hypothyroidism, she denies any history of alcohol use, no drug use, most importantly no IV drug use, former history of smoking. Also endorses intermittent left-sided numbness and tingling of her left upper extremity, that has been going on for the last 2 to 3 days,, the chest pain stays substernal and is nonradiating in nature. Initial triage vitals grossly unremarkable. Onset (ago): day(s) Related Data Home Medications ?Medication ?Instructions ?Recorded ?Confirmed lovastatin 20 mg tablet 20 mg PO HS Cholesterol 07/12/19 11/26/24 Previous Rx's ?Medication ?Instructions ?Recorded cetirizine 10 mg capsule 10 mg PO DAILY 30 days #30 caps 11/16/19 famotidine 20 mg tablet See Rx Instructions .Route 09/09/20 .COMPLEX #180 tabs losartan 100 mg tablet 100 mg PO DAILY #90 tabs 09/19/20 spironolactone 100 mg tablet 100 mg PO DAILY BLOOD PRESSURE #90 12/04/20 tabs montelukast 10 mg tablet See Rx Instructions .Route 12/05/20 .COMPLEX #90 tabs carvedilol 6.25 mg tablet 6.25 mg PO BID #180 tabs 03/18/21 levothyroxine 100 mcg tablet 100 mcg PO DAILY #90 tabs 03/18/21 lidocaine 5 % topical patch 1 patch topical DAILY #15 ea 10/01/23 (Lidoderm) methocarbamol 750 mg tablet 750 mg PO Q8H PRN pain #20 tabs 10/01/23 naproxen 500 mg tablet 500 mg PO BID PRN pain #20 tabs 10/01/23 ondansetron 4 mg disintegrating 4 mg PO Q8H PRN nausea and 08/30/24 tablet vomiting 4 days #12 tabs desvenlafaxine succinate 50 mg 50 mg PO DAILY #30 tabs 10/18/24 tablet,extended release 24 hr (Pristiq) mirtazapine 15 mg tablet (Remeron) 7.5 - 15 mg (0.5 - 1 x 15 mg) PO 10/18/24 DAILY #30 tabs desvenlafaxine succinate 100 mg 100 mg PO DAILY #30 tabs 11/01/24 tablet,extended release 24 hr (Pristiq) cyclobenzaprine 10 mg tablet See Rx Instructions .Route 11/06/24 .COMPLEX #90 tabs fluconazole 100 mg tablet 100 mg PO DAILY #2 tabs 11/15/24 (Diflucan) nystatin 100,000 unit/mL oral 1,000,000 unit (10 mL) PO TID #30 11/15/24 suspension mL lamotrigine 25 mg tablet (Lamictal) 100 mg (4 x 25 mg) PO DAILY #98 12/01/24 tabs quetiapine 25 mg tablet (Seroquel) 12.5 - 25 mg (0.5 - 1 x 25 mg) PO 12/01/24 DAILY #30 tabs Allergies Allergy/AdvReac Type Severity Reaction Status Date / Time mold (MOLD) Allergy Severe Anaphylaxis Verified 11/15/24 13:12 Fish Containing Products Allergy Intermediate I-HIVES Verified 11/15/24 13:12 (From SEAFOOD (F/D)) banana Allergy Mild Nausea Verified 11/15/24 13:12 cat dander Allergy Mild Sneezing Verified 11/15/24 13:12 aspirin (ASPIRIN) AdvReac Mild NA-NAUSEA/V Verified 11/15/24 13:12 OMITING From SEAFOOD (F/D) Allergy Intermediate I-HIVES Uncoded 11/15/24 13:12 MUSHROOM Allergy Intermediate I-HIVES Uncoded 11/15/24 13:12 [facility] <SENG Fry - Last Filed: 12/11/24 16:05> [facility] Disclaimer: The information contained in this section may have been updated after the patient was seen, as this information can be updated by other users. Medical History MICHELLE (obstructive sleep apnea) Thyroid disorder Lupus IBS (irritable bowel syndrome) HTN (hypertension) GERD (gastroesophageal reflux disease) Diabetes History of frequent headaches Bipolar 1 disorder Asthma Arthritis Anxiety Seasonal allergies Insomnia Major depressive disorder Surgical History Hx of cholecystectomy History of bladder surgery Family History Other Anemia Arthritis Breast cancer Depression Diabetes Heart disease Hyperlipidemia Hypertension Lung cancer Migraines Osteoporosis Stroke Social History Smoking Status: Never smoker second hand exposure: Yes (occasionally) alcohol intake: never substance use type: denies use current occupational status: other Travel in the last 8 weeks: None household members: children housing: house marital status: number of children: 1 caffeine: Yes physical activity: none Have you lived/traveled outside [place] in past 30 days?: No Contact w/someone who lives/traveled outside US past 30 days?: No Exposure to someone with infectious disease in past 14 days?: No Do you have a fever (greater than 100.4 F or 38 C)?: No Have you tested positive for COVID-19: No Exposed to someone with COVID-19 in past 14 days?: No Do you have a sore throat?: No Do you have a cough?: No Do you have any weakness?: No Do you have any diarrhea?: No Are you experiencing any unusual bleeding?: No Do you have any muscle aches/pain?: No Do you have any abdominal pain?: No Are you experiencing loss of taste or smell?: No Other Medical History Have you received the Flu Vaccine for this season: No Have you received the Pneumonia Vaccine: No <SENG Fry - Last Filed: 12/11/24 16:05> ROS Obtained: Yes All systems reviewed & no additional complaints except as documented Physical Exam <SENG Fry - Last Filed: 12/11/24 16:05> General General appearance: alert and in no apparent distress Head Head exam: atraumatic and normocephalic Eye Eye exam: Present normal appearance, PERRL and EOMI Neck Neck exam: Present full ROM; Absent meningismus Chest Chest inspection: Present normal inspection Respiratory Respiratory exam: Present wheezes and other (Mild diffuse wheezing noted throughout bilateral lung field); Absent respiratory distress, stridor, accessory muscle use or prolonged expiratory phase Cardiovascular Cardiovascular exam: Present normal rhythm and other (Pulses equal and symmetric in bilateral upper and lower extremities) Abdominal Exam Abdominal exam: Absent distention, tenderness, guarding, rebound or organomegaly Extremities Exam Extremities exam: Absent edema Back Exam Back exam: Present paraspinal tenderness; Absent vertebral tenderness Comment: Mild paraspinal tenderness of the lumbar spine and thoracic spine, active C- spine tenderness palpation. Neurological Exam Neurological exam: Present alert Psychiatric Psychiatric exam: Present normal affect Skin Skin exam: Present warm and dry Medical Decision Making <SENG Fry - Last Filed: 12/11/24 16:05> Medical Records Medical records reviewed: Yes I reviewed the patient's medical records. Screening: Per USPSTF and CDC recommendations, given the prevalence of disease in our region, it is our hospital?s policy to screen for HIV and viral Hepatitis for all patients aged 18 and over and those with ongoing risk factors. Mukesh Inquiry Pt receiving controlled substance: No Mukesh was queried for this patient: No Vital Signs: 12/11/24 12:00 12/11/24 12:23 12/11/24 13:15 Temperature 98.1 F Temperature Source Oral Pulse Rate 85 Pulse Rate [Left Radial] 85 Respiratory Rate 17 13 Blood Pressure Blood Pressure [Right Arm] 126/75 Blood Pressure Mean [Right Arm] 92 Blood Pressure Source [Right Arm] Automatic Cuff Blood Pressure Position [Right Arm] Sitting 02 Sat by Pulse Oximetry 97 Oxygen Delivery Method Room Air 12/11/24 14:30 12/11/24 15:00 12/11/24 15:24 Temperature Temperature Source Pulse Rate 77 76 81 Pulse Rate [Left Radial] Respiratory Rate 14 14 12 Blood Pressure 108/74 L Blood Pressure [Right Arm] Blood Pressure Mean [Right Arm] Blood Pressure Source [Right Arm] Blood Pressure Position [Right Arm] 02 Sat by Pulse Oximetry 96 95 96 Oxygen Delivery Method Lab Data Lab results reviewed: Yes I reviewed the patient's lab results. Lab Results 12/11/24 12:58: WBC 7.1, RBC 4.26, Hgb 12.7, Hct 39.3, MCV 92.3, MCH 29.8, MCHC 32.3, RDW 13.6, Plt Count 306, MPV 9.8, Neut % (Auto) 70.7, Lymph % (Auto) 21.9, Greer % (Auto) 5.1, Eos % (Auto) 1.1, Baso % (Auto) 0.6, Neut # (Auto) 5.0, Lymph # (Auto) 1.6, Greer # (Auto) 0.4, Eos # (Auto) 0.1, Baso # (Auto) 0.0, PT 10.5, INR 0.93, D-Dimer 0.50, Sodium 138, Potassium 3.8, Chloride 102, Carbon Dioxide 26, Anion Gap 13.8, BUN 13, Creatinine 1.00, Estimated Creat Clear 56, Estimated GFR 60, Est GFR ( Amer) 72, Glucose 91, Lactate 1.2, Calcium 8.6, Total Bilirubin 0.9, AST 51 H, ALT 27, Alkaline Phosphatase 83, Total Creatine Kinase 51, Troponin I < 0.01, Total Protein 7.6, Albumin 4.2, Globulin 3.4 H, Albumin/Globulin Ratio 1.2, Serum HCG, Qual Negative 12/11/24 13:54: SARS-CoV-2 (PCR) Not detected, Influenza A Untype (PCR) Not detected, Influenza Type B (PCR) Not detected 12/11/24 15:15: Urine Color Yellow, Urine Appearance Clear, Urine pH 6.0, Ur Specific Crawford 1.020, Urine Protein Negative, Urine Glucose (UA) Negative, Urine Ketones Negative, Urine Blood Trace-l, Urine Nitrate Negative, Urine Bilirubin Negative, Urine Urobilinogen 0.2, Ur Leukocyte Esterase Trace 12/11/24 12:58 12/11/24 12:58 Orders (Tests/Meds): ED MEDICATIONS Generic Name Dose Route Start Last Admin Trade Name Freq PRN Reason Stop Dose Admin Sodium Chloride 10 ml 12/11/24 13:58 12/11/24 13:59 Sodium Chloride 0.9% 10ml Syr (Rad Only) IV 01/10/25 13:57 10 ml NEEDED PRN Administration Maintain IV Site Discontinued Medications Generic Name Dose Route Start Last Admin Trade Name Freq PRN Reason Stop Dose Admin Iopamidol 75 ml 12/11/24 13:58 12/11/24 13:59 Iopamidol-370 (76%);100ml Bottle IV 12/11/24 13:59 75 ml ONCE ONE Administration Morphine Sulfate 2 mg 12/11/24 12:30 12/11/24 12:35 Morphine 2mg/Ml Syringe IV 12/11/24 12:31 2 mg ONCE ONE Administration Ondansetron HCl 4 mg 12/11/24 12:24 12/11/24 12:35 Ondansetron 4mg/2ml Vial IV 12/11/24 12:25 4 mg ONCE ONE Administration ORDERS Category Date Time Status CT abdomen pelvis w con Stat Cat Scan 12/11/24 12:[address] lumbar spine wo con Stat Cat Scan 12/11/24 12:[address] thoracic spine wo con Stat Cat Scan 12/11/24 12:23 Completed XR chest portable Stat Exams 12/11/24 12:08 Completed CK [Creatine Kinase] Stat Lab 12/11/24 12:58 Completed Complete Blood Count Auto Diff Stat Lab 12/11/24 12:58 Completed Comprehensive Metabolic Panel Stat Lab 12/11/24 12:58 Completed D-Dimer Stat Lab 12/11/24 12:58 Completed Lactic Acid Stat Lab 12/11/24 12:58 Completed Lipase Stat Lab 12/11/24 12:58 Received Magnesium Stat Lab 12/11/24 12:58 Received NT Pro Brain Natriuretic Pep. Stat Lab 12/11/24 12:58 Received PT INR [Prothrombin Time INR] Stat Lab 12/11/24 12:58 Completed Rapid PCR Covid and Flu A/B Stat Lab 12/11/24 13:54 Completed Serum [HCG Qualitative, Serum] Stat Lab 12/11/24 12:58 Completed Troponin I Q3H Lab 12/11/24 15:30 Received Troponin I Q3H Lab 12/11/24 18:15 Ordered Troponin I Stat Lab 12/11/24 12:58 Completed UA [Urinalysis and Microscopic] Stat Lab 12/11/24 15:15 Results Medical Decision Narrative: 44-year-old female presents emerged part with numerous medical complaints, see HPI for detail past medical history, most importantly being chest pain and back pain as well as some URI type symptomatology, differential diagnose include but not limited to, ACS, cardiac arrhythmia, electrolyte disturbance, gastritis, GERD, pancreatitis, just disease of the spine, herniated nucleus pulposus, pneumothorax, COPD exacerbation, pleurisy, costochondritis, gastroenteritis, acute URI, acute bronchitis, PE. I discussed patient case with attending physician Dr. Wells Obtain basic laboratory studies, CK level, D-dimer lipase magnesium level proBNP PT/INR troponin, urinalysis, lactate, EKG and chest x-ray, Also obtain rapid COVID and flu PCR, CT lumbar spine CT thoracic without contrast, CT abd pelvis with contrast further evaluation as characterization, will give 2 mg IV morphine for pain and 4 mg IV Zofran for nausea, of note aspirin was considered to be given for the the patient's chest pain, however patient has allergy , to aspirin, as documented in the chart, patient also has been having chest pain that is waxed and waned since Wednesday, thus outside of the 24-hour window, I do think at this time cardiac etiology is less likely. CBC grossly unremarkable I reviewed the patient's chest x-ray and corresponding radiologic report mild atelectasis. PT/INR within normal limits, hCG qualitative is negative CMP is notable for minimal elevation of AST at 51, troponin within normal limits, proBNP within normal limits, COVID 19 is negative influenza AMB are negative D-dimer 0.5 Utilizing years criteria for pulmonary embolism, due to the patient's D-dimer level, patient is excluded for PE. I reviewed the patient CT abdomen pelvis with contrast on the corresponding radiologic report, fluid-filled loops of mildly distended small bowel which is nonspecific and may be related to diffuse ileus. The patient CT lumbar spine without contrast on the corresponding radiologic report, bilateral neuroforaminal narrowing at L4-L5, right greater than left and on the left at L5-S1, the patient CT thoracic spine without contrast along the corresponding radiologic report, mild osteophyte formation throughout. Urinalysis grossly unremarkable. Heart score is 2. Discussed the results with the patient the bedside, patient is most likely experiencing musculoskeletal pain, the setting of her diffuse spine pain. Patient will follow-up with pain management, and spine providers as directed, strict ED return precautions given, patient's pain is not cardiac in nature, negative Trope over the last couple of days as well as negative EKG. Patient voiced understanding agreement current treatment plan/discharge plan. <Shira Wells, DO - Last Filed: 12/11/24 14:14> Vital Signs: 12/11/24 12:00 12/11/24 12:23 12/11/24 13:15 Temperature 98.1 F Temperature Source Oral Pulse Rate 85 Pulse Rate [Left Radial] 85 Respiratory Rate 17 13 Blood Pressure Blood Pressure [Right Arm] 126/75 Blood Pressure Mean [Right Arm] 92 Blood Pressure Source [Right Arm] Automatic Cuff Blood Pressure Position [Right Arm] Sitting 02 Sat by Pulse Oximetry 97 Oxygen Delivery Method Room Air 12/11/24 14:30 12/11/24 15:00 12/11/24 15:24 Temperature Temperature Source Pulse Rate 77 76 81 Pulse Rate [Left Radial] Respiratory Rate 14 14 12 Blood Pressure 108/74 L Blood Pressure [Right Arm] Blood Pressure Mean [Right Arm] Blood Pressure Source [Right Arm] Blood Pressure Position [Right Arm] 02 Sat by Pulse Oximetry 96 95 96 Oxygen Delivery Method Lab Data Lab Results 12/11/24 12:58: WBC 7.1, RBC 4.26, Hgb 12.7, Hct 39.3, MCV 92.3, MCH 29.8, MCHC 32.3, RDW 13.6, Plt Count 306, MPV 9.8, Neut % (Auto) 70.7, Lymph % (Auto) 21.9, Greer % (Auto) 5.1, Eos % (Auto) 1.1, Baso % (Auto) 0.6, Neut # (Auto) 5.0, Lymph # (Auto) 1.6, Greer # (Auto) 0.4, Eos # (Auto) 0.1, Baso # (Auto) 0.0, PT 10.5, INR 0.93, D-Dimer 0.50, Sodium 138, Potassium 3.8, Chloride 102, Carbon Dioxide 26, Anion Gap 13.8, BUN 13, Creatinine 1.00, Estimated Creat Clear 56, Estimated GFR 60, Est GFR ( Amer) 72, Glucose 91, Lactate 1.2, Calcium 8.6, Total Bilirubin 0.9, AST 51 H, ALT 27, Alkaline Phosphatase 83, Total Creatine Kinase 51, Troponin I < 0.01, Total Protein 7.6, Albumin 4.2, Globulin 3.4 H, Albumin/Globulin Ratio 1.2, Serum HCG, Qual Negative 12/11/24 13:54: SARS-CoV-2 (PCR) Not detected, Influenza A Untype (PCR) Not detected, Influenza Type B (PCR) Not detected 12/11/24 15:15: Urine Color Yellow, Urine Appearance Clear, Urine pH 6.0, Ur Specific Crawford 1.020, Urine Protein Negative, Urine Glucose (UA) Negative, Urine Ketones Negative, Urine Blood Trace-l, Urine Nitrate Negative, Urine Bilirubin Negative, Urine Urobilinogen 0.2, Ur Leukocyte Esterase Trace Orders (Tests/Meds): ED MEDICATIONS Generic Name Dose Route Start Last Admin Trade Name Guerrero PRN Reason Stop Dose Admin Sodium Chloride 10 ml 12/11/24 13:58 12/11/24 13:59 Sodium Chloride 0.9% 10ml Syr (Rad Only) IV 01/10/25 13:57 10 ml NEEDED PRN Administration Maintain IV Site Discontinued Medications Generic Name Dose Route Start Last Admin Trade Name Freq PRN Reason Stop Dose Admin Iopamidol 75 ml 12/11/24 13:58 12/11/24 13:59 Iopamidol-370 (76%);100ml Bottle IV 12/11/24 13:59 75 ml ONCE ONE Administration Morphine Sulfate 2 mg 12/11/24 12:30 12/11/24 12:35 Morphine 2mg/Ml Syringe IV 12/11/24 12:31 2 mg ONCE ONE Administration Ondansetron HCl 4 mg 12/11/24 12:24 12/11/24 12:35 Ondansetron 4mg/2ml Vial IV 12/11/24 12:25 4 mg ONCE ONE Administration ORDERS Category Date Time Status CT abdomen pelvis w con Stat Cat Scan 12/11/24 12:[address] lumbar spine wo con Stat Cat Scan 12/11/24 12:[address] thoracic spine wo con Stat Cat Scan 12/11/24 12:23 Completed XR chest portable Stat Exams 12/11/24 12:08 Completed CK [Creatine Kinase] Stat Lab 12/11/24 12:58 Completed Complete Blood Count Auto Diff Stat Lab 12/11/24 12:58 Completed Comprehensive Metabolic Panel Stat Lab 12/11/24 12:58 Completed D-Dimer Stat Lab 12/11/24 12:58 Completed Lactic Acid Stat Lab 12/11/24 12:58 Completed Lipase Stat Lab 12/11/24 12:58 Received Magnesium Stat Lab 12/11/24 12:58 Received NT Pro Brain Natriuretic Pep. Stat Lab 12/11/24 12:58 Received PT INR [Prothrombin Time INR] Stat Lab 12/11/24 12:58 Completed Rapid PCR Covid and Flu A/B Stat Lab 12/11/24 13:54 Completed Serum [HCG Qualitative, Serum] Stat Lab 12/11/24 12:58 Completed Troponin I Q3H Lab 12/11/24 15:30 Received Troponin I Q3H Lab 12/11/24 18:15 Ordered Troponin I Stat Lab 12/11/24 12:58 Completed UA [Urinalysis and Microscopic] Stat Lab 12/11/24 15:15 Results ECG Data Tracing #1: I reviewed this ECG and interpreted as documented below: Normal sinus rhythm with a ventricular rate of [address] changes concerning for ischemia. Normal axis and intervals. ECG initial impression date: 12/11/24 ECG initial impression time: 11:54 Critical Care <SENG Fry - Last Filed: 12/11/24 16:05> Critical Care Time Critical Care Time: No
--- NOTE | 2024-12-11 12:23 | CT_ITS ---
FINAL REPORT TECHNIQUE: Axial images were obtained of the thoracic spine by computed tomography. Coronal and sagittal reconstruction process performed. This study was performed with techniques to keep radiation doses as low as reasonably achievable (ALARA). Individualized dose reduction techniques using automated exposure control or adjustment of mA and/or kV according to the patient's size were employed. CLINICAL HISTORY: Midthoracic/lower spine pain COMPARISON: None FINDINGS: Thoracic vertebrae show normal height. There is mild anterior osteophyte formation throughout the mid and lower thoracic vertebra. The vertebrae are normal in height. There is no malalignment. IMPRESSION: Mild osteophyte formation throughout. Reviewed, Interpreted and Dictated by Kendrick Alvarenga MD Transcribed by Patience Vanessa Authenticated and [facility]
--- NOTE | 2024-12-11 12:23 | CT_ITS ---
FINAL REPORT TECHNIQUE: Axial images were obtained of the lumbar spine by computed tomography. Coronal and sagittal reconstruction process performed. This study was performed with techniques to keep radiation doses as low as reasonably achievable (ALARA). Individualized dose reduction techniques using automated exposure control or adjustment of mA and/or kV according to the patient''s size were employed. CLINICAL HISTORY: Mid to lower back pain COMPARISON: None FINDINGS: The vertebrae are normal in height. The disc spaces are preserved. There is endplate hypertrophy eccentric to the right at L4-5 with moderate to high-grade right neural foraminal narrowing and moderate left neural foraminal narrowing. At L5-S1, there is endplate hypertrophy eccentric to the left with moderate to high-grade left neural foraminal narrowing. IMPRESSION: Bilateral neural foraminal narrowing at L4-5 [id number] and on the left at L5-S1. Reviewed, Interpreted and Dictated by Kendrick Alvarenga MD Transcribed by Patience Vanessa Authenticated and . [facility]
--- NOTE | 2024-12-11 12:29 | CT_ITS ---
FINAL REPORT TECHNIQUE: After the administration of oral and intravenous contrast, axial images were obtained through the abdomen and pelvis by computed tomography. The study was performed with techniques to keep radiation dose as low as reasonably achievable, (ALARA). Individual dose reduction techniques using automated exposure control or adjustment of mA and/or kV according to the patient's size were employed. CLINICAL HISTORY: Abdominal pain, nausea and vomiting COMPARISON: 06/05/2024 FINDINGS: Abdomen: The lung bases are clear. The liver parenchyma is homogeneous. The gallbladder is absent. The spleen, pancreas, adrenals and kidneys appear unremarkable. The aorta is normal in caliber. There are fluid-filled loops of large and small bowel. Small bowel loops measure up to 3.4 cm in diameter which is enlarged. There is no definite obstructive pattern or transition zone. There is no free fluid or adenopathy. Pelvis: The appendix is not identified. The uterus is present and lies eccentric to the right. The urinary bladder is unremarkable. There is soft tissue inflammation within the pannus possibly due to an injection site. This appears similar to the previous exam. There is no free fluid or adenopathy. IMPRESSION: Fluid-filled loops of mildly distended small bowel which is nonspecific and may be related to diffuse ileus. Reviewed, Interpreted and Dictated by Kendrick Alvarenga MD Transcribed by Rossy Chen Authenticated and [facility]
[2024-12-11] MEDS: MORPHINE 2MG/ML SYRINGE 2 MG IV (12:35)
[2024-12-11] MEDS: ONDANSETRON 4MG/2ML VIAL 4 MG IV (12:35)
--- NOTE | 2024-12-11 12:36 | PC.NURSE ---
Called lab to come collect labs on patient. 3 techs have tried and all 3 was unsuccessful.
[2024-12-11 13:10] LABS: Basophils % 0.6 % (0.1-2.0); Eosinophils # 0.1 K/mm3 (0.0-0.4); Eosinophils % 1.1 % (0.1-12.0); Hematocrit 39.3 % (37.0-47.0); Hemoglobin 12.7 g/dL (12.2-16.2); Lymphocytes # 1.6 K/mm3 (0.7-4.5); Lymphocytes % 21.9 % (10-50); Mean Corpuscular HGB Conc 32.3 g/dL (31.8-35.4); Mean Corpuscular Hemoglobin 29.8 pg (27.0-31.2); Mean Corpuscular Volume 92.3 fl (81-99); Mean Platelet Volume 9.8 fl (7.4-10.4); Monocytes # 0.4 K/mm3 (0.1-1.0); Monocytes % 5.1 % (1.7-9.3); Neutrophils % 70.7 % (37.0-80.0); Platelet Count 306 K/mm3 (142-424); Red Blood Count 4.26 M/mm3 (4.20-5.40); Red Cell Distribution Width 13.6 % (11.5-17.5); White Blood Count 7.1 K/mm3 (4.8-10.8)
[2024-12-11 13:35] LABS: Alanine Aminotransferase 27 U/L (12-78); Albumin Level 4.2 g/dl (3.5-5.0); Albumin/Globulin Ratio 1.2 (1.1-1.8); Alkaline Phosphatase 83 U/L (38-126); Anion Gap 13.8 mEq/L (5-15); Aspartate Amino Transferase 51 U/L (14-36); Bilirubin,Total 0.9 mg/dl (0.2-1.3); Blood Urea Nitrogen 13 mg/dl (7-17); Calcium 8.6 mg/dl (8.4-10.2); Carbon Dioxide 26 mmol/L (22.0-30.0); Chloride 102 mmol/L (98-107); Creatine Kinase 51 U/L (30-135); Creatinine Clearance Estimated 56 mL/min (50-200); Estimated Glomerular Filt Rate 60 ml/min (>60); GFR (African American) 72 ML/MIN (>60); Globulin 3.4 g/dL (1.3-3.2); Glucose 91 mg/dl (74-100); HCG Qualitative, Serum Negative (Negative); Potassium 3.8 mmoL/L (3.5-5.1); Sodium 138 mmol/L (136-145); Total Protein,Serum 7.6 g/dl (6.3-8.2)
[2024-12-11 13:36] LABS: Lactic Acid 1.2 mmol/L (0.7-2.1)
[2024-12-11 13:42] LABS: INR 0.93 (0.9-1.1); Prothrombin Time 10.5 seconds (10.1-12.5)
--- NOTE | 2024-12-11 13:50 | PC.NURSE ---
[facility] notified of Neg Preg test and appropriate labs for CT scan.
[2024-12-11 13:52] LABS: Troponin I < 0.01 ng/ml (0.00-0.034)
[2024-12-11 13:59] LABS: Coronavirus 19, PCR Not Detected (NotDetected); Influenza A, PCR Not Detected (NotDetected); Influenza B, PCR Not Detected (NotDetected)
[2024-12-11] MEDS: IOPAMIDOL-370 (76%);100ML BOTTLE 75 ML IV (13:59)
[2024-12-11] MEDS: SODIUM CHLORIDE 0.9% 10ML SYR (RAD ONLY) 10 ML IV (13:59)
[2024-12-11 15:23] LABS: Microscopic, Urine URINE MICROSCOPIC (MICROSCOPIC)
[2024-12-11 15:31] LABS: Appearance,Urine CLEAR (Clear); Bilirubin,Urine Negative (Negative); Blood, Urine TRACE-L (Negative); Color,Urine YELLOW (Yellow); Glucose,Urine (UA) Negative (Negative); Ketones,Urine Negative (Negative); Leukocyte Esterase,Urine TRACE (Negative); Nitrate,Urine Negative (Negative); Protein,Urine Negative (Negative); Urobilinogen,Urine 0.2 EU/dl (0.2)
[2024-12-11 16:08] LABS: Lipase 56 U/L (23-300); Magnesium 1.8 mg/dl (1.6-2.3)
[2024-12-11 16:36] LABS: NT Pro Brain Natriuretic Pep. < 20.0 pg/mL (0-125)
[2024-12-11 17:01] LABS: Troponin I < 0.01 ng/ml (0.00-0.034)
[2024-12-11 18:05] LABS: RBC,Urine Occasional #/hpf (0-3)
[2024-12-11 18:06] LABS: Bacteria,Urine 1+ /lpf
== END 2024-12-11 16:22 | disposition home or self-care (01) ==
PROVIDERS: Physician Assistant; Emergency Provider Emergency Medicine; PCP Nurse Practitioner
DX: M48.02 Spinal stenosis, cervical region (principal); M51.369 Other intervertebral disc degeneration, lumbar region without mention of lumbar back pain or lower extremity pain; M99.63 Osseous and subluxation stenosis of intervertebral foramina of lumbar region; R07.9 Chest pain, unspecified; R11.2 Nausea with vomiting, unspecified; R10.9 Unspecified abdominal pain; M54.50 Low back pain, unspecified; R05.9 Cough, unspecified; R09.81 Nasal congestion; R20.2 Paresthesia of skin
CPT/HCPCS: 71045; 72128; 72131; 74177; 80053; 81001; 82550; 83605; 83690; 83735; 83880; 84484; 84703; 85025; 85378; 85610; 87636; 93005; 96374; 96375; 99285; J2270; J2405; Q9967

== ENCOUNTER 2025-01-16 12:36 | Outpatient (CLI) | payer OTHER, SELFPAY ==
[2025-01-16 14:27] LABS: Thyroid Stimulating Hormone 0.49 uIU/mL (0.465-4.68)
[2025-01-16 14:46] LABS: Vitamin B12 429 pg/mL (239-931)
[2025-01-17 12:11] LABS: Ceruloplasmin 29.2 mg/dL (19.0-39.0)
== END 2025-01-16 23:59 | disposition home or self-care (01) ==
LOC: LAB 12:36
PROVIDERS: PCP Nurse Practitioner; Visit Provider Specialist
DX: R25.1 Tremor, unspecified (principal); R25.9 Unspecified abnormal involuntary movements; Z68.42 Body mass index [BMI] 45.0-49.9, adult; E66.9 Obesity, unspecified
CPT/HCPCS: 36415; 82390; 82607; 84443

== ENCOUNTER 2025-01-20 18:56 | Emergency (ER) | payer OTHER, SELFPAY ==
[2025-01-20 19:39] VITALS: BP 145/73; PULSE 86; RESP 18; TEMP 36.6; O2SAT 97; BMI 48.2
--- NOTE | 2025-01-20 19:52 | ECG_ITS ---
APPROVED REPORT Exam: Resting ECG HR:72 bpm ECG Measurements Heart Rate 72 AXES KS 161 P 60 QRSd 89 QRS 59 QT 359 T 42 QTc 382 Conclusion SINUS RHYTHM LOW QRS VOLTAGE IN PRECORDIAL LEADS [QRS DEFLECTION < 1.0 mV IN CHEST LEADS] No STEMI Electronically signed by : BERNIE DE LEON, 01/21/2025 06:17:55
[2025-01-20 20:30] VITALS: BP 127/82; PULSE 77; O2SAT 94
[2025-01-20 20:36] VITALS: BP 127/82; PULSE 72; RESP 18; O2SAT 97
--- NOTE | 2025-01-20 20:49 | ED_ITS ---
Discharge Plan Disposition Patient Disposition: Home, Self-Care Prescriptions Prescriptions: No Action Ozempic 0.25 mg or 0.5 mg (2 mg/3 mL) pen injector SQ Patient Comments: INJECT 0.25 MG SUBCUTANEOUSLY ONCE WEEKLY Ubrelvy 100 mg tablet 100 mg PO ONCE PRN Patient Comments: TAKE 1 TABLET BY MOUTH AT ONSET OF MIGRAINE. MAY REPEAT ONCE AFTER 2 HOURS IF NEEDED, MAX OF 2 IN 24 HOURS Qulipta 60 mg tablet 60 mg PO DAILY Patient Comments: TAKE 1 TABLET BY MOUTH ONCE A DAY metformin 500 mg tablet 500 mg PO DAILY Patient Comments: TAKE 1 TABLET BY MOUTH ONCE A DAY WITH FOOD atorvastatin 20 mg tablet 20 mg PO DAILY Patient Comments: TAKE 1 TABLET BY MOUTH ONCE A DAY albuterol sulfate 90 mcg/actuation HFA aerosol inhaler 2 inh inhalation Q4H PRN Patient Comments: INHALE 2 PUFFS BY MOUTH EVERY 4 HOURS amitriptyline 25 mg tablet 25 mg PO HS nystatin 100,000 unit/mL suspension 1,000,000 unit PO TID Qty: 30 1RF Rx Instructions: administer 1/2 of dose in each side of the mouth fluconazole [Diflucan] 100 mg tablet 100 mg PO DAILY Qty: 2 0RF famotidine 20 mg tablet See Rx Instructions .ROUTE .COMPLEX Qty: 180 3RF Dose Instruction: TAKE 2 TABLETS BY MOUTH EVERY DAY Rx Instructions: TAKE 2 TABLETS BY MOUTH EVERY DAY losartan 100 mg tablet 100 mg PO DAILY Qty: 90 3RF spironolactone 100 mg tablet 100 mg PO DAILY Qty: 90 3RF montelukast 10 mg tablet See Rx Instructions .ROUTE .COMPLEX Qty: 90 3RF Dose Instruction: TAKE ONE TABLET BY MOUTH EVERY NIGHT AT BEDTIME FOR ALLEGIES Rx Instructions: TAKE ONE TABLET BY MOUTH EVERY NIGHT AT BEDTIME FOR ALLEGIES levothyroxine 100 mcg tablet 100 mcg PO DAILY Qty: 90 0RF carvedilol 6.25 mg tablet 6.25 mg PO BID Qty: 180 0RF lamotrigine [Lamictal] 25 mg tablet 100 mg PO DAILY Qty: 98 0RF Rx Instructions: Take 3 tablets daily for 2 weeks, then increase to 4 tablets daily for 2 weeks. If you develop a rash, stop the medication and call the clinic. quetiapine [Seroquel] 25 mg tablet 12.5 - 25 mg PO DAILY Qty: 30 0RF mirtazapine 15 mg tablet See Rx Instructions .ROUTE .COMPLEX Qty: 30 2RF Dose Instruction: TAKE 1/2 TO 1 TABLET BY MOUTH ONCE A DAY Rx Instructions: TAKE 1/2 TO 1 TABLET BY MOUTH ONCE A DAY desvenlafaxine succinate 100 mg tablet extended release 24 hr See Rx Instructions .ROUTE .COMPLEX Qty: 30 2RF Dose Instruction: TAKE ONE TABLET BY MOUTH ONCE A DAY Rx Instructions: TAKE ONE TABLET BY MOUTH ONCE A DAY topiramate 50 mg tablet 50 mg PO HS MDD 100 mg Qty: 60 3RF Rx Instructions: 1 tab at night x 1 week then 2 tabs at night cetirizine 10 MG capsule 10 mg PO DAILY 30 Days Qty: 30 2RF lidocaine [Lidoderm] 5 % adhesive patch,medicated 1 patch topical DAILY Qty: 15 0RF Rx Instructions: leave on most painful area for up to 12 hrs naproxen 500 mg tablet 500 mg PO BID PRN (Reason: pain) Qty: 20 0RF methocarbamol 750 mg tablet 750 mg PO Q8H PRN (Reason: pain) Qty: 20 0RF lovastatin 20 MG tablet 20 mg PO HS Rx Instructions: TAKE ONE TABLET BY MOUTH EVERY NIGHT AT BEDTIME FOR CHOLESTEROL ondansetron 4 mg tablet,disintegrating 4 mg PO Q8H PRN (Reason: nausea and vomiting) 4 Days Qty: 12 0RF Referrals Follow up/Referrals: Provider,Referral, [Primary Care Provider] - See instructions Activity Restrictions/Add. Instructions Additional Instructions/Restrictions: At this time it was felt you are safe to be discharged home. Continue taking all home medications as prescribed. You can also try other things like heating pads, cool packs, as you see fit. Do not put any hot or cold items directly on the skin. Please continue to follow-up with your pain doctor as discussed. Please visit your primary care doctor in the next 24 hours for reevaluation. If you develop new or worsening symptoms please do not hesitate to return the emergency department. Clinical Impressions Clinical Impression: Arm pain, left, Fibromyalgia Print Language Print Language: Bengali Discharge ED Provider: Wilmer Alvarado General Adult HPI <Wilmer Alvarado MD - Last Filed: 01/21/25 00:15> General Chief complaint: PAIN Stated complaint: left side arm,shoulder,and back pain Time Seen by Provider: 01/20/25 19:59 Mode of Arrival: Ambulatory Source of Information: Patient Description of Symptoms (Recalled from ER Triage Doc. by RN): Pt presents for evaluation of left shoulder pain that radiates down her arm and to her back. History of Present Illness HPI narrative: Patient is a 44-year-old female with past medical history of fibromyalgia, chronic back pain pending intrathecal pain pump who presents emergency department for evaluation of left upper extremity pain. She has chronic debilitating back pain at baseline as well as fibromyalgia however over the last 1 to 2 weeks she has had worsening pain that starts in her left shoulder and involves the entirety of her left arm that is worse with movement. No discrete trauma. It sometimes radiates up into her neck and sometimes radiates all the way down her arm. No asymmetric swelling. No anticoagulants. No other acute complaints at this time. Related Data Home Medications ?Medication ?Instructions ?Recorded ?Confirmed lovastatin 20 mg tablet 20 mg PO HS Cholesterol 07/12/19 01/16/25 albuterol sulfate 90 mcg/actuation 2 inh inhalation Q4H PRN 01/16/25 01/16/25 aerosol inhaler amitriptyline 25 mg tablet 25 mg PO HS 01/16/25 01/16/25 atogepant 60 mg tablet (Qulipta) 60 mg PO DAILY 01/16/25 01/16/25 atorvastatin 20 mg tablet 20 mg PO DAILY 01/16/25 01/16/25 metformin 500 mg tablet 500 mg PO DAILY 01/16/25 01/16/25 semaglutide 0.25 mg or 0.5 mg (2 mg SQ 01/16/25 01/16/25 mg/3 mL) subcutaneous pen injector (Ozempic) ubrogepant 100 mg tablet (Ubrelvy) 100 mg PO ONCE PRN 01/16/25 01/16/25 Previous Rx's ?Medication ?Instructions ?Recorded cetirizine 10 mg capsule 10 mg PO DAILY 30 days #30 caps 11/16/19 famotidine 20 mg tablet See Rx Instructions .Route 09/09/20 .COMPLEX #180 tabs losartan 100 mg tablet 100 mg PO DAILY #90 tabs 09/19/20 spironolactone 100 mg tablet 100 mg PO DAILY BLOOD PRESSURE #90 12/04/20 tabs montelukast 10 mg tablet See Rx Instructions .Route 12/05/20 .COMPLEX #90 tabs carvedilol 6.25 mg tablet 6.25 mg PO BID #180 tabs 03/18/21 levothyroxine 100 mcg tablet 100 mcg PO DAILY #90 tabs 03/18/21 lidocaine 5 % topical patch 1 patch topical DAILY #15 ea 10/01/23 (Lidoderm) methocarbamol 750 mg tablet 750 mg PO Q8H PRN pain #20 tabs 10/01/23 naproxen 500 mg tablet 500 mg PO BID PRN pain #20 tabs 10/01/23 ondansetron 4 mg disintegrating 4 mg PO Q8H PRN nausea and 08/30/24 tablet vomiting 4 days #12 tabs fluconazole 100 mg tablet 100 mg PO DAILY #2 tabs 11/15/24 (Diflucan) nystatin 100,000 unit/mL oral 1,000,000 unit (10 mL) PO TID #30 11/15/24 suspension mL lamotrigine 25 mg tablet (Lamictal) 100 mg (4 x 25 mg) PO DAILY #98 12/01/24 tabs quetiapine 25 mg tablet (Seroquel) 12.5 - 25 mg (0.5 - 1 x 25 mg) PO 12/01/24 DAILY #30 tabs desvenlafaxine succinate 100 mg See Rx Instructions .Route 01/17/25 tablet,extended release 24 hr .COMPLEX #30 tabs mirtazapine 15 mg tablet See Rx Instructions .Route 01/17/25 .COMPLEX #30 tabs topiramate 50 mg tablet 50 mg PO HS Headache, tremor #60 01/18/25 tabs Allergies Allergy/AdvReac Type Severity Reaction Status Date / Time mold (MOLD) Allergy Severe Anaphylaxis Verified 01/16/25 11:12 Fish Containing Products Allergy Intermediate I-HIVES Verified 01/16/25 11:12 (From SEAFOOD (F/D)) banana Allergy Mild Nausea Verified 01/16/25 11:12 cat dander Allergy Mild Sneezing Verified 01/16/25 11:12 aspirin (ASPIRIN) AdvReac Mild NA-NAUSEA/V Verified 01/16/25 11:12 OMITING From SEAFOOD (F/D) Allergy Intermediate I-HIVES Uncoded 11/15/24 13:12 MUSHROOM Allergy Intermediate I-HIVES Uncoded 11/15/24 13:12 PFSH <Wilmer Alvarado MD - Last Filed: 01/21/25 00:15> [facility] Disclaimer: The information contained in this section may have been updated after the patient was seen, as this information can be updated by other users. Medical History (Updated 01/20/25 @ 23:32 by Wilmer Alvarado MD) History of thyroid disease History of migraine Abnormal movement Snoring Sleep-disordered breathing MICHELLE (obstructive sleep apnea) Thyroid disorder Lupus IBS (irritable bowel syndrome) HTN (hypertension) GERD (gastroesophageal reflux disease) Diabetes History of frequent headaches Bipolar 1 disorder Asthma Arthritis Anxiety Seasonal allergies Insomnia Major depressive disorder Surgical History (Updated 01/16/25 @ 11:32 by Luisana Hester) History of knee replacement Hx of cholecystectomy History of bladder surgery Family History (Updated 01/16/25 @ 12:32 by Luisana Hester) Other Alcoholism Anemia Arthritis Asthma Breast cancer Cancer Depression Diabetes FHx: mental illness Heart attack Heart disease Hyperlipidemia Hypertension Lung cancer Migraines Osteoporosis Stroke Thyroid disorder Social History (Updated 01/16/25 @ 11:34 by Luisana Hester) Smoking Status: Never smoker smoking status stop date: 2002 second hand exposure: Yes (occasionally) alcohol intake: never substance use type: denies use current occupational status: unemployed Travel in the last 8 weeks?: None household members: spouse and children housing: house marital status: number of children: 1 caffeine: Yes physical activity: none Have you lived/traveled outside [place] in past 30 days?: No Contact w/someone who lives/traveled outside [place] past 30 days?: No Exposure to someone with infectious disease in past 14 days?: No Do you have a fever (greater than 100.4 F or 38 C)?: No Have you tested positive for COVID-19?: No Exposed to someone with COVID-19 in past 14 days?: No Do you have a sore throat?: No Do you have a cough?: No Do you have any weakness?: No Do you have any diarrhea?: No Are you experiencing any unusual bleeding?: No Do you have any muscle aches/pain?: No Do you have any abdominal pain?: No Are you experiencing loss of taste or smell?: No Other Medical History Have you received the Flu Vaccine for this season: No Have you received the Pneumonia Vaccine: No <Wilmer Alvarado MD - Last Filed: 01/21/25 00:15> ROS Obtained: Yes Systems reviewed as appropriate & no additional complaints except as documented Physical Exam <Wilmer Alvarado MD - Last Filed: 01/21/25 00:15> General General appearance: alert and in no apparent distress Head Head exam: atraumatic and normocephalic Eye Eye exam: Present PERRL and EOMI ENT ENT exam: Present mucous membranes moist Neck Neck exam: Present normal inspection and tenderness (Midline and left paraspinal) Chest Chest inspection: Present normal inspection and symmetric chest wall rise Respiratory Respiratory exam: Absent respiratory distress Cardiovascular Cardiovascular exam: Present regular rate and normal rhythm Extremities Exam Extremities exam: Present normal inspection and other (Diffuse tenderness to light touch throughout the left upper extremity and left shoulder and left neck. No asymmetric swelling of the left extremity compared to the right, palpable radial pulse on the left. Able to range left upper extremity at the shoulder and elbow with pain.) Neurological Exam Neurological exam: Present alert and oriented X3 Psychiatric Psychiatric exam: Present normal affect Skin Skin exam: Present warm and dry Medical Decision Making <Wilmer Alvarado MD - Last Filed: 01/21/25 00:15> Medical Records Screening: Per USPSTF and CDC recommendations, given the prevalence of disease in our region, it is our hospital?s policy to screen for HIV and viral Hepatitis for all patients aged 18 and over and those with ongoing risk factors. Mukesh Inquiry Pt receiving controlled substance: No Vital Signs: 01/20/25 19:39 01/20/25 20:30 01/20/25 20:36 Temperature 98 F Temperature Source Temporal Artery Scan Pulse Rate 77 72 Pulse Rate [Right] 86 Respiratory Rate 18 18 Blood Pressure 127/82 127/82 Blood Pressure [Right Arm] 145/73 H Blood Pressure Mean [Right Arm] 97 Blood Pressure Source Automatic Cuff Blood Pressure Source [Right Arm] Automatic Cuff Blood Pressure Position Sitting Blood Pressure Position [Right Arm] Sitting 02 Sat by Pulse Oximetry 97 94 L 97 Oxygen Delivery Method Room Air Room Air 01/20/25 20:59 Temperature Temperature Source Pulse Rate 73 Pulse Rate [Right] Respiratory Rate Blood Pressure 134/88 Blood Pressure [Right Arm] Blood Pressure Mean [Right Arm] Blood Pressure Source Blood Pressure Source [Right Arm] Blood Pressure Position Blood Pressure Position [Right Arm] 02 Sat by Pulse Oximetry 95 Oxygen Delivery Method Lab Data Lab Results 01/20/25 21:22: WBC 6.4, RBC 4.46, Hgb 13.2, Hct 39.9, MCV 89.5, MCH 29.6, MCHC 33.1, RDW 13.8, Plt Count 286, MPV 10.4, Neut % (Auto) 75.6, Lymph % (Auto) 19.0, [place] % (Auto) 4.4, Eos % (Auto) 0.2, Baso % (Auto) 0.3, Neut # (Auto) 4.9, Lymph # (Auto) 1.2, [place] # (Auto) 0.3, Eos # (Auto) 0.0, Baso # (Auto) 0.0, Sodium 136, Potassium 4.5, Chloride 105, Carbon Dioxide 25, Anion Gap 10.5, BUN 14, Creatinine 1.00, Estimated Creat Clear 56, Estimated GFR 60, Est GFR ( Amer) 72, Glucose 136 H, Calcium 9.7, Total Creatine Kinase 45, Serum HCG, Qual Negative 01/20/25 21:22 01/20/25 21:22 Orders (Tests/Meds): ED MEDICATIONS Discontinued Medications Generic Name Dose Route Start Last Admin Trade Name Freq PRN Reason Stop Dose Admin Ketorolac Tromethamine 30 mg 01/20/25 20:49 01/20/25 21:15 Ketorolac 30mg/Ml Vial IV 01/20/25 20:50 30 mg ONCE ONE Administration Oxycodone HCl 5 mg 01/20/25 23:59 Oxycodone 5mg Immediate Release Tablet PO 01/21/25 00:00 ONCE ONE ORDERS Category Date Time Status CT cervical spine wo con Stat Cat Scan 01/20/25 21:32 Completed POCUS Point of Care (ER Only) Stat Exams 01/20/25 20:49 Completed Shoulder XR left minimum 2 views [XR shoulder LT min 2V Exams 01/20/25 21:32 Completed ] Stat BMP [Basic Metabolic Panel] Stat Lab 01/20/25 21:22 Completed CBC w/Auto Diff [Complete Blood Count Auto Diff] Stat Lab 01/20/25 21:22 Completed CK [Creatine Kinase] Stat Lab 01/20/25 21:22 Completed Serum [HCG Qualitative, Serum] Stat Lab 01/20/25 21:22 Completed ECG Data Tracing #1: Independently interpreted by me rate is 72, rhythm is regular, axis is normal, no ST elevation in anatomical contiguous leads, QTc 382. Medical Decision Narrative: In summary patient is a 44-year-old female with past medical history described above presents emergency department for evaluation of left upper extremity pain in the setting of fibromyalgia and chronic back pain. Patient is hemodynamically stable nontoxic-appearing upon arrival, afebrile. Differential diagnosis includes fibromyalgia given that she is significantly tender to light touch in her entire upper extremity, radicular pain from her cervical spine, among others. DVT is possible but felt to be less likely and be ruled out with [id number] ultrasound given there is no asymmetric swelling. No concern for arterial pathology given that she has bounding radial pulse. 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 Workup be conducted with [id number] ultrasound, hematologic labs fibromyositis, CT cervical spine. Initial interventions include multimodal pain control, trigger point injections. Initial workup reviewed by me, hematologic labs are nonactionable, no significant leukocytosis, no DESIRE or critical electrolyte abnormality, no elevated creatinine kinase to suggest myositis. hCG negative. Noncontrasted CT scan of the cervical spine informally visualized by me no acute 3 column fracture. Shoulder x-ray informally visualized by me no acute significantly displaced fracture. Formal reads and repeat evaluation pending at time of transfer of care to the oncoming physician, Dr. Dominguez. Procedure: Procedure performed was [id number] ultrasound of the left upper extremity. Procedure performed by Wilmer Alvarado. Using sequential compression ultrasound from the axilla to the elbow deep veins of the left upper extremity were compressible, no concern for DVT. Images were not saved to a permanent archive patient tolerated the procedure well there were no immediate complications. Procedure: Procedure performed was trigger point injections. Procedure performed by Wilmer Alvarado. After cleaning the 3 mL painful areas of the left shoulder and left humerus were identified they were cleaned with alcohol and lidocaine was infected into each area, 3 cc each. Patient tolerated the procedure well, there were no immediate complications. <Willian Dominguez MD - Last Filed: 01/21/25 00:21> Vital Signs: 01/20/25 19:39 01/20/25 20:30 01/20/25 20:36 Temperature 98 F Temperature Source Temporal Artery Scan Pulse Rate 77 72 Pulse Rate [Right] 86 Respiratory Rate 18 18 Blood Pressure 127/82 127/82 Blood Pressure [Right Arm] 145/73 H Blood Pressure Mean [Right Arm] 97 Blood Pressure Source Automatic Cuff Blood Pressure Source [Right Arm] Automatic Cuff Blood Pressure Position Sitting Blood Pressure Position [Right Arm] Sitting 02 Sat by Pulse Oximetry 97 94 L 97 Oxygen Delivery Method Room Air Room Air 01/20/25 20:59 Temperature Temperature Source Pulse Rate 73 Pulse Rate [Right] Respiratory Rate Blood Pressure 134/88 Blood Pressure [Right Arm] Blood Pressure Mean [Right Arm] Blood Pressure Source Blood Pressure Source [Right Arm] Blood Pressure Position Blood Pressure Position [Right Arm] 02 Sat by Pulse Oximetry 95 Oxygen Delivery Method Lab Data Lab Results 01/20/25 21:22: WBC 6.4, RBC 4.46, Hgb 13.2, Hct 39.9, MCV 89.5, MCH 29.6, MCHC 33.1, RDW 13.8, Plt Count 286, MPV 10.4, Neut % (Auto) 75.6, Lymph % (Auto) 19.0, [place] % (Auto) 4.4, Eos % (Auto) 0.2, Baso % (Auto) 0.3, Neut # (Auto) 4.9, Lymph # (Auto) 1.2, [place] # (Auto) 0.3, Eos # (Auto) 0.0, Baso # (Auto) 0.0, Sodium 136, Potassium 4.5, Chloride 105, Carbon Dioxide 25, Anion Gap 10.5, BUN 14, Creatinine 1.00, Estimated Creat Clear 56, Estimated GFR 60, Est GFR ( Amer) 72, Glucose 136 H, Calcium 9.7, Total Creatine Kinase 45, Serum HCG, Qual Negative Orders (Tests/Meds): ED MEDICATIONS Discontinued Medications Generic Name Dose Route Start Last Admin Trade Name Freq PRN Reason Stop Dose Admin Ketorolac Tromethamine 30 mg 01/20/25 20:49 01/20/25 21:15 Ketorolac 30mg/Ml Vial IV 01/20/25 20:50 30 mg ONCE ONE Administration Oxycodone HCl 5 mg 01/20/25 23:59 Oxycodone 5mg Immediate Release Tablet PO 01/21/25 00:00 ONCE ONE ORDERS Category Date Time Status CT cervical spine wo con Stat Cat Scan 01/20/25 21:32 Completed POCUS Point of Care (ER Only) Stat Exams 01/20/25 20:49 Completed Shoulder XR left minimum 2 views [XR shoulder LT min 2V Exams 01/20/25 21:32 Completed ] Stat BMP [Basic Metabolic Panel] Stat Lab 01/20/25 21:22 Completed CBC w/Auto Diff [Complete Blood Count Auto Diff] Stat Lab 01/20/25 21:22 Completed CK [Creatine Kinase] Stat Lab 01/20/25 21:22 Completed Serum [HCG Qualitative, Serum] Stat Lab 01/20/25 21:22 Completed Medical Decision Narrative: In summary patient is a 44-year-old female with past medical history described above presents emergency department for evaluation of left upper extremity pain in the setting of fibromyalgia and chronic back pain. Patient is hemodynamically stable nontoxic-appearing upon arrival, afebrile. Differential diagnosis includes fibromyalgia given that she is significantly tender to light touch in her entire upper extremity, radicular pain from her cervical spine, among others. DVT is possible but felt to be less likely and be ruled out with [id number] ultrasound given there is no asymmetric swelling. No concern for arterial pathology given that she has bounding radial pulse. 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 Workup be conducted with [id number] ultrasound, hematologic labs fibromyositis, CT cervical spine. Initial interventions include multimodal pain control, trigger point injections. Initial workup reviewed by me, hematologic labs are nonactionable, no significant leukocytosis, no DESIRE or critical electrolyte abnormality, no elevated creatinine kinase to suggest myositis. hCG negative. Noncontrasted CT scan of the cervical spine informally visualized by me no acute 3 column fracture. Shoulder x-ray informally visualized by me no acute significantly displaced fracture. Formal reads and repeat evaluation pending at time of transfer of care to the oncoming physician, Dr. Dominguez. Procedure: Procedure performed was [id number] ultrasound of the left upper extremity. Procedure performed by Wilmer Alvarado. Using sequential compression ultrasound from the axilla to the elbow deep veins of the left upper extremity were compressible, no concern for DVT. Images were not saved to a permanent archive patient tolerated the procedure well there were no immediate complications. Procedure: Procedure performed was trigger point injections. Procedure performed by Wilmer Alvarado. After cleaning the 3 mL painful areas of the left shoulder and left humerus were identified they were cleaned with alcohol and lidocaine was infected into each area, 3 cc each. Patient tolerated the procedure well, there were no immediate complications. Dominguez: Upon my assumption of care patient is stable. She has had multiple interventions and extensive workup from the primary provider Dr. Alvarado. I agree with his assessment and plan. At the time of my assumption of care final radiology reads of the CT imaging are pending. I reviewed labs and agree there is no acute actionable abnormality. I personally interpreted CT cervical spine and do not appreciate acute osseous injury. See radiology read for final interpretation which is in agreement. Shoulder x-ray also does not have acute osseous injury, see radiology read for full interpretation. On reassessment patient is still complaining of pain. She has had thorough, extensive workup that has evaluated for acute, life-threatening pathology. At this time I have strong suspicion for acute fibromyalgia flare causing her symptoms. I discussed this with the patient. I provided a single dose of oral oxycodone in the ER for pain management overnight but explained to her that I would not be providing prescription for additional medications at this time. I instructed her to make an appointment immediately with her pain team and primary care doctor. Patient was given instructions on symptomatic management, follow up instructions, and return precautions for the emergency department. Patient indicated understanding and was discharged in stable condition. Critical Care <Wilmer Alvarado MD - Last Filed: 01/21/25 00:15> Critical Care Time Critical Care Time: No
[2025-01-20 20:59] VITALS: BP 134/88; PULSE 73; O2SAT 95
[2025-01-20] MEDS: KETOROLAC 30MG/ML VIAL 30 MG IV (21:15)
--- NOTE | 2025-01-20 21:25 | PC.NURSE ---
Meds given, labs sent
[2025-01-20 21:30] LABS: Basophils % 0.3 % (0.1-2.0); Eosinophils % 0.2 % (0.1-12.0); Hematocrit 39.9 % (37.0-47.0); Hemoglobin 13.2 g/dL (12.2-16.2); Immature Granulocytes # 0.03 10^3uL; Immature Granulocytes % 0.5 %; Lymphocytes # 1.2 K/mm3 (0.7-4.5); Mean Corpuscular HGB Conc 33.1 g/dL (31.8-35.4); Mean Corpuscular Hemoglobin 29.6 pg (27.0-31.2); Mean Corpuscular Volume 89.5 fl (81-99); Mean Platelet Volume 10.4 fl (7.4-10.4); Monocytes # 0.3 K/mm3 (0.1-1.0); Monocytes % 4.4 % (1.7-9.3); Neutrophils # 4.9 K/mm3 (1.8-7.8); Neutrophils % 75.6 % (37.0-80.0); Nucleated Red Blood Cells # 0 10^3/uL; Nucleated Red Blood Cells % 0 %; Platelet Count 286 K/mm3 (142-424); Red Blood Count 4.46 M/mm3 (4.20-5.40); Red Cell Distribution Width 13.8 % (11.5-17.5); Red Cell Distribution Width-SD 44.9 fL; White Blood Count 6.4 K/mm3 (4.8-10.8)
--- NOTE | 2025-01-20 21:32 | CT_ITS ---
PROCEDURE INFORMATION: Exam: CT Cervical Spine Without Contrast Exam date and time: 01/20/2025 10:41 PM Age: 44 years old Clinical indication: Radicular pain (radiculopathy); Cervical region; Additional info: Cervical pain rad down lue TECHNIQUE: Imaging protocol: Computed tomography of the cervical spine without contrast. Radiation optimization: All CT scans at this facility use at least one of these dose optimization techniques: automated exposure control; mA and/or kV adjustment per patient size (includes targeted exams where dose is matched to clinical indication); or iterative reconstruction. COMPARISON: MRI COMPLETE SPINAL SCREENING W WO CONTRAST 11/26/2024 5:48 PM FINDINGS: Bones: No acute fracture. Normal alignment. No significant disc bulge or herniation. No severe spinal canal stenosis. No significant neural foraminal narrowing. Lungs: Lung apices are normal. Soft tissues: Unremarkable. IMPRESSION: No acute findings.
--- NOTE | 2025-01-20 21:32 | XR_ITS ---
PROCEDURE INFORMATION: Exam: XR Left Shoulder Exam date and time: 01/20/2025 10:50 PM Age: 44 years old Clinical indication: Pain; Shoulder; Left TECHNIQUE: Imaging protocol: Radiologic exam of the left shoulder. Views: 2 or more views. COMPARISON: CT CERVICAL SPINE WO CON 01/20/2025 10:41 PM FINDINGS: Bones/joints: Normal alignment on the Y-view. Suboptimal internal external rotation views. No fracture identified. Soft tissues: Normal. IMPRESSION: 1. Normal alignment on the Y-view. 2. Suboptimal internal external rotation views. Additional views may be helpful. 3. No fracture identified.
[2025-01-20 21:41] LABS: Chloride 105 mmol/L (98-107); Potassium 4.5 mmoL/L (3.5-5.1); Sodium 136 mmol/L (136-145)
[2025-01-20 21:44] LABS: Blood Urea Nitrogen 14 mg/dl (7-17); Creatine Kinase 45 U/L (30-135); Creatinine Clearance Estimated 56 mL/min (50-200); Estimated Glomerular Filt Rate 60 ml/min (>60); GFR (African American) 72 ML/MIN (>60)
[2025-01-20 21:45] LABS: Anion Gap 10.5 mEq/L (5-15); Calcium 9.7 mg/dl (8.4-10.2); Carbon Dioxide 25 mmol/L (22.0-30.0); Glucose 136 mg/dl (74-100)
[2025-01-20 22:24] LABS: HCG Qualitative, Serum Negative (Negative)
[2025-01-21] MEDS: OXYCODONE 5MG IMMEDIATE RELEASE TABLET 5 MG PO (00:19)
[2025-01-21 00:22] VITALS: BP 134/88; PULSE 71; RESP 16; TEMP 36.9; O2SAT 96
== END 2025-01-21 00:24 | disposition home or self-care (01) ==
PROVIDERS: Emergency Provider Emergency Medicine
DX: M79.602 Pain in left arm (principal); M25.512 Pain in left shoulder; M54.2 Cervicalgia; M79.7 Fibromyalgia
CPT/HCPCS: 20552; 72125; 73030; 80048; 82550; 84703; 85025; 93005; 96374; 99285; J1885

== ENCOUNTER 2025-01-24 07:02 | Outpatient (CLI) | payer OTHER, SELFPAY ==
--- NOTE | 2025-01-24 07:00 | MR_ITS ---
FINAL REPORT TECHNIQUE: Multiplanar MR without contrast CLINICAL HISTORY: Tremor, abnormal breathing. dizziness, headache, blurred vision FINDINGS: Diffusion sequences show no signal abnormality to indicate acute infarct. No mass, hemorrhage or edema is seen. Ventricles are normal. Major vascular flow voids are intact. IMPRESSION: Unremarkable MR of the brain without contrast Reviewed, Interpreted and Dictated by Mabel Andrews MD Transcribed by Bre Alexander Authenticated and [facility]
== END 2025-01-24 23:59 | disposition home or self-care (01) ==
LOC: RAD 07:03
PROVIDERS: PCP Nurse Practitioner; Visit Provider Specialist
DX: R25.1 Tremor, unspecified (principal); R25.9 Unspecified abnormal involuntary movements; R06.9 Unspecified abnormalities of breathing
CPT/HCPCS: 70551

== ENCOUNTER 2025-01-28 18:49 | Emergency (ER) | payer OTHER, SELFPAY ==
[2025-01-28 18:56] VITALS: BP 114/72; PULSE 88; RESP 18; TEMP 36.8; O2SAT 98; BMI 45.7
--- OUTSIDE RECORDS SUMMARY | 2025-01-28 19:05 | XMS_ITS | Data Portability ---
Author Organization [facility] Address [address] [place] [address] Assessment Encounter Date Assessment Date Assessment LastModified by Organization Details LastModified Time 01/25/2025 01/25/2025 This patient had intrathecal pump trial done today. We did assess her approximate 30 minutes to 1 hour after the trial. She had 90 to 100% relief in pain symptoms. She was much more functional. She is walking better and standing better. Will follow-up with her in 1 week we will evaluate efficacy of this trial. Will reevaluate her symptoms at that time. If successful plan on permanent placement with intrathecal morphine 1 mg/mL to start at 100 mcg/day. Catheter tip will be at the T8 vertebral body. abux Not available 01/25/2025 17:48:15 Plan of Treatment Reminders Order Date Submit Date Provider Last Modified By Organization Details Last Modified Time Details Appointments Follow Up 2024 11:40A M SENG DUKES Not available Not available Not available Lab None recorded . Referral None recorded . Procedures None recorded . Surgeries None recorded . Imaging None recorded . Medication Orders None recorded . Patient TargetsNo targets recorded. Patient Instructions Encounter Date Encounter Id Patient Instructions Last Modified By Organization Details Last Modified Time 01/25/2025 [id number] back pain: care instructions abux Not available 01/25/2025 17:48:22 learning about relief for back pain abux Not available 01/25/2025 17:48:22 Reason for Referral None Reported. Problems Name Problem SNOMED Code Status Onset Date Resolution Date Notes Provider Name and Address Organization Details Recorded Time Degeneration of lumbar intervertebral disc 97752912 Active 2024 Ramos Lemus MD [address] [facility] [address], [place], [address], APRIL - [facility] 17:48:18 Lumbar radiculopathy 891249062 Active 2024 Ramos Lemus MD [address] [facility],[address], [address], [place] - [facility] 17:48:19 Problem Notes None recorded. Procedures Surgical History Date Name Laterality Status Provider Name and Address Organization Details Recorded Time 01/26/20 Pain Pump Trial completed Ramos Lemus MD [address] [facility],[address] [address], [place], [address], [place] - [facility] 01/25/2025 17:47:26 lumpectomy of breast completed JOSE MCCABES [place] - [facility] 01/23/2025 07:20:59 cholecystectomy completed JOSE DAVIDSON [place] - [facility] 01/23/2025 07:21:05 endometrial ablation completed JOSE DAVIDSON [place] - [facility] 01/23/2025 07:21:14 operation on mandible completed JOSE MCCABES [place] - [facility] 01/23/2025 07:21:29 arthroplasty of knee completed JOSE DAVIDSON [place] - [facility] 01/23/2025 07:22:09 Imaging Results None recorded. Procedure Notes None recorded. Medical Equipment None Reported. Allergies Allergen ID Allergen Name Allergen Category Reaction Reaction Severity Criticality Documentation Date Start Date Code Code System Note Provider Name and Address Organization Details Recorded Time 7165 aspirin medicatio n Not available Not available Not available 01/22/2025 1191 RxNorm JOSE DAVIDSON null, [place] - [facility] 07:28:31 7166 Mastisol Liquid Adhesive medicatio n Not available Not available Not available 01/22/2025 [id number] UNK JOSE DAVIDSON null, [place] - [facility] 07:28:58 Medications Name Sig Start Date Stop Date Status Note LastModified by Organization Details LastModified Time PUMP TRIAL MED Dispense 1 ml to use during intrathec al trial 2024 active Not Available Not Available Not Avai lable losartan 50 mg tablet TAKE 1 TABLET BY MOUTH ONCE A DAY active Not Available Not Available No t Available quetiapine 25 mg tablet TAKE 1/2 TO 1 TABLET BY MOUTH EVERY DAY active Not Available Not Available No t Available fluoxetine 40 mg capsule TAKE 1 CAPSULE BY MOUTH ONCE A DAY active Not Available Not Available No t Available cyclobenzap rine 10 mg tablet 01/23 completed Not Available Not Available Not Available amoxicillin 500 mg capsule 01/23 completed Not Available Not Available Not Available metformin 500 mg tablet TAKE 1 TABLET BY MOUTH ONCE A DAY WITH FOOD active Not Available Not Available No t Available promethazin e-DM 6.25 mg-15 mg/5 mL oral syrup TAKE 5 ML BY MOUTH EVERY 6 HOURS FOR 7 DAYS active Not Available Not Available No t Available nystatin 100,000 unit/mL oral suspension active Not Available Not Available N ot Available carvedilol 6.25 mg tablet TAKE 1 TABLET BY MOUTH TWICE DAILY WITH FOOD active Not Available Not Available No t Available atorvastati n 20 mg tablet TAKE 1 TABLET BY MOUTH ONCE A DAY active Not Available Not Available No t Available triazolam 0.25 mg tablet 01/23 completed Not Available Not Available Not Available ibuprofen 800 mg tablet active Not Available Not Available Not Available Lidocaine Viscous 2 % mucosal solution active Not Available Not Available Not Available tizanidine 4 mg tablet TAKE 1 TABLET BY MOUTH EVERY 8 HOURS FOR 10 DAYS active Not Available Not Available No t Available hydrocodone 5 mg-acetamin ophen 325 mg tablet active Not Available Not Available No t Available phenazopyri dine 200 mg tablet TAKE 1 TABLET BY MOUTH THREE TIMES DAILY AFTER meals FOR 2 DAYS active Not Available Not Available No t Available ondansetron HCl 4 mg tablet active Not Available Not Available Not Available prednisone 20 mg tablet TAKE 2 TABLETS BY MOUTH ONCE A DAY FOR 6 DAYS 01/23 completed Not Available Not Available Not Available metronidazo le 500 mg tablet TAKE 1 TABLET BY MOUTH THREE TIMES DAILY FOR 10 DAYS active Not Available Not Available No t Available ciprofloxac in 500 mg tablet 01/23 completed Not Available Not Available Not Available sulfamethox azole 800 mg-trimetho prim 160 mg tablet 01/23 completed Not Available Not Available Not Available ondansetron 8 mg disintegrat ing tablet DISSOLVE 1 TABLET ON THE TONGUE THREE TIMES DAILY NEEDED active Not Available Not Available No t Available lamotrigine 25 mg tablet TAKE 3 TABLETS BY MOUTH EVERY DAY FOR 2 WEEKS THEN INCREASE TO 4 TABLETS BY MOUTH EVERY DAY FOR 2 WEEKS active Not Available Not Available No t Available dexamethaso ne 0.5 mg/5 mL oral solution active Not Available Not Available Not Available levothyroxi ne 100 mcg tablet TAKE 1 TABLET BY MOUTH EVERY MORNING ON AN EMPTY STOMACH active Not Available Not Available No t Available amitriptyli ne 25 mg tablet active Not Available Not Available Not Available methocarbam ol 750 mg tablet active Not Available Not Available Not Available trazodone 100 mg tablet 01/23 completed Not Available Not Available Not Available OneTouch Ultra Test strips USE ONCE A DAY active Not Available Not Available No t Available hydrocodone 7.5 mg-acetamin ophen 325 mg tablet active Not Available Not Available No t Available esomeprazol e magnesium 40 mg capsule,del ayed release TAKE 1 CAPSULE BY MOUTH ONCE A DAY active Not Available Not Available No t Available triamcinolo ne acetonide 55 mcg nasal spray aerosol active Not Available Not Available Not Available lidocaine 5 % topical patch active Not Available Not Available Not Available docusate sodium 100 mg capsule active Not Available Not Available N ot Available montelukast 10 mg tablet TAKE 1 TABLET BY MOUTH ONCE A DAY active Not Available Not Available No t Available mirtazapine 15 mg tablet TAKE 1/2 TO 1 TABLET BY MOUTH ONCE A DAY active Not Available Not Available No t Available levofloxaci n 500 mg tablet TAKE 1 TABLET BY MOUTH ONCE A DAY FOR 10 DAYS active Not Available Not Available No t Available methylpredn isolone 4 mg tablets in a dose pack active Not Available Not Available Not Available albuterol sulfate HFA 90 mcg/actuati on aerosol inhaler INHALE 2 PUFFS BY MOUTH EVERY 4 HOURS active Not Available Not Available No t Available bromphenira mine-pseudo ephedrine-D M 2 mg-30 mg-10 mg/5 mL oral syrup active Not Available Not Available Not Available cefdinir 300 mg capsule TAKE 1 CAPSULE BY MOUTH TWICE DAILY FOR 7 DAYS 01/23 completed Not Available Not Available Not Available naproxen 500 mg tablet active Not Available Not Available Not Available amoxicillin 875 mg-potassiu m clavulanate 125 mg tablet 01/23 completed Not Available Not Available Not Available amoxicillin 500 mg-potassiu m clavulanate 125 mg tablet 01/23 completed Not Available Not Available Not Available oxycodone 5 mg tablet TAKE ONE TABLET BY MOUTH EVERY 6 HOURS NEEDED FOR ACUTE PAIN active Not Available Not Available No t Available cyclobenzap rine 5 mg tablet TAKE 1 TABLET BY MOUTH AT BEDTIME NEEDED active Not Available Not Available No t Available topiramate 50 mg tablet TAKE 1 TABLET BY MOUTH AT bedtime FOR a WEEK THEN increase TO 2 TABLETS AT BEDTIME FOR HEADACHE AND tremor active Not Available Not Available No t Available nitrofurant oin monohydrate /macrocryst als 100 mg capsule TAKE 1 CAPSULE BY MOUTH EVERY TWELVE HOURS with food FOR 7 DAYS active Not Available Not Available No t Available Pain Relief Extra Strength (acetaminop hen) 500 mg tablet active Not Available Not Available Not Available chlorhexidi ne gluconate 0.12 % mouthwash 01/23 completed Not Available Not Available Not Available cholecalcif mckenzie (vitamin D3) 1,250 mcg (50,000 unit) capsule TAKE 1 CAPSULE BY MOUTH 2 TIMES WEEKLY active Not Available Not Available No t Available desvenlafax ine succinate ER 100 mg tablet,exte nded release 24 hr TAKE ONE TABLET BY MOUTH ONCE A DAY active Not Available Not Available No t Available Eye Itch Relief 0.025 % (0.035 %) drops active Not Available Not Available Not Available Victoza 2-Regan 0.6 mg/0.1 mL (18 mg/3 mL) subcutaneou s pen injector active Not Available Not Available Not Available Eliquis 2.5 mg tablet 01/25 completed Not Available Not Available Not Available BD Ultra-Fine Micro Pen Needle 32 gauge x /01/23 completed Not Available Not Available Not Available OneTouch Ultra2 Meter active Not Available Not Available Not Available OneTouch Delica Plus Lancet 33 gauge active Not Available Not Available Not Available Ubrelvy 100 mg tablet TAKE 1 TABLET BY MOUTH AT ONSET OF MIGRAINE. MAY REPEAT ONCE AFTER 2 HOURS IF NEEDED, MAX OF 2 IN 24 HOURS active Not Available Not Available No t Available Qulipta 60 mg tablet TAKE 1 TABLET BY MOUTH ONCE A DAY active Not Available Not Available No t Available Ozempic 0.25 mg or 0.5 mg (2 mg/3 mL) subcutaneou s pen injector INJECT 0.25 MG SUBCUTANE OUSLY ONCE WEEKLY active Not Available Not Available No t Available Vitals Date Recorded Body height Body mass index (BMI) Body weight Heart rate Oxygen saturation Oxygen saturation in Arterial blood by Pulse oximetry Systolic blood pressure Diastolic blood pressure Provider Name and Address Organization Details Last Updated DateTime 157.48 cm 50.3 kg/m2 291670. 9 g 88 /min 99 % 99 % 122 mm[Hg] 68 mm[Hg] JOSE CHEN - [facility] 11:23:05 Social History Question Answer Notes LastModified by [employer] Details LastModified Time Tobacco Smoking Status Former Smoker Quit 2002 JOSE [place], [place] - [facility] 01/23/2025 07:22:37 In The 14 Days Before Symptom Onset, Have You Had Close Contact With A Laboratory-confirm ed COVID-19 While That Case Was Ill? No [email or web address] Information n ot available 01/23/2025 In The 14 Days Before Symptom Onset, Have You Had Close Contact With A Person Who Is Under Investigation For COVID-19 While That Person Was Ill? No [email or web address] Information not available 01/23/2025 Have You Been To An Area Known To Be High Risk For COVID-19? No [email or web address] Information not available 01/23/2025 How Much Tobacco Do You Smoke? 1 PPD [email or web address] Information not available 01/23/2025 Sex: Unknown Functional Status Question Answer Note LastModified by [employer] Details LastModified Time Do you use any illicit or recreational drugs? No [email or web address] Information not available 01/23/2025 Do you or have you ever used any other forms of tobacco or nicotine? No [email or web address] Information not available 01/23/2025 What is your level of alcohol consumption? None [email or web address] Information not available 01/23/2025 Mental Status None recorded. Family History Nothing Reported. Medical History Condition Response Coronary Artery Disease N Gout N Hernia N Head Trauma/Injury N Depression N COPD N Anxiety Disorder N Arthritis Y Acid Reflux (GERD) N Cancer N Stroke N Back Injury N High Cholesterol Y Liver Disease N Headaches Y Fibromyalgia N Kidney Disease N Thyroid Problems Y Anemia N Heart Attack ([place]) N Ulcers N Diabetes Y Bleeding Disorder N Tuberculosis N AIDS/HIV N Asthma Y Substance Abuse N Hepatitis N Heart Disease N Hypertension Y Osteoporosis N Gynecological HistoryNo gynecological history recorded. Obstetrics History GPAL:G 0 P 0 0 0 0 Past Encounters Encounter ID Performer Location Encounter Start Date Encounter Closed Date Diagnosis/Indication Diagnosis SNOMED-CT Code Diagnosis ICD10 Code Diagnosis Note [id number] Ramos Lemus MD [place] [facility] [facility] [address] [place] [address] 01/25/2025 11:16:33 01/25/2025 12:51:26 Degeneration of lumbar intervertebral disc 42194145 M51.369 Lumbar radiculopathy 128 062247 M54.16 Health Concerns Section Related Observation LastModified by Organization Detai ls LastModified Time None Recorded Concern Status LastModified by Organization Details LastModified Time None Recorded Advance Directives Directive None Recorded Payers Encounter Date Sequence Insurance Name Policy Number Policy Worley Covered Member ID Worley Member ID Guarantor Name 01/25/2025 1 [facility] (MEDICAID HMO) Enriqueta Riddle [id number] Enriqueta Riddle Notes Date Note Type Note Provider Name and Address Organization Details Recorded Time 01/25/2025 text/html Back PainReporte d bypatient.Location: lumbar;pain radiating to the buttocks;pain radiating to the legs Quality:sharp;tingl ing;stiffness;achin g;burning;throbbing ;constant Severity:worsening Duration:chronic Context:trauma Alleviating Factors:relieved by changing position Aggravating Factors:movement/po sitioning; twisting; flexing back; extending back; worse at night; lifting; housework; walking; standing; sitting Associated Symptoms:no fever; no incontinence; no shortness of breath; no unintentional weight loss; no chills; no night sweats; no bowel/bladder symptoms; no recent increase in stress;weak limbs;numbness of the legs/feet;tingling; gait instability Prior Imaging:MRI Ramos Lemus MD [address] [facility] [address], [address], [place] - [facility] 01/25/2025 17:48:31 OBGyn Episode No OBEpisode recorded.
--- OUTSIDE RECORDS SUMMARY | 2025-01-28 19:05 | XMS_ITS | Continuity of Care Document ---
Author Organization APRIL - [facility] Address [address] [place] [address] Assessment Encounter Date Assessment Date Assessment LastModified [...] By Organization Details Last Modified Time 01/25/2025 [id number] back pain: care instructions abux Not available 01/25/2025 17:48:22 learning about relief for back pain abux Not available 01/25/2025 17:48:22 Reason for Referral None Reported. Problems Name Problem SNOMED Code Status Onset Date Resolution Date Notes Provider Name and Address Organization Details Recorded Time Degeneration of lumbar intervertebral disc 12035798 Active 2024 Ramos Lemus MD [address] [facility] [address], [place], [address] , [place] - [facility] 17:48:18 Lumbar radiculopathy 586405593 Active 2024 aRmos Lemus MD [address], [address], [place] - [facility] 17:48:19 Problem Notes None recorded. Procedures Surgical History Date Name Laterality Status Provider Name and Address Organization Details Recorded Time 01/26/20 Pain Pump Trial completed Ramos Lemus MD [address] [facility],[address], [address], [place] - [facility] 01/25/2025 17:47:26 lumpectomy of breast completed JOSE DAVIDSON [place] - [facility] 01/23/2025 07:20:59 cholecystectomy completed JOSE MCCABES [place] - [facility] 01/23/2025 07:21:05 endometrial ablation completed JOSE DAVIDSON [place] - [facility] 01/23/2025 07:21:14 operation on mandible completed JOSE DAVIDSON [place] - [facility] 01/23/2025 07:21:29 [...] available Not available 01/22/2025 1191 RxNorm JOSE MCCABES null, [place] - [facility] 07:28:31 7166 Mastisol Liquid Adhesive medicatio n Not available Not available Not available 01/22/2025 [id number] UNK JOSE DAVID[place] null, [place] - [facility] [...] Ultra-Fine Micro Pen Needle 32 gauge x 1/4 01/23 completed Not Available Not Available Not [...] and Address Organization Details Last Updated DateTime 5 157.48 cm 50.3 kg/m2 606472. 9 g 88 /min 99 % 99 % 122 mm[Hg] 68 mm[Hg] JOSE DAVIDSON [place] - [facility] 11:23:05 Social History Question Answer Notes LastModified by [employer] Details LastModified Time Tobacco Smoking Status Former Smoker Quit 2002 JOSE ellis, [place] - [facility] 01/23/2025 07:22:37 In The 14 Days Before Symptom Onset, Have You Had Close Contact With A Laboratory-confirm ed COVID-19 While That Case Was Ill? No [email or web address] Information n ot available 01/23/2025 In The 14 Days Before Symptom Onset, Have You Had Close Contact With A Person Who Is Under Investigation For COVID-19 While That Person Was Ill? No Information not available 01/23/2025 Have You Been To An Area Known To Be High Risk For COVID-19? No [email or web address] Information not available 01/23/2025 How Much Tobacco Do You Smoke? 1 PPD [email or web address] Information not available 01/23/2025 Sex: Unknown Functional Status Question Answer Note LastModified by [employer] Details LastModified Time Do you use any illicit or recreational drugs? No [email or web address] Information not available 01/23/2025 Do you or have you ever used any other forms of tobacco or nicotine? No Information not available 01/23/2025 What is your level of alcohol consumption? None [email or web address] Information not available 01/23/2025 Mental Status None recorded. Family History Nothing Reported. Medical History Condition Response Coronary Artery Disease N Gout N Head Trauma/Injury N Depression N COPD N Anxiety Disorder N Arthritis Y Acid Reflux (GERD) N Cancer N Stroke N Headaches Y Fibromyalgia N Kidney Disease N Ulcers N Bleeding Disorder N Tuberculosis N AIDS/HIV N Asthma Y Substance Abuse N Hepatitis N Hernia N Back Injury N High Cholesterol Y Liver Disease N Thyroid Problems Y Anemia N Heart Attack ([place]) N Diabetes Y Heart Disease N Hypertension Y Osteoporosis N Gynecological HistoryNo gynecological history recorded. Obstetrics History GPAL:G 0 P 0 0 0 0 Past Encounters Encounter ID Performer Location Encounter Start Date Encounter Closed Date Diagnosis/Indication Diagnosis SNOMED-CT Code Diagnosis ICD10 Code Diagnosis Note [id number] Ramos Lemus MD [place] [id number] [facility] [address] [place] [address] 01/25/2025 11:16:33 01/25/2025 12:51:26 Degeneration of lumbar intervertebral disc 41226012 M51.369 Lumbar radiculopathy 128 385699 M54.16 Health Concerns Section Related Observation LastModified by Organization Detai ls LastModified Time None Recorded Concern Status LastModified by Organization Details LastModified Time None Recorded Payers Encounter Date Sequence Insurance Name Policy Number Policy Worley Covered Member ID Worley Member ID Guarantor Name 01/25/2025 1 [facility] (MEDICAID HMO) Enriqueta Riddle [id number] Enriqueta Riddle Notes Date Note Type Note [...] Prior Imaging:MRI Ramos Lemus MD [address] [facility] [address], [place], [address], [place] - [facility] 01/25/2025 17:48:31 OBGyn Episode No OBEpisode recorded.
--- NOTE | 2025-01-28 19:55 | ED_ITS ---
Discharge Plan Disposition Patient Disposition: Home, Self-Care Prescriptions Prescriptions: No Action Ozempic 0.25 mg or 0.5 mg (2 mg/3 mL) pen injector SQ Patient Comments: INJECT 0.25 MG SUBCUTANEOUSLY ONCE WEEKLY Ubrelvy 100 mg tablet 100 mg PO ONCE PRN Patient Comments: TAKE 1 TABLET BY MOUTH AT ONSET OF MIGRAINE. MAY REPEAT ONCE AFTER 2 HOURS IF NEEDED, MAX OF 2 IN 24 HOURS Qulipta 60 mg tablet 60 mg PO DAILY Patient Comments: TAKE 1 TABLET BY MOUTH ONCE A DAY metformin 500 mg tablet 500 mg PO DAILY Patient Comments: TAKE 1 TABLET BY MOUTH ONCE A DAY WITH FOOD atorvastatin 20 mg tablet 20 mg PO DAILY Patient Comments: TAKE 1 TABLET BY MOUTH ONCE A DAY albuterol sulfate 90 mcg/actuation HFA aerosol inhaler 2 inh inhalation Q4H PRN Patient Comments: INHALE 2 PUFFS BY MOUTH EVERY 4 HOURS amitriptyline 25 mg tablet 25 mg PO HS nystatin 100,000 unit/mL suspension 1,000,000 unit PO TID Qty: 30 1RF Rx Instructions: administer 1/2 of dose in each side of the mouth fluconazole [Diflucan] 100 mg tablet 100 mg PO DAILY Qty: 2 0RF famotidine 20 mg tablet See Rx Instructions .ROUTE .COMPLEX Qty: 180 3RF Dose Instruction: TAKE 2 TABLETS BY MOUTH EVERY DAY Rx Instructions: TAKE 2 TABLETS BY MOUTH EVERY DAY losartan 100 mg tablet 100 mg PO DAILY Qty: 90 3RF spironolactone 100 mg tablet 100 mg PO DAILY Qty: 90 3RF montelukast 10 mg tablet See Rx Instructions .ROUTE .COMPLEX Qty: 90 3RF Dose Instruction: TAKE ONE TABLET BY MOUTH EVERY NIGHT AT BEDTIME FOR ALLEGIES Rx Instructions: TAKE ONE TABLET BY MOUTH EVERY NIGHT AT BEDTIME FOR ALLEGIES levothyroxine 100 mcg tablet 100 mcg PO DAILY Qty: 90 0RF carvedilol 6.25 mg tablet 6.25 mg PO BID Qty: 180 0RF lamotrigine [Lamictal] 25 mg tablet 100 mg PO DAILY Qty: 98 0RF Rx Instructions: Take 3 tablets daily for 2 weeks, then increase to 4 tablets daily for 2 weeks. If you develop a rash, stop the medication and call the clinic. quetiapine [Seroquel] 25 mg tablet 12.5 - 25 mg PO DAILY Qty: 30 0RF mirtazapine 15 mg tablet See Rx Instructions .ROUTE .COMPLEX Qty: 30 2RF Dose Instruction: TAKE 1/2 TO 1 TABLET BY MOUTH ONCE A DAY Rx Instructions: TAKE 1/2 TO 1 TABLET BY MOUTH ONCE A DAY desvenlafaxine succinate 100 mg tablet extended release 24 hr See Rx Instructions .ROUTE .COMPLEX Qty: 30 2RF Dose Instruction: TAKE ONE TABLET BY MOUTH ONCE A DAY Rx Instructions: TAKE ONE TABLET BY MOUTH ONCE A DAY topiramate 50 mg tablet 50 mg PO HS MDD 100 mg Qty: 60 3RF Rx Instructions: 1 tab at night x 1 week then 2 tabs at night cetirizine 10 MG capsule 10 mg PO DAILY 30 Days Qty: 30 2RF lidocaine [Lidoderm] 5 % adhesive patch,medicated 1 patch topical DAILY Qty: 15 0RF Rx Instructions: leave on most painful area for up to 12 hrs naproxen 500 mg tablet 500 mg PO BID PRN (Reason: pain) Qty: 20 0RF methocarbamol 750 mg tablet 750 mg PO Q8H PRN (Reason: pain) Qty: 20 0RF lovastatin 20 MG tablet 20 mg PO HS Rx Instructions: TAKE ONE TABLET BY MOUTH EVERY NIGHT AT BEDTIME FOR CHOLESTEROL ondansetron 4 mg tablet,disintegrating 4 mg PO Q8H PRN (Reason: nausea and vomiting) 4 Days Qty: 12 0RF Referrals Follow up/Referrals: Paula Cruz APRN [Primary Care Provider] - See instructions Activity Restrictions/Add. Instructions Additional Instructions/Restrictions: Please follow-up with your pain team. If your symptoms continue or worsen, recommend following up where you had your procedure done so that they can perform a blood patch. Please return to the emergency department if you develop any new or worsening symptoms or become concerned for your health. Clinical Impressions Clinical Impression: Post-procedural headache Qualifiers: Encounter type: initial encounter Qualified Code(s): T81.89XA - Other complications of procedures, not elsewhere classified, initial encounter Instructions Patient Instructions: DI for Neck Pain Print Language Print Language: Lithuanian Discharge ED Provider: Bimal Galvin Adult HPI General Chief complaint: Neck Pain/Injury Stated complaint: Headache; Neck Pain and Up; Can't stand up Time Seen by Provider: 01/28/25 19:55 Mode of Arrival: Ambulatory Source of Information: Patient and Relative Description of Symptoms (Recalled from ER Triage Doc. by RN): Pt presents with c/o neck pain, light sensitivity, and unable to move her neck after having a fentanyl shot done to her neck by Dr. Noland on in [place] History of Present Illness HPI narrative: The patient presents to the Emergency Department with severe headache, neck pain, and associated symptoms following a spinal injection procedure performed four days ago. The patient has a history of migraines and headaches. The patient underwent a trial injection procedure with Dr. Lemus at [facility] for a potential pain pump implantation on . The injection, described as fentanyl, was administered in the lower back, specifically in the spine. Shortly after the procedure, approximately an hour later, the patient experienced visual disturbances, requiring assistance to navigate. By afternoon, the patient developed a headache that progressively worsened into a migraine. The pain then spread to involve the neck and entire head, persisting since the procedure. The patient describes the pain as excruciating, stating she can't stand up or hold my head up without being in excruciating pain. The headache is reportedly worse than her usual migraines. Lying down provides some relief, particularly when lying on one side. Today, the patient has developed new symptoms including vomiting and diarrhea. She also reports sweating episodes alternating with feeling cold, suggesting possible chills. The patient mentions decreased urinary output and difficulty eating or drinking. The patient's symptoms have significantly impacted her daily functioning. She required assistance while shopping at [employer] due to visual disturbances and difficulty moving independently. The severity of the headache has remained consistently high since its onset. The patient has a medical history of chronic pain requiring consideration for intrathecal pain pump. Her surgical history includes the trial injection for intrathecal pain pump on (5 days ago). The only medication mentioned is fentanyl, administered via spinal injection on , which helped with pain a little. Associated symptoms include fever, chills, sweating, blurry vision, vomiting, diarrhea, and decreased urination. The patient reports inability to stand or hold her head up due to pain. Please note that above description of symptoms, in this electronic medical record under categorization of recalled from ER triage doctor by RN are reflective of an initial nursing assessment, however, is not reflective of my full history and physical exam that was personally taken and clarified. Consequentially, this preceding description of symptoms, which may include the patient's categorized chief complaint in the EMR, do not reflect my personal clinical impression, and the ultimate description of history of present illness and patient stated complaints should be deferred to this section of the note. Unless stated otherwise or congruent with this section of the note, additional signs, symptoms, or incongruence should be interpreted as inaccurate with my clinical impression. Related Data Home Medications ?Medication ?Instructions ?Recorded ?Confirmed lovastatin 20 mg tablet 20 mg PO HS Cholesterol 07/12/19 01/16/25 albuterol sulfate 90 mcg/actuation 2 inh inhalation Q4H PRN 01/16/25 01/16/25 aerosol inhaler amitriptyline 25 mg tablet 25 mg PO HS 01/16/25 01/16/25 atogepant 60 mg tablet (Qulipta) 60 mg PO DAILY 01/16/25 01/16/25 atorvastatin 20 mg tablet 20 mg PO DAILY 01/16/25 01/16/25 metformin 500 mg tablet 500 mg PO DAILY 01/16/25 01/16/25 semaglutide 0.25 mg or 0.5 mg (2 mg SQ 01/16/25 01/16/25 mg/3 mL) subcutaneous pen injector (Ozempic) ubrogepant 100 mg tablet (Ubrelvy) 100 mg PO ONCE PRN 01/16/25 01/16/25 Previous Rx's ?Medication ?Instructions ?Recorded cetirizine 10 mg capsule 10 mg PO DAILY 30 days #30 caps 11/16/19 famotidine 20 mg tablet See Rx Instructions .Route 09/09/20 .COMPLEX #180 tabs losartan 100 mg tablet 100 mg PO DAILY #90 tabs 09/19/20 spironolactone 100 mg tablet 100 mg PO DAILY BLOOD PRESSURE #90 12/04/20 tabs montelukast 10 mg tablet See Rx Instructions .Route 12/05/20 .COMPLEX #90 tabs carvedilol 6.25 mg tablet 6.25 mg PO BID #180 tabs 03/18/21 levothyroxine 100 mcg tablet 100 mcg PO DAILY #90 tabs 03/18/21 lidocaine 5 % topical patch 1 patch topical DAILY #15 ea 10/01/23 (Lidoderm) methocarbamol 750 mg tablet 750 mg PO Q8H PRN pain #20 tabs 10/01/23 naproxen 500 mg tablet 500 mg PO BID PRN pain #20 tabs 10/01/23 ondansetron 4 mg disintegrating 4 mg PO Q8H PRN nausea and 08/30/24 tablet vomiting 4 days #12 tabs fluconazole 100 mg tablet 100 mg PO DAILY #2 tabs 11/15/24 (Diflucan) nystatin 100,000 unit/mL oral 1,000,000 unit (10 mL) PO TID #30 11/15/24 suspension mL lamotrigine 25 mg tablet (Lamictal) 100 mg (4 x 25 mg) PO DAILY #98 12/01/24 tabs quetiapine 25 mg tablet (Seroquel) 12.5 - 25 mg (0.5 - 1 x 25 mg) PO 12/01/24 DAILY #30 tabs desvenlafaxine succinate 100 mg See Rx Instructions .Route 01/17/25 tablet,extended release 24 hr .COMPLEX #30 tabs mirtazapine 15 mg tablet See Rx Instructions .Route 01/17/25 .COMPLEX #30 tabs topiramate 50 mg tablet 50 mg PO HS Headache, tremor #60 01/18/25 tabs Allergies Allergy/AdvReac Type Severity Reaction Status Date / Time mold (MOLD) Allergy Severe Anaphylaxis Verified 01/16/25 11:12 Fish Containing Products Allergy Intermediate I-HIVES Verified 01/16/25 11:12 (From SEAFOOD (F/D)) banana Allergy Mild Nausea Verified 01/16/25 11:12 cat dander Allergy Mild Sneezing Verified 01/16/25 11:12 aspirin (ASPIRIN) AdvReac Mild NA-NAUSEA/V Verified 01/16/25 11:12 OMITING From SEAFOOD (F/D) Allergy Intermediate I-HIVES Uncoded 11/15/24 13:12 MUSHROOM Allergy Intermediate I-HIVES Uncoded 11/15/24 13:12 [facility] Disclaimer: The information contained in this section may have been updated after the patient was seen, as this information can be updated by other users. Medical History (Updated 01/28/25 @ 23:42 by Chon Mo MD) History of thyroid disease History of migraine Abnormal movement Snoring Sleep-disordered breathing MICHELLE (obstructive sleep apnea) Thyroid disorder Lupus IBS (irritable bowel syndrome) HTN (hypertension) GERD (gastroesophageal reflux disease) Diabetes History of frequent headaches Bipolar 1 disorder Asthma Arthritis Anxiety Seasonal allergies Insomnia Major depressive disorder Surgical History (Updated 01/16/25 @ 11:32 by Luisana Hester) History of knee replacement Hx of cholecystectomy History of bladder surgery Family History (Updated 01/16/25 @ 12:32 by Luisana Hester) Other Alcoholism Anemia Arthritis Asthma Breast cancer Cancer Depression Diabetes FHx: mental illness Heart attack Heart disease Hyperlipidemia Hypertension Lung cancer Migraines Osteoporosis Stroke Thyroid disorder Social History (Updated 01/16/25 @ 11:34 by Luisana Hester) Smoking Status: Never smoker smoking status stop date: 2002 second hand exposure: Yes (occasionally) alcohol intake: never substance use type: denies use current occupational status: unemployed Travel in the last 8 weeks?: None household members: spouse and children housing: house marital status: number of children: 1 caffeine: Yes physical activity: none Have you lived/traveled outside [place] in past 30 days?: No Contact w/someone who lives/traveled outside US past 30 days?: No Exposure to someone with infectious disease in past 14 days?: No Do you have a fever (greater than 100.4 F or 38 C)?: No Have you tested positive for COVID-19?: No Exposed to someone with COVID-19 in past 14 days?: No Do you have a sore throat?: No Do you have a cough?: No Do you have any weakness?: No Do you have any diarrhea?: No Are you experiencing any unusual bleeding?: No Do you have any muscle aches/pain?: No Do you have any abdominal pain?: No Are you experiencing loss of taste or smell?: No Other Medical History Have you received the Flu Vaccine for this season: No Have you received the Pneumonia Vaccine: No ROS Obtained: Yes other As per HPI Physical Exam General General appearance: alert and in no apparent distress Head Head exam: atraumatic and normocephalic Eye Eye exam: Present normal appearance Neck Neck exam: Present normal inspection Chest Chest inspection: Present normal inspection and symmetric chest wall rise Respiratory Respiratory exam: Present normal lung sounds bilaterally; Absent respiratory distress Cardiovascular Cardiovascular exam: Present regular rate and normal rhythm Abdominal Exam Abdominal exam: Present soft Neurological Exam Neurological exam: Present alert and oriented X3 Psychiatric Psychiatric exam: Present normal affect and normal mood Skin Skin exam: Present warm and dry Other Other exam information: No cranial nerve deficit, paraspinal tenderness to palpation with range of motion of the neck. Afebrile, nontoxic-appearing, no altered mentation. Medical Decision Making Medical Records Medical records reviewed: Yes I reviewed the patient's medical records. Screening: Per USPSTF and CDC recommendations, given the prevalence of disease in our region, it is our hospital?s policy to screen for HIV and viral Hepatitis for all patients aged 18 and over and those with ongoing risk factors. Mukesh Inquiry Pt receiving controlled substance: No Vital Signs: 01/28/25 18:56 01/28/25 21:11 01/28/25 21:31 Temperature 98.3 F Temperature Source Oral Pulse Rate 79 68 Pulse Rate [Right] 88 Respiratory Rate 18 Blood Pressure 129/68 120/47 L Blood Pressure [Right Arm] 114/72 Blood Pressure Mean [Right Arm] 86 Blood Pressure Source [Right Arm] Automatic Cuff Blood Pressure Position Blood Pressure Position [Right Arm] Sitting 02 Sat by Pulse Oximetry 98 100 99 Oxygen Delivery Method Room Air 01/28/25 22:00 01/28/25 22:31 01/28/25 23:49 Temperature 98.1 F Temperature Source Oral Pulse Rate 72 73 73 Pulse Rate [Right] Respiratory Rate 18 Blood Pressure 132/75 119/72 122/61 Blood Pressure [Right Arm] Blood Pressure Mean [Right Arm] Blood Pressure Source [Right Arm] Blood Pressure Position Sitting Blood Pressure Position [Right Arm] 02 Sat by Pulse Oximetry 98 97 Oxygen Delivery Method Room Air Lab Data Lab Results 01/28/25 20:45: WBC 6.7, RBC 4.45, Hgb 13.0, Hct 40.4, MCV 90.8, MCH 29.2, MCHC 32.2, RDW 13.7, Plt Count 293, MPV 10.5 H, Neut % (Auto) 62.0, Lymph % (Auto) 28.8, [place] % (Auto) 7.9, Eos % (Auto) 0.4, Baso % (Auto) 0.3, Neut # (Auto) 4.2, Lymph # (Auto) 1.9, [place] # (Auto) 0.5, Eos # (Auto) 0.0, Baso # (Auto) 0.0, ESR 18, Sodium 139, Potassium 4.0, Chloride 108 H, Carbon Dioxide 24, Anion Gap 11.0, BUN 17, Creatinine 1.00, Estimated Creat Clear 55, Estimated GFR 59, Est GFR ( Amer) 72, Glucose 115 H, Calcium 9.1, Total Bilirubin 0.5, AST 40 H , ALT 48, Alkaline Phosphatase 57, C-Reactive Protein 0.4, Total Protein 6.7, Albumin 4.2, Globulin 2.5, Albumin/Globulin Ratio 1.7, Procalcitonin 0.047 01/28/25 20:45 01/28/25 20:45 Orders (Tests/Meds): ED MEDICATIONS Discontinued Medications Generic Name Dose Route Start Last Admin Trade Name Freq PRN Reason Stop Dose Admin Acetaminophen/Butalbital/Caffeine 1 each 01/28/25 23:11 01/28/25 23:24 Butalb/Acetaminophen/Caffeine 50mg/325mg/40mg Tab PO 01/28/25 23:12 1 each Q6HP ONE Administration Diphenhydramine HCl 25 mg 01/28/25 20:14 01/28/25 20:57 Diphenhydramine 50mg/Ml Vial IV 01/28/25 20:15 25 mg ONCE ONE Administration Lactated Ringer's 1,000 mls @ 999 mls/hr 01/28/25 20:14 01/28/25 20:58 Lactated Ringer's 1000 Ml Bag IV 01/28/25 21:14 999 mls/hr .Q1H1M ONE Administration Magnesium Sulfate 2 gm in 50 mls @ 50 mls/hr 01/28/25 20:14 01/28/25 20:57 Magnesium Sulfate 2gm/50ml Premix IV 01/28/25 21:13 50 mls/hr ONCE ONE Administration Ketorolac Tromethamine 15 mg 01/28/25 20:14 01/28/25 20:58 Ketorolac 30mg/Ml Vial IV 01/28/25 20:15 15 mg ONCE ONE Administration Prochlorperazine Edisylate 10 mg 01/28/25 20:14 01/28/25 20:58 Prochlorperazine 10mg/2ml Vial IM 01/28/25 20:15 10 mg ONCE ONE Administration ORDERS Category Date Time Status CT head/brain wo con Stat Cat Scan 01/28/25 20:14 Completed CBC w/Auto Diff [Complete Blood Count Auto Diff] Stat Lab 01/28/25 20:45 Completed CMP [Comprehensive Metabolic Panel] Stat Lab 01/28/25 20:45 Completed CRP [C-Reactive Protein] Stat Lab 01/28/25 20:45 Completed ESR [Erythrocyte Sedimentation Rate] Stat Lab 01/28/25 20:45 Completed Procalcitonin Stat Lab 01/28/25 20:45 Completed Blood Culture Stat Micro 01/28/25 20:50 Results Medical Decision Narrative: Patient with history and exam per above presenting for evaluation of headache, reported chills, generalized weakness Diagnoses considered include postprocedural possible post lumbar puncture headache, meningitis, migraine, among others ED workup and treatment included: ED MEDICATIONS Discontinued Medications Generic Name Dose Route Start Last Admin Trade Name Freq PRN Reason Stop Dose Admin Acetaminophen/Butalbital/Caffeine 1 each 01/28/25 23:11 01/28/25 23:24 Butalb/Acetaminophen/Caffeine 50mg/325mg/40mg Tab PO 01/28/25 23:12 1 each Q6HP ONE Administration Diphenhydramine HCl 25 mg 01/28/25 20:14 01/28/25 20:57 Diphenhydramine 50mg/Ml Vial IV 01/28/25 20:15 25 mg ONCE ONE Administration Lactated Ringer's 1,000 mls @ 999 mls/hr 01/28/25 20:14 01/28/25 20:58 Lactated Ringer's 1000 Ml Bag IV 01/28/25 21:14 999 mls/hr .Q1H1M ONE Administration Magnesium Sulfate 2 gm in 50 mls @ 50 mls/hr 01/28/25 20:14 01/28/25 20:57 Magnesium Sulfate 2gm/50ml Premix IV 01/28/25 21:13 50 mls/hr ONCE ONE Administration Ketorolac Tromethamine 15 mg 01/28/25 20:14 01/28/25 20:58 Ketorolac 30mg/Ml Vial IV 01/28/25 20:15 15 mg ONCE ONE Administration Prochlorperazine Edisylate 10 mg 01/28/25 20:14 01/28/25 20:58 Prochlorperazine 10mg/2ml Vial IM 01/28/25 20:15 10 mg ONCE ONE Administration ORDERS Category Date Time Status CT head/brain wo con Stat Cat Scan 01/28/25 20:14 Completed CBC w/Auto Diff [Complete Blood Count Auto Diff] Stat Lab 01/28/25 20:45 Completed CMP [Comprehensive Metabolic Panel] Stat Lab 01/28/25 20:45 Completed CRP [C-Reactive Protein] Stat Lab 01/28/25 20:45 Completed ESR [Erythrocyte Sedimentation Rate] Stat Lab 01/28/25 20:45 Completed Procalcitonin Stat Lab 01/28/25 20:45 Completed Blood Culture Stat Micro 01/28/25 20:50 Results Labs were independently interpreted by me, significant for no leukocytosis, inflammatory markers within normal limits, Imaging was independently visualized and interpreted by me, significant for no acute findings Please refer to radiology report for full details. Patient does report continued pain upon repeat evaluation after initial treatment. I discussed with the patient that definitive rule out for infectious precipitant such as meningitis would require lumbar puncture. If she is experiencing a post LP headache she may benefit from autologous blood patch. Caffeine was not administered as patient presented late at night. After shared decision making supraorbital nerve block and trigger point injection were performed with moderate improvement of symptoms. Patient was able to ambulate without difficulty. She is requesting to be discharged at this time. She will follow-up with proceduralist. Return precautions given. Procedures Nerve Block Nerve Block 1: Time out performed: Yes Local Anesthetic: bupivacaine 0.25% Amount of anesthesia used (mL): 10 Side: Left and Right Nerve Blocks: other (Supraorbital, as well as trigger point injection of right trapezius) Patient Tolerated Procedure: well and no complications Critical Care Critical Care Time Critical Care Time: No
--- NOTE | 2025-01-28 20:14 | CT_ITS ---
PROCEDURE INFORMATION: Exam: CT Head Without Contrast Exam date and time: 01/28/2025 8:57 PM Age: 45 years old Clinical indication: Other: Post lp REID TECHNIQUE: Imaging protocol: Computed tomography of the head without contrast. Radiation optimization: All CT scans at this facility use at least one of these dose optimization techniques: automated exposure control; mA and/or kV adjustment per patient size (includes targeted exams where dose is matched to clinical indication); or iterative reconstruction. COMPARISON: MR HEAD/BRAIN WO CON 01/24/2025 7:[address] head dated 07/12/2019 FINDINGS: Brain: Normal. Cerebral ventricles: No ventriculomegaly. Paranasal sinuses: Left maxillary sinus mucous retention cyst. Mastoid air cells: Normal as visualized. Bones: Unremarkable. No acute fracture. Soft tissues: Unremarkable. IMPRESSION: No acute intracranial abnormality.
--- NOTE | 2025-01-28 20:25 | PC.NURSE ---
medical receptionist at the bedside to obtain blood cultures at this time.
[2025-01-28] MEDS: diphenhydrAMINE 50MG/ML VIAL 25 MG IV (20:57)
[2025-01-28] MEDS: MAGNESIUM SULFATE IN WATER 2 GM/50 ML PIGGYBACK IV (20:57)
[2025-01-28] MEDS: LACTATED RINGERS 1000ML 1,000 ML 999 ML IV (20:58)
[2025-01-28] MEDS: PROCHLORPERAZINE 10MG/2ML VIAL 10 MG IM (20:58)
[2025-01-28] MEDS: KETOROLAC 30MG/ML VIAL 15 MG IV (20:58)
[2025-01-28 21:02] LABS: Basophils % 0.3 % (0.1-2.0); Eosinophils % 0.4 % (0.1-12.0); Hematocrit 40.4 % (37.0-47.0); Immature Granulocytes # 0.04 10^3uL; Immature Granulocytes % 0.6 %; Lymphocytes # 1.9 K/mm3 (0.7-4.5); Lymphocytes % 28.8 % (10-50); Mean Corpuscular HGB Conc 32.2 g/dL (31.8-35.4); Mean Corpuscular Hemoglobin 29.2 pg (27.0-31.2); Mean Corpuscular Volume 90.8 fl (81-99); Mean Platelet Volume 10.5 fl (7.4-10.4); Monocytes # 0.5 K/mm3 (0.1-1.0); Monocytes % 7.9 % (1.7-9.3); Neutrophils # 4.2 K/mm3 (1.8-7.8); Nucleated Red Blood Cells # 0 10^3/uL; Nucleated Red Blood Cells % 0 %; Platelet Count 293 K/mm3 (142-424); Red Blood Count 4.45 M/mm3 (4.20-5.40); Red Cell Distribution Width 13.7 % (11.5-17.5); Red Cell Distribution Width-SD 46.3 fL; White Blood Count 6.7 K/mm3 (4.8-10.8)
[2025-01-28 21:11] VITALS: BP 129/68; PULSE 79; O2SAT 100
[2025-01-28 21:13] LABS: Alanine Aminotransferase 48 U/L (12-78); Alkaline Phosphatase 57 U/L (38-126); Aspartate Amino Transferase 40 U/L (14-36); Bilirubin,Total 0.5 mg/dl (0.2-1.3); Calcium 9.1 mg/dl (8.4-10.2); Glucose 115 mg/dl (74-100)
[2025-01-28 21:14] LABS: Albumin Level 4.2 g/dl (3.5-5.0); Albumin/Globulin Ratio 1.7 (1.1-1.8); Blood Urea Nitrogen 17 mg/dl (7-17); Chloride 108 mmol/L (98-107); Creatinine Clearance Estimated 55 mL/min (50-200); Estimated Glomerular Filt Rate 59 ml/min (>60); GFR (African American) 72 ML/MIN (>60); Globulin 2.5 g/dL (1.3-3.2); Sodium 139 mmol/L (136-145); Total Protein,Serum 6.7 g/dl (6.3-8.2)
[2025-01-28 21:16] LABS: Carbon Dioxide 24 mmol/L (22.0-30.0)
[2025-01-28 21:17] LABS: C-Reactive Protein 0.4 mg/L (0-4)
[2025-01-28 21:31] VITALS: BP 120/47; PULSE 68; O2SAT 99
[2025-01-28 21:31] LABS: Erythrocyte Sedimentation Rate 18 mm/hr (0-20); Procalcitonin 0.047 ng/mL (0.0-2.0)
[2025-01-28 22:00] VITALS: BP 132/75; PULSE 72; O2SAT 98
[2025-01-28 22:31] VITALS: BP 119/72; PULSE 73; O2SAT 97
--- NOTE | 2025-01-28 23:17 | PC.NURSE ---
Provider at the bedside to perform nerve block. Pt aox4, NAD noted, RR even and non labored, skin pwd, CMS intact.
[2025-01-28] MEDS: BUTALB/ACETAMINOPHEN/CAFFEINE 50MG/325MG/40MG TAB 1 EACH PO (23:24)
[2025-01-28 23:49] VITALS: BP 122/61; PULSE 73; RESP 18; TEMP 36.7; O2SAT 98
--- NOTE | 2025-02-04 09:09 | PC.NURSE ---
Blood cultures completed, no growth through day 5. ntd
== END 2025-01-28 23:50 | disposition home or self-care (01) ==
PROVIDERS: Emergency Provider Emergency Medicine; PCP Nurse Practitioner
DX: R51.9 Headache, unspecified (principal); M54.2 Cervicalgia; T81.89XA Other complications of procedures, not elsewhere classified, initial encounter; Z98.890 Other specified postprocedural states
CPT/HCPCS: 70450; 80053; 84145; 85025; 85651; 86140; 87040; 96365; 96372; 96375; 99285; J0780; J1200; J1885; J2004; J3475; J7120

== ENCOUNTER → 2025-03-02 09:10 | Outpatient (CLI) | payer OTHER, SELFPAY ==
--- OUTSIDE RECORDS SUMMARY | 2025-03-02 09:13 | XMS_ITS | Clinical Summary ---
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 Role Phone Mook Hoang MD Primary Care Provider [phone] Family History Medical History Relation Name Comments Hypertension Father Thyroid disease Father Arthritis Mother Diabetes Mother Hypertension Mother Osteoporosis Mother Other cancer Mother Stroke Mother Thyroid disease Mother Relation Name Status Comments Father Mother Social History Tobacco Use Types Packs/Day Years Used Date Smoking Tobacco: Never Alcohol Use Standard Drinks/Week Comments No 0 (1 standard drink = 0.6 oz pur e alcohol) Comments Unknown Sex and Gender Information Value Date Recorded Sex Assigned at Not on file Legal Sex Female 8:40 PM EDT Gender Identity Not on file Sexual Orientation Not on file Last Filed Vital Signs Vital Sign Reading Time Taken Comments Blood Pressure 105/73 11/05/2017 2:05 PM EST Pulse 103 11/05/2017 2:05 PM EST Temperature 37.1 C (98.7 F) 11/05/2017 2:05 PM EST Respiratory Rate - - Oxygen Saturation - - Inhaled Oxygen Concentration - - Weight 122 kg (267 lb 15.9 oz) 11/05/2017 2:05 P M EST Height 160 cm (5' 3 ) 11/05/2017 2:05 PM EST Body Mass Index 47.47 11/05/2017 2:05 PM EST Plan of Treatment Health Maintenance Due Date Last Done Comments [facility]-Depression Screening 1978 [facility]-Infant/Child/Adol SDOH Screenings 1978 [facility]- SDOH Screenings 01/28/1996 [facility]-Adult SDOH Screenings 01/28/1996 [facility]-Hepatitis B Vaccines (1 of 3 - 19+ 3-dose series) 1997 [facility]-Pap Smear 1999 [facility]-Cervical Cancer Screening 01/28/2008 [facility]-HPV/Cotest 01/28/2008 [facility]-DTaP,Tdap,and Td Vaccine s (2 - Td or Tdap) 10/04/2022 10/04/2012 CT Colonography 2023 Colonoscopy 2023 FIT 2023 FOBT 2023 Sigmoidoscopy 2023 [id number] Vaccine ( - season) 2024 04/26/2021, 03/29/2021 [facility]-Influenza Vaccine ([place] n Ended) 2025 09/24/2017, 10/24/2015, 08/17/2014 FIT-DNA 01/09/2027 01/10/2024 [facility]-Colorectal Cancer Screening 01/09/2027 [facility]-Zoster Vaccines (1 of 2) 01/28/2028 [facility]-Pneumococcal Vaccine: Pediatrics (0 to 5 Years) and At-Risk Patients (6 to 49 Years) Aged Out 09/24/2017 No longer eligible b ased on patient's age to complete this topic [facility]-Hepatitis A Vaccines Aged Out 03/11/2021 No longer eligible based on patient's age to complete this topic HPV Vaccines Aged Out No longer eligi ble based on patient's age to complete this topic [facility]-HIB Vaccines Aged Out No longer e ligible based on patient's age to complete this topic [facility]-IPV Vaccines Aged Out No longer e ligible based on patient's age to complete this topic [facility]-Rotavirus Vaccines Aged Out No lo nger eligible based on patient's age to complete this topic Insurance [employer] [facility] MEDICAID Care 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
--- OUTSIDE RECORDS SUMMARY | 2025-03-02 09:13 | XMS_ITS | Continuity of Care Document ---
Author Organization [facility], [facility] New Address [address] [facility] [address] [place] [address] Assessment Encounter Date Assessment Date Assessment LastModified [...] Modified Time Details Appointments Follow Up 2024 11:30A M DEEDEE VYAS NP Not available Not available Not available Lab None recorded . Referral None recorded . Procedures None recorded . Surgeries None recorded . Imaging None recorded . Medication Orders None recorded . Patient TargetsNo targets recorded. Patient Instructions Encounter Date Encounter Id Patient Instructions Last Modified By Organization Details Last Modified Time 01/25/2025 [id number] back pain: care instructions abux Not available 01/25/2025 17:48:22 learning about relief for back pain abux Not available 01/25/2025 17:48:22 Reason for Referral None Reported. Problems Name Problem SNOMED Code Status Onset Date Resolution Date Notes Provider Name and Address Organization Details Recorded Time Degeneration of lumbar intervertebral disc 03000326 Active 2024 Ramos Lemus MD [address] [facility] [address], [address], [place] [facility] 17:48:18 Lumbar radiculopathy 759028236 Active 2024 Ramos Lemus MD [address] [facility],[address], [address], [place] [facility] 17:48:19 Problem Notes None recorded. Procedures Surgical History Date Name Laterality Status Provider Name and Address Organization Details Recorded Time 01/26/20 Pain Pump Trial completed Ramos Lemus MD [address] [facility],[place] [address], [place], [address], [place] [facility] 01/25/2025 17:47:26 lumpectomy of breast completed JOSECHARI MCCABES [place] - [facility] 01/23/2025 [...] Not available Not available Not available 01/22/2025 [id number] UNK JOSE DAVIDSON null, [place] [facility] [...] Not Available Not Available No t Available meclizine 25 mg tablet TAKE 1 TABLET BY MOUTH EVERY TWELVE HOURS FOR 14 DAYS` active Not Available Not Available No t [...] Updated DateTime 5 157.48 cm 50.3 kg/m2 038280. 9 g 88 /min 99 % 99 % 122 mm[Hg] 68 mm[Hg] JOSE DAVIDSON [place] [facility] 5 11:23:05 Social History Question Answer Notes LastModified by [employer] Details LastModified Time Tobacco Smoking Status Former Smoker Quit 2002 JOSE DAVIDSON null, [place] - [facility] 01/23/2025 07:22:37 In The 14 Days Before Symptom Onset, Have You Had Close Contact With A Laboratory-confirm ed COVID-19 While That Case Was Ill? No [email or web address] Information n ot available 01/23/2025 In The 14 Days Before Symptom Onset, Have You Had Close Contact With A Person Who Is Under Investigation For COVID-19 While That Person Was Ill? No [email or web address] Information not available 01/23/2025 Have You Been To An Area Known To Be High Risk For COVID-19? No [email or web address] Information not available 01/23/2025 How Much Tobacco Do You Smoke? 1 PPD [email or web address] Information not available 01/23/2025 Sex: Unknown Functional Status Question Answer Note LastModified by [employer] Details LastModified Time Do you use any illicit or recreational drugs? No [email or web address] Information not available 01/23/2025 Do you or have you ever used any other forms of tobacco or nicotine? No [email or web address] Information not available 01/23/2025 What is your level of alcohol consumption? None [email or web address] Information not available 01/23/2025 Mental Status None [...] Thyroid Problems Y Anemia N Heart Attack (OK) N Diabetes Y Heart Disease N Hypertension Y Osteoporosis N Gynecological HistoryNo gynecological history recorded. Obstetrics History GPAL:G 0 P 0 0 0 0 Past Encounters Encounter ID Performer Location Encounter Start Date Encounter Closed Date Diagnosis/Indication Diagnosis SNOMED-CT Code Diagnosis ICD10 Code Diagnosis Note [id number] Ramos Lemus MD [address] [place] [address] 01/25/2025 11:16:33 01/25/2025 12:51:26 Degeneration of lumbar intervertebral disc 13505411 M51.369 Lumbar radiculopathy 128 026639 M54.16 Health Concerns Section Related Observation LastModified by Organization Detai ls LastModified Time None Recorded Concern Status LastModified by Organization Details LastModified Time None Recorded Payers Encounter Date Sequence Insurance Name Policy Number Policy Worley Covered Member ID Worley Member ID Guarantor Name 01/25/2025 1 [facility] (MEDICAID HMO) Enriqueta Riddle [id number] Enriqueta Riddle Notes Date Note Type Note [...] Prior Imaging:MRI Ramos Lemus MD [address] [facility] [address], [place], [address], [place] [facility] 01/25/2025 17:48:31 OBGyn Episode No OBEpisode recorded.
== END ==
LOC: SL 09:10
PROVIDERS: PCP Specialist; Visit Provider Specialist
DX: G47.30 Sleep apnea, unspecified (principal); R06.83 Snoring
CPT/HCPCS: G0399